=== PATIENT | female | born 1935 | race Caucasian/White ===

== ENCOUNTER 2016-08-08 19:29 | Observation (INO) | payer OTHER ==
[~2016-08-08] VITALS: Ht 154.9 cm; Wt 75.4 kg
[~2016-08-08 19:29] MED LIST: ASPI81TA28 PO; CALCTAB7 PO; CHOL1TAB2 PO; FURO40TA3 PO; LISI40TA PO; PRAV40TA2 PO; TERA5CAP PO
--- NOTE | 2016-08-08 19:52 | EMERGENCY ROOM VISIT NOTE ---
History Report prepared by Angelo: Karla Palm Under the Supervision of: Dr. Stephen Borges M.D. First contact with patient: 19:36 Stated Complaint: CHEST PAIN History of Present Illness The patient is a 81 year old female who presents to the Emergency Room with complaints of intermittent chest pains for the past couple of days. She describes her pain as a pressure in her chest. Today her symptoms were worse and she was feeling short of breath with her pain. She reports that her stomach felt like it was "rolling around." The patient was brought to the ED by ambulance. She was given 4 aspirin and 1 nitro en route and states that her symptoms have completely resolved after the medication. The patient denies LOC, headache, abdominal pain, vomiting, palpations, back pain, urinary symptoms, diarrhea, and swelling in her legs. She has a personal history of a-fib and is on Coumadin. Her INR was checked 3 weeks ago. The patient has been recently treated for hypertension. Source of History: patient Onset: a couple of days ago Position: chest Quality: pressure Timing: intermittent Modifying Factors (Relieving): other (aspirin and nitro) Associated Symptoms: + SOB, No LOC, No abdominal pain, No back pain, No diarrhea, No headache, No urinary symptoms, No vomiting Review of Systems See HPI for pertinent positives & negatives. A total of 10 systems reviewed and were otherwise negative. Past Medical & Surgical Medical Problems: (1) Atrial fibrillation (2) Gout (3) Hyperlipidemia Nec/Nos (4) Hypertension Nos (5) PEDRITO on CPAP (6) Osteoporosis Nos Surgical Problems: (1) H/O: hysterectomy (2) History of cataract surgery (3) History of cholecystectomy (4) History of parathyroid surgery Family History No pertinent family history Social History Smoking Status: Never Smoker Marital Status: Housing Status: lives with significant other Occupation Status: retired Current/Historical Medications Scheduled Allopurinol (Allopurinol), 100 MG PO DAILY Aspirin (Aspirin Ec), 81 MG PO DAILY Calcium Carbonate-Vitamin D W/ (Caltrate 600 Plus), 1 TABLET PO DAILY Cholecalciferol (Vitamin D-3), 1,000 INTER.UNIT PO DAILY Hydralazine Hcl (Apresoline), 25 MG PO TID Lisinopril (Zestril), 40 MG PO DAILY Pravastatin Sodium (Pravastatin Sodium), 40 MG PO DAILY Terazosin (Hytrin), 5 MG PO HS Warfarin Sod (Jantoven), 5 MG PO 5XWK Warfarin Sodium (Warfarin Sodium), 2.5 MG PO 2XWK Scheduled PRN Hydroxyzine HCl (Hydroxyzine HCl), 25 MG PO DAILY PRN for prn Lorazepam (Lorazepam), 0.5 MG PO Q8 PRN for Anxiety Allergies Coded Allergies: Naproxen (Unverified Allergy, Mild, 08/08/16) Physical Exam Vital Signs Date Time Temp Pulse Resp B/P Pulse Ox O2 Delivery O2 Flow Rate FiO2 08/08/16 22:00 158/70 08/08/16 21:41 72 18 95 08/08/16 21:30 151/75 08/08/16 21:11 68 30 95 08/08/16 21:06 69 20 96 08/08/16 21:00 152/82 08/08/16 20:36 64 25 95 08/08/16 20:30 191/70 08/08/16 20:06 66 19 96 08/08/16 20:01 189/61 08/08/16 19:59 66 19 97 08/08/16 19:39 86 08/08/16 19:30 96 Room Air 08/08/16 19:29 97 Room Air 08/08/16 19:29 36.5 82 24 184/77 97 Room Air Physical Exam GENERAL: Patient is elderly appearing and in no acute distress. HEENT: No acute trauma, normocephalic atraumatic, mucous membranes moist, no nasal congestion, no scleral icterus. NECK: No stridor, no adenopathy, no meningismus, trachea is midline. LUNGS: No dyspnea. Clear to auscultation and equal bilaterally. No wheeze, no rhonchi. HEART: Regular rate and rhythm. No murmurs, rubs, gallops appreciated. ABDOMEN: Soft, nontender, bowel sounds positive, no masses appreciated, no peritonitis. BACK: No midline tenderness, no CVA tenderness EXTREMITIES: Normal motion all extremities, no cyanosis, no edema. NEUROLOGIC: Alert and oriented, no acute motor or sensory deficits, no focal weakness, cranial nerves grossly intact. SKIN: No rash, no jaundice, no diaphoresis. Medical Decision & Procedures ER Provider Diagnostic Interpretation: Radiology results and stated below per my review and radiologist interpretation: CHEST ONE VIEW PORTABLE CLINICAL HISTORY: Chest pain. COMPARISON STUDY: Chest radiograph August 23, 2014. FINDINGS: Lung volumes are normal. There is no pneumothorax or pleural effusion. There is no consolidation to suggest pneumonia. Mild cardiomegaly is unchanged. There is mild interstitial thickening which is likely chronic. There is no evidence of pulmonary edema. IMPRESSION: No acute findings. Stable mild cardiomegaly. Electronically signed by: Michi Grant M.D. 08/08/2016 8:12 PM Dictated Date/Time: 08/08/2016 8:11 PM Laboratory Results 08/08/16 19:11 Red Blood Count 4.16, Mean Corpuscular Volume 89.7, Mean Corpuscular Hemoglobin 30.8, Mean Corpuscular Hemoglobin Concent 34.3, Mean Platelet Volume 11.1, Neutrophils (%) (Auto) 49.3, Lymphocytes (%) (Auto) 35.7, Monocytes (%) (Auto) 11.4, Eosinophils (%) (Auto) 3.2, Basophils (%) (Auto) 0.3, Neutrophils # (Auto ) 3.49, Lymphocytes # (Auto) 2.53, Monocytes # (Auto) 0.81, Eosinophils # (Auto ) 0.23, Basophils # (Auto) 0.02 08/08/16 19:11 Test 08/08/16 19:11 08/08/16 20:45 White Blood Count 7.09 K/uL (4.8-10.8) Red Blood Count 4.16 M/uL (4.2-5.4) Hemoglobin 12.8 g/dL (12.0-16.0) Hematocrit 37.3 % (37-47) Mean Corpuscular Volume 89.7 fL (80-100) Mean Corpuscular Hemoglobin 30.8 pg (25-34) Mean Corpuscular Hemoglobin Concent 34.3 g/dl (32-36) Platelet Count 225 K/uL (130-400) Mean Platelet Volume 11.1 fL (7.4-10.4) Neutrophils (%) (Auto) 49.3 % Lymphocytes (%) (Auto) 35.7 % Monocytes (%) (Auto) 11.4 % Eosinophils (%) (Auto) 3.2 % Basophils (%) (Auto) 0.3 % Neutrophils # (Auto) 3.49 K/uL (1.4-6.5) Lymphocytes # (Auto) 2.53 K/uL (1.2-3.4) Monocytes # (Auto) 0.81 K/uL (0.11-0.59) Eosinophils # (Auto) 0.23 K/uL (0-0.5) Basophils # (Auto) 0.02 K/uL (0-0.2) RDW Standard Deviation 46.8 fL (36.4-46.3) RDW Coefficient of Variation 14.2 % (11.5-14.5) Immature Granulocyte % (Auto) 0.1 % Immature Granulocyte # (Auto) 0.01 K/uL (0.00-0.02) Prothrombin Time 16.1 SECONDS (9.0-12.0) Prothromb Time International Ratio 1.5 (0.9-1.1) Anion Gap 8.0 mmol/L (3-11) Est Creatinine Clear Calc Drug Dose 47.4 ml/min Estimated GFR () 74.0 Estimated GFR (Non- 63.8 BUN/Creatinine Ratio 23.9 (10-20) Calcium Level 9.5 mg/dl (8.5-10.1) Troponin I < 0.015 ng/ml (0-0.045) Urine Color YELLOW Urine Appearance CLEAR (CLEAR) Urine pH 6.0 (4.5-7.5) Urine Specific [place] 1.006 (1.000-1.030) Urine Protein NEG (NEG) Urine Glucose (UA) NEG (NEG) Urine Ketones NEG (NEG) Urine Occult Blood NEG (NEG) Urine Nitrite NEG (NEG) Urine Bilirubin NEG (NEG) Urine Urobilinogen NEG (NEG) Urine Leukocyte Esterase MODERATE (NEG) Urine WBC (Auto) 10-30 /hpf (0-5) Urine RBC (Auto) 0-4 /hpf (0-4) Urine Hyaline Casts (Auto) 0 /lpf (0-5) Urine Epithelial Cells (Auto) 10-20 /lpf (0-5) Urine Bacteria (Auto) NEG (NEG) Laboratory results as reviewed by me. Medications Administered Medications (Trade) Dose Ordered Sig/Padmaja Route Start Time Stop Time Status Last Admin Dose Admin Hydralazine HCl (HydrALAZINE INJ) 10 mg NOW STAT IV. 08/08/16 20:37 08/08/16 20:38 DC 08/08/16 20:43 10 MG Nitroglycerin (Nitroglycerin 2% Oint) 0.5 inch Q6H EXT 08/08/16 22:00 09/07/16 21:59 08/08/16 22:33 0.5 INCH ECG Indication: chest pain Rate (beats per minute): 76 Rhythm: sinus rhythm Findings: LBBB, no acute ischemic change, no ectopy Comparison ECG Date: 08/25/14 Change: no significant change ED Course 1937: The patient was evaluated in room B12B. A complete history and physical exam was performed. 2035: I reassessed the patient at this time. She is resting comfortably. Her systolic blood pressure is 190 and I will order Hydralazine. I discussed the results and treatment plan with the patient and her family. I answered all pertaining questions that they had. They expressed understanding and verbalized agreement. 2036: Hydralazine HCl 10 mg IV 2048: I paged the [facility] Hospitalist at this time. 2100: [facility] Medical Decision Differential: Cardiac Ischemia (STEMI, NSTEMI, Unstable Angina, etc), Aortic Dissection, Arrhythmia, Pulmonary Embolism, Pneumonia, Pneumothorax, MSK, Infectious, Pericarditis/Myocarditis, Esophageal Rupture, Gastrointestinal, amongst other pathologies entertained. 81 yr old female arrives with substernal chest pressure today that resolved with SLNTG and ASA by EMS. Initial trop ekg look OK. Hypertensive and given IV hydralazine. Labs look good otherwise. No evidence of PE/dissection. Will need further cardiac rule out/evaluation given age/risk factors. Impression Primary Impression: Substernal chest pain Additional Impression: Hypertensive urgency Scribe Attestation The scribe's documentation has been prepared under my direction and personally reviewed by me in its entirety. I confirm that the note above accurately reflects all work, treatment, procedures, and medical decision making performed by me. Departure Information Dispostion Being Evaluated By Hospitalist Joel Badillo MD (PCP) Problem Qualifiers
[2016-08-08 19:57] LABS: BASO % 0.3 %; BASO ABS # 0.02 K/uL (0-0.2); COMPLETE YES; EOS % 3.2 %; HEMATOCRIT 37.3 % (37-47); IG% 0.1 %; LYMPH % 35.7 %; LYMPH ABS # 2.53 K/uL (1.2-3.4); MEAN CELL VOLUME 89.7 fL (80-100); MEAN CORPUSCULAR HEMOGLOBIN 30.8 pg (25-34); MEAN CORPUSCULAR HGB CONC 34.3 g/dl (32-36); MEAN PLATELET VOLUME 11.1 fL (7.4-10.4); MONO % 11.4 %; NEUT % 49.3 %; PLATELET COUNT 225 K/uL (130-400); RED BLOOD COUNT 4.16 M/uL (4.2-5.4); WHITE BLOOD COUNT 7.09 K/uL (4.8-10.8)
[2016-08-08 20:07] LABS: BLOOD UREA NITROGEN 20 mg/dl (7-18); BUN/CREATININE RATIO 23.9 (10-20); CALCIUM 9.5 mg/dl (8.5-10.1); CARBON DIOXIDE 27 mmol/L (21-32); CHLORIDE 109 mmol/L (98-107); CREATININE 0.85 mg/dl (0.60-1.20); GLUCOSE 102 mg/dl (70-99); POTASSIUM 3.5 mmol/L (3.5-5.1); SODIUM 144 mmol/L (136-145)
[2016-08-08 20:09] LABS: INR 1.5 (0.9-1.1); PROTHROMBIN TIME (PATIENT) 16.1 SECONDS (9.0-12.0)
--- NOTE | 2016-08-08 20:14 | DIAGNOSTIC IMAGING REPORT ---
CHEST ONE VIEW PORTABLE CLINICAL HISTORY: Chest pain. COMPARISON STUDY: Chest radiograph August 23, 2014. FINDINGS: Lung volumes are normal. There is no pneumothorax or pleural effusion. There is no consolidation to suggest pneumonia. Mild cardiomegaly is unchanged. There is mild interstitial thickening which is likely chronic. There is no evidence of pulmonary edema. IMPRESSION: No acute findings. Stable mild cardiomegaly. Electronically signed by: Michi Grant M.D. 08/08/2016 8:12 PM Dictated Date/Time: 08/08/2016 8:11 PM
[2016-08-08] MEDS ORDERED: WARF-246 PO (20:22)
[2016-08-08] MEDS ORDERED: WARF5TAB7 PO (20:22)
[2016-08-08] MEDS ORDERED: LORA0.5T12 PO (20:22)
[2016-08-08] MEDS ORDERED: ATR25 PO (20:22)
[2016-08-08] MEDS ORDERED: APR25 PO (20:22)
[2016-08-08] MEDS ORDERED: HydrALAZINE HCL 20 MG/ML VIAL IV. STA (20:37)
[2016-08-08 21:08] LABS: URINE APPEARANCE CLEAR (CLEAR); URINE BILIRUBIN NEG (NEG); URINE COLOR YELLOW; URINE NITRITE NEG (NEG); URINE SPECIFIC GRAVITY 1.006 (1.000-1.030); UROBILINOGEN NEG (NEG); ZZUR CULT IF INDIC CLEAN CATCH YES
[2016-08-08 21:25] LABS: MANUAL MICROSCOPIC REQUIRED? NO; REVIEW REQ? NO
[2016-08-08] MEDS ORDERED: ONDANSETRON INJ 2 MG/ML 2 ML VIAL IV PRN (22:00)
[2016-08-08] MEDS ORDERED: HEPARIN SOD 5000 UNIT/0.5 ML CARP SQ SCH ×2 (22:00→23:00)
[2016-08-08] MEDS ORDERED: ACETAMINOPHEN 325 MG TAB PO PRN (22:00)
[2016-08-08] MEDS ORDERED: ALL100 PO (22:12)
[2016-08-08] MEDS ORDERED: hydrOXYzine HCL 25 MG TAB PO PRN (22:15)
[2016-08-08] MEDS ORDERED: LORAZEPAM 0.5 MG TAB PO PRN (22:15)
--- NOTE | 2016-08-08 22:31 | History and Physical ---
History & Physical Date & Time of Service: Aug 08, 2016 at 22:14 Chief Complaint: Chest Pain Primary Care Physician: Joel Helm MD History of Present Illness Source: patient, family, clinic records, hospital records Patient seen and examined. 81 year old female with PMHx of PAF on coumadin, HTN , HLD, and PEDRITO presents to the ED complaining of chest pain x several days. She states that she has been getting substernal chest pressure/tightness that she rates as an 8/10. She states it comes and goes at random but seems to be worse with activity. She has associated SOB and palpitations but states that they don' t feel irregular. She tried tylenol and ativan with minimal relief. Today she was cleaning her house and doing laundry so she called EMS. She denies fevers, chills, URI symptoms, nausea, vomiting, diarrhea, dysuria, calf pain and edema. Enroute patient received 4 baby aspirins and 1 nitro SL. She was symptoms free on arrival. In the ED patient was hypertensive with SBP in the 190s. Augusto were negative x 1, EKG showed LBBB which was also noted on 2014 EKG. She received Hydralazine IV and BP has improved. She will be observed for further workup and treatment. Past Medical/Surgical History Medical Problems: (1) Atrial fibrillation Status: Chronic (2) Gout Status: Chronic (3) Hyperlipidemia Nec/Nos Status: Chronic (4) Hypertension Nos Status: Chronic (5) PEDRITO on CPAP Status: Chronic (6) Osteoporosis Nos Status: Chronic Surgical Problems: (1) H/O: hysterectomy Status: Chronic (2) History of cataract surgery Status: Chronic (3) History of cholecystectomy Status: Chronic (4) History of parathyroid surgery Status: Chronic Family History FH: cancer FH: heart disease Hypertension Stroke Social History Smoking Status: Never Smoker Alcohol Use: none Marital Status: Housing status: lives with family Occupational Status: retired Immunizations History of Influenza Vaccine: N/A Influenza Vaccine Date: Jan 05, 2009 History of Tetanus Vaccine?: Unknown Tetanus Immunization Date: September 14, 1999 History of Pneumococcal: Yes Pneumococcal Date: Jan 28, 2009 History of Hepatitis B Vaccine: No Multi-Drug Resistant Organisms History of MDRO: No Allergies Coded Allergies: Naproxen (Unverified Allergy, Mild, 08/08/16) Home Medications Scheduled Allopurinol (Allopurinol), 100 MG PO DAILY Aspirin (Aspirin Ec), 81 MG PO DAILY Calcium Carbonate-Vitamin D W/ (Caltrate 600 Plus), 1 TABLET PO DAILY Cholecalciferol (Vitamin D-3), 1,000 INTER.UNIT PO DAILY Hydralazine Hcl (Apresoline), 25 MG PO TID Lisinopril (Zestril), 40 MG PO DAILY Pravastatin Sodium (Pravastatin Sodium), 40 MG PO DAILY Terazosin (Hytrin), 5 MG PO HS Warfarin Sod (Jantoven), 5 MG PO 5XWK Warfarin Sodium (Warfarin Sodium), 2.5 MG PO 2XWK Scheduled PRN Hydroxyzine HCl (Hydroxyzine HCl), 25 MG PO DAILY PRN for prn Lorazepam (Lorazepam), 0.5 MG PO Q8 PRN for Anxiety Review of Systems See above for pertinent positives & negatives. A total of 10 systems reviewed and were otherwise negative. Physical Exam Vital Signs Date Time Temp Pulse Resp B/P Pulse Ox O2 Delivery O2 Flow Rate FiO2 08/08/16 22:00 158/70 08/08/16 21:41 72 18 95 08/08/16 21:30 151/75 08/08/16 21:11 68 30 95 08/08/16 21:06 69 20 96 08/08/16 21:00 152/82 08/08/16 20:36 64 25 95 08/08/16 20:30 191/70 08/08/16 20:06 66 19 96 08/08/16 20:01 189/61 08/08/16 19:59 66 19 97 08/08/16 19:39 86 08/08/16 19:30 96 Room Air 08/08/16 19:29 97 Room Air 08/08/16 19:29 36.5 82 24 184/77 97 Room Air General Appearance: + pertinent finding (Pleasant WD/WN 81 year old female lying in bed in NAD with family at bedside ) Head: normocephalic, atraumatic Eyes: PERRL, EOMI, sclerae normal ENT: hearing grossly normal, pharynx normal Neck: supple, no JVD Respiratory/Chest: chest non-tender, lungs clear, normal breath sounds, no respiratory distress, no accessory muscle use Cardiovascular: regular rate, rhythm, no edema, no gallop, no JVD, normal peripheral pulses, + systolic murmur Abdomen/GI: normal bowel sounds, non tender, soft Back: normal inspection, no muscle spasm Extremities/Musculoskelatal: no calf tenderness, normal capillary refill, no pedal edema Neurologic/Psych: alert, oriented x 3, + pertinent finding (no focal ) Skin: normal color, warm/dry, no rash Lymphatic: no adenopathy Diagnostics Laboratory Results Results Past 24 Hours Test 08/08/16 19:11 08/08/16 20:45 Range/Units White Blood Count 7.09 4.8-10.8 K/uL Red Blood Count 4.16 4.2-5.4 M/uL Hemoglobin 12.8 12.0-16.0 g/dL Hematocrit 37.3 37-47 % Mean Corpuscular Volume 89.7 80-100 fL Mean Corpuscular Hemoglobin 30.8 25-34 pg Mean Corpuscular Hemoglobin Concent 34.3 32-36 g/dl Platelet Count 225 130-400 K/uL Mean Platelet Volume 11.1 7.4-10.4 fL Neutrophils (%) (Auto) 49.3 % Lymphocytes (%) (Auto) 35.7 % Monocytes (%) (Auto) 11.4 % Eosinophils (%) (Auto) 3.2 % Basophils (%) (Auto) 0.3 % Neutrophils # (Auto) 3.49 1.4-6.5 K/uL Lymphocytes # (Auto) 2.53 1.2-3.4 K/uL Monocytes # (Auto) 0.81 0.11-0.59 K/uL Eosinophils # (Auto) 0.23 0-0.5 K/uL Basophils # (Auto) 0.02 0-0.2 K/uL RDW Standard Deviation 46.8 36.4-46.3 fL RDW Coefficient of Variation 14.2 11.5-14.5 % Immature Granulocyte % (Auto) 0.1 % Immature Granulocyte # (Auto) 0.01 0.00-0.02 K/uL Prothrombin Time 16.1 9.0-12.0 SECONDS Prothromb Time International Ratio 1.5 0.9-1.1 Sodium Level 144 136-145 mmol/L Potassium Level 3.5 3.5-5.1 mmol/L Chloride Level 109 98-107 mmol/L Carbon Dioxide Level 27 21-32 mmol/L Anion Gap 8.0 3-11 mmol/L Blood Urea Nitrogen 20 7-18 mg/dl Creatinine 0.85 0.60-1.20 mg/dl Est Creatinine Clear Calc Drug Dose 47.4 ml/min Estimated GFR () 74.0 Estimated GFR (Non- 63.8 BUN/Creatinine Ratio 23.9 10-20 Random Glucose 102 70-99 mg/dl Calcium Level 9.5 8.5-10.1 mg/dl Troponin I < 0.015 0-0.045 ng/ml Urine Color YELLOW Urine Appearance CLEAR CLEAR Urine pH 6.0 4.5-7.5 Urine Specific [place] 1.006 1.000-1.030 Urine Protein NEG NEG Urine Glucose (UA) NEG NEG Urine Ketones NEG NEG Urine Occult Blood NEG NEG Urine Nitrite NEG NEG Urine Bilirubin NEG NEG Urine Urobilinogen NEG NEG Urine Leukocyte Esterase MODERATE NEG Urine WBC (Auto) 10-30 0-5 /hpf Urine RBC (Auto) 0-4 0-4 /hpf Urine Hyaline Casts (Auto) 0 0-5 /lpf Urine Epithelial Cells (Auto) 10-20 0-5 /lpf Urine Bacteria (Auto) NEG NEG Microbiology Results 08/08/16 Urine Culture, Received Pending Diagnostic Radiology CXR Per radiologist read: IMPRESSION: No acute findings. Stable mild cardiomegaly. EKG NSR 76 BPM, LBBB, Qtc 443 Impression Assessment and Plan 81 year old female presents to the ED complaining of several days of chest pressure/tightness with associated SOB, palpitations. Receive nitro, aspirin from EMS. Currently symptom free CHEST PAIN R/O ACS -Observation in tele -First set of CE negative in ED -Risk factors:Age, HTN, HLD -Serial Augusto and EKGs -Fasting lipid panel in AM -Echo pending to r/o heart wall abnormality - Last echo in 2014 with moderate TR , LA enlargement -Continue Aspirin, Statin -Add nitropaste -Cardiology consult for further management input appreciated -AHA diet -CBC, PRP, Mg daily -VSS stable, monitor in tele HYPERTENSIVE URGENCY -SBP >190 at times -Received IV hydralazine with improvement -Continue home lisinopril, hydralazine -Add nitropaste 0.5 inch q6h -monitor in tele URINALYSIS -Moderate leukocyte esterase 10-30 WBC, bacteria negative, Nitrite negative -denies urinary symptoms -no indication for Abx at this time PAROXYSMAL AFIB -in NSR -continue Coumadin INR 1.5 currently -follow INR HLD -continue Statin -check Lipid panel PEDRITO -continue CPAP GOUT -continue Allopurinol DVT PROPHYLAXIS: Sq heparin until INR is therapeutic CODE STATUS: LEVEL 5 DNR per my discussion with the patient and her family DISPO:observation pending further workup Patient seen in collaboration with Dr. De Jesus VTE Prophylaxis VTE Risk Assessment Done? Y/N: Yes Risk Level: Moderate Given or contraindicated: Unfractionated heparin SQ, Warfarin (Coumadin) Note ATTENDING ADDENDUM Record reviewed. Patient interviewed and examined in ED ~ 22:00. Care coordinated with Sherry Adan PA-C. Please refer to her documentation for patient's history. Briefly, 81 YO female with history of atrial fibrillation, hypertension, and other problems as noted. Recent exertional chest pressure + SOB relieved by rest; today experienced chest pressure at rest. Given aspirin by EMS. BP elevated upon arrival to ED; received IV hydralazine. Pain-free at time of my assessment. EXAM: General- no acute distress VS- as noted Neck- no JVD Lungs- clear to A&P Heart- RRR, no murmur or gallop appreciated Abdomen- + BS, soft, nontender Extremities- trace pretibial and pedal edema; no calf tenderness Neuro- alert DATA: Troponin < 0.015. INR 1.5 (on warfarin). Other lab studies as noted. CXR- cardiomegaly, no infiltrates, effusions, CHF. EKG performed at 19:34 reviewed and demonstrated NSR at 76 / minute, LBBB. ASSESSMENT AND PLAN: Recent exertional CP + SOB; chest pressure at rest today. Troponin I normal. EKG shows NSR with LBBB (intermittent LBBB in past). Possible new-onset angina. Check serial cardiac markers and EKG's. Check rest echo. Received aspirin which will be continued. Continue amlodipine and lisinopril. Add topical nitrates. No beta noah due to history of significant bradycardia. Anticoagulated on warfarin (will add SQ heparin for VTE prophylaxis until INR therapeutic). BP 184/77 upon presentation to ED. Received IV hydralazine. Continue amlodipine, lisinopril, PO hydralazine, terazosin. Best to avoid IV hydralazine with possible acute coronary syndrome. Add NTP as discussed above. History of AF, now in NSR. On warfarin with INR of 1.5. Titrate warfarin dose. Please refer to INGE Adan's documentation for discussion of other issues. Dru De Jesus MD .
[2016-08-08] MEDS: NITROGLYCERIN OINT 2% 1GM PACKET EXT SCH (22:33)
[2016-08-08] MEDS ORDERED: HEPARIN SOD 5000 UNIT/0.5 ML CARP ONE (22:33)
[2016-08-08] MEDS ORDERED: NITROGLYCERIN OINT 2% 1GM PACKET ONE (22:36)
[2016-08-08 22:50] VITALS: BP 163/72; PULSE 76; TEMP 36.4; O2SAT 94; Ht 154.9 cm; Wt 75.4 kg
[2016-08-08] MEDS ORDERED: WARFARIN SOD 5 MG TAB PO SCH (23:30)
[2016-08-08] MEDS ORDERED: IV FLUIDS COMPLETED PRN (23:45)
[2016-08-08 23:46] VITALS: BP 158/71; PULSE 75; TEMP 36.7; O2SAT 93
[2016-08-09] VITALS (9 sets, daily range): BP systolic 108–178; BP diastolic 51–70; PULSE 56–67; TEMP 36.3–36.8; O2SAT 92–97
[2016-08-09] MEDS: NITROGLYCERIN OINT 2% 1GM PACKET EXT SCH ×3 (04:05→15:50)
[2016-08-09] MEDS: HEPARIN SOD 5000 UNIT/0.5 ML CARP SQ SCH ×3 (05:55→21:08)
[2016-08-09 07:20] LABS: HEMATOCRIT 35.3 % (37-47); MEAN CELL VOLUME 90.3 fL (80-100); MEAN CORPUSCULAR HEMOGLOBIN 30.2 pg (25-34); MEAN CORPUSCULAR HGB CONC 33.4 g/dl (32-36); MEAN PLATELET VOLUME 10.5 fL (7.4-10.4); PLATELET COUNT 204 K/uL (130-400); RED BLOOD COUNT 3.91 M/uL (4.2-5.4); WHITE BLOOD COUNT 5.11 K/uL (4.8-10.8)
[2016-08-09 07:36] LABS: INR 1.7 (0.9-1.1); PROTHROMBIN TIME (PATIENT) 18.7 SECONDS (9.0-12.0)
[2016-08-09 07:42] LABS: BUN/CREATININE RATIO 22.2 (10-20); CALCIUM 8.9 mg/dl (8.5-10.1); CREATININE 0.78 mg/dl (0.60-1.20); MAGNESIUM 2.1 mg/dl (1.8-2.4); POTASSIUM 3.8 mmol/L (3.5-5.1)
[2016-08-09 07:48] LABS: CHOLESTEROL/HDL RATIO 2.8; CKMB/CK RATIO 1.7 (0-3.0)
[2016-08-09] MEDS: PRAVASTATIN SOD 40 MG TAB PO SCH (08:05)
[2016-08-09] MEDS: ASPIRIN 81 MG ECTAB PO SCH (08:05)
[2016-08-09] MEDS: CALCIUM 600MG + VIT D 400 IU TAB PO SCH (08:05)
[2016-08-09] MEDS: CHOLECALCIFEROL 1000 INTER.UNIT TAB PO SCH (08:05)
[2016-08-09] MEDS: LISINOPRIL 40 MG TAB PO SCH (08:05)
[2016-08-09] MEDS: ALLOPURINOL 100 MG TAB PO SCH (08:06)
--- NOTE | 2016-08-09 08:37 | ECHOCARDIOGRAM REPORT ---
*NOTICE TO RECEIVING CONSTITUTION PARTY AGENCY This information is strictly Confidential and protected under [place] law. [place] law prohibits you from making any further disclosure of this information unless further disclosure is expressly permitted by the written consent of the person to whom it pertains or is authorized by law. A general authorization for the release of medical or other information is not sufficient for this purpose. Hospital accepts no responsibility if the information is made available to any other person, INCLUDING THE PATIENT. Interpretation Summary * Name: ERWIN GONZALEZ Study Date: 08/09/2016 10:20 AM BP: 147/57 mmHg * Patient Location: [facility]\S\N276\S\2 HR: 57 * : 1935 (M/d/yyyy) Gender: Female Height: 61 in * Age: 81 yrs Ethnicity: [place] Weight: 166 lb * Ordering Physician: Sherry Adan * Referring Physician: Self, Referred * Performed By: Rose Ruiz RDCS * * Reason For Study: CHEST PAIN * BSA: 1.7 m2 * History: CHEST PAIN * -- Conclusions -- * Normal LV chamber size and wall thickness. * Normal LV systolic function, EF 60-65%. * No segmental left ventricular wall motion abnormalities are noted. * Grade I diastolic dysfunction. * Trace mitral regurgitation. * Mild tricuspid regurgitation. * Moderate left atrial enlargement. Procedure Details * A complete two-dimensional transthoracic echocardiogram was performed (2D, M-mode, Doppler and color flow Doppler). Left Ventricle * The left ventricle is normal in size. * There is normal left ventricular wall thickness. * Ejection Fraction = 60-65%. * Left ventricular systolic function is normal. * No segmental left ventricular wall motion abnormalities are noted. * The left ventricular wall motion is normal. Right Ventricle * The right ventricular cavity size is normal (basal dimension <4.2 cm in right ventricular apical 4-chamber view). * The right ventricular systolic function is normal as assessed by tricuspid annular plane systolic excursion (TAPSE) (normal >1.5 cm). Atria * The left atrium is moderately dilated. * Right atrial size is normal. * No ASD detected; PFO is not assessed. Mitral Valve * The mitral valve anatomy is normal. * There is no mitral valve stenosis. * There is trace mitral regurgitation. Tricuspid Valve * The tricuspid valve anatomy is normal. * There is no tricuspid stenosis. * There is mild tricuspid regurgitation. Aortic Valve * The aortic valve is not well visualized. * No hemodynamically significant valvular aortic stenosis. * There is no significant aortic regurgitation. Pulmonic Valve * The pulmonary valve is not well seen, but the Doppler examination is normal without significant regurgitation or stenosis. Great Vessels * The aortic root is normal size. Pericardium/Pleural * There is no pericardial effusion. Left Ventricular Diastolic Function * Grade I diastolic dysfunction, (abnormal relaxation pattern). MMode 2D Measurements and Calculations IVSd 0.94 cm IVSs 1.4 cm LVIDd 4.4 cm LVIDs 3.1 cm LVPWd 1.2 cm LVPWs 1.6 cm IVS/LVPW 0.82 FS 29.7 % EDV(Teich) 86.5 ml ESV(Teich) 37.2 ml EF(Teich) 57.0 % EDV(cubed) 83.8 ml ESV(cubed) 29.1 ml EF(cubed) 65.2 % % IVS thick 52.3 % % LVPW thick 35.2 % LV mass(C)d 156.3 grams LV mass(C)dI 89.5 grams/m\S\2 LV mass(C)s 162.4 grams LV mass(C)sI 93.0 grams/m\S\2 SV(Teich) 49.3 ml SI(Teich) 28.3 ml/m\S\2 SV(cubed) 54.7 ml SI(cubed) 31.3 ml/m\S\2 Ao root diam 2.5 cm Ao root area 5.1 cm\S\2 LA dimension 3.6 cm LA/Ao 1.4 LVAd ap4 24.4 cm\S\2 LVLd ap4 6.8 cm EDV(MOD-sp4) 71.7 ml EDV(sp4-el) 74.1 ml LVAs ap4 14.9 cm\S\2 LVLs ap4 5.9 cm ESV(MOD-sp4) 33.0 ml ESV(sp4-el) 32.2 ml EF(MOD-sp4) 53.9 % EF(sp4-el) 56.5 % LVAd ap2 29.0 cm\S\2 LVLd ap2 7.5 cm EDV(MOD-sp2) 91.6 ml EDV(sp2-el) 94.9 ml LVAs ap2 17.0 cm\S\2 LVLs ap2 6.3 cm ESV(MOD-sp2) 37.7 ml ESV(sp2-el) 38.7 ml EF(MOD-sp2) 58.8 % EF(sp2-el) 59.2 % LVLd %diff 9.4 % EDV(MOD-bp) 85.8 ml LVLs %diff 7.2 % ESV(MOD-bp) 36.2 ml EF(MOD-bp) 57.8 % SV(MOD-sp4) 38.7 ml SI(MOD-sp4) 22.2 ml/m\S\2 SV(MOD-sp2) 53.9 ml SI(MOD-sp2) 30.9 ml/m\S\2 SV(MOD-bp) 49.6 ml SI(MOD-bp) 28.4 ml/m\S\2 SV(sp4-el) 41.9 ml SI(sp4-el) 24.0 ml/m\S\2 SV(sp2-el) 56.2 ml SI(sp2-el) 32.2 ml/m\S\2 Doppler Measurements and Calculations MV E max chester 124.9 cm/sec MV A max chester 124.9 cm/sec MV E/A 1.0 MV dec time 0.25 sec Ao V2 max 241.3 cm/sec Ao max PG 23.3 mmHg Ao max PG (full) 11.6 mmHg Ao V2 mean 170.1 cm/sec Ao mean PG 12.8 mmHg Ao mean PG (full) 6.3 mmHg Ao V2 VTI 56.9 cm LV V1 max PG 11.7 mmHg LV V1 mean PG 6.5 mmHg LV V1 max 171.2 cm/sec LV V1 mean 119.3 cm/sec LV V1 VTI 42.4 cm SV(Ao) 289.3 ml SI(Ao) 165.7 ml/m\S\2 TR max chester 270.0 cm/sec
[2016-08-09] MEDS ORDERED: POTASSIUM CHLORIDE 10 MEQ TABCR PO ONE (11:00)
[2016-08-09] MEDS ORDERED: METOPROLOL SUCC 50MG EXT REL TAB PO ONE (14:30)
[2016-08-09] MEDS ORDERED: METOPROLOL SUCC 25MG EXT REL TAB PO ONE (14:30)
[2016-08-09] MEDS ORDERED: WARFARIN SOD 2.5 MG TAB PO SCH (16:00)
--- NOTE | 2016-08-09 16:01 | CARDIOLOGY CONSULTATION ---
DATE OF CONSULTATION: 08/09/2016 REFERRING: Sonny Horan MD PRIMARY CARE PHYSICIAN: Joel Helm MD INDICATIONS: Chest pressure, pain and hypertension. HISTORY OF PRESENT ILLNESS: The patient is an 81-year-old female, whose history is notable for: 1. Paroxysmal atrial fibrillation, on chronic anticoagulation. 2. Hypertension. 3. 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 4. Obstructive sleep apnea, on CPAP supplementation. The patient presents on this admission, noting had a very busy and stressful last 2 or 3 days. She notes blood pressure has been climbing. Has had a sense of approximately 2 days history of [id number] substernal chest pressure symptoms. Symptoms tend to be present nearly all times per her description and did not seem to wean. She noted no overt dyspnea or diaphoresis. She notes no sense of tachy-palpitations. The symptoms were aided by Ativan and Tylenol, but not relieved. She was concerned regarding increasing complaints and summoned paramedics. EKG on presentation demonstrated intermittent left bundle branch block, similar to prior study of 2014 with intermittent tracings demonstrating sinus rhythm with prominent Q-waves anteriorly. She was markedly hypertensive on presentation and received IV hydralazine. Symptoms generally resolved after administration of hydralazine. Since admission, she has had 2 short episodes of atrial fibrillation, 10-12 beats nonsustained. She denies fevers, chills or productive cough. Notes no TIA or stroke. Notes no melena, hematochezia, dysuria or hematuria. She has been anticoagulated chronically and is mildly subtherapeutic. Appetite and weight have been stable. She notes no unexplained fevers or infections. She notes she has been busy at her [employer] dinner over the past 3 days, very active, cooking, performing activities, etc. She has felt more breathless with exertion, though appears to be in relationship to "busy and hypertension" rather than anginal symptoms. ALLERGIES: NAPROSYN. MEDICATIONS: Prior to hospitalization were; allopurinol 100 mg p.o. daily, aspirin 81 mg p.o. daily, calcium carbonate 1 tablet every day, vitamin D3 1000 units every day, hydralazine 25 t.i.d. with recently increased dosing, lisinopril 40 mg p.o. daily, lorazepam p.r.n., pravastatin 40 mg daily, terazosin 5 mg daily, lithium, warfarin 5 mg five days a week and 2.5 mg Friday and Friday. PAST SURGICAL HISTORY: Notable for cataract extraction, parathyroidectomy, laparoscopic cholecystectomy and remote total abdominal hysterectomy. FAMILY HISTORY: Not notable for cardiac disease. SOCIAL HISTORY: The patient resides in [place]. She worked in a flower shop. She is a nonsmoker and nondrinker. PHYSICAL EXAMINATION: VITAL SIGNS: Heart rate is 75, blood pressure is 158/71, initial blood pressure on presentation was in 190s systolic. HEENT: Normocephalic and atraumatic. Nares without discharge. Throat was clear. NECK: Supple without thyromegaly, lymphadenopathy, JVD or bruits. LUNGS: Clear to auscultation. CARDIOVASCULAR: Regular. There is no S3 gallop. There is a grade 1/6 systolic murmur at the apex. There are no diastolic murmurs. ABDOMEN: Soft and nontender. There is no palpable hepatosplenomegaly. There is no hepatojugular reflux. EXTREMITIES: Without cyanosis or clubbing. There is no peripheral edema. There are intact distal pulses. LABORATORY DATA: Sodium is 146, potassium is 3.8, chloride is 111, bicarbonate 28, BUN 17, creatinine 0.78. EKG reveals sinus rhythm with left bundle branch block on presentation. A repeat EKG this morning reveals sinus rhythm with Q-waves, poor R-wave progression across the anterior precordial leads. Echocardiogram today demonstrates mildly increased LV thickness and normal LV function, no wall motion abnormalities. Troponins are minimally elevated on testing. CK-MB fractions are normal. Cholesterol was 139, with an LDL of 73. IMPRESSION: An 81-year-old female who carries a history of paroxysmal atrial fibrillation, intermittent left bundle branch block, hypertension, hyperlipidemia and obstructive sleep apnea who noted a very stressful week. She presented with marked hypertension and low grade to moderate chest pressure symptoms that were persistent for greater than a day on presentation despite symptoms and complaints of an extended duration. There was no significant troponin elevation. Since admission she has demonstrated intermittent brief runs of atrial fibrillation, asymptomatic. PLAN: We will increase antihypertensive therapies with increasing hydralazine to 50 t.i.d. In the past, she has had difficulty with bradycardia while on atenolol 25 mg per day. We will try low dose beta noah for both hypertension and arrhythmia control at 12.5 mg per day. All other usual medications will be continued. Current findings do not suggest an acute coronary syndrome. The patient will be continued on chronic anticoagulation with warfarin. Activities gradually increased. The patient is anxious to be discharged to home. I suspect she will require at least overnight monitoring, she should be maintained on CPAP, if it is for home usage or through hospital provided. SISI
[2016-08-09] MEDS ORDERED: WARFARIN SOD 2.5 MG TAB PO ONE (19:30)
--- NOTE | 2016-08-09 20:36 | Progress Note ---
Medicine Progress Note Date & Time of Visit: Aug 09, 2016 at 20:30. Subjective seen resting in bed, comfortable, pleasant, in good spirits denies chest pain no dyspnea, dizziness, headache, nausea no palpitations noted to have 6 beat vtach, asymptomatic denies other symptoms Objective Last 8 Hrs Date Time Temp Pulse Resp B/P Pulse Ox O2 Delivery O2 Flow Rate FiO2 08/09/16 20:00 CPAP 08/09/16 19:48 36.8 58 18 124/65 92 CPAP 08/09/16 17:38 61 152/60 08/09/16 16:00 Room Air 08/09/16 15:51 36.6 67 16 174/68 94 Room Air 08/09/16 14:32 36.4 61 20 169/70 93 Room Air Physical Exam: General- oriented x 3, not in distress, speaks in sentences with no effort Eyes- anicteric Neck- supple, no JVD, no adenopathy Lungs- clear breath sounds bilaterally Heart- regular rhythm; no murmurs Abdomen- normal bowel sounds, soft, nontender Extremities- no pretibial edema, no calf tenderness; peripheral pulses intact Neuro- alert, oriented x 3; no gross focal deficits Skin- warm & dry Laboratory Results: Last 24 Hours Test 08/08/16 20:45 08/09/16 00:57 08/09/16 07:07 08/09/16 20:17 Urine Color YELLOW Urine Appearance CLEAR Urine pH 6.0 Urine Specific [place] 1.006 Urine Protein NEG Urine Glucose (UA) NEG Urine Ketones NEG Urine Occult Blood NEG Urine Nitrite NEG Urine Bilirubin NEG Urine Urobilinogen NEG Urine Leukocyte Esterase MODERATE Urine WBC (Auto) 10-30 /hpf Urine RBC (Auto) 0-4 /hpf Urine Hyaline Casts (Auto) 0 /lpf Urine Epithelial Cells (Auto) 10-20 /lpf Urine Bacteria (Auto) NEG Total Creatine Kinase 106 U/L 109 U/L Creatine Kinase MB 2.1 ng/ml 1.8 ng/ml Creatine Kinase MB Ratio 2.0 1.7 Troponin I 0.067 ng/ml 0.034 ng/ml White Blood Count 5.11 K/uL Red Blood Count 3.91 M/uL Hemoglobin 11.8 g/dL Hematocrit 35.3 % Mean Corpuscular Volume 90.3 fL Mean Corpuscular Hemoglobin 30.2 pg Mean Corpuscular Hemoglobin Concent 33.4 g/dl RDW Standard Deviation 47.8 fL RDW Coefficient of Variation 14.4 % Platelet Count 204 K/uL Mean Platelet Volume 10.5 fL Prothrombin Time 18.7 SECONDS Prothromb Time International Ratio 1.7 Sodium Level 146 mmol/L Potassium Level 3.8 mmol/L Chloride Level 111 mmol/L Carbon Dioxide Level 28 mmol/L Anion Gap 7.0 mmol/L Blood Urea Nitrogen 17 mg/dl Creatinine 0.78 mg/dl Est Creatinine Clear Calc Drug Dose 51.6 ml/min Estimated GFR () 82.1 Estimated GFR (Non- 70.8 BUN/Creatinine Ratio 22.2 Random Glucose 95 mg/dl Calcium Level 8.9 mg/dl Magnesium Level 2.1 mg/dl Triglycerides Level 83 mg/dl Cholesterol Level 139 mg/dl HDL Cholesterol 49 mg/dl LDL Cholesterol, Calculated 73 mg/dl VLDL Cholesterol, Calculated 17 mg/dl Cholesterol/HDL Ratio 2.8 Date/Time Source Procedure Growth Status 08/08/16 20:45 Urine , Clean Catch Urine Culture - Preliminary NO GROWTH - LESS THAN 1,000 COLONIES/... Resulted Assessment & Plan 81 year old female presents to the ED complaining of several days of chest pressure/tightness with associated SOB, palpitations. Receive nitro, aspirin from EMS. Currently symptom free CHEST PAIN R/O ACS likely from Hypertensive Urgency- management noted below cardiac markers not indicative of ACS Echo noted appreciate Cardiology eval HYPERTENSIVE URGENCY - added Metoprolol increased Hydralazine continue Lisinopril URINALYSIS -Moderate leukocyte esterase 10-30 WBC, bacteria negative, Nitrite negative - urine cultures: negative PAROXYSMAL AFIB INR subtherapeutic additional coumadin 2.5mg today inr tomorrow EPISODE OF V TACH 6 beats check electrolytes Metoprolol started today monitor HLD -continue Statin PEDRITO -continue CPAP GOUT -continue Allopurinol DVT PROPHYLAXIS: Sq heparin until INR is therapeutic CODE STATUS: LEVEL 5 DNR per my discussion with the patient and her family DISPO:observation pending further workup Patient seen in collaboration with Dr. De Jesus Current Inpatient Medications: Current Inpatient Medications Medications (Trade) Dose Ordered Sig/Padmaja Route Start Time Stop Time Status Last Admin Dose Admin Acetaminophen (Tylenol Tab) 650 mg Q4H PRN PO 08/08/16 22:00 09/07/16 21:59 Ondansetron HCl (Zofran Inj) 4 mg Q6H PRN IV 08/08/16 22:00 09/07/16 21:59 Nitroglycerin (Nitroglycerin 2% Oint) 0.5 inch Q6H EXT 08/08/16 22:00 09/07/16 21:59 08/09/16 15:50 0.5 INCH Aspirin (Ecotrin Tab) 81 mg QAM PO 08/09/16 09:00 09/08/16 08:59 08/09/16 08:05 81 MG Allopurinol (Zyloprim Tab) 100 mg DAILY PO 08/09/16 09:00 09/08/16 08:59 08/09/16 08:06 100 MG Calcium/Vitamin D (Caltrate Plus Tab) 1 tab DAILY PO 08/09/16 09:00 09/08/16 08:59 08/09/16 08:05 1 TAB Cholecalciferol (Vitamin D Tab) 1,000 inter.unit DAILY PO 08/09/16 09:00 09/08/16 08:59 08/09/16 08:05 1,000 INTER.UNIT Hydroxyzine HCl (Vistaril Tab) 25 mg DAILY PRN PO 08/08/16 22:15 09/07/16 22:14 Lisinopril (Zestril Tab) 40 mg DAILY PO 08/09/16 09:00 09/08/16 08:59 08/09/16 08:05 40 MG Lorazepam (Ativan Tab) 0.5 mg Q8 PRN PO 08/08/16 22:15 09/07/16 22:14 Pravastatin Sodium (Pravachol Tab) 40 mg DAILY PO 08/09/16 09:00 09/08/16 08:59 08/09/16 08:05 40 MG Terazosin HCl (Hytrin Cap) 5 mg HS PO 08/09/16 21:00 09/08/16 20:59 Warfarin Sodium (Coumadin Tab) 5 mg SuTuWeThSa@1600 PO 08/08/16 23:30 09/07/16 23:29 08/08/16 23:53 5 MG Warfarin Sodium (Coumadin Tab) 2.5 mg MoFr@1600 PO 08/09/16 16:00 09/08/16 15:59 08/09/16 15:49 2.5 MG Miscellaneous (Iv Fluids Completed) 1 ea PRN PRN N/A 08/08/16 23:45 08/08/17 23:44 Heparin Sodium (Porcine) (Heparin Sq 5000 Unit/0.5ml) 5,000 unit Q8 SQ 08/09/16 06:00 09/08/16 05:59 08/09/16 14:01 5,000 UNIT Hydralazine HCl (Apresoline Tab) 50 mg TID PO 08/09/16 14:00 09/08/16 13:59 08/09/16 14:01 50 MG
[2016-08-09 20:46] LABS: BUN/CREATININE RATIO 27.1 (10-20); CALCIUM 8.9 mg/dl (8.5-10.1); CREATININE 0.91 mg/dl (0.60-1.20); POTASSIUM 4.3 mmol/L (3.5-5.1)
[2016-08-10 00:27] VITALS: BP 112/57; PULSE 67; TEMP 37; O2SAT 95
[2016-08-10 05:13] VITALS: BP 112/58; PULSE 54; TEMP 36.9; O2SAT 94
[2016-08-10] MEDS: HEPARIN SOD 5000 UNIT/0.5 ML CARP SQ SCH ×2 (06:09→14:00)
[2016-08-10 07:05] LABS: PROTHROMBIN TIME (PATIENT) 21.6 SECONDS (9.0-12.0)
[2016-08-10 07:21] LABS: BUN/CREATININE RATIO 31.3 (10-20); CALCIUM 8.9 mg/dl (8.5-10.1); CREATININE 0.81 mg/dl (0.60-1.20); MAGNESIUM 2.2 mg/dl (1.8-2.4); POTASSIUM 4.1 mmol/L (3.5-5.1)
[2016-08-10 07:32] VITALS: BP 134/67; PULSE 54; TEMP 36.3; O2SAT 92
[2016-08-10 08:00] VITALS: O2SAT 92
[2016-08-10] MEDS: PRAVASTATIN SOD 40 MG TAB PO SCH (08:22)
[2016-08-10] MEDS: ALLOPURINOL 100 MG TAB PO SCH (08:22)
[2016-08-10] MEDS: ASPIRIN 81 MG ECTAB PO SCH (08:22)
[2016-08-10] MEDS: CHOLECALCIFEROL 1000 INTER.UNIT TAB PO SCH (08:23)
[2016-08-10] MEDS: CALCIUM 600MG + VIT D 400 IU TAB PO SCH (08:23)
[2016-08-10] MEDS: LISINOPRIL 40 MG TAB PO SCH (08:23)
[2016-08-10 11:45] VITALS: BP 155/95; PULSE 57; TEMP 36.5; O2SAT 92
--- NOTE | 2016-08-10 13:20 | Cardiology Follow-Up ---
Subjective Subjective Date of Service: Aug 10, 2016. Pt evaluation today including: conversation w/ patient, conversation w/ family , physical exam, chart review, lab review, review of studies, review of inpatient medication list Additional Details: Pt seen and examined, with family at bedside. Denies complaint. Denies cp, sob, palpitations, lightheadedness or dizziness. tele reviewed: sinus with runs of afib and intermittent LBBB Problem List Medical Problems: (1) Hypertensive urgency Status: Acute (2) Substernal chest pain Status: Acute Review of Systems Respiratory: No cough, No dyspnea at rest, No dyspnea on exertion, No hemoptysis, No problem reported, No see HPI, No shortness of breath, No sputum, No wheezing Cardiac: No PND, No chest pain, No claudication, No edema, No orthopnea, No palpitations, No problem reported, No see HPI Objective Vital Signs Last Vital Signs Documentation Date Time Temp Pulse Resp B/P Pulse Ox O2 Delivery O2 Flow Rate FiO2 08/10/16 11:45 36.5 57 18 155/95 92 08/10/16 08:00 Room Air 08/09/16 04:40 2.0 Physical Exam: General Appearance: WD/WN, no apparent distress Eyes: bilateral eyes EOMI, bilateral eyes PERRL, bilateral eyes normal inspection ENT: normal ENT inspection, hearing grossly normal, pharynx normal Neck: supple, no adenopathy, thyroid normal, no JVD, no carotid bruits, trachea midline Respiratory/Chest: chest non-tender, lungs clear, normal breath sounds, no respiratory distress, no accessory muscle use Cardiovascular: regular rate, rhythm, no edema, no JVD Abdomen: normal bowel sounds, non tender, soft, no organomegaly Extremities: normal inspection, no pedal edema, no calf tenderness Neurologic/Psychiatric: 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 chest pain resolved no objective signs of ischemia bp now controlled no further work up necessary at this time 2. HTN likely hypertensive urgency bp now controlled with changes instituted on 08/08 would d/c to home on current regimen 3. PAF chronic cont coumadin 4. intermittent LBBB chronic stable f/u with cardiology as outpatient in 2-4 weeks ok to d/c to home from cardiac standpoint
[2016-08-10 13:34] VITALS: BP 155/95; PULSE 57; TEMP 36.5; O2SAT 92
--- NOTE | 2016-08-10 14:04 | Progress Note ---
Medicine Progress Note Date & Time of Visit: Aug 10, 2016 at 13:59. Subjective patient states she feels fine overall denies chest pain, dyspnea, dizziness, palpitations no other symptoms states she is back to baseline and would like to be discharged today Objective Last 8 Hrs Date Time Temp Pulse Resp B/P Pulse Ox O2 Delivery O2 Flow Rate FiO2 08/10/16 13:34 36.5 57 18 92 Room Air 08/10/16 11:45 36.5 57 18 155/95 92 08/10/16 08:00 92 Room Air 08/10/16 07:32 36.3 54 134/67 92 Physical Exam: General- oriented x 3, not in distress, speaks in sentences with no effort Neck- no JVD Lungs- clear breath sounds bilaterally, no rales/wheezes Heart- regular rhythm; no murmurs Abdomen- normal bowel sounds, soft, nontender Extremities- no pretibial edema, no calf tenderness Neuro- alert, oriented x 3; no gross focal deficits Skin- warm & dry Laboratory Results: Last 24 Hours Test 08/09/16 20:17 08/10/16 06:48 Sodium Level 144 mmol/L 144 mmol/L Potassium Level 4.3 mmol/L 4.1 mmol/L Chloride Level 110 mmol/L 112 mmol/L Carbon Dioxide Level 29 mmol/L 27 mmol/L Anion Gap 5.0 mmol/L 5.0 mmol/L Blood Urea Nitrogen 25 mg/dl 25 mg/dl Creatinine 0.91 mg/dl 0.81 mg/dl Est Creatinine Clear Calc Drug Dose 44.3 ml/min 49.7 ml/min Estimated GFR () 68.1 78.4 Estimated GFR (Non- 58.8 67.6 BUN/Creatinine Ratio 27.1 31.3 Random Glucose 111 mg/dl 93 mg/dl Calcium Level 8.9 mg/dl 8.9 mg/dl Magnesium Level 2.0 mg/dl 2.2 mg/dl Prothrombin Time 21.6 SECONDS Prothromb Time International Ratio 2.0 Assessment & Plan 81 year old female presents to the ED complaining of several days of chest pressure/tightness with associated SOB, palpitations. Receive nitro, aspirin from EMS. Currently symptom free CHEST PAIN LIKELY FROM HYPERTENSIUVE URGENCY ACUTE CORONARY SYNDROME RULED OUT likely from Hypertensive Urgency- management noted below cardiac markers not indicative of ACS Echo noted appreciate Cardiology eval HYPERTENSIVE URGENCY - added Metoprolol increased Hydralazine continue Lisinopril - BP improved - monitor as outpatient URINALYSIS -Moderate leukocyte esterase 10-30 WBC, bacteria negative, Nitrite negative - urine cultures: negative PAROXYSMAL AFIB continue coumadin EPISODE OF V TACH 6 beats asymptomatic Metoprolol started monitor as outpatient for symptoms HLD -continue Statin PEDRITO -continue CPAP GOUT -continue Allopurinol CODE STATUS: LEVEL 5 DNR DISPO: d/c home today ff up with PCP in 3-5 days Current Inpatient Medications: Current Inpatient Medications Medications (Trade) Dose Ordered Sig/Padmaja Route Start Time Stop Time Status Last Admin Dose Admin Acetaminophen (Tylenol Tab) 650 mg Q4H PRN PO 08/08/16 22:00 09/07/16 21:59 Ondansetron HCl (Zofran Inj) 4 mg Q6H PRN IV 08/08/16 22:00 09/07/16 21:59 Aspirin (Ecotrin Tab) 81 mg QAM PO 08/09/16 09:00 09/08/16 08:59 08/10/16 08:22 81 MG Allopurinol (Zyloprim Tab) 100 mg DAILY PO 08/09/16 09:00 09/08/16 08:59 08/10/16 08:22 100 MG Calcium/Vitamin D (Caltrate Plus Tab) 1 tab DAILY PO 08/09/16 09:00 09/08/16 08:59 08/10/16 08:23 1 TAB Cholecalciferol (Vitamin D Tab) 1,000 inter.unit DAILY PO 08/09/16 09:00 09/08/16 08:59 08/10/16 08:23 1,000 INTER.UNIT Hydroxyzine HCl (Vistaril Tab) 25 mg DAILY PRN PO 08/08/16 22:15 09/07/16 22:14 Lisinopril (Zestril Tab) 40 mg DAILY PO 08/09/16 09:00 09/08/16 08:59 08/10/16 08:23 40 MG Lorazepam (Ativan Tab) 0.5 mg Q8 PRN PO 08/08/16 22:15 09/07/16 22:14 Pravastatin Sodium (Pravachol Tab) 40 mg DAILY PO 08/09/16 09:00 09/08/16 08:59 08/10/16 08:22 40 MG Terazosin HCl (Hytrin Cap) 5 mg HS PO 08/09/16 21:00 09/08/16 20:59 08/09/16 21:05 5 MG Warfarin Sodium (Coumadin Tab) 5 mg SuTuWeThSa@1600 PO 08/08/16 23:30 09/07/16 23:29 08/08/16 23:53 5 MG Warfarin Sodium (Coumadin Tab) 2.5 mg MoFr@1600 PO 08/09/16 16:00 09/08/16 15:59 08/09/16 15:49 2.5 MG Miscellaneous (Iv Fluids Completed) 1 ea PRN PRN N/A 08/08/16 23:45 08/08/17 23:44 Heparin Sodium (Porcine) (Heparin Sq 5000 Unit/0.5ml) 5,000 unit Q8 SQ 08/09/16 06:00 09/08/16 05:59 08/10/16 06:09 5,000 UNIT Hydralazine HCl (Apresoline Tab) 50 mg TID PO 08/09/16 14:00 09/08/16 13:59 08/10/16 08:24 50 MG
[2016-08-10] MEDS ORDERED: APR50 PO (14:08)
--- NOTE | 2016-08-10 14:12 | Discharge Instructions ---
Discharge Instructions Date of Service Aug 10, 2016. Admission Reason for Admission: Substernal Chest Pain Discharge Discharge Diagnosis / Problem: CHEST PAIN Discharge Goals Goal(s): Diagnostic testing, Therapeutic intervention Activity Recommendations Activity Limitations: as noted below (NO HEAVY EXERTION UNTIL RE-EVALUATED BY PRIMARY CARE PHYSICIAN) . Instructions / Follow-Up Instructions / Follow-Up PLEASE REVIEW YOUR NEW MEDICATION LIST AND FOLLOW INSTRUCTIONS CAREFULLY. CALL PRIMARY CARE PHYSICIAN OR RETURN TO ER IMMEDIATELY IF WITH RECURRENCE OF SYMPTOMS, WEAKNESS, DIZZINESS, PALPITATIONS. FOLLOW UP WITH DR. HICKS ON AUGUST 15, 2016 AT 11:00AM. Current Hospital Diet Patient's current hospital diet: AHA Diet (Heart Healthy) Discharge Diet Recommended Diet: AHA Diet (Heart Healthy) Pending Studies Studies pending at discharge: no Laboratory Results Lipid Panel Test 08/09/16 07:07 Range/Units Triglycerides Level 83 0-150 mg/dl Cholesterol Level 139 0-200 mg/dl HDL Cholesterol 49 mg/dl Cholesterol/HDL Ratio 2.8 LDL Cholesterol, Calculated 73 mg/dl Medical Emergencies . Who to Call and When: Medical Emergencies: If at any time you feel your situation is an emergency, please call 911 immediately. . Non-Emergent Contact Non-Emergency issues call your: Primary Care Provider Call Non-Emergent contact if: your pain is worsening, you have any medication questions . Past History Medical & Surgical History: (1) Hyperlipidemia Nec/Nos (2) Hypertension Nos (3) Atrial fibrillation (4) Osteoporosis Nos (5) Hypertensive urgency (6) Substernal chest pain (7) PEDRITO on CPAP (8) Gout . "Provider Documentation" section prepared by Sonny Horan. VTE Core Measure Inpt VTE Proph given/why not?: Unfractionated heparin SQ, Warfarin (Coumadin)
--- NOTE | 2016-08-10 14:17 | Discharge Summary ---
Discharge Summary Date of Service Aug 10, 2016. Discharge Summary Admission Date: Aug 08, 2016 at 22:04 Discharge Date: Aug 10, 2016 Discharge Disposition: Home Principal Diagnosis: CHEST PAIN LIKELY FROM HYPERTENSIUVE URGENCY ACUTE CORONARY SYNDROME RULED OUT Secondary Diagnoses/Problems: PLEASE REFER TO HOSPITAL COURSE BELOW. Procedures: Echo: * Normal LV chamber size and wall thickness. * Normal LV systolic function, EF 60-65%. * No segmental left ventricular wall motion abnormalities are noted. * Grade I diastolic dysfunction. * Trace mitral regurgitation. * Mild tricuspid regurgitation. * Moderate left atrial enlargement. Consultations: [employer] Drs. Eastman/Alexi Pending Studies/Follow-Up: Please monitor BP, Hydralazine increased to 50mg tid Medication Reconciliation New Medications: Hydralazine HCl (Hydralazine HCl) 50 Mg Tab 50 MG PO TID for 30 Days, #90 TAB 2 Refills Continued Medications: Allopurinol (Allopurinol) 100 Mg Tab 100 MG PO DAILY Aspirin (Aspirin Ec) 81 Mg Tab 81 MG PO DAILY Calcium Carbonate-Vitamin D W/ (Caltrate 600 Plus) 1 Tab Tab 1 TABLET PO DAILY, TAB Cholecalciferol (Vitamin D-3) 1,000 Unit Tab 1000 INTER.UNIT PO DAILY Hydroxyzine HCl (Hydroxyzine HCl) 25 Mg Tab 25 MG PO DAILY PRN for prn, #40 Lisinopril (Zestril) 40 Mg Tab 40 MG PO DAILY, TAB Lorazepam (Lorazepam) 0.5 Mg Tab 0.5 MG PO Q8 PRN for Anxiety, #30 Pravastatin Sodium (Pravastatin Sodium) 40 Mg Tab 40 MG PO DAILY Terazosin (Hytrin) 5 Mg Cap 5 MG PO HS, CAP Warfarin Sod (Jantoven) 5 Mg Tab 5 MG PO 5XWK, TAB TAKE 5MG EVERY DAY EXCEPT FRIDAY AND FRIDAY. Warfarin Sodium (Warfarin Sodium) 5 Mg Tab 2.5 MG PO 2XWK, #30 TAKE 2.5MG MF Discontinued Medications: Hydralazine Hcl (Apresoline) 25 Mg Tab 25 MG PO TID, #90 Admission Information HPI (per Admitting provider): Patient seen and examined. 81 year old female with PMHx of PAF on coumadin, HTN , HLD, and PEDRITO presents to the ED complaining of chest pain x several days. She states that she has been getting substernal chest pressure/tightness that she rates as an 8/10. She states it comes and goes at random but seems to be worse with activity. She has associated SOB and palpitations but states that they don' t feel irregular. She tried tylenol and ativan with minimal relief. Today she was cleaning her house and doing laundry so she called EMS. She denies fevers, chills, URI symptoms, nausea, vomiting, diarrhea, dysuria, calf pain and edema. Enroute patient received 4 baby aspirins and 1 nitro SL. She was symptoms free on arrival. In the ED patient was hypertensive with SBP in the 190s. Augusto were negative x 1, EKG showed LBBB which was also noted on 2015 EKG. She received Hydralazine IV and BP has improved. She will be observed for further workup and treatment. Physical Exam (per Admitting): General Appearance: + pertinent finding (Pleasant WD/WN 81 year old female lying in bed in NAD with family at bedside ) Head: normocephalic, atraumatic Eyes: PERRL, EOMI, sclerae normal ENT: hearing grossly normal, pharynx normal Neck: supple, no JVD Respiratory/Chest: chest non-tender, lungs clear, normal breath sounds, no respiratory distress, no accessory muscle use Cardiovascular: regular rate, rhythm, no edema, no gallop, no JVD, normal peripheral pulses, + systolic murmur Abdomen/GI: normal bowel sounds, non tender, soft Back: normal inspection, no muscle spasm Extremities/Musculoskelatal: no calf tenderness, normal capillary refill, no pedal edema Neurologic/Psych: alert, oriented x 3, + pertinent finding (no focal ) Skin: normal color, warm/dry, no rash Lymphatic: no adenopathy Hospital Course 81 year old female presents to the ED complaining of several days of chest pressure/tightness with associated SOB, palpitations. Receive nitro, aspirin from EMS. Currently symptom free CHEST PAIN LIKELY FROM HYPERTENSIUVE URGENCY ACUTE CORONARY SYNDROME RULED OUT likely from Hypertensive Urgency- management noted below cardiac markers: troponin mildly elevated at one point 0.06, otherwise negative EKG no signs of acute ischemia Echo * -- Conclusions -- * Normal LV chamber size and wall thickness. * Normal LV systolic function, EF 60-65%. * No segmental left ventricular wall motion abnormalities are noted. * Grade I diastolic dysfunction. * Trace mitral regurgitation. * Mild tricuspid regurgitation. * Moderate left atrial enlargement. -- no further interventions at this time management of hypertension as noted below HYPERTENSIVE URGENCY - per Cardiology: added MetoprololXL 12.5mg increased Hydralazine continue Lisinopril - BP improved but HR decreased from 84 to 50s patient has a history of bradycardia with Beta blockers - hold Metoprolol XL for now discharge on increased dose of Hydralazine 50mg TID - monitor as outpatient URINALYSIS -Moderate leukocyte esterase 10-30 WBC, bacteria negative, Nitrite negative - urine cultures: negative PAROXYSMAL ATRIAL FIBRILLATION continue coumadin EPISODE OF V TACH 6 beats asymptomatic no recurrence monitor as outpatient for symptoms HLD -continue Statin PEDRITO -continue CPAP GOUT -continue Allopurinol CODE STATUS: LEVEL 5 DNR DISPO: d/c home ff up with PCP this week Total time spent on discharge = 35 minutes This includes examination of the patient, discharge planning, medication reconciliation, and communication with other providers. Discharge Instructions Discharge Instructions Date of Service Aug 10, 2016. Admission Reason for Admission: Substernal Chest Pain Discharge Discharge Diagnosis / Problem: CHEST PAIN Discharge Goals Goal(s): Diagnostic testing, Therapeutic intervention Activity Recommendations Activity Limitations: as noted below (NO HEAVY EXERTION UNTIL RE-EVALUATED BY PRIMARY CARE PHYSICIAN) . Instructions / Follow-Up Instructions / Follow-Up PLEASE REVIEW YOUR NEW MEDICATION LIST AND FOLLOW INSTRUCTIONS CAREFULLY. CALL PRIMARY CARE PHYSICIAN OR RETURN TO ER IMMEDIATELY IF WITH RECURRENCE OF SYMPTOMS, WEAKNESS, DIZZINESS, PALPITATIONS. FOLLOW UP WITH DR. HICKS ON AUGUST 15, 2016 AT 11:00AM. Current Hospital Diet Patient's current hospital diet: AHA Diet (Heart Healthy) Discharge Diet Recommended Diet: AHA Diet (Heart Healthy) Pending Studies Studies pending at discharge: no Laboratory Results Lipid Panel Test 08/09/16 07:07 Range/Units Triglycerides Level 83 0-150 mg/dl Cholesterol Level 139 0-200 mg/dl HDL Cholesterol 49 mg/dl Cholesterol/HDL Ratio 2.8 LDL Cholesterol, Calculated 73 mg/dl Medical Emergencies . Who to Call and When: Medical Emergencies: If at any time you feel your situation is an emergency, please call 911 immediately. . Non-Emergent Contact Non-Emergency issues call your: Primary Care Provider Call Non-Emergent contact if: your pain is worsening, you have any medication questions . Past History Medical & Surgical History: (1) Hyperlipidemia Nec/Nos (2) Hypertension Nos (3) Atrial fibrillation (4) Osteoporosis Nos (5) Hypertensive urgency (6) Substernal chest pain (7) PDERITO on CPAP (8) Gout . "Provider Documentation" section prepared by Sonny Horan. VTE Core Measure Inpt VTE Proph given/why not?: Unfractionated heparin SQ, Warfarin (Coumadin)
[2016-10-02] MEDS ORDERED: LORA-741 PO (13:07)
[2016-10-02] MEDS ORDERED: CHOL200010 PO (13:07)
[2016-10-02] MEDS ORDERED: TERA1CAP63 PO (13:07)
[2016-10-02] MEDS ORDERED: ASPCH81X PO (13:07)
[2016-10-02] MEDS ORDERED: HYDR-4717 PO (13:07)
[2016-10-02] MEDS ORDERED: PRLSR20 PO (13:07)
[2016-10-02] MEDS ORDERED: PRAV40TA PO (13:07)
[2016-10-02] MEDS ORDERED: SERT25TA PO (13:07)
[2016-10-02] MEDS ORDERED: OYST500T47 PO (13:07)
[2016-10-02] MEDS ORDERED: POLY335019 PO (13:07)
== END 2016-08-10 14:37 | disposition home or self-care (01) ==
LOC: ENRESERVDT → ENRESERVTM → EDBD 19:29 → C.EDB 19:30 → C.MED 22:04
PROVIDERS: ADMIT Hospitalist; ATTEND Internal Medicine
DX: R07.9 Chest pain, unspecified (principal); I10 Essential (primary) hypertension; I48.0 Paroxysmal atrial fibrillation; I47.2 Ventricular tachycardia; I44.7 Left bundle-branch block, unspecified; M10.9 Gout, unspecified; E78.5 Hyperlipidemia, unspecified; G47.33 Obstructive sleep apnea (adult) (pediatric); M81.0 Age-related osteoporosis without current pathological fracture; Z79.01 Long term (current) use of anticoagulants; Z79.82 Long term (current) use of aspirin; Z79.899 Other long term (current) drug therapy

== ENCOUNTER 2016-08-19 15:37 | Inpatient (IN) | payer OTHER ==
[~2016-08-19] VITALS: Ht 154.9 cm; Wt 70.0 kg
[~2016-08-19 15:37] MED LIST changes: +ALL100 PO; +APR50 PO; +ATR25 PO; -FURO40TA3 PO; +LORA0.5T12 PO; +WARF-246 PO; +WARF5TAB7 PO
[2016-08-19] MEDS ORDERED: LORAZEPAM 2 MG/ML 1 ML VIAL IV STA ×2 (15:52→19:07)
[2016-08-19] MEDS ORDERED: SODIUM CHLORIDE 0.9% 500ML 500 ML IV STA (15:52)
--- NOTE | 2016-08-19 15:59 | EMERGENCY ROOM VISIT NOTE ---
History Report prepared by Angelo: Familia Rees Under the Supervision of: Dr. Stephen Borges M.D. First contact with patient: 15:48 Chief Complaint: GI ASSESSMENT Stated Complaint: GI UPSET Nursing Triage Summary: pt arrives via EMS reports "feeling like my stomache is twisted and jumpy X 2 weeks " denies NVD. to PCP on Fri for this and MD put her on mirlax sat . with normal BM today History of Present Illness The patient is a 81 year old female who presents to the Emergency Room with complaints of worsening abdominal pain and jumpiness for the past 2 weeks. The patient additionally states that she had some diarrhea today. She states that she took some miralax since she was constipated. She is denying any nausea, vomiting, hematochezia, or sore throat. The patient states that she is a little anxious. The patient has a history of A Fib, and she is on blood thinners. She states that she has not been eating well. Source of History: patient Onset: two weeks ago Position: abdomen Quality: other (jumpiness) Timing: worsening Associated Symptoms: + diarrhea, No hematochezia, No nausea, No vomiting Review of Systems See HPI for pertinent positives & negatives. A total of 10 systems reviewed and were otherwise negative. Past Medical & Surgical Medical Problems: (1) Abdominal discomfort, generalized (2) Atrial fibrillation (3) Gout (4) Hyperlipidemia Nec/Nos (5) Hypertension Nos (6) PEDRITO on CPAP (7) Osteoporosis Nos Surgical Problems: (1) H/O: hysterectomy (2) History of cataract surgery (3) History of cholecystectomy (4) History of parathyroid surgery Family History FH: cancer FH: heart disease Hypertension Stroke Social History Smoking Status: Never Smoker Marital Status: Housing Status: lives with significant other Occupation Status: retired Current/Historical Medications Scheduled Allopurinol (Allopurinol), 100 MG PO DAILY Aspirin (Aspirin Ec), 81 MG PO HS Calcium Carbonate-Vitamin D W/ (Caltrate 600 Plus), 1 TABLET PO NOON Cholecalciferol (Vitamin D-3), 1,000 INTER.UNIT PO NOON Hydralazine HCl (Hydralazine HCl), 50 MG PO TID Lisinopril (Zestril), 40 MG PO DAILY Polyethylene Glycol 3350 (Miralax), 17 GM PO DAILY Pravastatin Sodium (Pravastatin Sodium), 40 MG PO DAILY Terazosin (Hytrin), 5 MG PO HS Warfarin Sod (Jantoven), 5 MG PO 5XWK Warfarin Sodium (Warfarin Sodium), 2.5 MG PO 2XWK Scheduled PRN Lorazepam (Lorazepam), 0.5 MG PO Q8 PRN for Anxiety Allergies Coded Allergies: Naproxen (Unverified Allergy, Mild, 08/19/16) Physical Exam Vital Signs Date Time Temp Pulse Resp B/P Pulse Ox O2 Delivery O2 Flow Rate FiO2 08/19/16 18:39 120 20 163/70 96 Room Air 08/19/16 18:10 96 Room Air 08/19/16 17:23 125 20 149/68 96 Room Air 08/19/16 16:39 120 20 178/85 96 Room Air 08/19/16 16:34 78 08/19/16 15:44 36.7 93 20 170/69 96 Room Air Physical Exam GENERAL: Patient is very anxious appearing and in no acute distress. HEENT: No acute trauma, normocephalic atraumatic, mucous membranes moist, no nasal congestion, no scleral icterus. NECK: No stridor, no adenopathy, no meningismus, trachea is midline. LUNGS: No dyspnea. Clear to auscultation and equal bilaterally. No wheeze, no rhonchi. HEART: Periodic skipped or extra heart beats. Regular rate and rhythm. No murmurs, rubs, appreciated. ABDOMEN: Vague diffuse tenderness to the entire abdomen. Soft, bowel sounds positive, no masses appreciated, no peritonitis. BACK: No midline tenderness, no CVA tenderness EXTREMITIES: Normal motion all extremities, no cyanosis, no edema. NEUROLOGIC: Alert and oriented, no acute motor or sensory deficits, no focal weakness, cranial nerves grossly intact. SKIN: No rash, no jaundice, no diaphoresis. Medical Decision & Procedures ER Provider Diagnostic Interpretation: Radiology results and stated below per my review and radiologist interpretation: ABDOMEN AND PELVIS CT WITHOUT CONTRAST CT DOSE: 876.08 mGycm HISTORY: Generalized abdominal pain. TECHNIQUE: Multiaxial CT images of the abdomen and pelvis were performed without the use of intravenous and oral contrast according to the standard department stone protocol. COMPARISON STUDY: None. FINDINGS: Small pericardial effusion. Mild interstitial thickening at the lung bases. This is likely chronic. No pneumoperitoneum. No pneumatosis. No suspicious lytic or blastic osseous lesions. Cholecystectomy. The unenhanced liver, spleen, adrenal glands, pancreas, and kidneys are unremarkable. No retroperitoneal lymphadenopathy. The bladder is unremarkable. Hysterectomy. Suboptimal evaluation for bowel pathology due to the lack of intravenous and oral contrast. However, there is no definite bowel wall thickening or obstruction. IMPRESSION: 1. Small pericardial effusion. 2. No definite bowel wall thickening or obstruction. 3. Cholecystectomy. 4. Hysterectomy. 5. No renal stones or hydronephrosis. Electronically signed by: Ryder Gandhi M.D. 08/19/2016 4:45 PM Dictated Date/Time: 08/19/2016 4:40 PM Laboratory Results 08/19/16 15:55 Red Blood Count 4.27, Mean Corpuscular Volume 91.3, Mean Corpuscular Hemoglobin 30.4, Mean Corpuscular Hemoglobin Concent 33.3, Mean Platelet Volume 11.1, Neutrophils (%) (Auto) 56.7, Lymphocytes (%) (Auto) 29.1, Monocytes (%) (Auto) 11.3, Eosinophils (%) (Auto) 2.1, Basophils (%) (Auto) 0.5, Neutrophils # (Auto ) 3.50, Lymphocytes # (Auto) 1.80, Monocytes # (Auto) 0.70, Eosinophils # (Auto ) 0.13, Basophils # (Auto) 0.03 08/19/16 15:55 Test 08/19/16 15:55 White Blood Count 6.18 K/uL (4.8-10.8) Red Blood Count 4.27 M/uL (4.2-5.4) Hemoglobin 13.0 g/dL (12.0-16.0) Hematocrit 39.0 % (37-47) Mean Corpuscular Volume 91.3 fL (80-100) Mean Corpuscular Hemoglobin 30.4 pg (25-34) Mean Corpuscular Hemoglobin Concent 33.3 g/dl (32-36) Platelet Count 239 K/uL (130-400) Mean Platelet Volume 11.1 fL (7.4-10.4) Neutrophils (%) (Auto) 56.7 % Lymphocytes (%) (Auto) 29.1 % Monocytes (%) (Auto) 11.3 % Eosinophils (%) (Auto) 2.1 % Basophils (%) (Auto) 0.5 % Neutrophils # (Auto) 3.50 K/uL (1.4-6.5) Lymphocytes # (Auto) 1.80 K/uL (1.2-3.4) Monocytes # (Auto) 0.70 K/uL (0.11-0.59) Eosinophils # (Auto) 0.13 K/uL (0-0.5) Basophils # (Auto) 0.03 K/uL (0-0.2) RDW Standard Deviation 47.1 fL (36.4-46.3) RDW Coefficient of Variation 14.1 % (11.5-14.5) Immature Granulocyte % (Auto) 0.3 % Immature Granulocyte # (Auto) 0.02 K/uL (0.00-0.02) Erythrocyte Sedimentation Rate 18 mm/hr (0-21) Prothrombin Time 20.9 SECONDS (9.0-12.0) Prothromb Time International Ratio 1.9 (0.9-1.1) Activated Partial Thromboplast Time 31.7 SECONDS (21.0-31.0) Partial Thromboplastin Ratio 1.2 Anion Gap 7.0 mmol/L (3-11) Est Creatinine Clear Calc Drug Dose 44.1 ml/min Estimated GFR () 70.9 Estimated GFR (Non- 61.2 BUN/Creatinine Ratio 26.2 (10-20) Calcium Level 9.8 mg/dl (8.5-10.1) Total Bilirubin 0.6 mg/dl (0.2-1) Direct Bilirubin 0.1 mg/dl (0-0.2) Aspartate Amino Transf (AST/SGOT) 14 U/L (15-37) Alanine Aminotransferase (ALT/SGPT) 22 U/L (12-78) Alkaline Phosphatase 69 U/L (45-117) Troponin I < 0.015 ng/ml (0-0.045) C-Reactive Protein < 0.29 mg/dl (0-0.29) Total Protein 7.4 gm/dl (6.4-8.2) Albumin 4.2 gm/dl (3.4-5.0) Lipase 314 U/L (73-393) Laboratory results as reviewed by me. Medications Administered Medications (Trade) Dose Ordered Sig/Padmaja Route Start Time Stop Time Status Last Admin Dose Admin Lorazepam 0.5 mg 0.5 mg NOW STAT IV 08/19/16 15:52 08/19/16 15:54 DC 08/19/16 16:39 0.5 MG Sodium Chloride (Nss 500ml) 500 ml @ 999 mls/hr Q31M STAT IV 08/19/16 15:52 08/19/16 16:22 DC 08/19/16 16:39 999 MLS/HR Lorazepam (Ativan Inj) 0.5 mg NOW STAT IV 08/19/16 19:07 08/19/16 19:46 DC 08/19/16 19:53 0.5 MG ECG Indication: abdominal pain Rate (beats per minute): 86 Rhythm: sinus rhythm Findings: LBBB, no acute ischemic change, no ectopy Change: no significant change ED Course 1548: The patient was evaluated in room B2. A complete history and physical exam was performed. 1552: Sodium Chloride 500 ml @ 999 mls/hr IV, Ativan Inj 0.5mg IV 1715: I discussed the patient's case with Dr. Mcnamara, Cardiology, and he says that he feels the patient needs a stat echo, and he is going to look into if it can be done 1725: I talked with Dr. Mcnamara, Cardiology again, and he states that he feels as if the patient should be admitted for a new pericardial effusion, and he asked for a CRP and an ESR 1731: I discussed the patient's case with Barbara Dubon PA-C. She is going to evaluate the patient for further treatment Medical Decision Differential: Appendicitis, Diverticulitis, PUD/Gastritis, Biliary Pathology, UTI, Pyelonephritis, Renal Colic, Bowel Obstruction, Aortic Pathology, Acute Coronary Syndrome, amongst other pathologies entertained. 81 yr old female arrives for evaluation of fatigue, abdominal discomfort, bowel irregularity and anxiety. Tachy on vitals though with each check pulse is in 80s-90s with no evidence of tachycardia. Not hypotensive. CT done revealing no specific intraabdominal issue though does have pericardial effusion. Discussed this with cardiology who note this is new from echo just a few weeks ago. She does not have tamponade physiology. She is not septic, WBC/CRP/ESR are ok. Cardiology feels she will need urgent echo and will arraign that for morning if hospitalist can bring in for further work-up and evaluation of other issues. Consults Time Called: 1708 Consulting Physician: Dr. Mcnamara Returned Call: [phone], [phone] I discussed the patient's case with Dr. Mcnamara, Cardiology, and he says that he feels the patient needs a stat echo, and he is going to look into if it can be done. I talked with Dr. Mcnamara, Cardiology again, and he states that he feels as if the patient should be admitted for a new pericardial effusion, and he asked for a CRP and an ESR Additional Consults: Time Called: [phone] Consulted Physician: Barbara Dubon PA-C Returned Call: [phone] Additional Comments: I discussed the patient's case with Barbara Dubon PA-C. She is going to evaluate the patient for further treatment Impression Primary Impression: Pericardial effusion Additional Impression: Abdominal discomfort Scribe Attestation The scribe's documentation has been prepared under my direction and personally reviewed by me in its entirety. I confirm that the note above accurately reflects all work, treatment, procedures, and medical decision making performed by me. Departure Information Dispostion Being Evaluated By Hospitalist Joel Badillo MD (PCP) Patient Instructions [facility] Problem Qualifiers
[2016-08-19 16:18] LABS: BASO % 0.5 %; BASO ABS # 0.03 K/uL (0-0.2); COMPLETE YES; EOS % 2.1 %; IG% 0.3 %; LYMPH % 29.1 %; MEAN CELL VOLUME 91.3 fL (80-100); MEAN CORPUSCULAR HEMOGLOBIN 30.4 pg (25-34); MEAN CORPUSCULAR HGB CONC 33.3 g/dl (32-36); MEAN PLATELET VOLUME 11.1 fL (7.4-10.4); MONO % 11.3 %; NEUT % 56.7 %; PLATELET COUNT 239 K/uL (130-400); RED BLOOD COUNT 4.27 M/uL (4.2-5.4); WHITE BLOOD COUNT 6.18 K/uL (4.8-10.8)
[2016-08-19 16:30] LABS: INR 1.9 (0.9-1.1); PARTIAL THROMBOPLASTIN RATIO 1.2; PROTHROMBIN TIME (PATIENT) 20.9 SECONDS (9.0-12.0)
--- NOTE | 2016-08-19 16:47 | DIAGNOSTIC IMAGING REPORT ---
ABDOMEN AND PELVIS CT WITHOUT CONTRAST CT DOSE: 876.08 mGycm HISTORY: Generalized abdominal pain. TECHNIQUE: Multiaxial CT images of the abdomen and pelvis were performed without the use of intravenous and oral contrast according to the standard department stone protocol. COMPARISON STUDY: None. FINDINGS: Small pericardial effusion. Mild interstitial thickening at the lung bases. This is likely chronic. No pneumoperitoneum. No pneumatosis. No suspicious lytic or blastic osseous lesions. Cholecystectomy. The unenhanced liver, spleen, adrenal glands, pancreas, and kidneys are unremarkable. No retroperitoneal lymphadenopathy. The bladder is unremarkable. Hysterectomy. Suboptimal evaluation for bowel pathology due to the lack of intravenous and oral contrast. However, there is no definite bowel wall thickening or obstruction. IMPRESSION: 1. Small pericardial effusion. 2. No definite bowel wall thickening or obstruction. 3. Cholecystectomy. 4. Hysterectomy. 5. No renal stones or hydronephrosis. Electronically signed by: Ryder Gandhi M.D. 08/19/2016 4:45 PM Dictated Date/Time: 08/19/2016 4:40 PM
[2016-08-19 16:52] LABS: ALT/SGPT 22 U/L (12-78); AST/SGOT 14 U/L (15-37); BLOOD UREA NITROGEN 23 mg/dl (7-18); BUN/CREATININE RATIO 26.2 (10-20); CALCIUM 9.8 mg/dl (8.5-10.1); CARBON DIOXIDE 27 mmol/L (21-32); CHLORIDE 108 mmol/L (98-107); CREATININE 0.88 mg/dl (0.60-1.20); GLUCOSE 105 mg/dl (70-99); POTASSIUM 3.9 mmol/L (3.5-5.1); SODIUM 142 mmol/L (136-145)
[2016-08-19 16:57] LABS: ALKALINE PHOSPHATASE 69 U/L (45-117)
[2016-08-19] MEDS ORDERED: POLY335019 PO (17:12)
[2016-08-19 18:10] VITALS: O2SAT 96; Ht 154.9 cm; Wt 70.0 kg
[2016-08-19] MEDS ORDERED: ACETAMINOPHEN 325 MG TAB PO PRN (19:15)
[2016-08-19] MEDS ORDERED: ENOXAPARIN 40 MG/0.4 ML SYR SC SCH (19:15)
[2016-08-19] MEDS ORDERED: ONDANSETRON INJ 2 MG/ML 2 ML VIAL IV PRN (19:15)
[2016-08-19] MEDS ORDERED: LORAZEPAM 0.5 MG TAB PO PRN (19:15)
[2016-08-19] MEDS ORDERED: POLYETHYLENE (MIRALAX) 17 GM PACK PO PRN (19:15)
--- NOTE | 2016-08-19 19:45 | History and Physical ---
History & Physical Date & Time of Service: Aug 19, 2016 at 19:23 Chief Complaint: Gi Upset Primary Care Physician: Joel Helm MD History of Present Illness Source: patient 81 yoF with atrial fibrillation on Coumadin presents to the ER with a nervousness in her central abdomen that has been ongoing for the past 2-3 weeks , but intensified this morning. The discomfort is constant with nothing making it better. She has a decreased appetite but no nausea, vomiting or diarrhea. She did take some Miralax for constipation yesterday which gave her some expected loose stools today. BM and food do not alleviate the discomfort, which she describes as a gnawing and churning in her abdomen centered around the umbilicus. She was recently in the hospital last week for chest pressure which has not returned. At that time she had an echo that was unremarkable and she was sent home. She states since then she has been feeling well and was up and cooking dinner last night. She does admit to constant anxiety and she and family both feel there is a relationship with anxiety to this discomfort. Atican 0.5mg IV given in the ER has already alleviated her discomfort somewhat. As an aside, a CT a/p was performed and revealed a new pericardial effusion which was looked at by Dr. Mcnamara. He recommended keeping her overnight to evaluate this more closely with an TTE in the morning. ROS is negative for CP, SOB, nausea, vomiting, diarrhea, abdominal pain, headache, swelling, weight gain or any other symptom at this time. At least ten systems were reviewed. Past Medical/Surgical History Medical Problems: (1) Atrial fibrillation Status: Chronic (2) Gout Status: Chronic (3) Hyperlipidemia Nec/Nos Status: Chronic (4) Hypertension Nos Status: Chronic (5) PEDRITO on CPAP Status: Chronic (6) Osteoporosis Nos Status: Chronic Surgical Problems: (1) H/O: hysterectomy Status: Chronic (2) History of cataract surgery Status: Chronic (3) History of cholecystectomy Status: Chronic (4) History of parathyroid surgery Status: Chronic Family History FH: cancer FH: heart disease Hypertension Stroke Social History Smoking Status: Never Smoker Smokeless Tobacco Use: No Alcohol Use: none Drug Use: none Marital Status: single, Housing status: lives with family Occupational Status: retired Immunizations History of Influenza Vaccine: Yes Influenza Vaccine Date: Feb 02, 2016 History of Tetanus Vaccine?: Yes Tetanus Immunization Date: September 14, 1999 History of Pneumococcal: Yes Pneumococcal Date: Jun 10, 2014 History of Hepatitis B Vaccine: No Multi-Drug Resistant Organisms History of MDRO: No Allergies Coded Allergies: Naproxen (Unverified Allergy, Mild, 08/19/16) Home Medications Scheduled Allopurinol (Allopurinol), 100 MG PO DAILY Aspirin (Aspirin Ec), 81 MG PO HS Calcium Carbonate-Vitamin D W/ (Caltrate 600 Plus), 1 TABLET PO NOON Cholecalciferol (Vitamin D-3), 1,000 INTER.UNIT PO NOON Hydralazine HCl (Hydralazine HCl), 50 MG PO TID Lisinopril (Zestril), 40 MG PO DAILY Polyethylene Glycol 3350 (Miralax), 17 GM PO DAILY Pravastatin Sodium (Pravastatin Sodium), 40 MG PO DAILY Terazosin (Hytrin), 5 MG PO HS Warfarin Sod (Jantoven), 5 MG PO 5XWK Warfarin Sodium (Warfarin Sodium), 2.5 MG PO 2XWK Scheduled PRN Lorazepam (Lorazepam), 0.5 MG PO Q8 PRN for Anxiety Review of Systems Constitutional: No chills, No fever Eyes: No problem reported ENT: No problem reported Respiratory: No cough, No dyspnea on exertion, No shortness of breath Cardiovascular: No chest pain, No edema Abdomen: + constipation, No GI bleeding, No diarrhea, No nausea, No pain, No vomiting Genitourinary - Female: No dysuria, No hematuria, No urinary frequency, No urinary urgency Psychiatric: + anxiety Integumentary: No problem reported Physical Exam Vital Signs Date Time Temp Pulse Resp B/P Pulse Ox O2 Delivery O2 Flow Rate FiO2 08/19/16 18:39 120 20 163/70 96 Room Air 08/19/16 18:10 96 Room Air 08/19/16 17:23 125 20 149/68 96 Room Air 08/19/16 16:39 120 20 178/85 96 Room Air 08/19/16 16:34 78 08/19/16 15:44 36.7 93 20 170/69 96 Room Air GEN: WNWD, in no acute distress, alert and appropriate HEENT: NC/AT, PERRL, normal sclerae, mucous membranes are moist CARDIO: reg rate (manually taken at bedside and is 73), S1/2 heard, 3/6 KERLINE heard across precordium LUNGS: CTA bilaterally, no crackles, rales or wheezes, good diaphragmatic excursion ABD: soft, non-tender, non-distended, no rebound or guarding, +BS EXTREMITY: RP and DP palpable 2+ bilat, no LE swelling or edema, extremities are warm and well-perfused NEURO: CN 2-12 grossly intact, sensation intact throughout MUSC: moves all extremities equally, mo gross focal defiicts. SKIN: warm and dry Diagnostics Laboratory Results Results Past 24 Hours Test 08/19/16 15:55 Range/Units White Blood Count 6.18 4.8-10.8 K/uL Red Blood Count 4.27 4.2-5.4 M/uL Hemoglobin 13.0 12.0-16.0 g/dL Hematocrit 39.0 37-47 % Mean Corpuscular Volume 91.3 80-100 fL Mean Corpuscular Hemoglobin 30.4 25-34 pg Mean Corpuscular Hemoglobin Concent 33.3 32-36 g/dl Platelet Count 239 130-400 K/uL Mean Platelet Volume 11.1 7.4-10.4 fL Neutrophils (%) (Auto) 56.7 % Lymphocytes (%) (Auto) 29.1 % Monocytes (%) (Auto) 11.3 % Eosinophils (%) (Auto) 2.1 % Basophils (%) (Auto) 0.5 % Neutrophils # (Auto) 3.50 1.4-6.5 K/uL Lymphocytes # (Auto) 1.80 1.2-3.4 K/uL Monocytes # (Auto) 0.70 0.11-0.59 K/uL Eosinophils # (Auto) 0.13 0-0.5 K/uL Basophils # (Auto) 0.03 0-0.2 K/uL RDW Standard Deviation 47.1 36.4-46.3 fL RDW Coefficient of Variation 14.1 11.5-14.5 % Immature Granulocyte % (Auto) 0.3 % Immature Granulocyte # (Auto) 0.02 0.00-0.02 K/uL Erythrocyte Sedimentation Rate 18 0-21 mm/hr Prothrombin Time 20.9 9.0-12.0 SECONDS Prothromb Time International Ratio 1.9 0.9-1.1 Activated Partial Thromboplast Time 31.7 21.0-31.0 SECONDS Partial Thromboplastin Ratio 1.2 Sodium Level 142 136-145 mmol/L Potassium Level 3.9 3.5-5.1 mmol/L Chloride Level 108 98-107 mmol/L Carbon Dioxide Level 27 21-32 mmol/L Anion Gap 7.0 3-11 mmol/L Blood Urea Nitrogen 23 7-18 mg/dl Creatinine 0.88 0.60-1.20 mg/dl Est Creatinine Clear Calc Drug Dose 44.1 ml/min Estimated GFR () 70.9 Estimated GFR (Non- 61.2 BUN/Creatinine Ratio 26.2 10-20 Random Glucose 105 70-99 mg/dl Calcium Level 9.8 8.5-10.1 mg/dl Total Bilirubin 0.6 0.2-1 mg/dl Direct Bilirubin 0.1 0-0.2 mg/dl Aspartate Amino Transf (AST/SGOT) 14 15-37 U/L Alanine Aminotransferase (ALT/SGPT) 22 12-78 U/L Alkaline Phosphatase 69 45-117 U/L Troponin I < 0.015 0-0.045 ng/ml C-Reactive Protein < 0.29 0-0.29 mg/dl Total Protein 7.4 6.4-8.2 gm/dl Albumin 4.2 3.4-5.0 gm/dl Lipase 314 73-393 U/L Diagnostic Radiology ABDOMEN AND PELVIS CT WITHOUT CONTRAST CT DOSE: 876.08 mGycm HISTORY: Generalized abdominal pain. TECHNIQUE: Multiaxial CT images of the abdomen and pelvis were performed without the use of intravenous and oral contrast according to the standard department stone protocol. COMPARISON STUDY: None. FINDINGS: Small pericardial effusion. Mild interstitial thickening at the lung bases. This is likely chronic. No pneumoperitoneum. No pneumatosis. No suspicious lytic or blastic osseous lesions. Cholecystectomy. The unenhanced liver, spleen, adrenal glands, pancreas, and kidneys are unremarkable. No retroperitoneal lymphadenopathy. The bladder is unremarkable. Hysterectomy. Suboptimal evaluation for bowel pathology due to the lack of intravenous and oral contrast. However, there is no definite bowel wall thickening or obstruction. IMPRESSION: 1. Small pericardial effusion. 2. No definite bowel wall thickening or obstruction. 3. Cholecystectomy. 4. Hysterectomy. 5. No renal stones or hydronephrosis. EKG EKG-86, sinus New nonspecific interventricular conduction abnormality in I and V6, q? waves in V1-V3, otherwise no ST changes. Impression Assessment and Plan 81 yo F with abdominal discomfort for the past two weeks that intensified this morning. 1. Abdominal discomfort-per patient and family, they think this may be related to severe anxiety and her symptoms are already better with Ativan. Will give another dose of Ativan IV now and cont PO PRN. Of note, Zoloft or another SSRI would be better at controlling anxiety long-term instead of PRN Vystoril or Ativan. She denies any nausea, vomiting or diarrhea but has had some constipation for which she took Miralax yesterday with improvement. She has no abdominal pain and is able to tolerate PO although admits to a decreased appetite. Will cont supportive care with Ativan, antiemetics and pain control as needed. 2. Pericardial effusion-new effusion with heart murmur on exam today. Pt does not have tamponade-no JVD, normal pulses peripherally, normotensive. Discussed with Dr. Mcnamara. Ordered TTE for the morning to evaluate this further. Monitor on telemetry overnight 3. Anxiety-Ativan PRN as above. 4. HTN-somewhat elevated, but will re-evaluate after some additional Ativan. Cont home BP meds including hydralazine, lisinopril, and Hytrin 5. Atrial fibrillation-rate is controlled, cont coumadin per home dosing. Monitor INR daily 6. Gout-chronic, stable, cont daily allopurinol 7. HLP-cont Pravachol DVT proph-coumadin Full Code Dispo-to telemetry Mae Pickard DO [facility] Level of Care Telemetry Advanced Directives Existing Living Will: Yes Existing Power of Office Receptionist: Yes Resuscitation Status FULL RESUSCITATION VTE Prophylaxis VTE Risk Assessment Done? Y/N: Yes Risk Level: Moderate Given or contraindicated: Enoxaparin (Lovenox)SQ
[2016-08-19 20:15] VITALS: BP 152/66; PULSE 74; TEMP 36.6; O2SAT 63; O2SAT 93
[2016-08-19] MEDS ORDERED: ASPIRIN 81 MG ECTAB PO SCH (21:00)
[2016-08-19] MEDS: CALCIUM 600MG + VIT D 400 IU TAB PO SCH (21:26)
[2016-08-19 23:57] VITALS: BP 121/66; PULSE 61; TEMP 36.8; O2SAT 93
[2016-08-20] VITALS (9 sets, daily range): BP systolic 135–157; BP diastolic 66–74; PULSE 60–80; TEMP 36.6–36.8; O2SAT 93–95
[2016-08-20 06:18] LABS: HEMATOCRIT 35.9 % (37-47); MEAN CELL VOLUME 91.6 fL (80-100); MEAN CORPUSCULAR HEMOGLOBIN 30.1 pg (25-34); MEAN CORPUSCULAR HGB CONC 32.9 g/dl (32-36); MEAN PLATELET VOLUME 10.8 fL (7.4-10.4); PLATELET COUNT 219 K/uL (130-400); RED BLOOD COUNT 3.92 M/uL (4.2-5.4); WHITE BLOOD COUNT 5.22 K/uL (4.8-10.8)
[2016-08-20 06:42] LABS: INR 1.7 (0.9-1.1); PROTHROMBIN TIME (PATIENT) 18.7 SECONDS (9.0-12.0)
[2016-08-20 06:47] LABS: BUN/CREATININE RATIO 25.7 (10-20); CALCIUM 9.3 mg/dl (8.5-10.1); CREATININE 0.8 mg/dl (0.60-1.20); POTASSIUM 4.2 mmol/L (3.5-5.1)
[2016-08-20] MEDS ORDERED: ALLOPURINOL 100 MG TAB PO SCH (09:00)
[2016-08-20] MEDS ORDERED: LISINOPRIL 40 MG TAB PO SCH (09:00)
[2016-08-20] MEDS ORDERED: PRAVASTATIN SOD 40 MG TAB PO SCH (09:00)
[2016-08-20] MEDS ORDERED: CHOLECALCIFEROL 1000 INTER.UNIT TAB PO SCH (09:00)
--- NOTE | 2016-08-20 09:12 | ECHOCARDIOGRAM REPORT ---
*NOTICE TO RECEIVING REPUBLICAN AGENCY This information is strictly Confidential and protected under [place] law. [place] law prohibits you from making any further disclosure of this information unless further disclosure is expressly permitted by the written consent of the person to whom it pertains or is authorized by law. A general authorization for the release of medical or other information is not sufficient for this purpose. Hospital accepts no responsibility if the information is made available to any other person, INCLUDING THE PATIENT. Interpretation Summary * Name: ERWIN GONZALEZ Study Date: 08/20/2016 06:45 AM BP: 135/73 mmHg * Patient Location: C.2T\S\S234\S\1 HR: 64 * : 1935 (M/d/yyyy) Gender: Female Height: 61 in * Age: 81 yrs Ethnicity: CA Weight: 154 lb * Ordering Physician: Mae Pickard * Referring Physician: Self, Referred * Performed By: [facility] * * Reason For Study: F/U PERICARDIAL EFFUSION * BSA: 1.7 m2 * -- Conclusions -- * Limited views were obtained. * A focused study was performed to evaluate for pericardial effusion noted on CT scan. * Images were compared to the complete transthoracic echocardiogram study performed 08/09/16. * A trace to small circumferential pericardial effusion is present with most significant amount of fluid noted adjacent to the basal inferior wall and the lateral right ventricualar wall. * Compared to the images of the piror study dated 08/09/16 , there has been a very subtle increase in the amount of fluid adjacent to the inferolateral wall, but the increase is not clinically significant. * There are no echocardiographic indications of cardiac tamponade. Procedure Details * Limited views were obtained. Left Ventricle * The left ventricle is normal in size. * There is normal left ventricular wall thickness. * Ejection Fraction = 60-65%. * The left ventricular wall motion is normal. Right Ventricle * The right ventricle is normal in size and function. Atria * The left atrial size is normal. Tricuspid Valve * There is mild tricuspid regurgitation. Pericardium/Pleural * A trace to small circumferential pericardial effusion is present with most significant amount of fluid noted adjacent to the basal inferior wall and the lateral right ventricualar wall. Compared to the images of the piror study dated 08/09/16 , there has been a very subtle increase in the amount of fluid adjacent to the inferolateral wall, but the increase is not clinically significant. * There are no echocardiographic indications of cardiac tamponade. Great Vessels * Normal inferior vena cava size and collapsability with sniff indicates a normal right atrial pressure of 3 mmHg MMode 2D Measurements and Calculations IVSd 0.97 cm IVSs 1.4 cm LVIDd 5.1 cm LVIDs 3.3 cm LVPWd 1.1 cm LVPWs 1.3 cm IVS/LVPW 0.86 FS 35.2 % EDV(Teich) 121.5 ml ESV(Teich) 43.5 ml EF(Teich) 64.2 % EDV(cubed) 129.5 ml ESV(cubed) 35.3 ml EF(cubed) 72.8 % % IVS thick 48.5 % % LVPW thick 17.0 % LV mass(C)d 199.8 grams LV mass(C)dI 118.2 grams/m\S\2 LV mass(C)s 156.3 grams LV mass(C)sI 92.4 grams/m\S\2 SV(Teich) 78.1 ml SI(Teich) 46.2 ml/m\S\2 SV(cubed) 94.2 ml SI(cubed) 55.7 ml/m\S\2 Ao root diam 3.2 cm Ao root area 7.8 cm\S\2 LA dimension 3.4 cm LA/Ao 1.1 LVOT diam 1.9 cm LVOT area 2.7 cm\S\2 Doppler Measurements and Calculations TR max chester 301.3 cm/sec
--- NOTE | 2016-08-20 09:13 | Progress Note ---
Medicine Progress Note Date & Time of Visit: Aug 20, 2016 at 08:51. (Sandrine Allen ., PA-C) Subjective Patient admitted yesterday for "fluttering" and "butterflies" in her stomach. Pt received Ativan and reports that her sxs have completely resolved. She is eating with no issues and denies abd pain, N/V, diarrhea or constipation. Pt denies chest pain, palpitations, SOB, LE edema, calf pain, lightheadedness/ dizziness. (Sandrine Allen ., INGE-C) Objective Last 8 Hrs Date Time Temp Pulse Resp B/P Pulse Ox O2 Delivery O2 Flow Rate FiO2 08/20/16 07:45 36.7 65 18 157/74 93 Room Air 08/20/16 04:00 95 CPAP 08/20/16 03:44 36.6 60 18 135/73 95 CPAP Physical Exam: General-Pt is laying comfortably in bed upon my arrival Eyes-anicteric Neck-supple; no JVD Lungs-CTA throughout; no wheezing or crackles noted Heart-3/6 systolic ejection murmur Abdomen-normal BS; abd is soft and non-tender to palpation Extremities-normal to inspection; no edema Neuro-A&O x 3 Laboratory Results: Last 24 Hours Test 08/19/16 15:55 08/20/16 05:55 White Blood Count 6.18 K/uL 5.22 K/uL Red Blood Count 4.27 M/uL 3.92 M/uL Hemoglobin 13.0 g/dL 11.8 g/dL Hematocrit 39.0 % 35.9 % Mean Corpuscular Volume 91.3 fL 91.6 fL Mean Corpuscular Hemoglobin 30.4 pg 30.1 pg Mean Corpuscular Hemoglobin Concent 33.3 g/dl 32.9 g/dl Platelet Count 239 K/uL 219 K/uL Mean Platelet Volume 11.1 fL 10.8 fL Neutrophils (%) (Auto) 56.7 % Lymphocytes (%) (Auto) 29.1 % Monocytes (%) (Auto) 11.3 % Eosinophils (%) (Auto) 2.1 % Basophils (%) (Auto) 0.5 % Neutrophils # (Auto) 3.50 K/uL Lymphocytes # (Auto) 1.80 K/uL Monocytes # (Auto) 0.70 K/uL Eosinophils # (Auto) 0.13 K/uL Basophils # (Auto) 0.03 K/uL RDW Standard Deviation 47.1 fL 47.6 fL RDW Coefficient of Variation 14.1 % 14.3 % Immature Granulocyte % (Auto) 0.3 % Immature Granulocyte # (Auto) 0.02 K/uL Erythrocyte Sedimentation Rate 18 mm/hr Prothrombin Time 20.9 SECONDS 18.7 SECONDS Prothromb Time International Ratio 1.9 1.7 Activated Partial Thromboplast Time 31.7 SECONDS Partial Thromboplastin Ratio 1.2 Sodium Level 142 mmol/L 143 mmol/L Potassium Level 3.9 mmol/L 4.2 mmol/L Chloride Level 108 mmol/L 110 mmol/L Carbon Dioxide Level 27 mmol/L 27 mmol/L Anion Gap 7.0 mmol/L 6.0 mmol/L Blood Urea Nitrogen 23 mg/dl 21 mg/dl Creatinine 0.88 mg/dl 0.80 mg/dl Est Creatinine Clear Calc Drug Dose 44.1 ml/min 48.5 ml/min Estimated GFR () 70.9 79.6 Estimated GFR (Non- 61.2 68.7 BUN/Creatinine Ratio 26.2 25.7 Random Glucose 105 mg/dl 91 mg/dl Calcium Level 9.8 mg/dl 9.3 mg/dl Total Bilirubin 0.6 mg/dl Direct Bilirubin 0.1 mg/dl Aspartate Amino Transf (AST/SGOT) 14 U/L Alanine Aminotransferase (ALT/SGPT) 22 U/L Alkaline Phosphatase 69 U/L Troponin I < 0.015 ng/ml C-Reactive Protein < 0.29 mg/dl Total Protein 7.4 gm/dl Albumin 4.2 gm/dl Lipase 314 U/L Magnesium Level 2.0 mg/dl (Sandrine Allen ., PA-C) Assessment & Plan ABDOMINAL DISCOMFORT pt presented with abd discomfort described as "butterflies" in stomach -admitted to telemetry -discomfort likely anxiety-induced; improved with Ativan -pt is afebrile with no leukocytosis; benign abdominal exam -CT abd/pelvis no acute abdominal pathology -electrolytes WNL -cont Ativan PRN -pt may benefit from maintenance SSRI for long-term anxiety mgmt -monitor SMALL PERICARDIAL EFFUSION -CT reveals small pericardial effusion -echo-results pending -cardio consulted-appreciate input ANXIETY -may be contributing to abdominal sxs; pt denies any stressors -cont Ativan PRN -monitor PAF -admission EKG: rate controlled Afib -cont Coumadin -cont to monitor INR HTN -BP stable -cont hydralazine, lisinopril, and Hytrin -monitor DYSLIPIDEMIA -cont statin DVT PROPHYLAXIS -cont Coumadin; bridge with Lovenox as INR is subtherapeutic (1.7) CODE STATUS -FULL CODE per admission documentation DISPO -Pt seen in collaboration with Dr. Penn. Please see his addendum for further details. Thanks! Current Inpatient Medications: Current Inpatient Medications Medications (Trade) Dose Ordered Sig/Padmaja Route Start Time Stop Time Status Last Admin Dose Admin Acetaminophen (Tylenol Tab) 650 mg Q4H PRN PO 08/19/16 19:15 09/18/16 19:14 Ondansetron HCl (Zofran Inj) 4 mg Q6H PRN IV 08/19/16 19:15 09/18/16 19:14 Polyethylene (Miralax Powder Packet) 17 gm DAILY PRN PO 08/19/16 19:15 09/18/16 19:14 Allopurinol (Zyloprim Tab) 100 mg DAILY PO 08/20/16 09:00 09/19/16 08:59 Aspirin (Ecotrin Tab) 81 mg HS PO 08/19/16 21:00 09/18/16 20:59 08/19/16 21:25 81 MG Calcium/Vitamin D (Caltrate Plus Tab) 1 tab BID PO 08/19/16 21:00 09/18/16 20:59 08/19/16 21:26 1 TAB Cholecalciferol (Vitamin D Tab) 1,000 inter.unit DAILY PO 08/20/16 09:00 09/19/16 08:59 Hydralazine HCl (Apresoline Tab) 50 mg TID PO 08/19/16 21:00 09/18/16 20:59 08/19/16 21:25 50 MG Lisinopril (Zestril Tab) 40 mg DAILY PO 08/20/16 09:00 09/19/16 08:59 Lorazepam (Ativan Tab) 0.5 mg Q8 PRN PO 08/19/16 19:15 09/18/16 19:14 Pravastatin Sodium (Pravachol Tab) 40 mg DAILY PO 08/20/16 09:00 09/19/16 08:59 Terazosin HCl (Hytrin Cap) 5 mg HS PO 08/19/16 21:00 09/18/16 20:59 08/19/16 21:23 5 MG Warfarin Sodium (Coumadin Tab) 5 mg SuTuWeThSa@1600 PO 08/20/16 16:00 09/19/16 15:59 Warfarin Sodium (Coumadin Tab) 2.5 mg MoFr@1600 PO 08/23/16 16:00 09/22/16 15:59 (Sandrine Allen ., PA-C) Pt was seen and examined. Agreed with Sandrine's assessment and plan. Lying in bed very comfortable. denies any chest pain, palpitation, dizziness and SOB. Case discussed with Cardiology Dr. Mcnamara that recommended to continue Coumadin, check troponin. Ok With cardiology to discharge home if troponin wnl. Repeat Echo showed * A trace to small circumferential pericardial effusion is present with most significant amount of fluid noted adjacent to the basal inferior wall and the lateral right ventricualar wall. * Compared to the images of the piror study dated 08/09/16 , there has been a very subtle increase in the amount of fluid adjacent to the inferolateral wall, but the increase is not clinically significant. * There are no echocardiographic indications of cardiac tamponade. Pt is clinically stable with no symptoms. she will be discharged home today. Follow up appt with her PCP on 08/26 @ 12:45 pm MD [facility]: Cardiology (Ravinder Penn M.D.)
[2016-08-20] MEDS: CALCIUM 600MG + VIT D 400 IU TAB PO SCH (09:16)
--- NOTE | 2016-08-20 10:31 | Cardiology Consultation ---
Cardiology Consultation Date of Consultation: Aug 20, 2016 History of Present Illness Pinky Arias is an 81 year old female seen in cardiology consultation per the request of Dr. Pickard given incidental findings of a small circumferential pericardial effusion on CT of the abdomen and pelvis. I'm well acquainted the patient having followed her on a outpatient and inpatient basis in the past. She has a history of 2 documented episodes of paroxysmal atrial fibrillation. She is not on AV minh blockers due to baseline sinus bradycardia. She has a history of interventricular conduction delay and on a recent admission it was noted that this had progressed when intermittent left bundle branch block. Earlier this month she had presented with sensation of abdominal discomfort and mild chest pressure. Her blood pressure was significantly elevated at the time of that visit and her hydralazine was increased to 50 mg 3 times a day. She had a very borderline elevation in her troponin I on at 0.067 MG per mL which was normal on subsequent measurement 6 hours later. On this presentation, she had a single troponin performed thus far that was negative. The patient presented yesterday sensing an unusual sensation of abdominal discomfort that she describes as being a floppiness and fluttering in her belly and abdominal pressure. She notes associated mild chest pressure. This does not seem to occur with exertion. Her symptoms had been improved with Ativan administration. On last admission and this admission. Her blood pressure was a little bit elevated on presentation yesterday but is improved at present. Telemetry reveals stable sinus rhythm and sinus bradycardia with heart rate as low as 49 bpm during hours of sleep last night. 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 Noncontrast CT of the abdomen and pelvis of been performed in the emergency room yesterday revealing a small circumferential pericardial effusion and no other significant pathology. The patient had a follow-up transthoracic echocardiogram performed today revealing a trace to small circumferential pericardial effusion with focal fluid collection adjacent to the inferolateral left ventricular wall as well as the right ventricular lateral free wall. When compared to her prior echocardiogram performed 08/09/16 there is been no significant interval change. During my assessment the patient she stated that she is feeling well. She tolerated her breakfast morning and notes no abdominal or chest pain symptoms. History PAST MEDICAL HISTORY: 1. Paroxysmal atrial fibrillation for which she is on chronic Coumadin 2. Interventricular conduction delay, intermittent left bundle branch block, baseline sinus bradycardia 3. Dyslipidemia 4. Hypertension 5. Obstructive sleep apnea for which she is on CPAP PAST SURGICAL HISTORY: 1. Hysterectomy 2. Cataract surgery 3. Cholecystectomy 4. History of parathyroidectomy FAMILY HISTORY: Family history of senile heart disease, hypertension, stroke Variable SOCIAL HISTORY: She is a nonsmoker. She lives independently with her spouse he recently moved to an assisted living community and they are enjoying it. Review Of Systems See above for pertinent positives & negatives. A total of 10 systems reviewed and were otherwise negative. Allergies Coded Allergies: Naproxen (Unverified Allergy, Mild, 08/19/16) Medications Reported Home Medications Medications Dose Route/Sig Max Daily Dose Days Date Category Dose Instructions Miralax (Polyethylene Glycol 3350) 1 17 Gm PO DAILY 08/19/16 Reported Hydralazine HCl 50 Mg Tab 50 Mg PO TID 30 08/10/16 Rx Allopurinol 100 Mg Tab 100 Mg PO DAILY 08/08/16 Reported Jantoven (Warfarin Sodium) 5 Mg Tab 5 Mg PO 5XWK 08/08/16 Reported TAKE 5MG EVERY DAY EXCEPT FRIDAY AND FRIDAY. Warfarin Sodium 5 Mg Tab 2.5 Mg PO 2XWK 08/08/16 Reported TAKE 2.5MG MF Lorazepam 0.5 Mg Tab 0.5 Mg PO Q8 PRN 08/08/16 Reported Hytrin (Terazosin HCl) 5 Mg Cap 5 Mg PO HS 08/23/14 Reported Aspirin Ec (Aspirin) 81 Mg Tab 81 Mg PO HS 08/28/12 Reported Vitamin D-3 (Cholecalciferol) 1,000 Unit Tab 1,000 Inter.unit PO NOON 08/28/12 Reported Pravastatin Sodium 40 Mg Tab 40 Mg PO DAILY 08/28/12 Reported Zestril (Lisinopril) 40 Mg Tab 40 Mg PO DAILY 08/28/12 Reported Caltrate 600 Plus (Calcium Carbonate-Vitamin D W/) 1 Tab Tab 1 Tablet PO NOON 08/28/12 Reported Physical Exam Vital Signs (Last 8hrs): Last 8 Hrs Date Time Temp Pulse Resp B/P Pulse Ox O2 Delivery O2 Flow Rate FiO2 08/20/16 07:45 36.7 65 18 157/74 93 Room Air 08/20/16 04:00 95 CPAP 08/20/16 03:44 36.6 60 18 135/73 95 CPAP General Appearance: Alert and Oriented x3. NAD. Head: Normocephalic Atraumatic. Eyes: PERRLA, EOMI, conjunctiva and sclera clear Neck: Supple. No carotid bruits noted. No JVD. No HJD. Respiratory: Breath sounds clear to auscultation bilaterally. No w/r/r. Cardiovascular: Reg rate and rhythm. S1 and S2 noted. No murmurs, rubs, gallops. PMI non displace. Abdomen: Normal bowel sounds, soft nontender. no abdominal bruits. Extremities: No edema, no clubbing or cyanosis. distal pulses 2/4 bilaterally. Neuro: No focal deficits. Psychiatric: Normal affect. Data Last Resulted 08/20/16 05:55 Last Resulted 08/20/16 05:55 Past 24 Hours Test 08/19/16 15:55 08/20/16 05:55 08/20/16 10:22 Range/Units Prothromb Time International Ratio 1.9 H 1.7 H 0.9-1.1 Prothrombin Time 20.9 H 18.7 H 9.0-12.0 SECONDS Troponin I < 0.015 0-0.045 ng/ml Imaging: As noted above EKG: As noted above. Telemetry reviewed: As noted above Assessment & Plan Impression 1. Presented with recurrent abdominal discomfort, mild non-exertional chest discomfort 2. Incidental findings of small circumferential pericardial effusion on CT. Echocardiogram reveals trace to small pericardial effusion of no hemodynamic significance that is perhaps enlarged to a very subtle degree compared to her recent echocardiogram on 08/09/16 but I do not think this is a clinically significant change. 3. Paroxysmal atrial fibrillation for which she is on chronic anticoagulation 4. Abnormal EKG, interventricular conduction delay which is a long-standing finding, now with intermittent left bundle branch block noted last admission. 5. Hypertension 6. Obstructive sleep apnea Plan: The patient got up for a walk this morning with her nurse with no recurrence of her symptoms. I'm not convinced that her EKG changes are suggestive of underlying ischemia but rather her known conduction system disease. I've requested a repeat troponin. I do not think the pericardial effusion has caused her any symptoms. Her erythrocyte sedimentation rate is normal. And her presentation is not suggestive of pericarditis. I recommend that we continue Coumadin. I do not think a follow-up echocardiogram will be necessary for this very small pericardial effusion. If her repeat troponin is negative, I would recommend the patient would be stable for discharge. There's been discussion about whether or not anxieties playing a role in this. The patient has had some significant life changes recently. She states that she is very happy. Heri Mcnamara, DO
[2016-08-20] MEDS ORDERED: ENOXAPARIN 40 MG/0.4 ML SYR SQ SCH (11:00)
[2016-08-20] MEDS ORDERED: WARFARIN SOD 5 MG TAB PO SCH (16:00)
--- NOTE | 2016-08-20 16:35 | Discharge Instructions ---
Discharge Instructions Date of Service Aug 20, 2016. Admission Reason for Admission: Abdominal Discomfort, Generalized Discharge Discharge Diagnosis / Problem: Abdominal discomfort, SMALL PERICARDIAL EFFUSION , Anxiety Discharge Goals Goal(s): Decrease discomfort, Improve function, Improve disease control Activity Recommendations Activity Limitations: resume your previous activity (as tolerated) . Instructions / Follow-Up Instructions / Follow-Up Follow up with your physician Dr. Helm on 08/26 at 12:45 pm Continue follow up with the Coumadin clinic Current Hospital Diet Patient's current hospital diet: AHA Diet (Heart Healthy) Discharge Diet Recommended Diet: AHA Diet (Heart Healthy) Pending Studies Studies pending at discharge: no Laboratory Results Lipid Panel Test 08/09/16 07:07 Range/Units Triglycerides Level 83 0-150 mg/dl Cholesterol Level 139 0-200 mg/dl HDL Cholesterol 49 mg/dl Cholesterol/HDL Ratio 2.8 LDL Cholesterol, Calculated 73 mg/dl Medical Emergencies . Who to Call and When: Medical Emergencies: If at any time you feel your situation is an emergency, please call 911 immediately. . Non-Emergent Contact Non-Emergency issues call your: Primary Care Provider Call Non-Emergent contact if: your pain is not controlled, your pain is unusual for you, your pain is concerning you . . "Provider Documentation" section prepared by Ravinder Penn. . VTE Core Measure Inpt VTE Proph given/why not?: Enoxaparin (Lovenox)SQ, Warfarin (Coumadin)
--- NOTE | 2016-08-23 08:11 | Discharge Summary ---
Discharge Summary Date of Service Aug 23, 2016. Discharge Summary Admission Date: Aug 19, 2016 at 19:11 Discharge Date: Aug 20, 2016 Discharge Disposition: Home Principal Diagnosis: Abdominal Discomfort Secondary Diagnoses/Problems: Small Pericardial Effusion Anxiety P. AFib HTN Dyslipidemia Consultations: Cardiology Medication Reconciliation Continued Medications: Allopurinol (Allopurinol) 100 Mg Tab 100 MG PO DAILY Aspirin (Aspirin Ec) 81 Mg Tab 81 MG PO HS Calcium Carbonate-Vitamin D W/ (Caltrate 600 Plus) 1 Tab Tab 1 TABLET PO NOON, TAB Cholecalciferol (Vitamin D-3) 1,000 Unit Tab 1000 INTER.UNIT PO NOON Hydralazine HCl (Hydralazine HCl) 50 Mg Tab 50 MG PO TID for 30 Days, #90 TAB 2 Refills Lisinopril (Zestril) 40 Mg Tab 40 MG PO DAILY, TAB Lorazepam (Lorazepam) 0.5 Mg Tab 0.5 MG PO Q8 PRN for Anxiety, #30 Polyethylene Glycol 3350 (Miralax) 1 Pow Pow 17 GM PO DAILY, #255 GM Pravastatin Sodium (Pravastatin Sodium) 40 Mg Tab 40 MG PO DAILY Terazosin (Hytrin) 5 Mg Cap 5 MG PO HS, CAP Warfarin Sod (Jantoven) 5 Mg Tab 5 MG PO 5XWK, TAB TAKE 5MG EVERY DAY EXCEPT FRIDAY AND FRIDAY. Warfarin Sodium (Warfarin Sodium) 5 Mg Tab 2.5 MG PO 2XWK, #30 TAKE 2.5MG MF Admission Information HPI (per Admitting provider): 81 yoF with atrial fibrillation on Coumadin presents to the ER with a nervousness in her central abdomen that has been ongoing for the past 2-3 weeks , but intensified this morning. The discomfort is constant with nothing making it better. She has a decreased appetite but no nausea, vomiting or diarrhea. She did take some Miralax for constipation yesterday which gave her some expected loose stools today. BM and food do not alleviate the discomfort, which she describes as a gnawing and churning in her abdomen centered around the umbilicus. She was recently in the hospital last week for chest pressure which has not returned. At that time she had an echo that was unremarkable and she was sent home. She states since then she has been feeling well and was up and cooking dinner last night. She does admit to constant anxiety and she and family both feel there is a relationship with anxiety to this discomfort. Atican 0.5mg IV given in the ER has already alleviated her discomfort somewhat. As an aside, a CT a/p was performed and revealed a new pericardial effusion which was looked at by Dr. Mcnamara. He recommended keeping her overnight to evaluate this more closely with an TTE in the morning. ROS is negative for CP, SOB, nausea, vomiting, diarrhea, abdominal pain, headache, swelling, weight gain or any other symptom at this time. At least ten systems were reviewed. Physical Exam (per Admitting): GEN: WNWD, in no acute distress, alert and appropriate HEENT: NC/AT, PERRL, normal sclerae, mucous membranes are moist CARDIO: reg rate (manually taken at bedside and is 73), S1/2 heard, 3/6 KERLINE heard across precordium LUNGS: CTA bilaterally, no crackles, rales or wheezes, good diaphragmatic excursion ABD: soft, non-tender, non-distended, no rebound or guarding, +BS EXTREMITY: RP and DP palpable 2+ bilat, no LE swelling or edema, extremities are warm and well-perfused NEURO: CN 2-12 grossly intact, sensation intact throughout MUSC: moves all extremities equally, mo gross focal defiicts. SKIN: warm and dry Hospital Course ABDOMINAL DISCOMFORT pt presented with abd discomfort described as "butterflies" in stomach -admitted to telemetry -discomfort likely anxiety-induced; improved with Ativan -pt is afebrile with no leukocytosis; benign abdominal exam -CT abd/pelvis no acute abdominal pathology -electrolytes WNL -cont Ativan PRN -pt may benefit from maintenance SSRI for long-term anxiety mgmt -monitor SMALL PERICARDIAL EFFUSION -CT reveals small pericardial effusion -echo-results pending -cardio consulted-appreciate input ANXIETY -may be contributing to abdominal sxs; pt denies any stressors -cont Ativan PRN -monitor PAF -admission EKG: rate controlled Afib -cont Coumadin -cont to monitor INR HTN -BP stable -cont hydralazine, lisinopril, and Hytrin -monitor DYSLIPIDEMIA -cont statin DVT PROPHYLAXIS -cont Coumadin; bridge with Lovenox as INR is subtherapeutic (1.7) CODE STATUS -FULL CODE per admission documentation DISPO -Pt seen in collaboration with Dr. Penn. Please see his addendum for further details. Thanks! Pt was seen and examined. Agreed with Sandrine's assessment and plan. Lying in bed very comfortable. denies any chest pain, palpitation, dizziness and SOB. Case discussed with Cardiology Dr. Mcnamara that recommended to continue Coumadin, check troponin. Ok With cardiology to discharge home if troponin wnl. Repeat Echo showed * A trace to small circumferential pericardial effusion is present with most significant amount of fluid noted adjacent to the basal inferior wall and the lateral right ventricualar wall. * Compared to the images of the piror study dated 08/09/16 , there has been a very subtle increase in the amount of fluid adjacent to the inferolateral wall, but the increase is not clinically significant. * There are no echocardiographic indications of cardiac tamponade. Pt is clinically stable with no symptoms. she will be discharged home today. Follow up appt with her PCP on 08/26 @ 12:45 pm MD Isamar Total time spent on discharge = 35 minutes This includes examination of the patient, discharge planning, medication reconciliation, and communication with other providers. Discharge Instructions DI: Medical v4 Discharge Instructions Date of Service Aug 20, 2016. Admission Reason for Admission: Abdominal Discomfort, Generalized Discharge Discharge Diagnosis / Problem: Abdominal discomfort, SMALL PERICARDIAL EFFUSION , Anxiety Discharge Goals Goal(s): Decrease discomfort, Improve function, Improve disease control Activity Recommendations Activity Limitations: resume your previous activity (as tolerated) . Instructions / Follow-Up Instructions / Follow-Up Follow up with your physician Dr. Helm on 08/26 at 12:45 pm Continue follow up with the Coumadin clinic Current Hospital Diet Patient's current hospital diet: AHA Diet (Heart Healthy) Discharge Diet Recommended Diet: AHA Diet (Heart Healthy) Pending Studies Studies pending at discharge: no Laboratory Results Lipid Panel Test 08/09/16 07:07 Range/Units Triglycerides Level 83 0-150 mg/dl Cholesterol Level 139 0-200 mg/dl HDL Cholesterol 49 mg/dl Cholesterol/HDL Ratio 2.8 LDL Cholesterol, Calculated 73 mg/dl Medical Emergencies . Who to Call and When: Medical Emergencies: If at any time you feel your situation is an emergency, please call 911 immediately. . Non-Emergent Contact Non-Emergency issues call your: Primary Care Provider Call Non-Emergent contact if: your pain is not controlled, your pain is unusual for you, your pain is concerning you . . "Provider Documentation" section prepared by Ravinder Penn. . VTE Core Measure Inpt VTE Proph given/why not?: Enoxaparin (Lovenox)SQ, Warfarin (Coumadin) Additional Copies To Joel Helm MD
[2016-08-23] MEDS ORDERED: WARFARIN SOD 2.5 MG TAB PO SCH (16:00)
[2016-10-02] MEDS ORDERED: LORA-741 PO (13:07)
[2016-10-02] MEDS ORDERED: PRLSR20 PO (13:07)
[2016-10-02] MEDS ORDERED: PRAV40TA PO (13:07)
[2016-10-02] MEDS ORDERED: ASPCH81X PO (13:07)
[2016-10-02] MEDS ORDERED: POLY335019 PO (13:07)
[2016-10-02] MEDS ORDERED: OYST500T47 PO (13:07)
[2016-10-02] MEDS ORDERED: HYDR-4717 PO (13:07)
[2016-10-02] MEDS ORDERED: SERT25TA PO (13:07)
[2016-10-02] MEDS ORDERED: TERA1CAP63 PO (13:07)
[2016-10-02] MEDS ORDERED: CHOL200010 PO (13:07)
== END 2016-08-20 16:45 | disposition home or self-care (01) | DRG 880 ==
LOC: ENRESERVTM → ENRESERVDT → EDBD 15:37 → C.EDB 15:40 → C.2T 19:11
PROVIDERS: ADMIT Hospitalist; ATTEND Internal Medicine
DX: F41.9 Anxiety disorder, unspecified (principal); J90 Pleural effusion, not elsewhere classified; I31.3 Pericardial effusion (noninflammatory); I48.0 Paroxysmal atrial fibrillation; I10 Essential (primary) hypertension; E78.5 Hyperlipidemia, unspecified; G47.33 Obstructive sleep apnea (adult) (pediatric); M10.9 Gout, unspecified; M81.0 Age-related osteoporosis without current pathological fracture; Z82.49 Family history of ischemic heart disease and other diseases of the circulatory system; Z80.9 Family history of malignant neoplasm, unspecified; Z82.3 Family history of stroke; Z79.01 Long term (current) use of anticoagulants; I44.7 Left bundle-branch block, unspecified; I48.2 Chronic atrial fibrillation

== ENCOUNTER → 2016-09-25 | Outpatient (CLI) | payer OTHER ==
[~2016-09-25] MED LIST changes: +ASPCH81X PO; -ATR25 PO; +CHOL200010 PO; +HYDR-4717 PO; +LORA-741 PO; +OYST500T47 PO; +POLY335019 PO; +PRAV40TA PO; +PRLSR20 PO; +SERT25TA PO; +TERA1CAP63 PO
--- NOTE | 2016-09-25 14:10 | MAMMOGRAPHY REPORT ---
BILATERAL DIGITAL SCREENING MAMMOGRAM WITH CAD: 09/25/2016 CLINICAL HISTORY: Routine screening. Patient has no complaints. TECHNIQUE: Bilateral CC and MLO views were obtained. Current study was also evaluated with a Comput er Aided Detection (CAD) system. COMPARISON: Comparison is made to exams dated: 09/21/2015 mammogram, 09/05/2014 mammogram, 09/02/2012 m ammogram, 08/28/2009 mammogram, 09/02/2011 mammogram, and 09/03/2013 mammogram - [facility]. BREAST COMPOSITION: There are scattered areas of fibroglandular density in both breasts. FINDINGS: There is a stable partially circumscribed mass and adjacent ribbon shaped metallic biopsy marker in the upper outer quadrant of the right breast. A stable circumscribed mass in the upper ou ter left breast has associated coarse calcification, most likely a degenerating fibroadenoma. There are mild vascular calcifications and scattered benign-appearing round calcifications in the breasts . No suspicious mass, architectural distortion or cluster of new, suspicious microcalcifications is seen. IMPRESSION: ACR BI-RADS CATEGORY 1: NEGATIVE There is no mammographic evidence of malignancy. A 1 year screening mammogram is recommended. The p atient will receive written notification of the results. Approximately 10% of breast cancers are not detected with mammography. A negative mammographic repor t should not delay biopsy if a clinically suggestive mass is present. Judie Austin M.D. ay/:09/25/2016 10:57:01 [employer]: Jia ZARAGOZA)(Sergio), [facility] letter sent: Normal 1/2 BI-RADS Code: ACR BI-RADS Category 1: Negative
== END | disposition home or self-care (01) ==
LOC: C.MAMM 09:13
PROVIDERS: ATTEND Internal Medicine
DX: Z12.31 Encounter for screening mammogram for malignant neoplasm of breast (principal)

== ENCOUNTER → 2016-09-27 | Outpatient (CLI) | payer OTHER ==
[~2016-09-27] MED LIST changes: +GADAVIST IV PRN
--- NOTE | 2016-09-27 15:26 | DIAGNOSTIC IMAGING REPORT ---
Brain and pituitary MRI WITH AND WITHOUT CONTRAST HISTORY: Anxiety. PITUITARY MASS TECHNIQUE: Multiplanar multisequence MRI of the brain was performed both before and after the intravenous administration of contrast. COMPARISON STUDY: Head CT 08/28/2012. FINDINGS: No areas of restricted diffusion to suggest acute infarction. Small mastoid effusion. The paranasal sinuses are clear. The ventricles and sulci are within normal limits for age. The major vascular flow-voids at the skull base are maintained. There is no mass, hematoma, or midline shift. A few scattered foci of T2 hyperintensity seen within the periventricular and subcortical white matter of the supratentorial brain. These are nonspecific but favor mild microvascular ischemic change. Best seen on the sagittal postcontrast sequences there is an 11 x 8 mm hypoenhancing lesion within the left side of the pituitary gland. There is mild right deviation of the pituitary stalk. No additional areas of abnormal enhancement within the brain. IMPRESSION: 1. 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 2. No acute intracranial abnormality. Electronically signed by: Ryder Gandhi M.D. 09/27/2016 3:25 PM Dictated Date/Time: 09/27/2016 3:16 PM
== END | disposition home or self-care (01) ==
LOC: C.MRI 13:42
PROVIDERS: ATTEND Internal Medicine
DX: E23.7 Disorder of pituitary gland, unspecified (principal)

== ENCOUNTER → 2016-10-10 | Day surgery (SDC) | payer OTHER ==
[2016-10-02 13:08] VITALS: Ht 160 cm; Wt 65.0 kg
[~2016-10-10] VITALS: Ht 160 cm; Wt 65.0 kg
[~2016-10-10] MED LIST changes: -APR50 PO; -ASPI81TA28 PO; -CALCTAB7 PO; -CHOL1TAB2 PO; -GADAVIST IV PRN; +LIDOCAINE HCL 2% 2 ML VIAL (20MG/ML) ONE; -LORA0.5T12 PO; +ONDANSETRON INJ 2 MG/ML 2 ML VIAL IV PRN; -PRAV40TA2 PO; +PROPOFOL IV EMULSION 10 MG/ML 20 ML VIAL IV ONE; -TERA5CAP PO
--- NOTE | 2016-10-10 10:33 | Endo History and Physical ---
History & Physical Date of Service: Oct 10, 2016. Chief Complaint: mailase,fatigue,constipation Referring Physician: Dr. Joel Helm History of Present Illness Patient with a history of worsening anemia, bloating, and constipation. Referred by her PCM for EGD and Colonoscopy. Past Surgical History Hx Cardiac Surgery: No Hx Abdominal Surgery: Yes (CURTIS,LULU) Hx of Implantable Prosthesis: No Hx Post-Op Nausea and Vomiting: No Hx Cancer Surgery: No Hx Thoracic Surgery: No Hx Orthopedic: No Hx Urinary Tract Surgery: No Family History None Social History Smoking Status: Never Smoker Hx Substance Use: No Hx Alcohol Use: No Allergies Coded Allergies: Naproxen (Verified Allergy, Mild, EDEMA, 10/10/16) Alendronate (Verified Allergy, Unknown, HIVES, 10/02/16) Simvastatin (Verified Allergy, Unknown, MUSCLE FATIGUE, 10/02/16) Current Medications Reported Home Medications Medications Dose Route/Sig Max Daily Dose Days Date Category Dose Instructions Calcium (Oyster Shell) 500 Mg Tab 1 Tab PO DAILY AT NOON 10/02/16 Reported Aspirin Chewable (Aspirin) 81 Mg Chew 81 Mg PO HS 10/02/16 Reported Hytrin (Terazosin Hcl) 10 Mg Cap 10 Mg PO HS 10/02/16 Reported Pravachol (Pravastatin Sodium) 40 Mg Tab 1 Tab PO HS 90 10/02/16 Reported Vitamin D (Cholecalciferol) 2,000 Unit Cap 1 Cap PO QAM 10/02/16 Reported Ativan (Lorazepam) 0.5 Mg Tab 0.5 Mg PO TID PRN 10/02/16 Reported Miralax (Polyethylene Glycol 3350) 1 Pow Pow 17 Gm PO DAILY PRN 10/02/16 Reported Apresoline (Hydralazine Hcl) 50 Mg Tab 50 Mg PO TID 10/02/16 Reported Zoloft (Sertraline HCl) 25 Mg Tab 25 Mg PO QAM 10/02/16 Reported Prilosec (Omeprazole) 20 Mg Capcr 20 Mg PO QAM 10/02/16 Reported Allopurinol 100 Mg Tab 100 Mg PO QAM 08/08/16 Reported Jantoven (Warfarin Sodium) 5 Mg Tab 5 Mg PO 5XWK 08/08/16 Reported TAKE 5MG EVERY DAY EXCEPT FRIDAY AND FRIDAY. Warfarin Sodium 5 Mg Tab 2.5 Mg PO 2XWK 08/08/16 Reported TAKE 2.5MG MF Zestril (Lisinopril) 40 Mg Tab 40 Mg PO QAM 08/28/12 Reported Vital Signs Weight (Kilograms): 65 Height (Feet): 5 Height (Inches): 3 Date Time Temp Pulse Resp B/P (MAP) Pulse Ox O2 Delivery O2 Flow Rate FiO2 10/10/16 10:08 36.3 73 22 153/57 (89) 95 Room Air Physical Exam General Appearance: no apparent distress Respiratory/Chest: Auscultation: deminished air movement Cardiovascular: Heart Auscultation: II/ KERLINE Abdomen: Inspection & Palpation: soft Assessment and Plan Patient referred for EGD and colonoscopy for evaluation of anemia, constipation and bloating. We have discussed the risks to include bleeding, infection, perforation, pain, dental injury and missed polyps.
--- NOTE | 2016-10-10 11:04 | Discharge Instructions ---
Endoscopy Patient Instructions Date / Procedure(s) Performed Oct 10, 2016. Colonoscopy, EGD Allergy Information Coded Allergies: Naproxen (Verified Allergy, Mild, EDEMA, 10/10/16) Alendronate (Verified Allergy, Unknown, HIVES, 10/02/16) Simvastatin (Verified Allergy, Unknown, MUSCLE FATIGUE, 10/02/16) Discharge Date / Findings Oct 10, 2016. Mild gastritis 2 small colon polyps Mild diverticulosis Hemorrhoids Medication Instructions Stopped Medication(s): last dose warfarin one week ago,took ASA yesterday Reported Home Medications Medications Dose Route/Sig Max Daily Dose Days Date Category Dose Instructions Calcium (Oyster Shell) 500 Mg Tab 1 Tab PO DAILY AT NOON 10/02/16 Reported Aspirin Chewable (Aspirin) 81 Mg Chew 81 Mg PO HS 10/02/16 Reported Hytrin (Terazosin Hcl) 10 Mg Cap 10 Mg PO HS 10/02/16 Reported Pravachol (Pravastatin Sodium) 40 Mg Tab 1 Tab PO HS 90 10/02/16 Reported Vitamin D (Cholecalciferol) 2,000 Unit Cap 1 Cap PO QAM 10/02/16 Reported Ativan (Lorazepam) 0.5 Mg Tab 0.5 Mg PO TID PRN 10/02/16 Reported Miralax (Polyethylene Glycol 3350) 1 Pow Pow 17 Gm PO DAILY PRN 10/02/16 Reported Apresoline (Hydralazine Hcl) 50 Mg Tab 50 Mg PO TID 10/02/16 Reported Zoloft (Sertraline HCl) 25 Mg Tab 25 Mg PO QAM 10/02/16 Reported Prilosec (Omeprazole) 20 Mg Capcr 20 Mg PO QAM 10/02/16 Reported Allopurinol 100 Mg Tab 100 Mg PO QAM 08/08/16 Reported Jantoven (Warfarin Sodium) 5 Mg Tab 5 Mg PO 5XWK 08/08/16 Reported TAKE 5MG EVERY DAY EXCEPT FRIDAY AND FRIDAY. Warfarin Sodium 5 Mg Tab 2.5 Mg PO 2XWK 08/08/16 Reported TAKE 2.5MG MF Zestril (Lisinopril) 40 Mg Tab 40 Mg PO QAM 08/28/12 Reported Provider Instructions Activity Restrictions - No exercising or heavy lifting for 24 hours. - Do not drink alcohol the day of the procedure. - Do not drive a car or operate machinery until the day after the procedure. - Do not make any important decisions or sign important papers in 24 hours after the procedure. Following Day: - Return to full activity which may include returning to work/school. Diet Start your diet with liquids and light foods (jello, soup, juice, toast). Then eat your usual diet if not nauseated. Treatment For Common After Affects For mild abdominal pain, bloating, or excessive gas: - Rest - Eat lightly - Lie on right side Follow-Up Information Follow-up with Dr. Joel Helm as scheduled Await pathology results May restart coumadin today Anesthesia Information What You Should Know You have had a procedure that required some medicine to reduce anxiety and discomfort. This treatment is called moderate sedation. After receiving the treatment, you may be sleepy, but you will be able to breathe on your own. The effects of the treatment may last for several hours. Follow these instructions along with Activity/Diet recommendations noted above: * Do NOT do anything where dizziness or clumsiness would be dangerous. * Rest quietly at home today, then you can be up and about tomorrow. * Have a responsible person stay with you the rest of today. * You may have had an I.V. today. If so, you may take the dressing off later today. Recommendations Call your doctor if: * Trouble breathing * Continuous vomiting for more than 24 hours * Temperature above 101 degrees * Severe abdominal pain or bloating * Pain not relieved by pain medicine ordered * There is increased drainage or redness from any incision * A large amount of rectal bleeding greater than 2-3 tablespoons. (If you had a polyp/s removed or have hemorrhoids, a small amount of blood - from the rectum is to be expected.) * You have any unanswered questions or concerns. IN THE EVENT OF A SERIOUS EMERGENCY, GO TO THE NEAREST EMERGENCY ROOM Your discharge instructions were prepared by provider Yashira Mohamud. Patient Instructions Signature Page Pinky Arias Patient (or Guardian) Signature/Date: I have read and understand the instructions given to me by my caregivers. Caregiver/RN/Doctor Signature/Date: The above-named patient and/or guardian has received patient instructions on this date. + Original Patient Signature Page (only) stays with chart. Please make copy for patient.
--- NOTE | 2016-10-10 11:08 | GI REPORT ---
Procedure Date: 10/10/2016 10:32 AM Procedure: Upper GI endoscopy Indications: Iron deficiency anemia, Abdominal bloating Medicines: Monitored Anesthesia Care Complications: No immediate complications. Estimated blood loss: Minimal. Estimated Blood Loss: Estimated blood loss was minimal. Procedure: Pre-Anesthesia Assessment: - Prior to the procedure, a History and Physical was performed, and patient medications, allergies and sensitivities were reviewed. The patient's tolerance of previous anesthesia was reviewed. - The risks and benefits of the procedure and the sedation options and risks were discussed with the patient. All questions were answered and informed consent was obtained. - Patient identification and proposed procedure were verified prior to the procedure by the physician, the nurse and the slurry man. The procedure was verified in the procedure room. - Pre-procedure physical examination revealed no contraindications to sedation. - ASA Grade Assessment: III - A patient with severe systemic disease. - After reviewing the risks and benefits, the patient was deemed in satisfactory condition to undergo the procedure. - The anesthesia plan was to use monitored anesthesia care (MAC). - Immediately prior to administration of medications, the patient was re-assessed for adequacy to receive sedatives. - The heart rate, respiratory rate, oxygen saturations, blood pressure, adequacy of pulmonary ventilation, and response to care were monitored throughout the procedure. - The physical status of the patient was re-assessed after the procedure. After obtaining informed consent, the endoscope was passed under direct vision. Throughout the procedure, the patient's blood pressure, pulse, and oxygen saturations were monitored continuously. The Scope was introduced through the mouth, and advanced to the third part of duodenum. The upper GI endoscopy was accomplished without difficulty. The patient tolerated the procedure well. Findings: The upper third of the esophagus and middle third of the esophagus were normal. A small hiatus hernia was found. The proximal extent of the gastric folds (end of tubular esophagus) was 36 cm from the incisors. The hiatal narrowing was 38 cm from the incisors. The Z-line was 36 cm from the incisors. Diffuse mild inflammation characterized by congestion (edema), erythema and granularity was found in the entire examined stomach. Biopsies were taken with a cold forceps for histology. Estimated blood loss was minimal. The examined duodenum was normal. Biopsies for histology were taken with a cold forceps for evaluation of celiac disease. Estimated blood loss was minimal. Impression: - Normal upper third of esophagus and middle third of esophagus. - Small hiatus hernia. - Gastritis. Biopsied. - Normal examined duodenum. Biopsied. Recommendation: - Await pathology results. - Continue present medications. - Return to referring physician as previously scheduled. - symptoms are likely medication related (would favor Zoloft as likely cause) Yashira Mohamud D.O. Yashira Mohamud, 10/10/2016 11:07:45 AM This report has been signed electronically. Note Initiated On: 10/10/2016 10:32 AM I attest to the content of the Intraoperative Record and orders documented therein, exceptions below
--- NOTE | 2016-10-10 11:11 | GI REPORT ---
Procedure Date: 10/10/2016 10:48 AM Procedure: Colonoscopy Indications: Unexplained iron deficiency anemia Medicines: Monitored Anesthesia Care Complications: No immediate complications. Estimated blood loss: Minimal. Estimated Blood Loss: Estimated blood loss was minimal. Procedure: Pre-Anesthesia Assessment: - Prior to the procedure, a History and Physical was performed, and patient medications, allergies and sensitivities were reviewed. The patient's tolerance of previous anesthesia was reviewed. - The risks and benefits of the procedure and the sedation options and risks were discussed with the patient. All questions were answered and informed consent was obtained. - Patient identification and proposed procedure were verified prior to the procedure by the physician, the nurse and the tensile tester. The procedure was verified in the procedure room. - Pre-procedure physical examination revealed no contraindications to sedation. - ASA Grade Assessment: III - A patient with severe systemic disease. - After reviewing the risks and benefits, the patient was deemed in satisfactory condition to undergo the procedure. - The anesthesia plan was to use monitored anesthesia care (MAC). - Immediately prior to administration of medications, the patient was re-assessed for adequacy to receive sedatives. - The heart rate, respiratory rate, oxygen saturations, blood pressure, adequacy of pulmonary ventilation, and response to care were monitored throughout the procedure. - The physical status of the patient was re-assessed after the procedure. After I obtained informed consent, the scope was passed under direct vision. Throughout the procedure, the patient's blood pressure, pulse, and oxygen saturations were monitored continuously. The Scope was introduced through the anus and advanced to the terminal ileum. The colonoscopy was performed without difficulty. The patient tolerated the procedure well. The quality of the bowel preparation was good. Findings: The digital rectal exam findings include non-thrombosed external hemorrhoids. Pertinent negatives include normal sphincter tone. The terminal ileum appeared normal. Normal cecal retroflexion A few small-mouthed diverticula were found in the ascending colon. Two sessile polyps were found at the splenic flexure. The polyps were 3 to 5 mm in size. These polyps were removed with a cold biopsy forceps. Resection and retrieval were complete. Due to excessive bleeding from one polyp site, one hemostatic clip was successfully placed (MR conditional). There was no bleeding at the end of the procedure. Estimated blood loss was minimal. Internal hemorrhoids were found during retroflexion. The hemorrhoids were mild. The exam was otherwise without abnormality. Impression: - Non-thrombosed external hemorrhoids found on digital rectal exam. - The examined portion of the ileum was normal. - Mild diverticulosis in the ascending colon. - Two 3 to 5 mm polyps at the splenic flexure, removed with a cold biopsy forceps. Resected and retrieved. Clip (MR conditional) was placed. - Internal hemorrhoids. - The examination was otherwise normal. Recommendation: - Discharge patient to home (ambulatory). - Advance diet as tolerated today. - Await pathology results. - Repeat colonoscopy is not recommended for surveillance. Yashira Mohamud D.O. Yashira Mohamud, 10/10/2016 11:11:15 AM This report has been signed electronically. Note Initiated On: 10/10/2016 10:48 AM I attest to the content of the Intraoperative Record and orders documented therein, exceptions below
--- NOTE | 2016-10-10 11:31 | Anesthesiology Progress Note ---
Anesthesia Post Op Note Date & Time Oct 10, 2016 at 11:31 Vital Signs Pain Intensity: 0 Vital Signs Past 12 Hours Date Time Temp Pulse Resp B/P (MAP) Pulse Ox O2 Delivery O2 Flow Rate FiO2 10/10/16 11:15 76 16 124/55 (78) 94 Room Air 10/10/16 10:08 36.3 73 22 153/57 (89) 95 Room Air Notes Mental Status: alert / awake / arousable, participated in evaluation Pt Amnestic to Procedure: Yes Nausea / Vomiting: adequately controlled Pain: adequately controlled Airway Patency, RR, SpO2: stable & adequate BP & HR: stable & adequate Hydration State: stable & adequate Anesthetic Complications: no major complications apparent
[2016-10-10 11:52] VITALS: BP 133/78; PULSE 78; O2SAT 94
== END | disposition home or self-care (01) ==
LOC: EDSTATUS 10-02 11:00 → C.GI 09:47
PROVIDERS: ATTEND Internal Medicine Gastroenterology
DX: D50.9 Iron deficiency anemia, unspecified (principal); R14.0 Abdominal distension (gaseous); K64.4 Residual hemorrhoidal skin tags; K44.9 Diaphragmatic hernia without obstruction or gangrene; K57.30 Diverticulosis of large intestine without perforation or abscess without bleeding; D12.3 Benign neoplasm of transverse colon; K64.8 Other hemorrhoids; K29.70 Gastritis, unspecified, without bleeding; G47.33 Obstructive sleep apnea (adult) (pediatric); I48.91 Unspecified atrial fibrillation; F41.9 Anxiety disorder, unspecified; Z68.25 Body mass index [BMI] 25.0-25.9, adult; Z88.0 Allergy status to penicillin; Z90.49 Acquired absence of other specified parts of digestive tract; Z79.82 Long term (current) use of aspirin; Z79.01 Long term (current) use of anticoagulants

== ENCOUNTER 2017-11-20 19:58 | Emergency (ER) | payer OTHER ==
[~2017-11-20] VITALS: Ht 149.9 cm; Wt 63.5 kg
[~2017-11-20 19:58] MED LIST changes: -LIDOCAINE HCL 2% 2 ML VIAL (20MG/ML) ONE; -ONDANSETRON INJ 2 MG/ML 2 ML VIAL IV PRN; -PROPOFOL IV EMULSION 10 MG/ML 20 ML VIAL IV ONE
[2017-11-20 20:19] VITALS: TEMP 36.5; Ht 149.9 cm; Wt 63.5 kg
[2017-11-20] MEDS ORDERED: LORAZEPAM 0.5 MG TAB SL STA (20:33)
[2017-11-20] MEDS ORDERED: EFF/375 PO (20:59)
[2017-11-20] MEDS ORDERED: APR50 PO (20:59)
[2017-11-20 21:20] LABS: BASO % 0.4 %; BASO ABS # 0.02 K/uL (0-0.2); EOS % 3.3 %; EOS ABS # 0.15 K/uL (0-0.5); HEMATOCRIT 34.4 % (37-47); HEMOGLOBIN 11.6 g/dL (12.0-16.0); IG# 0.01 K/uL (0.00-0.02); LYMPH % 28.2 %; MEAN CELL VOLUME 89.8 fL (80-100); MEAN CORPUSCULAR HEMOGLOBIN 30.3 pg (25-34); MEAN CORPUSCULAR HGB CONC 33.7 g/dl (32-36); MEAN PLATELET VOLUME 10.3 fL (7.4-10.4); MONO % 11.5 %; MONO ABS # 0.53 K/uL (0.11-0.59); NEUT % 56.4 %; PLATELET COUNT 211 K/uL (130-400); RED CELL DISTRIBUTION WIDTH CV 13.6 % (11.5-14.5); RED CELL DISTRIBUTION WIDTH SD 44.9 fL (36.4-46.3); WHITE BLOOD COUNT 4.61 K/uL (4.8-10.8)
[2017-11-20 21:49] LABS: ALBUMIN 3.6 gm/dl (3.4-5.0); CALCIUM 9.2 mg/dl (8.5-10.1); CREATININE 1.11 mg/dl (0.60-1.20); TOTAL PROTEIN 6.8 gm/dl (6.4-8.2)
--- NOTE | 2017-11-20 22:16 | DIAGNOSTIC IMAGING REPORT ---
CHEST ONE VIEW PORTABLE CLINICAL HISTORY: Shortness of breath COMPARISON STUDY: 08/08/2016 FINDINGS: The heart is mildly enlarged. There is aortic tortuosity. There is mild chronic interstitial thickening. There is no overt failure. There are no pleural effusions. There is no focal pulmonary consolidation. There is left shoulder calcific tendinitis.[ IMPRESSION: 1. Stable mild cardiomegaly and mild interstitial thickening 2. No evidence of focal pulmonary consolidation Electronically signed by: Jack Hart M.D. 11/20/2017 10:15 PM Dictated Date/Time: 11/20/2017 10:13 PM
[2017-11-20] MEDS ORDERED: LORA-741 PO (22:20)
[2017-11-20 23:15] VITALS: BP 161/79; PULSE 68; O2SAT 98
--- NOTE | 2017-11-21 00:57 | EMERGENCY ROOM VISIT NOTE ---
History Report prepared by Angelo: Adebayo Langston Under the Supervision of: Dr. Jorge Kidd D.O. First contact with patient: 20:22 Chief Complaint: OTHER COMPLAINT History of Present Illness The patient is a 82 year old female who presents to the Emergency Room with complaints of persistent anxiety that began a year ago. The patient states that for the last year she has felt weak and as if she does not want to do anything. She reports all she wants to do is "sit and cry". The patient states she cannot talk often because her voice becomes hoarse. Her son reports the patient has also had been having trouble with concentrating and does not say what she wants to at time. He notes she also gets "nervous in her stomach". The patient states tonight she was just walking and began to cry. She reports she was not thinking of anything at the time and does not know why she cried. Her son states the patient has been more worked up than usual. The patient states she has been following up with Dr. Helm and has an appointment tomorrow. The patient denies headache, change in vision, fevers, chest pain, shortness of breath, nausea, vomiting, diarrhea, pain with urination, melena, hallucinations, suicidal ideations, and homicidal ideations. Source of History: patient, family Onset: a year ago Position: other (generalized) Quality: other ("worked up") Timing: other (persistent) Associated Symptoms: No fevers, No headache, No chest pain, No SOB, No nausea, No vomiting, No melena, No diarrhea, No urinary symptoms Note: Denies: changes in vision, hallucinations, SI, HI. Review of Systems See HPI for pertinent positives & negatives. A total of 10 systems reviewed and were otherwise negative. Past Medical & Surgical Medical Problems: (1) Abdominal discomfort, generalized (2) Atrial fibrillation (3) Gout (4) Hyperlipidemia Nec/Nos (5) Hypertension Nos (6) PEDRITO on CPAP (7) Osteoporosis Nos Surgical Problems: (1) H/O: hysterectomy (2) History of cataract surgery (3) History of cholecystectomy (4) History of parathyroid surgery Family History FH: cancer FH: heart disease Hypertension Stroke Social History Smoking Status: Never Smoker Drug Use: none Marital Status: single, Housing Status: lives with significant other Occupation Status: retired Current/Historical Medications Scheduled Allopurinol (Allopurinol), 100 MG PO QAM Aspirin (Aspirin Chewable), 81 MG PO HS Cholecalciferol (Vitamin D), 1 CAP PO QAM Hydralazine HCl (Hydralazine HCl), 1 TAB PO DAILY Hydralazine Hcl (Apresoline), 50 MG PO TID Lisinopril (Zestril), 40 MG PO QAM Lorazepam (Ativan), 0.5 MG PO BID Oyster Shell (Calcium), 1 TAB PO DAILY AT NOON Terazosin Hcl (Hytrin), 10 MG PO HS Venlafaxine Hcl (Effexor), 1 TAB PO DAILY Warfarin Sod (Jantoven), 5 MG PO 5XWK Warfarin Sodium (Warfarin Sodium), 2.5 MG PO 2XWK Scheduled PRN Polyethylene Glycol 3350 (Miralax), 17 GM PO DAILY PRN for Constipation Allergies Coded Allergies: Naproxen (Verified Allergy, Mild, EDEMA, 11/20/17) Alendronate (Verified Allergy, Unknown, HIVES, 11/20/17) Simvastatin (Verified Allergy, Unknown, MUSCLE FATIGUE, 11/20/17) Physical Exam Vital Signs Date Time Temp Pulse Resp B/P (MAP) Pulse Ox O2 Delivery O2 Flow Rate FiO2 11/20/17 23:15 68 18 161/79 98 11/20/17 22:05 65 16 165/86 96 Room Air 11/20/17 21:05 66 22 164/76 95 Room Air 11/20/17 20:19 36.5 71 18 174/70 93 Room Air Physical Exam GENERAL: Sitting up in bed, well appearing for stated age, in no acute distress , extremely anxious EYE EXAM: normal conjunctiva. PERRL and EOM's intact. OROPHARYNX: no exudate, no erythema, lips, buccal mucosa, and tongue normal and mucous membranes are moist NECK: supple, no nuchal rigidity, no adenopathy, non-tender LUNGS: Clear to auscultation. Normal chest wall mechanics HEART: no murmurs, S1 normal and S2 normal ABDOMEN: abdomen soft, non-tender, normo-active bowel sounds, no masses, no rebound or guarding. BACK: Back is symmetrical on inspection and there is no deformity, no midline tenderness, no CVA tenderness. SKIN: no rashes and no bruising UPPER EXTREMITIES: upper extremities are grossly normal. LOWER EXTREMITIES: No pitting edema. NEURO EXAM: Normal sensorium, cranial nerves II-XII intact, normal speech, no weakness of arms, no weakness of legs. No drift. Finger to nose intact. Gross sensation intact. Medical Decision & Procedures ER Provider Diagnostic Interpretation: Radiology results as stated below per my review and the radiologist's interpretation: CHEST ONE VIEW PORTABLE CLINICAL HISTORY: Shortness of breath COMPARISON STUDY: 08/08/2016 FINDINGS: The heart is mildly enlarged. There is aortic tortuosity. There is mild chronic interstitial thickening. There is no overt failure. There are no pleural effusions. There is no focal pulmonary consolidation. There is left shoulder calcific tendinitis.[ IMPRESSION: 1. Stable mild cardiomegaly and mild interstitial thickening 2. No evidence of focal pulmonary consolidation Electronically signed by: Jack Hart M.D. 11/20/2017 10:15 PM Dictated Date/Time: 11/20/2017 10:13 PM Laboratory Results 11/20/17 21:00 Red Blood Count 3.83, Mean Corpuscular Volume 89.8, Mean Corpuscular Hemoglobin 30.3, Mean Corpuscular Hemoglobin Concent 33.7, Mean Platelet Volume 10.3, Neutrophils (%) (Auto) 56.4, Lymphocytes (%) (Auto) 28.2, Monocytes (%) (Auto) 11.5, Eosinophils (%) (Auto) 3.3, Basophils (%) (Auto) 0.4, Neutrophils # (Auto ) 2.60, Lymphocytes # (Auto) 1.30, Monocytes # (Auto) 0.53, Eosinophils # (Auto ) 0.15, Basophils # (Auto) 0.02 11/20/17 21:00 Test 11/20/17 21:00 White Blood Count 4.61 K/uL (4.8-10.8) Red Blood Count 3.83 M/uL (4.2-5.4) Hemoglobin 11.6 g/dL (12.0-16.0) Hematocrit 34.4 % (37-47) Mean Corpuscular Volume 89.8 fL (80-100) Mean Corpuscular Hemoglobin 30.3 pg (25-34) Mean Corpuscular Hemoglobin Concent 33.7 g/dl (32-36) Platelet Count 211 K/uL (130-400) Mean Platelet Volume 10.3 fL (7.4-10.4) Neutrophils (%) (Auto) 56.4 % Lymphocytes (%) (Auto) 28.2 % Monocytes (%) (Auto) 11.5 % Eosinophils (%) (Auto) 3.3 % Basophils (%) (Auto) 0.4 % Neutrophils # (Auto) 2.60 K/uL (1.4-6.5) Lymphocytes # (Auto) 1.30 K/uL (1.2-3.4) Monocytes # (Auto) 0.53 K/uL (0.11-0.59) Eosinophils # (Auto) 0.15 K/uL (0-0.5) Basophils # (Auto) 0.02 K/uL (0-0.2) RDW Standard Deviation 44.9 fL (36.4-46.3) RDW Coefficient of Variation 13.6 % (11.5-14.5) Immature Granulocyte % (Auto) 0.2 % Immature Granulocyte # (Auto) 0.01 K/uL (0.00-0.02) Anion Gap 5.0 mmol/L (3-11) Est Creatinine Clear Calc Drug Dose 31.1 ml/min Estimated GFR () 53.2 Estimated GFR (Non- 45.9 BUN/Creatinine Ratio 24.2 (10-20) Calcium Level 9.2 mg/dl (8.5-10.1) Total Bilirubin 0.4 mg/dl (0.2-1) Direct Bilirubin 0.1 mg/dl (0-0.2) Aspartate Amino Transf (AST/SGOT) 17 U/L (15-37) Alanine Aminotransferase (ALT/SGPT) 17 U/L (12-78) Alkaline Phosphatase 65 U/L (45-117) Total Protein 6.8 gm/dl (6.4-8.2) Albumin 3.6 gm/dl (3.4-5.0) Lipase 273 U/L (73-393) Laboratory results per my review. Medications Administered Medications (Trade) Dose Ordered Sig/Padmaja Route Start Time Stop Time Status Last Admin Dose Admin Lorazepam (Ativan Tab) 0.25 mg NOW STAT SL 11/20/17 20:33 11/20/17 20:35 DC 11/20/17 20:55 0.25 MG ED Course ED COURSE: Vital signs were reviewed and showed hypertension The patients medical record was reviewed The above diagnostic studies were performed and reviewed. ED treatments and interventions as stated above. 2025: The patient was evaluated in room B08. A complete history and physical examination was performed. 2032: Ordered Ativan Tab 0.25 mg SL. 2213: Upon reevaluation, the patient is feeling better. I discussed my findings with the patient and she understands and agrees with the treatment plan. Based on the patients age, coexisting illnesses, exam and lab findings the decision to treat as an outpatient was made. The patient remained stable while under my care. The patient appeared well at the time of discharge. Medical Decision Differential Diagnosis includes but is not limited to dehydration, stroke, anemia, hypoglycemia, hyponatremia, hypernatremia, urinary tract infection, pneumonia, bronchitis, sepsis, gastroenteritis, additional abdominal pathology, metabolic abnormalities and infections. Patient is an 82-year-old female who is extremely well appearing for stated age who presents the ER as she is feeling very emotional. She notes she started crying tonight. She notes the symptoms have been fairly present for the past year. She is followed up with her PCP without improvement. She does not know why things got worse tonight. She has no other complaints. She denies any chest pain shortness of breath nausea vomiting diarrhea pain when she urinates or any other physical complaint. Labs were obtained and CBC shows a mild anemia. BMP along with LFTs, bilirubin, lipase were all unremarkable. She had no chest pain or shortness of breath. Chest x-ray unremarkable. Patient was given Ativan and calmed down significant. She notes she did feel slightly better. She has no suicidal or homicidal ideations. She was discharged to follow back up with her PCP as an outpatient. Discussed with Pt concerning signs and symptoms to watch out for. Pt was instructed to follow up with their PCP and discussed with the patient their option to return to the ED at anytime for persistent or worsening symptoms. The appropriate anticipatory guidance and out-patient management, including indications for return to the emergency department, were explained at length to the patient and understood. Medication Reconcilliation Current Medication List: was personally reviewed by me Blood Pressure Screening Patient's blood pressure: Elevated blood pressure Blood pressure disposition: Referred to PCP Impression Primary Impression: Anxiety Additional Impression: Anemia Scribe Attestation The scribe's documentation has been prepared under my direction and personally reviewed by me in its entirety. I confirm that the note above accurately reflects all work, treatment, procedures, and medical decision making performed by me. Departure Information Dispostion Home / Self-Care Prescriptions Lorazepam (ATIVAN) 0.5 Mg Tab 0.5 MG PO BID for anxiety, #10 TAB Prov: Jorge Kidd, DO 11/20/17 Referrals Joel Helm MD (PCP) Forms HOME CARE DOCUMENTATION FORM, IMPORTANT VISIT INFORMATION, WORK / SCHOOL INSTRUCTIONS Patient Instructions Anxiety Body Response, [facility] Additional Instructions Please follow up with your primary care doctor or if you are a student, [facility] with in the next 24 hours. Any worsening of your symptoms, please return to the ED immediately. This includes any fevers greater than 100.4, worsening pain, chest pain, shortness breath, persistent nausea, vomiting, unable to eat or drink, or any other concerning signs or symptoms from your standpoint. You were given medications during this visit that will inhibit your ability to drive, operate machinery and work. Please do NOT drive, operate machinery or work for the next 12hrs. You were also given a prescription for ativan. While taking this medication you should also not drive, operate machinery and or work for 12hrs following taking this medication. Problem Qualifiers Additional Impression: Anemia Anemia type: unspecified type Qualified Codes: D64.9 - Anemia, unspecified
== END 2017-11-20 23:15 | disposition home or self-care (01) ==
LOC: C.EDB 20:00
DX: F41.9 Anxiety disorder, unspecified (principal); D64.9 Anemia, unspecified; I48.91 Unspecified atrial fibrillation; M10.9 Gout, unspecified; E78.5 Hyperlipidemia, unspecified; I10 Essential (primary) hypertension; G47.33 Obstructive sleep apnea (adult) (pediatric); M81.0 Age-related osteoporosis without current pathological fracture; Z90.710 Acquired absence of both cervix and uterus; Z90.49 Acquired absence of other specified parts of digestive tract; Z98.49 Cataract extraction status, unspecified eye; Z80.9 Family history of malignant neoplasm, unspecified; Z82.49 Family history of ischemic heart disease and other diseases of the circulatory system; Z82.3 Family history of stroke; Z79.82 Long term (current) use of aspirin; Z79.01 Long term (current) use of anticoagulants; Z79.899 Other long term (current) drug therapy

== ENCOUNTER → 2017-11-27 | Outpatient (CLI) | payer OTHER ==
[~2017-11-27] MED LIST changes: +APR50 PO; +EFF/375 PO; -PRAV40TA PO; -PRLSR20 PO; -SERT25TA PO
--- NOTE | 2017-11-27 10:42 | DIAGNOSTIC IMAGING REPORT ---
GI SERIES W/O KUB CLINICAL HISTORY: WITHOUT AIR- GENERALIZED ABDOMINAL PAIN COMPARISON STUDY: None. FLUOROSCOPY TIME: 1.5 minutes.. FINDINGS: 24 images submitted. The esophagus is normal in course and caliber. Mild esophageal dysmotility. Tiny hiatus hernia. No gastroesophageal reflux. No gastric ulcerations. The duodenal bulb and duodenal C sweep are within normal limits. IMPRESSION: 1. Mild esophageal dysmotility. 2. Tiny hiatus hernia. Electronically signed by: Ryder Gandhi M.D. 11/27/2017 10:41 AM Dictated Date/Time: 11/27/2017 10:32 AM
== END | disposition home or self-care (01) ==
LOC: C.RAD 09:37
PROVIDERS: ATTEND Nurse Practitioner Family
DX: K22.4 Dyskinesia of esophagus (principal); K46.9 Unspecified abdominal hernia without obstruction or gangrene; R10.84 Generalized abdominal pain

== ENCOUNTER 2018-06-04 19:47 | Observation (INO) ==
[2018-06-04] MEDS ORDERED: ONDANSETRON INJ 2 MG/ML 2 ML VIAL IV STA (20:07)
[2018-06-04] MEDS ORDERED: SODIUM CHLORIDE 0.9% 1000ML 1,000 ML IV SCH (20:15)
[2018-06-04 20:29] LABS: Basophils # (auto) 0.02 K/uL (0-0.2); Basophils % (auto) 0.3 %; Eosinophils # (auto) 0.06 K/uL (0-0.5); Hematocrit (blood only) 39.5 % (37-47); Hemoglobin 13.5 g/dL (12.0-16.0); Lymphocytes # (auto) 1.12 K/uL (1.2-3.4); Lymphocytes % (auto) 19.4 %; Mean Corpuscular Hgb Conc 34.2 g/dL (32-36); Mean Corpuscular Volume 88.2 fL (80-100); Mean Platelet Volume 10.4 fL (7.4-10.4); Monocytes # (auto) 0.72 K/uL (0.11-0.59); Monocytes % (auto) 12.5 %; Neutrophils # (auto) 3.86 K/uL (1.4-6.5); Neutrophils % (auto) 66.8 %; Platelet Count 213 K/uL (130-400); RDW Coefficient of Variation 13.3 % (11.5-14.5); Red Blood Count 4.48 M/uL (4.2-5.4); White Blood Count 5.78 K/uL (4.8-10.8)
[2018-06-04 20:41] LABS: Partial Thromboplastin Ratio 1.6; Partial Thromboplastin Time 41.1 Seconds (21.0-31.0)
[2018-06-04 20:47] LABS: Albumin Level 3.9 gm/dl (3.4-5.0); Blood Urea Nitrogen 37 mg/dl (7-18); Carbon Dioxide 29 mmol/L (21-32); Chloride 100 mmol/L (98-107); Creatinine Clr Calc Pharmacy 24.9 ml/min; Est GFR (African American) 44.9; Est GFR (Non-African American) 38.7; Glucose 138 mg/dl (70-99); Potassium 3.6 mmol/L (3.5-5.1); Sodium 136 mmol/L (136-145)
[2018-06-04 20:51] LABS: INR 4.3 (0.9-1.1)
[2018-06-04 20:59] LABS: Alanine Aminotransferase 17 U/L (12-78); Albumin Globulin Ratio 1.2 (0.9-2); Alkaline Phosphatase 70 U/L (45-117); Aspartate Aminotransferase 17 U/L (15-37); Bilirubin,Total 0.8 mg/dl (0.2-1); Globulin 3.4 gm/dl (2.5-4.0); Total Protein 7.3 gm/dl (6.4-8.2); Troponin I < 0.015 ng/ml (0-0.045)
--- NOTE | 2018-06-04 21:10 | Emergency Department Note ---
Entered by Jil Peck acting as a scribe for Popeye Retana MD History of Present Illness General Chief complaint: Vomiting Stated complaint: VOMITING, DEHYDRATION, SICK SINCE FRIDAY Time Seen by Provider: 06/04/18 19:58 Source: patient and family Mode of arrival: ambulatory Limitations: no limitations History of Present Illness Provider complaint: Vomiting Onset (ago): day(s) 3 Location: abdomen (vomiting) Severity: moderate Associated symptoms: + other (diarrhea, ); no chest pain and no fever/chills Patient is an 83 year old female presenting to the ED with vomiting beginning x3 days ago. Patient states that she has had 1-2 episodes of vomiting each day since onset, noting the episodes occur in the evening. She also shares she has associated dehydration. Patient denies any abd pain associated with vomiting. She denies any back pain, CP, diarrhea, hematochezia, fevers, chills or any other complaints or concerns at this time. Daughter shares patient did visit her [facility] PCP x2 days ago, and was told to come to ED as sx continued today. Patient denies any contact with people with same complaint. She denies any new medications. Patient lastly shares she is on Coumadin. Home Medications Home Medications Medication Instructions Recorded Confirmed Type allopurinol 100 mg PO DAILY PRN 06/04/18 06/04/18 History aspirin 81 mg PO DAILY 06/04/18 06/04/18 History calcium carbonate [Oyster Shell 500 mg PO DAILY 06/04/18 06/04/18 History Calcium] cholecalciferol (vitamin D3) 2,000 units PO DAILY 06/04/18 06/04/18 History [Vitamin D3] donepezil 5 mg PO DAILY 06/04/18 06/04/18 History hydralazine 50 mg PO TID 06/04/18 06/04/18 History hydroxyzine HCl 25 mg PO Q6H PRN 06/04/18 06/04/18 History lisinopril 40 mg PO QAM 06/04/18 06/04/18 History polyethylene glycol 3350 17 g PO DAILY PRN 06/04/18 06/04/18 History terazosin 10 mg PO HS 06/04/18 06/04/18 History venlafaxine 75 mg PO DAILY 02/07/19 02/07/19 History warfarin 7.5 mg PO DAILY 06/04/18 06/04/18 History Allergies Allergy/AdvReac Type Severity Reaction Status Date / Time naproxen Allergy Mild EDEMA Verified 06/04/18 20:38 alendronate sodium Allergy Unknown HIVES Verified 06/04/18 20:38 simvastatin Allergy Unknown MUSCLE Verified 06/04/18 20:38 FATIGUE Past Med/Surg History Medical History Atrial fibrillation (Chronic) PEDRITO on CPAP (Chronic) Gout (Chronic) Surgical History H/O: hysterectomy (Chronic) History of cholecystectomy (Chronic) History of cataract surgery (Chronic) History of parathyroid surgery (Chronic) Family History Other No significant family history Social History Feels Safe at Home: Yes Smoking Status: Never smoker Review of Systems See HPI for pertinent positives & negatives. and A total of 10 systems reviewed and were otherwise negative Physical Exam Vital Signs Vital Signs - 24 hr 06/04/18 19:54 06/04/18 20:21 06/04/18 20:43 Temperature 36.3 C L Temperature Source Oral Sepsis Recent Fever Within 48 Hours No Sepsis Action Taken by Nursing No Action Required Pulse Rate 66 Pulse Rate [Right Finger] 61 Pulse Rhythm [Right Finger] Regular Pulse Strength [Right Finger] Respiratory Rate 16 18 18 Respiratory Effort / Characteristics Non-Labored Spontaneous Respiratory Depth Normal Normal Respiratory Pattern Regular Blood Pressure 146/81 H Blood Pressure [Left Arm] Blood Pressure Mean 102 Blood Pressure Mean [Left Arm] Blood Pressure Position [Left Arm] Pulse Oximetry 95 93 97 Oxygen Delivery Method Room Air Room Air Room Air 06/04/18 20:47 06/04/18 22:01 Temperature Temperature Source Sepsis Recent Fever Within 48 Hours Sepsis Action Taken by Nursing Pulse Rate Pulse Rate [Right Finger] 62 63 Pulse Rhythm [Right Finger] Regular Regular Pulse Strength [Right Finger] Normal Normal Respiratory Rate 20 18 Respiratory Effort / Characteristics Non-Labored Spontaneous Non-Labored Spontaneous Respiratory Depth Normal Normal Respiratory Pattern Regular Regular Blood Pressure Blood Pressure [Left Arm] 137/71 162/67 H Blood Pressure Mean Blood Pressure Mean [Left Arm] 93 98 Blood Pressure Position [Left Arm] Lying Lying Pulse Oximetry 97 95 Oxygen Delivery Method Room Air Room Air GENERAL: Patient is in no acute distress. HEENT: No acute trauma, normocephalic atraumatic, mucous membranes are dry, no nasal congestion, no scleral icterus. NECK: No stridor, no adenopathy, no meningismus, trachea is midline. LUNGS: Clear to auscultation bilaterally, no wheeze, no rhonchi, breath sounds equal. HEART: 2/6 systolic murmur, regular rate and rhythm ABDOMEN: Soft, nontender, bowel sounds positive, no hernias, no peritonitis. EXTREMITIES: No cyanosis or edema, full range of motion of all the joints without pain or difficulty, no signs for acute trauma. NEUROLOGIC: Oriented x 3, no acute motor or sensory deficits, no focal weakness. SKIN: No rash, no jaundice, no diaphoresis. Course 2000: Past medical records reviewed. The patient was evaluated in room B11B, and a complete history and physical examination were performed. 2139: Updated patient on results. Patient is feeling better but will be given an ambulation trial prior to discharge or admission decision. 2205: Discussed patient case with Dr. Allison Administered Medications Discontinued Medications Acetaminophen (Tylenol) 1,000 mg PO NOW STA Stop: 06/04/18 21:44 Last Admin: 06/04/18 21:47 Dose: 1,000 mg Sodium Chloride (Nss 1000ml) 1,000 mls @ 999 mls/hr IV .Q1H1M ERASMO Stop: 06/04/18 21:15 Last Infusion: 06/04/18 21:17 Dose: 0 mls/hr Admin: 06/04/18 20:18 Dose: 999 mls/hr Sodium Chloride (Nss) 500 mls @ 999 mls/hr IV .Q31M STA Stop: 06/04/18 22:13 Last Admin: 06/04/18 21:52 Dose: 999 mls/hr Ondansetron HCl (Zofran) 4 mg IV NOW STA Stop: 06/04/18 20:08 Last Admin: 06/04/18 20:19 Dose: 4 mg Medical Decision Making Differential Diagnosis Differential Diagnosis includes:dehydration, acute kidney injury, electrolyte imbalance, anemia, UTI pneumonia, food borne illness, viral illness, MS Medical Records Attestation: I reviewed the patient's medical records. Home Medications Current Medication List: was personally reviewed by me Laboratory Data Attestation: I reviewed the patient's lab results. Result diagrams: 06/04/18 20:04 06/04/18 20:04 Lab Results 06/04/18 06/04/18 06/04/18 Range/Units 20:04 20:04 20:04 WBC 5.78 (4.8-10.8) K/uL RBC 4.48 (4.2-5.4) M/uL Hgb 13.5 (12.0-16.0) g/dL Hct 39.5 (37-47) % MCV 88.2 (80-100) fL MCH 30.1 (25-34) pg MCHC 34.2 (32-36) g/dL RDW Std Deviation 43.0 (36.4-46.3) fL RDW Coeff of Sergio 13.3 (11.5-14.5) % Plt Count 213 (130-400) K/uL MPV 10.4 (7.4-10.4) fL Immature Gran % (Auto) 0.0 % Neut % (Auto) 66.8 % Lymph % (Auto) 19.4 % [place] % (Auto) 12.5 % Eos % (Auto) 1.0 % Baso % (Auto) 0.3 % Immature Gran # (Auto) 0.00 (0.00-0.02) K/uL Neut # (Auto) 3.86 (1.4-6.5) K/uL Lymph # (Auto) 1.12 L (1.2-3.4) K/uL [place] # (Auto) 0.72 H (0.11-0.59) K/uL Eos # (Auto) 0.06 (0-0.5) K/uL Baso # (Auto) 0.02 (0-0.2) K/uL PT 40.0 H (9.0-12.0) Seconds INR 4.3 H (0.9-1.1) APTT 41.1 H (21.0-31.0) Seconds PTT Ratio 1.6 Sodium 136 (136-145) mmol/L Potassium 3.6 (3.5-5.1) mmol/L Chloride 100 (98-107) mmol/L Carbon Dioxide 29 (21-32) mmol/L Anion Gap 7.0 (3-11) BUN 37 H (7-18) mg/dl Creatinine 1.27 H (0.6-1.2) mg/dl Est Cr Clr Drug Dosing 24.9 ml/min Est GFR ( Amer) 44.9 Est GFR (Non-Af Amer) 38.7 BUN/Creatinine Ratio 29.0 H (10-20) Glucose 138 H (70-99) mg/dl Calcium 10.0 (8.5-10.1) mg/dl Magnesium 2.0 (1.8-2.4) mg/dl Total Bilirubin 0.8 (0.2-1) mg/dl AST 17 (15-37) U/L ALT 17 (12-78) U/L Alkaline Phosphatase 70 (45-117) U/L Troponin I < 0.015 (0-0.045) ng/ml Total Protein 7.3 (6.4-8.2) gm/dl Albumin 3.9 (3.4-5.0) gm/dl Globulin 3.4 (2.5-4.0) gm/dl Albumin/Globulin Ratio 1.2 (0.9-2) Lipase 253 (73-393) U/L TSH 2.390 (0.300-4.500) uIu/ml Urine Color Urine Appearance (Clear) Urine pH (4.5-7.5) Ur Specific [place] (1.000-1.030) Urine Protein (Negative) Urine Glucose (UA) (Negative) Urine Ketones (Negative) Urine Blood (Negative) Urine Nitrite (Negative) Urine Bilirubin (Negative) Urine Urobilinogen (Negative) Ur Leukocyte Esterase (Negative) Urine WBC (Auto) (0-5) /hpf Urine RBC (Auto) (0-4) /hpf U Hyaline Cast (Auto) (0-5) /lpf U Epithel Cells (Auto) (0-5) /lpf Urine Bacteria (Auto) (Negative) 06/04/18 Range/Units 21:09 WBC (4.8-10.8) K/uL RBC (4.2-5.4) M/uL Hgb (12.0-16.0) g/dL Hct (37-47) % MCV (80-100) fL MCH (25-34) pg MCHC (32-36) g/dL RDW Std Deviation (36.4-46.3) fL RDW Coeff of Sergio (11.5-14.5) % Plt Count (130-400) K/uL MPV (7.4-10.4) fL Immature Gran % (Auto) % Neut % (Auto) % Lymph % (Auto) % [place] % (Auto) % Eos % (Auto) % Baso % (Auto) % Immature Gran # (Auto) (0.00-0.02) K/uL Neut # (Auto) (1.4-6.5) K/uL Lymph # (Auto) (1.2-3.4) K/uL [place] # (Auto) (0.11-0.59) K/uL Eos # (Auto) (0-0.5) K/uL Baso # (Auto) (0-0.2) K/uL PT (9.0-12.0) Seconds INR (0.9-1.1) APTT (21.0-31.0) Seconds PTT Ratio Sodium (136-145) mmol/L Potassium (3.5-5.1) mmol/L Chloride (98-107) mmol/L Carbon Dioxide (21-32) mmol/L Anion Gap (3-11) BUN (7-18) mg/dl Creatinine (0.6-1.2) mg/dl Est Cr Clr Drug Dosing ml/min Est GFR ( Amer) Est GFR (Non-Af Amer) BUN/Creatinine Ratio (10-20) Glucose (70-99) mg/dl Calcium (8.5-10.1) mg/dl Magnesium (1.8-2.4) mg/dl Total Bilirubin (0.2-1) mg/dl AST (15-37) U/L ALT (12-78) U/L Alkaline Phosphatase (45-117) U/L Troponin I (0-0.045) ng/ml Total Protein (6.4-8.2) gm/dl Albumin (3.4-5.0) gm/dl Globulin (2.5-4.0) gm/dl Albumin/Globulin Ratio (0.9-2) Lipase (73-393) U/L TSH (0.300-4.500) uIu/ml Urine Color Yellow Urine Appearance Clear (Clear) Urine pH 7.0 (4.5-7.5) Ur Specific [place] 1.017 (1.000-1.030) Urine Protein Negative (Negative) Urine Glucose (UA) Negative (Negative) Urine Ketones Trace H (Negative) Urine Blood Negative (Negative) Urine Nitrite Negative (Negative) Urine Bilirubin Negative (Negative) Urine Urobilinogen Negative (Negative) Ur Leukocyte Esterase 1+ H (Negative) Urine WBC (Auto) 1-5 (0-5) /hpf Urine RBC (Auto) 0-4 (0-4) /hpf U Hyaline Cast (Auto) 1-5 (0-5) /lpf U Epithel Cells (Auto) 10-20 H (0-5) /lpf Urine Bacteria (Auto) Negative (Negative) Imaging Data Radiologist's Impression: AP CHEST WITH ABDOMINAL SERIES CLINICAL HISTORY: Vomiting. FINDINGS: An AP upright chest radiograph is compared to study dated 11/20/2017. Examination is degraded by patient rotation. The cardiac silhouette is mildly enlarged, and there is atherosclerotic calcification of the thoracic aorta. The pulmonary vasculature is noncongested. Chronic interstitial thickening is similar to previous. No airspace consolidation or large pleural effusion is identified. No pneumothorax is seen. The skeletal structures are osteopenic. The bony thorax is grossly intact. Degenerative change is noted in the shoulders and thoracic spine. Supine and erect abdominal radiographs are compared to study dated 08/19/2016. Cholecystectomy clips are noted in the right upper quadrant. Hyperdense material is noted in the stomach. There is a nonobstructed abdominal bowel gas pattern. Mild colonic fecal retention is observed. No evidence of intraperitoneal free air is seen. Phlebolith are noted in the pelvis. There are no abnormal abdominal calcifications. There is lumbar spondylosis and scoliosis. The lumbosacral spine and bony pelvis appear intact. Sclerotic change is noted in the symphysis pubis. IMPRESSION: 1. Mild cardiac enlargement with no acute cardiopulmonary abnormality. 2. Nonobstructed abdominal bowel gas pattern. Electronically signed by: Popeye Chiang M.D. 06/04/2018 9:31 PM ECG Data Attestation: I personally reviewed and interpreted this ECG as follows: Indication: vomiting Rate (beats per minute): 61 Rhythm: normal sinus Findings: + LBBB; no PAC and no PVC Blood Pressure Blood Pressure Findings: Elevated blood pressure Blood Pressure Disposition: further management by hospitalist [facility] Narrative There is no leukocytosis or concerning anemia. Renal panel testing does show some dehydration with a bump to the creatinine. INR is elevated at 4.3, this is consistent with her Coumadin use-she is slightly over anticoagulated. No evidence for hepatitis. No evidence for pancreatitis. The patient appeared to be in a euthyroid state. EKG showed a sinus rhythm, no acute ischemia. Cardiac enzyme testing x1 is not consistent with acute cardiac injury. Urinalysis does not show infection. Obstruction series does not show bowel obstruction, pneumonia or free air. The patient received IV saline, a second bolus of IV saline was given. She received IV Zofran and oral Tylenol. Patient feels improved but still fairly weak. She has had no further vomiting. She did try to walk here in the ED but really could not support herself without significant help. This is not typical for her. I do not think she is stable for discharge. She requires further hydration and care in the hospital. I spoke to the patient and case management. The on-call hospitalist was consulted. At this point, this illness does appear viral. Impression & Plan Weakness, Dehydration, Vomiting, Unable to ambulate Discharge Plan Visit Data Chief Complaint: Vomiting Stated Complaint: VOMITING, DEHYDRATION, SICK SINCE FRIDAY ED Provider: Popeye Retana Discharge Problem: Weakness, Dehydration, Vomiting, Unable to ambulate Forms Stand Alone Forms: My [facility] [employer]zer Prescriptions Prescriptions: No Action venlafaxine 75 mg capsule,extended release 24hr 75 mg PO DAILY RF: 0 donepezil 5 mg tablet 5 mg PO DAILY RF: 0 allopurinol 100 mg tablet 100 mg PO DAILY PRN (Reason: Gout Flare Up) RF: 0 aspirin 81 mg Tablet,Delayed Release (Dr/Ec) 81 mg PO DAILY RF: 0 warfarin 5 mg tablet 7.5 mg PO DAILY RF: 0 hydroxyzine HCl 25 mg tablet 25 mg PO Q6H PRN (Reason: Itchiness) RF: 0 hydralazine 50 mg tablet 50 mg PO TID RF: 0 lisinopril 40 mg tablet 40 mg PO QAM RF: 0 terazosin 10 mg capsule 10 mg PO HS RF: 0 cholecalciferol (vitamin D3) [Vitamin D3] 2,000 unit Capsule 2,000 units PO DAILY RF: 0 calcium carbonate [Oyster Shell Calcium] 500 mg calcium (1,250 mg) Tablet 500 mg PO DAILY RF: 0 polyethylene glycol 3350 17 gram/dose Powder 17 g PO DAILY PRN (Reason: Constipation) RF: 0 The scribe's documentation has been prepared under my direction and personally reviewed by me in its entirety. I confirm that the note above accurately reflects all work, treatment, procedures, and medical decision making performed by me.
[2018-06-04 21:28] LABS: Appearance Urine Clear (Clear); Bacteria Urine Automated Negative (Negative); Bilirubin Urine Negative (Negative); Blood Urine Negative (Negative); Color Urine Yellow; Glucose Urine UA Negative (Negative); Ketones Urine Trace (Negative); Leukocyte Esterase Urine 1+ (Negative); Nitrite Urine Negative (Negative); Protein Urine Negative (Negative); RBC Urine Automated 0-4 /hpf (0-4); Specific Gravity Urine 1.017 (1.000-1.030); Urobilinogen Urine Negative (Negative)
--- NOTE | 2018-06-04 21:32 | XRay Report ---
AP CHEST WITH ABDOMINAL SERIES CLINICAL HISTORY: Vomiting. FINDINGS: An AP upright chest radiograph is compared to study dated 11/20/2017. Examination is degraded by patie nt rotation. The cardiac silhouette is mildly enlarged, and there is atherosclerotic calcification of the thoracic aorta. The pulmonary vasculature is noncongested. Chronic interstitial thickening is si milar to previous. No airspace consolidation or large pleural effusion is identified. No pneumothorax is seen. The skeletal structures are osteopenic. The bony thorax is grossly intact. Degenerative caty nge is noted in the shoulders and thoracic spine. Supine and erect abdominal radiographs are compared to study dated 08/19/2016. Cholecystectomy clips a re noted in the right upper quadrant. Hyperdense material is noted in the stomach. There is a nonobst ructed abdominal bowel gas pattern. Mild colonic fecal retention is observed. No evidence of intraper itoneal free air is seen. Phlebolith are noted in the pelvis. There are no abnormal abdominal calcifi cations. There is lumbar spondylosis and scoliosis. The lumbosacral spine and bony pelvis appear inta ct. Sclerotic change is noted in the symphysis pubis. IMPRESSION: 1. Mild cardiac enlargement with no acute cardiopulmonary abnormality. 2. Nonobstructed abdominal bowel gas pattern. Electronically signed by: Popeye Chiang M.D. 06/04/2018 9:31 PM
[2018-06-04] MEDS ORDERED: SODIUM CHLORIDE 0.9% 500 ML IV STA (21:43)
[2018-06-04] MEDS ORDERED: ACETAMINOPHEN 500 MG TAB PO STA (21:43)
[2018-06-04] MEDS ORDERED: LORazepam 0.5 MG TAB PO PRN (22:57)
[2018-06-05] MEDS ORDERED: ALLOPURINOL 100 MG TAB PO PRN (00:16)
[2018-06-05] MEDS ORDERED: ACETAMINOPHEN 325 MG TAB PO PRN (00:16)
[2018-06-05] MEDS ORDERED: POLYETHYLENE (MIRALAX) 17 GM PACK PO PRN (00:16)
[2018-06-05] MEDS ORDERED: ALUMINUM/MAGNESIUM SUSP 30 ML UDC PO PRN (00:16)
[2018-06-05] MEDS ORDERED: ONDANSETRON INJ 2 MG/ML 2 ML VIAL IV PRN (00:16)
[2018-06-05] MEDS: D5W AND NSS 1,000 ML IV SCH ×2 (00:30→10:33)
[2018-06-05] MEDS ORDERED: cefTRIAXone SODIUM 1,000 MG in DEXTROSE 5% 50 ML IV SCH (01:00)
--- NOTE | 2018-06-05 01:05 | History and Physical Report ---
DATE OF ADMISSION: 06/04/2018 CHIEF COMPLAINT: Nausea and vomiting. HISTORY OF PRESENT ILLNESS: This is an 83-year-old female with past medical history significant for atrial fibrillation, hypertension, chronic kidney disease stage II to III, hypertension, dementia, GERD, generalized anxiety disorder, hyperlipidemia, gout, pituitary macroadenoma comes with nausea and vomiting since last 4 days. The patient lives with her 87-year-old her in senior house building. One of her son lives upstairs. Other daughter helps her. She can ambulate without any help, but last few days because of weakness, she is using a walker. She is vomiting a couple of times every day since last 4 days. Appetite has come down. No fever, no chills, no diarrhea, somewhat constipated. No chest pain, no shortness of breath, no headache, no blurred vision, no earache, no runny nose, no sore throat. No difficulty swallowing.Patient because of this ongoing vomiting and not eating and drinking much has not micturated much since last few days . In the ER after fluids, she did micturate but denies any burning micturition. Hemodynamics are stable. After fluids in the ER, she is feeling better, but as she is too weak to ambulate we are called for admission. Daughter is in the room. The patient denies any other complaints at this time. ALLERGIES: ALENDRONATE, NAPROXEN, ZOCOR. PAST MEDICAL HISTORY: As mentioned above. PAST SURGICAL HISTORY: Cataract surgery, colonoscopy, EGD, parathyroidectomy, laparoscopic cholecystectomy suture repair of entropion, total hysterectomy. MEDICATIONS: The patient is on Zofran 4 mg p.o. capsule p.o. q. 6 hours p.r.n., Aricept 5 mg p.o. daily, Effexor XR 75 mg p.o. daily, Coumadin 7.5 mg p.o. daily, lisinopril 40 mg p.o. daily, allopurinol 100 mg p.o. daily, hydralazine 50 mg p.o. b.i.d., terazosin 10 mg p.o. at bedtime, Ativan, MiraLax 17 g p.o. daily p.r.n., vitamin D 2000 units p.o. daily, aspirin enteric-coated 81 mg p.o. daily, calcium 500 mg b.i.d. FAMILY HISTORY: Significant for brother who had colon cancer and diabetes. Mother had glaucoma, heart disorder, hypertension, Alzheimer's. Father had stroke. SOCIAL HISTORY: , lives with her . No smoking history, no alcohol history, no drug use. REVIEW OF SYMPTOMS: As per HPI. Rest of review of systems negative. PHYSICAL EXAMINATION: GENERAL: The patient is old and frail, not in acute distress. VITAL SIGNS: Temperature 36.3, pulse 63, respiratory rate 18, blood pressure 162/67, oxygen 95% room air. HEENT: No pallor, no icterus. Pupils equal, round, and react to light. NECK: No JVD, no neck masses, no carotid bruits. CARDIOVASCULAR: S1, S2 heard, regular rate and rhythm, no murmur, no gallop. RESPIRATORY SYSTEM: Clear to auscultation bilaterally. No wheezing, no crackles. ABDOMEN: Soft, bowel sounds present. Nontender. No distention. CENTRAL NERVOUS SYSTEM: Cranial nerves II-XII grossly intact. Nonfocal. EXTREMITIES: No edema, no erythema. LABORATORY DATA: WBC 5.7, hemoglobin 13.5, hematocrit 39.5, platelets 213. PT 40 and INR 4.3. Sodium 136, potassium 3.6, chloride 100, bicarb 29, BUN 37, creatinine 1.27, serum glucose 138, calcium 10, magnesium 2, total bilirubin 0.8, AST 17, ALT 17, alkaline phosphatase 70. Troponin I less than 0.015. Lipase 253. TSH 2.39. Urinalysis positive for ketones and leukocyte esterase. Chest x-ray and abdominal x-ray nonobstructive abdominal bowel gas pattern. EKG: Normal sinus rhythm with rate of 62 with a bundle branch block. ASSESSMENT AND PLAN: This is an 83-year-old female who presents with nausea and vomiting. 1. Nausea and vomiting, most likely gastroenteritis. Denies abdominal pain, no diarrhea. Afebrile. electrolytes are okay. We will observe in the medical floor. We will place on IV fluids, IV Zofran p.r.n., clears and monitor. 2. Generalized weakness, ambulatory dysfunction secondary to dehydration from above. On IV fluids. Physical therapy/occupational therapy when stable. 3. New left bundle branch block. the patient is asymptomatic. Troponin is negative. We will follow echocardiogram. 4. History of dementia. Continue Aricept. 5. History of atrial fibrillation, not on beta noah but rate is under control, on aspirin and Coumadin. INR is supratherapeutic at 4.8. We will hold Coumadin for now. Follow PT/INR. 6. History of hypertension. Continue hydralazine, terazosin with holding parameters. We will hold lisinopril for PAMELA. 7. Acute kidney injury and chronic kidney disease stage II-III. Baseline creatinine of 0.8-1.0, point of care creatinine of 1.2. on IV fluids. Holding lisinopril . Follow labs in morning. 8. Gout continue allopurinol. 9. Obstructive sleep apnea on CPAP. 10. History of pituitary macroadenoma. Aas per PCP declined followup. primary care physician recently checked ACTH and cortisol levels and TSH levels which were okay. 11. Generalized anxiety disorder on Effexor. 12. Deep vein thrombosis prophylaxis, INR is supratherapeutic. DISPOSITION: Observer in the medical floor. PT/OT prior to discharge. Social service to help with discharge planning. Level 1 full code MTDD
[2018-06-05 05:51] LABS: Basophils # (auto) 0.02 K/uL (0-0.2); Basophils % (auto) 0.4 %; Eosinophils # (auto) 0.15 K/uL (0-0.5); Eosinophils % (auto) 3.1 %; Hematocrit (blood only) 33.5 % (37-47); Hemoglobin 11.2 g/dL (12.0-16.0); Immature Granulocytes # (auto) 0.01 K/uL (0.00-0.02); Immature Granulocytes % (auto) 0.2 %; Lymphocytes # (auto) 1.34 K/uL (1.2-3.4); Lymphocytes % (auto) 27.8 %; Mean Corpuscular Hgb Conc 33.4 g/dL (32-36); Mean Corpuscular Volume 89.3 fL (80-100); Mean Platelet Volume 10.4 fL (7.4-10.4); Monocytes # (auto) 0.64 K/uL (0.11-0.59); Monocytes % (auto) 13.3 %; Neutrophils # (auto) 2.66 K/uL (1.4-6.5); Neutrophils % (auto) 55.2 %; Platelet Count 188 K/uL (130-400); RDW Coefficient of Variation 13.2 % (11.5-14.5); RDW Standard Deviation 43.2 fL (36.4-46.3); Red Blood Count 3.75 M/uL (4.2-5.4); White Blood Count 4.82 K/uL (4.8-10.8)
[2018-06-05 06:00] LABS: INR 4.6 (0.9-1.1); Prothrombin Time 42.4 Seconds (9.0-12.0)
[2018-06-05 06:25] LABS: BUN Creatinine Ratio 31.2 (10-20); Calcium 8.5 mg/dl (8.5-10.1); Creatinine Clr Calc Pharmacy 30.1 ml/min; Est GFR (African American) 56.5; Est GFR (Non-African American) 48.7; Magnesium 1.8 mg/dl (1.8-2.4); Potassium 3.5 mmol/L (3.5-5.1)
[2018-06-05] MEDS ORDERED: MAGNESIUM SULFATE / D5W 1 GM/100 ML BAG IV ONE (06:45)
[2018-06-05] MEDS: HydrALAZINE TAB 50 MG TAB PO SCH ×2 (07:40→13:39)
[2018-06-05] MEDS ORDERED: CHOLECALCIFEROL 1,000 UNITS TAB PO SCH (09:00)
[2018-06-05] MEDS ORDERED: VENLAFAXINE HCL XR 75 MG CAPXR PO SCH (09:00)
[2018-06-05] MEDS ORDERED: DONEPEZIL HCL 5 MG TAB PO SCH (09:00)
[2018-06-05] MEDS ORDERED: CALCIUM CARBONATE 1250MG TAB PO SCH (09:00)
[2018-06-05] MEDS ORDERED: ASPIRIN 81 MG ECTAB PO SCH (09:00)
[2018-06-05] MEDS ORDERED: ONDANSETRON 4 MG TAB PO PRN (15:23)
--- NOTE | 2018-06-05 16:12 | Hospitalist Progress Note ---
Date of Service June 05, 2018 Assessment & Plan (1) Nausea & vomiting: Patient presented for several days of nausea and vomiting Patient did not have any episode of vomiting while in the hospital Patient reported some nausea with lunch but no vomiting. Was able to reach out to her daughter Stephanie [phone] Patient's son ([phone]) arrived in person Discussed with patient and son about possible further workup for nausea and vomiting and patient reports of nausea for days and weight loss for unknown period of time and that workup can include performing CT abdomen to rule out abdominal mass given patient's age and even the possibility of endoscopy and colonoscopy by gastroenterology service to rule out a gastrointestinal malignany given age and weight loss. Patient preferred no further workup and that she really needs to go back home to take care of her Hospitalist also discussed with patient and family member that her supratherapeutic Hospitalist arranged for close follow up with primary care doctor and offered prescription of Ondansetron prn (2) Supratherapeutic INR: History of atrial fibrillation, not on beta noah but rate is under control, on aspirin and Coumadin at home INR is supratherapeutic at presentation is 4.3 likely due to reduced oral intake follow up INR is 4.6 have advised patient to avoid couamdin until follow up primary care doctor who can do INR level labs (06/08/2018 1:00 PM Provider Joel Helm MD Department General Internal Medicine [facility]) New left bundle branch block. the patient is asymptomatic. Troponin is negative. the echocardiogram without evidence of ischemia History of dementia on Aricept. able to make medical decisions on her own capacity patient verbal and cooperative and responds appropriately to questions Mild Acute kidney injury on chronic kidney disease stage II-III. Baseline creatinine of 0.8-1.0, point of care creatinine of 1.27 was given IV fluids and repeat creatinin 1.05 History of hypertension. Continue hydralazine, terazosin Can resume lisinopril at home Gout history continue allopurinol. Obstructive sleep apnea on CPAP. History of pituitary macroadenoma Generalized anxiety disorder history on Effexor Deep vein thrombosis prophylaxis, INR is supratherapeutic. Main Discharge Diagnosis Nausea and Vomiting, acute kidney injury (resolved), Supratherapeutic INR Discharge Instructions Patient has discharge prescription for odansetron 4 mg every 4 hours as needed for nausea or vomiting Stop coumadin until follow up INR with primary care doctor 06/08/2018 1:00 PM Provider Joel Helm MD Department General Internal Medicine [facility] 06/12/2018 11:00 AM Provider Juan R Coker RN Department [facility] Subjective Patient able to ambulate with PT/OT Patient did not have any episode of vomiting while in the hospital Patient reported some nausea with lunch but no vomiting. Was able to reach out to her daughter Stephanie [phone] Patient's son ([phone]) arrived in person Discussed with patient and son about possible further workup for nausea and vomiting and patient reports of nausea for days and weight loss for unknown period of time and that workup can include performing CT abdomen to rule out abdominal mass given patient's age and even the possibility of endoscopy and colonoscopy by gastroenterology service to rule out a gastrointestinal malignany given age and weight loss. Patient preferred no further workup and that she really needs to go back home to take care of her Hospitalist also discussed with patient and family member that her supratherapeutic Hospitalist arranged for close follow up with primary care doctor and offered prescription of Ondansetron prn Physical Exam 2 Vital Signs (Past 24 Hours): Last Vital Signs Temp 36.7 C 06/05/18 16:00 Pulse 64 06/05/18 16:00 Resp 18 06/05/18 16:00 BP 146/74 H 06/05/18 16:00 Pulse Ox 92 06/05/18 16:00 Constitutional: WD/WN, vitals as above Eyes: PERRL, conjunctivae normal, anicteric sclerae EOM intact bilaterally ENMT: external ear and nose normal, oropharynx normal Neck: trachea midline, no thyromegaly Respiratory: normal respiratory effort, lungs clear to auscultation Cardiovascular: Rate/Rhythm: regular rate Gastrointestinal (Abdomen): normal bowel sounds, soft, nontender, no hepatosplenomegaly Musculoskeletal: Head/Neck/Chest: normocephalic and head atraumatic Neurologic: PERRL, EOMI, accommodation nl, no face palsy, no dysarthria CN' s II-XI intact bilaterally Psychiatric: A+Ox3, euthymic affect
--- NOTE | 2018-06-05 16:31 | Discharge Summary ---
Date of Service June 05, 2018 Admission HPI Per Admitting Provider HISTORY OF PRESENT ILLNESS: This is an 83-year-old female with past medical history significant for atrial fibrillation, hypertension, chronic kidney disease stage II to III, hypertension, dementia, GERD, generalized anxiety disorder, hyperlipidemia, gout, pituitary macroadenoma comes with nausea and vomiting since last 4 days. The patient lives with her 87-year-old her in senior house building. One of her son lives upstairs. Other daughter helps her. She can ambulate without any help, but last few days because of weakness, she is using a walker. She is vomiting a couple of times every day since last 4 days. Appetite has come down. No fever, no chills, no diarrhea, somewhat constipated. No chest pain, no shortness of breath, no headache, no blurred vision, no earache, no runny nose, no sore throat. No difficulty swallowing.Patient because of this ongoing vomiting and not eating and drinking much has not micturated much since last few days . In the ER after fluids, she did micturate but denies any burning micturition. Hemodynamics are stable. After fluids in the ER, she is feeling better, but as she is too weak to ambulate we are called for admission. Daughter is in the room. The patient denies any other complaints at this time. ALLERGIES: ALENDRONATE, NAPROXEN, ZOCOR. PAST MEDICAL HISTORY: As mentioned above. PAST SURGICAL HISTORY: Cataract surgery, colonoscopy, EGD, parathyroidectomy, laparoscopic cholecystectomy suture repair of entropion, total hysterectomy. MEDICATIONS: The patient is on Zofran 4 mg p.o. capsule p.o. q. 6 hours p.r.n., Aricept 5 mg p.o. daily, Effexor XR 75 mg p.o. daily, Coumadin 7.5 mg p.o. daily, lisinopril 40 mg p.o. daily, allopurinol 100 mg p.o. daily, hydralazine 50 mg p.o. b.i.d., terazosin 10 mg p.o. at bedtime, Ativan, MiraLax 17 g p.o. daily p.r.n., vitamin D 2000 units p.o. daily, aspirin enteric-coated 81 mg p.o. daily, calcium 500 mg b.i.d. FAMILY HISTORY: Significant for brother who had colon cancer and diabetes. Mother had glaucoma, heart disorder, hypertension, Alzheimer's. Father had stroke. SOCIAL HISTORY: , lives with her . No smoking history, no alcohol history, no drug use. REVIEW OF SYMPTOMS: As per HPI. Rest of review of systems negative. Admission Exam Per Admitting Provider PHYSICAL EXAMINATION: GENERAL: The patient is old and frail, not in acute distress. VITAL SIGNS: Temperature 36.3, pulse 63, respiratory rate 18, blood pressure 162/67, oxygen 95% room air. HEENT: No pallor, no icterus. Pupils equal, round, and react to light. NECK: No JVD, no neck masses, no carotid bruits. CARDIOVASCULAR: S1, S2 heard, regular rate and rhythm, no murmur, no gallop. RESPIRATORY SYSTEM: Clear to auscultation bilaterally. No wheezing, no crackles. ABDOMEN: Soft, bowel sounds present. Nontender. No distention. CENTRAL NERVOUS SYSTEM: Cranial nerves II-XII grossly intact. Nonfocal. EXTREMITIES: No edema, no erythema. Principal Diagnosis Nausea and Vomiting, acute kidney injury (resolved), Supratherapeutic INR Discharge Exam Constitutional WD/WN, vitals as above Eyes PERRL, conjunctivae normal, anicteric sclerae EOM intact bilaterally ENMT external ear and nose normal, oropharynx normal Neck trachea midline, no thyromegaly Respiratory normal respiratory effort, lungs clear to auscultation Cardiovascular Rate/Rhythm: regular rate Gastrointestinal (Abdomen) normal bowel sounds, soft, nontender, no hepatosplenomegaly Musculoskeletal Head/Neck/Chest: normocephalic and head atraumatic Neurologic PERRL, EOMI, accommodation nl, no face palsy, no dysarthria CN's II-XI intact bilaterally Psychiatric A+Ox3, euthymic affect Discharge Data Allergies Allergy/AdvReac Type Severity Reaction Status Date / Time naproxen Allergy Mild EDEMA Verified 06/04/18 20:38 alendronate sodium Allergy Unknown HIVES Verified 06/04/18 20:38 simvastatin Allergy Unknown MUSCLE Verified 06/04/18 20:38 FATIGUE Consultations 06/04/18 21:57 ED Decision to Admit Stat 06/05/18 00:16 Consult Case Management - Discharge Planning Routine Hospital Course (1) Nausea & vomiting: Patient presented for several days of nausea and vomiting Patient did not have any episode of vomiting while in the hospital Patient reported some nausea with lunch but no vomiting. Was able to reach out to her daughter Stephanie [phone] Patient's son ([phone]) arrived in person Discussed with patient and son about possible further workup for nausea and vomiting and patient reports of nausea for days and weight loss for unknown period of time and that workup can include performing CT abdomen to rule out abdominal mass given patient's age and even the possibility of endoscopy and colonoscopy by gastroenterology service to rule out a gastrointestinal malignany given age and weight loss. Patient preferred no further workup and that she really needs to go back home to take care of her Hospitalist also discussed with patient and family member that her supratherapeutic Hospitalist arranged for close follow up with primary care doctor and offered prescription of Ondansetron prn (2) Supratherapeutic INR: History of atrial fibrillation, not on beta noah but rate is under control, on aspirin and Coumadin at home INR is supratherapeutic at presentation is 4.3 likely due to reduced oral intake follow up INR is 4.6 have advised patient to avoid couamdin until follow up primary care doctor who can do INR level labs (06/08/2018 1:00 PM Provider Joel Helm MD Department General Internal Medicine [facility]) New left bundle branch block. the patient is asymptomatic. Troponin is negative. the echocardiogram without evidence of ischemia History of dementia on Aricept. able to make medical decisions on her own capacity patient verbal and cooperative and responds appropriately to questions Mild Acute kidney injury on chronic kidney disease stage II-III. Baseline creatinine of 0.8-1.0, point of care creatinine of 1.27 was given IV fluids and repeat creatinin 1.05 History of hypertension. Continue hydralazine, terazosin Can resume lisinopril at home Gout history continue allopurinol. Obstructive sleep apnea on CPAP. History of pituitary macroadenoma Generalized anxiety disorder history on Effexor Deep vein thrombosis prophylaxis, INR is supratherapeutic. Main Discharge Diagnosis Nausea and Vomiting, acute kidney injury (resolved), Supratherapeutic INR Discharge Instructions Patient has discharge prescription for odansetron 4 mg every 4 hours as needed for nausea or vomiting Stop coumadin until follow up INR with primary care doctor 06/08/2018 1:00 PM Provider Joel Helm MD Department General Internal Medicine [facility] 06/12/2018 11:00 AM Provider Juan R Coker RN Department [facility] Total Time Total Time Spent Total Time Spent (In Minutes): 40 minutes Total Time Includes: Examination of the Patient, Discharge Planning and Medication Reconciliation Discharge Plan Discharge Items Patient Disposition: Home - Self-Care Reason For Visit: N/V,WEAKNESS Discharge Diagnosis: Nausea and Vomiting, acute kidney injury (resolved), Supratherapeutic INR Condition: Good Discharge Goals: Improve disease control and Improve function Activity: Resume your previous activity Non-emergency contact: Primary Care Provider Call non-emergency contact if: you have any medication questions Diet: Regular Addtl Provider Instructions: Discharge Instructions Patient has discharge prescription for odansetron 4 mg every 4 hours as needed for nausea or vomiting Stop coumadin until follow up INR with primary care doctor 06/08/2018 1:00 PM Provider Joel Helm MD Department General Internal Medicine [facility] 06/12/2018 11:00 AM Provider Juan R Coker RN Department [facility] Prescriptions: New ondansetron HCl 4 mg Tablet 4 mg PO Q4H PRN (Reason: nausea and vomiting) 5 Days Qty: 30 RF: 0 Continue venlafaxine 75 mg capsule,extended release 24hr 75 mg PO DAILY RF: 0 donepezil 5 mg tablet 5 mg PO DAILY RF: 0 allopurinol 100 mg tablet 100 mg PO DAILY PRN (Reason: Gout Flare Up) RF: 0 aspirin 81 mg Tablet,Delayed Release (Dr/Ec) 81 mg PO DAILY RF: 0 hydroxyzine HCl 25 mg tablet 25 mg PO Q6H PRN (Reason: Itchiness) RF: 0 hydralazine 50 mg tablet 50 mg PO TID RF: 0 lisinopril 40 mg tablet 40 mg PO QAM RF: 0 terazosin 10 mg capsule 10 mg PO HS RF: 0 cholecalciferol (vitamin D3) [Vitamin D3] 2,000 unit Capsule 2,000 units PO DAILY RF: 0 calcium carbonate [Oyster Shell Calcium] 500 mg calcium (1,250 mg) Tablet 500 mg PO DAILY RF: 0 polyethylene glycol 3350 17 gram/dose Powder 17 g PO DAILY PRN (Reason: Constipation) RF: 0 Discontinued warfarin 5 mg tablet 7.5 mg PO DAILY RF: 0 Stand-Alone Forms: [facility] Discharge Orders: Discharge Order (Routine); Ordered 06/05/18 Ordered By: Kirby Caban Admission Data Admit Date/Time: 06/04/18 22:53 Attending Provider: Kirby Caban Admit Provider: Harsha Cunningham Primary Care Provider: Joel Helm Other Providers: Harsha Cunningham Service: Medical
[2018-06-05] MEDS ORDERED: TERAZOSIN HCL 5 MG CAP PO SCH (21:00)
== END 2018-06-05 16:46 | disposition home or self-care (01) ==
LOC: ED 19:47 → 4W 19:47

== ENCOUNTER 2020-01-20 21:40 | Inpatient (IN) ==
[2020-01-20 22:42] LABS: Basophils # (auto) 0.01 K/uL (0-0.2); Basophils % (auto) 0.2 %; Eosinophils % (auto) 2.3 %; Hematocrit (blood only) 35.3 % (37-47); Hemoglobin 11.9 g/dL (12.0-16.0); Immature Granulocytes # (auto) 0.02 K/uL (0.00-0.02); Immature Granulocytes % (auto) 0.5 %; Lymphocytes # (auto) 0.76 K/uL (1.2-3.4); Lymphocytes % (auto) 17.6 %; Mean Corpuscular Hemoglobin 29.6 pg (25-34); Mean Corpuscular Hgb Conc 33.7 g/dL (32-36); Mean Corpuscular Volume 87.8 fL (80-100); Mean Platelet Volume 10.3 fL (7.4-10.4); Monocytes # (auto) 1.12 K/uL (0.11-0.59); Monocytes % (auto) 25.9 %; Neutrophils # (auto) 2.32 K/uL (1.4-6.5); Neutrophils % (auto) 53.5 %; Platelet Count 194 K/uL (130-400); RDW Coefficient of Variation 13.8 % (11.5-14.5); Red Blood Count 4.02 M/uL (4.2-5.4); White Blood Count 4.33 K/uL (4.8-10.8)
[2020-01-20 23:02] LABS: Alanine Aminotransferase 14 U/L (12-78); Aspartate Aminotransferase 18 U/L (15-37); BUN Creatinine Ratio 28.9 (10-20); Blood Urea Nitrogen 27 mg/dl (7-18); Calcium 9.6 mg/dl (8.5-10.1); Carbon Dioxide 28 mmol/L (21-32); Chloride 105 mmol/L (98-107); Creatinine Clr Calc Pharmacy 34.4 ml/min; Glucose 83 mg/dl (70-99); Potassium 3.7 mmol/L (3.5-5.1); Sodium 139 mmol/L (136-145)
[2020-01-20 23:03] LABS: Appearance Urine Clear (Clear); Bilirubin Urine Negative (Negative); Blood Urine Negative (Negative); Color Urine Yellow; Glucose Urine UA Negative (Negative); Ketones Urine Negative (Negative); Leukocyte Esterase Urine Negative (Negative); Nitrite Urine Negative (Negative); Protein Urine Negative (Negative); Specific Gravity Urine 1.012 (1.000-1.030); Urobilinogen Urine Negative (Negative)
[2020-01-20 23:05] LABS: Alkaline Phosphatase 53 U/L (45-117); Bilirubin,Total 0.6 mg/dl (0.2-1); Globulin 3.1 gm/dl (2.5-4.0); Total Protein 6.1 gm/dl (6.4-8.2)
[2020-01-20] MEDS ORDERED: SODIUM CHLORIDE 0.9% 1000ML 500 ML IV ONE (23:13)
[2020-01-20 23:21] LABS: Magnesium 1.8 mg/dl (1.8-2.4)
--- NOTE | 2020-01-20 23:33 | Emergency Department Note ---
History of Present Illness General Chief complaint: Illness Stated complaint: FEVER, CONFUSION Time Seen by Provider: 01/20/20 22:46 Source: patient, family (Son who was in the lobby), EMS (Notes reviewed), RN notes reviewed and old records reviewed Mode of arrival: EMS Limitations: no limitations History of Present Illness This patient is brought in by EMS from [facility] after having fever and cough and increasing confusion. There has been 1 patient that she may have been exposed to the head COVID. She was tested 3 days ago and came back negative today. I am unsure what lab test to use for this as there is no documentation sent. The patient is comfortable at this point and answers questions appropriately she denies any headache. She may have had some urinary symptoms but no abdominal pain nausea vomiting or diarrhea she does not feel achy. No headache. No fall or trauma no neck pain or stiffness. She may have had a little bit of a cough but no chest pain. Home Medications Home Medications Medication Instructions Recorded Confirmed Type aspirin 81 mg PO DAILY 06/04/18 01/20/20 History calcium carbonate [Oyster Shell 500 mg PO BID 06/04/18 01/20/20 History Calcium] cholecalciferol (vitamin D3) 2,000 units PO DAILY 06/04/18 01/20/20 History [Vitamin D3] hydralazine 25 mg PO TID 06/04/18 01/20/20 History hydroxyzine HCl 25 mg PO BID PRN 06/04/18 01/20/20 History lisinopril 40 mg PO QAM 06/04/18 01/20/20 History polyethylene glycol 3350 17 g PO DAILY PRN 06/04/18 01/20/20 History venlafaxine 75 mg PO DAILY 06/04/18 01/20/20 History buspirone 10 mg PO BID 01/20/20 01/20/20 History vitamin E 400 unit PO BID 01/20/20 01/20/20 History warfarin 5 mg PO 3XWK 01/20/20 01/20/20 History warfarin 7.5 mg PO 4XWK 01/20/20 01/20/20 History Allergies Allergy/AdvReac Type Severity Reaction Status Date / Time naproxen Allergy Mild EDEMA Verified 01/20/20 23:27 alendronate sodium Allergy Unknown HIVES Verified 01/20/20 23:27 simvastatin Allergy Unknown MUSCLE Verified 01/20/20 23:27 FATIGUE Past Med/Surg History Medical History Anemia Anxiety Atrial fibrillation Gout PEDRITO on CPAP Surgical History H/O: hysterectomy History of cataract surgery History of cholecystectomy History of parathyroid surgery Family History Other No significant family history Social History Smoking Status: Never smoker Hx Alcohol Use: No Hx Substance Use: No Preferred Language: Turkmen Communication Ability: Effective 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: No Beliefs That Will Affect Care: None marital status: Current Living Situation: Spouse current occupational status: retired Feels Safe at Home: Yes Assistive Devices: None Review of Systems A total of 10 systems reviewed and were otherwise negative Physical Exam Vital Signs Vital Signs - 24 hr 01/20/20 21:50 01/20/20 21:52 01/20/20 21:55 Temperature 37.1 C Temperature Source Oral Pulse Rate 69 69 69 Pulse Rate from SpO2 Sensor 68 68 Respiratory Rate 18 28 H 18 Respiratory Effort / Characteristics Non-Labored Respiratory Depth Normal Blood Pressure 163/78 H 163/78 H Blood Pressure Mean 106 110 Blood Pressure Position Lying Pulse Oximetry 95 95 96 Oxygen Delivery Method Room Air Sepsis Recent Fever Within 48 Hours Yes Sepsis New/Unexplained Change in Mental Status Yes Sepsis Action Taken by Nursing No Action Required 01/20/20 22:00 01/20/20 22:10 01/20/20 22:20 Temperature Temperature Source Pulse Rate 66 67 67 Pulse Rate from SpO2 Sensor 68 66 Respiratory Rate 20 20 20 Respiratory Effort / Characteristics Respiratory Depth Blood Pressure Blood Pressure Mean Blood Pressure Position Pulse Oximetry 95 95 Oxygen Delivery Method Sepsis Recent Fever Within 48 Hours Sepsis New/Unexplained Change in Mental Status Sepsis Action Taken by Nursing 01/20/20 22:30 01/20/20 22:40 01/20/20 22:50 Temperature Temperature Source Pulse Rate 69 66 70 Pulse Rate from SpO2 Sensor 68 66 70 Respiratory Rate 21 17 21 Respiratory Effort / Characteristics Respiratory Depth Blood Pressure Blood Pressure Mean Blood Pressure Position Pulse Oximetry 96 95 95 Oxygen Delivery Method Sepsis Recent Fever Within 48 Hours Sepsis New/Unexplained Change in Mental Status Sepsis Action Taken by Nursing 01/20/20 22:51 01/20/20 23:00 01/20/20 23:22 Temperature Temperature Source Pulse Rate 68 67 Pulse Rate from SpO2 Sensor 68 66 Respiratory Rate 25 H 22 Respiratory Effort / Characteristics Respiratory Depth Blood Pressure 159/84 H 151/76 H Blood Pressure Mean 110 102 Blood Pressure Position Pulse Oximetry 95 95 95 Oxygen Delivery Method Room Air Sepsis Recent Fever Within 48 Hours Sepsis New/Unexplained Change in Mental Status Sepsis Action Taken by Nursing 01/20/20 23:30 01/21/20 00:00 Temperature Temperature Source Pulse Rate 72 64 Pulse Rate from SpO2 Sensor 72 64 Respiratory Rate 18 20 Respiratory Effort / Characteristics Respiratory Depth Blood Pressure 164/94 H 177/78 H Blood Pressure Mean 123 136 Blood Pressure Position Pulse Oximetry 95 97 Oxygen Delivery Method Sepsis Recent Fever Within 48 Hours Sepsis New/Unexplained Change in Mental Status Sepsis Action Taken by Nursing General: Well developed well nourished older female who is wearing a facemask and in no acute distress, breathing comfortably on room air. Normal speech. She is alert and oriented x3 answering questions appropriately HEENT: Normal cephalic atraumatic. Pupils are equal round and reactive to l ight. Extraocular movements are intact. Oropharynx is pink with moist mucous membranes. No swelling of the mouth lips or tongue. Neck: Supple with a midline trachea. No meningeal signs or stiffness, no JVD or bruits. No Stridor. Chest: Normal respiratory effort with no increased work of breathing. Heart: Regular rate and rhythm without murmurs or gallops. Abdomen: Soft nontender, nondistended without rebound guarding or rigidity. Extremities: No cyanosis clubbing or edema. No calf tenderness or assymetry Spine/Back. Non tender to palpation. No CVA tenderness Skin: Good turgor without rashes. Neurologic exam: Cranial nerves two through 12 are intact. Motor and sensation are intact and symmetrical throughout. Course Administered Medications Discontinued Medications Sodium Chloride (Nss 1000ml) 500 mls @ 999 mls/hr IV .Q31M ONE Stop: 01/20/20 23:43 Last Infusion: 01/21/20 00:01 Dose: 0 mls/hr Documented by: [id number] Admin: 01/20/20 23:30 Dose: 999 mls/hr Documented by: [id number] Medical Decision Making Differential Diagnosis Sepsis, COVID, pneumonia, UTI, intracranial hemorrhage, electrolyte or metabolic abnormality, anemia Medical Records Attestation: I reviewed the patient's medical records. Home Medications Current Medication List: was personally reviewed by me Laboratory Data Attestation: I reviewed the patient's lab results. Result diagrams: 01/20/20 22:23 01/20/20 22:23 Lab Results 01/20/20 01/20/20 01/20/20 Range/Units 22:23 22:23 22:30 WBC 4.33 L (4.8-10.8) K/uL RBC 4.02 L (4.2-5.4) M/uL Hgb 11.9 L (12.0-16.0) g/dL Hct 35.3 L (37-47) % MCV 87.8 (80-100) fL MCH 29.6 (25-34) pg MCHC 33.7 (32-36) g/dL RDW Std Deviation 45.0 (36.4-46.3) fL RDW Coeff of Sergio 13.8 (11.5-14.5) % Plt Count 194 (130-400) K/uL MPV 10.3 (7.4-10.4) fL Immature Gran % (Auto) 0.5 % Neut % (Auto) 53.5 % Lymph % (Auto) 17.6 % Custer % (Auto) 25.9 % Eos % (Auto) 2.3 % Baso % (Auto) 0.2 % Neut # (Auto) 2.32 (1.4-6.5) K/uL Lymph # (Auto) 0.76 L (1.2-3.4) K/uL Custer # (Auto) 1.12 H (0.11-0.59) K/uL Eos # (Auto) 0.10 (0-0.5) K/uL Baso # (Auto) 0.01 (0-0.2) K/uL Immature Gran # (Auto) 0.02 (0.00-0.02) K/uL PT 26.3 H (9.0-12.0) Seconds INR 2.6 H (0.9-1.1) APTT 44.2 H (21.0-31.0) Seconds PTT Ratio 1.6 Sodium 139 (136-145) mmol/L Potassium 3.7 (3.5-5.1) mmol/L Chloride 105 (98-107) mmol/L Carbon Dioxide 28 (21-32) mmol/L Anion Gap 6.0 (3-11) BUN 27 H (7-18) mg/dl Creatinine 0.93 (0.6-1.2) mg/dl Est Cr Clr Drug Dosing 34.4 ml/min Est GFR ( Amer) 65.0 Est GFR (Non-Af Amer) 56.0 BUN/Creatinine Ratio 28.9 H (10-20) Glucose 83 (70-99) mg/dl Lactate (0.4-2.0) mmol/L Calcium 9.6 (8.5-10.1) mg/dl Magnesium 1.8 (1.8-2.4) mg/dl Total Bilirubin 0.6 (0.2-1) mg/dl AST 18 (15-37) U/L ALT 14 (12-78) U/L Alkaline Phosphatase 53 (45-117) U/L Troponin I < 0.015 (0-0.045) ng/ml Total Protein 6.1 L (6.4-8.2) gm/dl Albumin 3.0 L (3.4-5.0) gm/dl Globulin 3.1 (2.5-4.0) gm/dl Albumin/Globulin Ratio 1.0 (0.9-2) TSH 1.940 (0.300-4.500) uIu/ml Urine Color Urine Appearance (Clear) Urine pH (4.5-7.5) Ur Specific [place] (1.000-1.030) Urine Protein (Negative) Urine Glucose (UA) (Negative) Urine Ketones (Negative) Urine Blood (Negative) Urine Nitrite (Negative) Urine Bilirubin (Negative) Urine Urobilinogen (Negative) Ur Leukocyte Esterase (Negative) COVID-19 Eval Order COVID-19 PCR (Negative) 01/20/20 01/20/20 01/20/20 Range/Units 22:50 23:30 23:30 WBC (4.8-10.8) K/uL RBC (4.2-5.4) M/uL Hgb (12.0-16.0) g/dL Hct (37-47) % MCV (80-100) fL MCH (25-34) pg MCHC (32-36) g/dL RDW Std Deviation (36.4-46.3) fL RDW Coeff of Sergio (11.5-14.5) % Plt Count (130-400) K/uL MPV (7.4-10.4) fL Immature Gran % (Auto) % Neut % (Auto) % Lymph % (Auto) % Custer % (Auto) % Eos % (Auto) % Baso % (Auto) % Neut # (Auto) (1.4-6.5) K/uL Lymph # (Auto) (1.2-3.4) K/uL Custer # (Auto) (0.11-0.59) K/uL Eos # (Auto) (0-0.5) K/uL Baso # (Auto) (0-0.2) K/uL Immature Gran # (Auto) (0.00-0.02) K/uL PT (9.0-12.0) Seconds INR (0.9-1.1) APTT (21.0-31.0) Seconds PTT Ratio Sodium (136-145) mmol/L Potassium (3.5-5.1) mmol/L Chloride (98-107) mmol/L Carbon Dioxide (21-32) mmol/L Anion Gap (3-11) BUN (7-18) mg/dl Creatinine (0.6-1.2) mg/dl Est Cr Clr Drug Dosing ml/min Est GFR ( Amer) Est GFR (Non-Af Amer) BUN/Creatinine Ratio (10-20) Glucose (70-99) mg/dl Lactate 0.5 (0.4-2.0) mmol/L Calcium (8.5-10.1) mg/dl Magnesium (1.8-2.4) mg/dl Total Bilirubin (0.2-1) mg/dl AST (15-37) U/L ALT (12-78) U/L Alkaline Phosphatase (45-117) U/L Troponin I (0-0.045) ng/ml Total Protein (6.4-8.2) gm/dl Albumin (3.4-5.0) gm/dl Globulin (2.5-4.0) gm/dl Albumin/Globulin Ratio (0.9-2) TSH (0.300-4.500) uIu/ml Urine Color Yellow Urine Appearance Clear (Clear) Urine pH 7.0 (4.5-7.5) Ur Specific [place] 1.012 (1.000-1.030) Urine Protein Negative (Negative) Urine Glucose (UA) Negative (Negative) Urine Ketones Negative (Negative) Urine Blood Negative (Negative) Urine Nitrite Negative (Negative) Urine Bilirubin Negative (Negative) Urine Urobilinogen Negative (Negative) Ur Leukocyte Esterase Negative (Negative) COVID-19 Eval Order Covid19 Done at [facility] [place] COVID-19 PCR (Negative) 01/20/20 Range/Units 23:30 WBC (4.8-10.8) K/uL RBC (4.2-5.4) M/uL Hgb (12.0-16.0) g/dL Hct (37-47) % MCV (80-100) fL MCH (25-34) pg MCHC (32-36) g/dL RDW Std Deviation (36.4-46.3) fL RDW Coeff of Sergio (11.5-14.5) % Plt Count (130-400) K/uL MPV (7.4-10.4) fL Immature Gran % (Auto) % Neut % (Auto) % Lymph % (Auto) % Custer % (Auto) % Eos % (Auto) % Baso % (Auto) % Neut # (Auto) (1.4-6.5) K/uL Lymph # (Auto) (1.2-3.4) K/uL Custer # (Auto) (0.11-0.59) K/uL Eos # (Auto) (0-0.5) K/uL Baso # (Auto) (0-0.2) K/uL Immature Gran # (Auto) (0.00-0.02) K/uL PT (9.0-12.0) Seconds INR (0.9-1.1) APTT (21.0-31.0) Seconds PTT Ratio Sodium (136-145) mmol/L Potassium (3.5-5.1) mmol/L Chloride (98-107) mmol/L Carbon Dioxide (21-32) mmol/L Anion Gap (3-11) BUN (7-18) mg/dl Creatinine (0.6-1.2) mg/dl Est Cr Clr Drug Dosing ml/min Est GFR ( Amer) Est GFR (Non-Af Amer) BUN/Creatinine Ratio (10-20) Glucose (70-99) mg/dl Lactate (0.4-2.0) mmol/L Calcium (8.5-10.1) mg/dl Magnesium (1.8-2.4) mg/dl Total Bilirubin (0.2-1) mg/dl AST (15-37) U/L ALT (12-78) U/L Alkaline Phosphatase (45-117) U/L Troponin I (0-0.045) ng/ml Total Protein (6.4-8.2) gm/dl Albumin (3.4-5.0) gm/dl Globulin (2.5-4.0) gm/dl Albumin/Globulin Ratio (0.9-2) TSH (0.300-4.500) uIu/ml Urine Color Urine Appearance (Clear) Urine pH (4.5-7.5) Ur Specific [place] (1.000-1.030) Urine Protein (Negative) Urine Glucose (UA) (Negative) Urine Ketones (Negative) Urine Blood (Negative) Urine Nitrite (Negative) Urine Bilirubin (Negative) Urine Urobilinogen (Negative) Ur Leukocyte Esterase (Negative) COVID-19 Eval Order COVID-19 PCR POSITIVE A* (Negative) Imaging Data Attestation: I personally reviewed and interpreted this imaging study as follows: My Impression: Chest x-ray: Chronic interstitial thickening. No definite infiltrate although difficult to rule out in the bases particularly the right CT of the head: No acute hemorrhage or finding Radiologist's Impression: Stat read head CT: No acute findings, please refer to report ECG Data Attestation: I personally reviewed and interpreted this ECG as follows: Indication: + altered mental status Rate (beats per minute): 68 Rhythm: + normal sinus ECG Intervals/blocks: + Left bundle branch block ECG Coleman: + Normal ECG ST segments: + Normal ST segments ECG Findings: no PACs and no PVCs Comparison ECG Date: from (03/10/19) Change: no significant change Blood Pressure Blood Pressure Findings: Elevated blood pressure Blood Pressure Disposition: elevated BP felt to be situational MDM Narrative This patient comes in as scribed above she was placed in room a 9. She is here for treatment and evaluation of fever cough and increased confusion. She looks well on exam at this point and her temperature is come down she is 101 apparently earlier. There has been a COVID exposure. Her test was apparently negative however I am concerned that she could have a false negative as well. I did a full sepsis work-up IV access was established and he was gently hydrated with 500 cc IV normal saline bolus. Initial white count was normal. She has no significant electrolyte or metabolic abnormalities. Urinalysis was unremarkable. I did a CAT scan of her head given the fact that she is on Coumadin and there was concern for possible altered mental status. EKG was unremarkable and her Chest x-ray shows a lot of chronic interstitial finding is difficult to understand rule out pneumonia. I did order Zosyn IV and CAT scan of her head does not show any acute findings. Her Covid test is pending and it may be that she has COVID as well. I do think she needs to be admitted for observation and evaluation [facility] Continuous cardiac monitoring: An order was placed in the EMR for continuous cardiac monitoring. The patient was found to be in normal sinus rhythm with a rate of 64. 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 Prescriptions Prescriptions: No Action venlafaxine 75 mg capsule,extended release 24hr 75 mg PO DAILY RF: 0 aspirin 81 mg Tablet,Delayed Release (Dr/Ec) 81 mg PO DAILY RF: 0 hydroxyzine HCl 25 mg tablet 25 mg PO BID PRN (Reason: Itching or anxiety) RF: 0 hydralazine 50 mg tablet 25 mg PO TID RF: 0 lisinopril 40 mg tablet 40 mg PO QAM RF: 0 cholecalciferol (vitamin D3) [Vitamin D3] 2,000 unit Capsule 2,000 units PO DAILY RF: 0 calcium carbonate [Oyster Shell Calcium] 500 mg calcium (1,250 mg) Tablet 500 mg PO BID RF: 0 polyethylene glycol 3350 17 gram/dose Powder 17 g PO DAILY PRN (Reason: Constipation) RF: 0 buspirone 10 mg tablet 10 mg PO BID RF: 0 vitamin E 400 unit Capsule 400 unit PO BID RF: 0 warfarin 5 mg tablet 7.5 mg PO 4XWK RF: 0 warfarin 5 mg tablet 5 mg PO 3XWK RF: 0 Discharge Problem: Sepsis Qualifiers: Sepsis type: sepsis due to unspecified organism Sepsis acute organ dysfunction status: unspecified Qualified Code(s): A41.9 - Sepsis, unspecified organism
[2020-01-20 23:34] LABS: Troponin I < 0.015 ng/ml (0-0.045)
[2020-01-21 00:07] LABS: INR 2.6 (0.9-1.1); Partial Thromboplastin Ratio 1.6; Partial Thromboplastin Time 44.2 Seconds (21.0-31.0); Prothrombin Time 26.3 Seconds (9.0-12.0)
[2020-01-21] MEDS ORDERED: PIPERACILLIN/TAZOBACTAM 3.375 GM in DEXTROSE 5% 100 ML/100 ML BAG IV STA (00:38)
[2020-01-21] MEDS ORDERED: PIPERACILL/TAZOBAC CONSULT ACTIVE PRN (00:38)
--- NOTE | 2020-01-21 01:23 | History & Physical Report ---
Date of Service January 21, 2020 Assessment & Plan (1) Asymptomatic hypertensive urgency: Secondary to COVID-19 illness Patient not hypoxemic and not toxic for now. dementia. Some confusion from baseline as per family/personal fci account PAF on Coumadin, patient NSR, INR therapeutic chronic LBBB pituitary macroadenoma as per records, nonfunctioning as per outpatient Endocrinology notes (No recent outpatient follow-up MRI, Endocrinology, Neurosurgery visits in the last 2 years) OBS Medical telemetry Facilitate home BP meds, may need dose titration Supportive management for viral respiratory tract infection. Hold home Buspirone until patient mentation at baseline. DVT prophylaxis. Coumadin INR goal between 2 and 3 Full code for now as per son request until further discussion with patient daughter. Patient son made aware of DNR directives as per personal fci staff account. Will request personal fci to fax document to the hospital. Patient family requesting updates from providers. Mr. Mac Arias (son), contact #[phone]. Miss Stephanie Abraham (daughter), contact #[phone]. Text document was generated using [employer] voice recognition software. It may contain grammatical or spelling errors. Kindly contact undersigned for clarification of any documentation item in question. History of Present Illness Chief Complaint: Dry cough, fever, confusion as per records Primary Care Provider: Joel Helm MD History obtained from patient, family, personal fci staff, and records. History somewhat limited from patient secondary to dementia. Medical history significant for dementia. PAF on Coumadin, chronic LBBB, hypertension, hyperlipidemia, pituitary adenoma as per records, PEDRITO on CPAP, anxiety disorder. Last confinement May 2018 for nausea and vomiting. Few days history dry cough symptoms without chest pain or S OB as per patient. Recent COVID-19 contact at personal fci. Low-grade fever last night. Patient denies headache, abdominal pain, diarrhea symptoms. Patient a little more confused than usual as per personal fci account. Patient brought to the ER for evaluation. Given Zosyn for possible respiratory tract infection. 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, personal-fci resident Allergies Allergy/AdvReac Type Severity Reaction Status Date / Time naproxen Allergy Mild EDEMA Verified 01/20/20 23:27 alendronate sodium Allergy Unknown HIVES Verified 01/20/20 23:27 simvastatin Allergy Unknown MUSCLE Verified 01/20/20 23:27 FATIGUE Home Medications Home Medications Medication Instructions Recorded Confirmed Type aspirin 81 mg PO DAILY 06/04/18 01/20/20 History calcium carbonate [Oyster Shell 500 mg PO BID 06/04/18 01/20/20 History Calcium] cholecalciferol (vitamin D3) 2,000 units PO DAILY 06/04/18 01/20/20 History [Vitamin D3] hydralazine 25 mg PO TID 06/04/18 01/20/20 History hydroxyzine HCl 25 mg PO BID PRN 06/04/18 01/20/20 History lisinopril 40 mg PO QAM 06/04/18 01/20/20 History polyethylene glycol 3350 17 g PO DAILY PRN 06/04/18 01/20/20 History venlafaxine 75 mg PO DAILY 06/04/18 01/20/20 History buspirone 10 mg PO BID 01/20/20 01/20/20 History vitamin E 400 unit PO BID 01/20/20 01/20/20 History warfarin 5 mg PO 3XWK 01/20/20 01/20/20 History warfarin 7.5 mg PO 4XWK 01/20/20 01/20/20 History Past Med/Surg History Medical History Anemia Anxiety Atrial fibrillation Gout PEDRITO on CPAP Surgical History H/O: hysterectomy History of cataract surgery History of cholecystectomy History of parathyroid surgery Family History Other No significant family history Social History Smoking Status: Never smoker Hx Alcohol Use: No Hx Substance Use: No Preferred Language: Hebrew Communication Ability: Effective Commercial Engineer Required: No Beliefs That Will Affect Care: None marital status: Current Living Situation: Spouse Current Living Situation Comment: stefanie lewis current occupational status: retired Feels Safe at Home: Yes Safety Concerns: Feels Safe At This Time Assistive Devices: Walker Review of Systems Review of Systems: Could not be reliably obtained Physical Exam Physical Exam: GENERAL: Comfortable, demented, pleasant, no respiratory distress SKIN: Normal color, warm HEENT: [employer] palpebral conjunctivae, no ptosis, dry buccal mucosa NECK : Supple, no tenderness CHEST : Decreased breath sounds, no tenderness HEART : RRR, systolic murmur ABDOMEN: Some distention, nontender EXTREMITIES : No LE swelling/tenderness, no other conspicuous deformities noted NEUROLOGIC : Demented, no facial asymmetry, no other gross focality Results & Data Results & Data ([facility] [place]) Vital Signs (Past 12 Hours) Vital Signs Temp Pulse Resp BP Pulse Ox 01/21/20 00:00 64 20 177/78 H 97 01/20/20 23:30 72 18 164/94 H 95 01/20/20 23:22 95 01/20/20 23:00 67 22 151/76 H 95 01/20/20 22:51 68 25 H 159/84 H 95 01/20/20 22:50 70 21 95 01/20/20 22:40 66 17 95 01/20/20 22:30 69 21 96 01/20/20 22:20 67 20 01/20/20 22:10 67 20 95 01/20/20 22:00 66 20 95 01/20/20 21:55 69 18 96 01/20/20 21:52 69 28 H 163/78 H 95 01/20/20 21:50 37.1 C 69 18 163/78 H 95 Laboratory Results Laboratory Results WBC 4.33 K/uL (4.8-10.8) L 01/20/20 22:23 RBC 4.02 M/uL (4.2-5.4) L 01/20/20 22:23 Hgb 11.9 g/dL (12.0-16.0) L 01/20/20 22:23 Hct 35.3 % (37-47) L 01/20/20 22:23 MCV 87.8 fL (80-100) 01/20/20 22:23 MCH 29.6 pg (25-34) 01/20/20 22:23 MCHC 33.7 g/dL (32-36) 01/20/20 22:23 RDW Std Deviation 45.0 fL (36.4-46.3) 01/20/20 22:23 RDW Coeff of Sergio 13.8 % (11.5-14.5) 01/20/20 22:23 Plt Count 194 K/uL (130-400) 01/20/20 22:23 MPV 10.3 fL (7.4-10.4) 01/20/20 22:23 Immature Gran % (Auto) 0.5 % 01/20/20 22:23 Neut % (Auto) 53.5 % 01/20/20 22:23 Lymph % (Auto) 17.6 % 01/20/20 22:23 White % (Auto) 25.9 % 01/20/20 22:23 Eos % (Auto) 2.3 % 01/20/20 22:23 Baso % (Auto) 0.2 % 01/20/20 22:23 Neut # (Auto) 2.32 K/uL (1.4-6.5) 01/20/20 22:23 Lymph # (Auto) 0.76 K/uL (1.2-3.4) L 01/20/20 22:23 White # (Auto) 1.12 K/uL (0.11-0.59) H 01/20/20 22:23 Eos # (Auto) 0.10 K/uL (0-0.5) 01/20/20 22:23 Baso # (Auto) 0.01 K/uL (0-0.2) 01/20/20 22:23 Immature Gran # (Auto) 0.02 K/uL (0.00-0.02) 01/20/20 22:23 PT 26.3 Seconds (9.0-12.0) H 01/20/20 22:30 INR 2.6 (0.9-1.1) H 01/20/20 22:30 APTT 44.2 Seconds (21.0-31.0) H 01/20/20 22:30 PTT Ratio 1.6 01/20/20 22:30 Sodium 139 mmol/L (136-145) 01/20/20 22:23 Potassium 3.7 mmol/L (3.5-5.1) 01/20/20 22:23 Chloride 105 mmol/L (98-107) 01/20/20 22:23 Carbon Dioxide 28 mmol/L (21-32) 01/20/20 22:23 Anion Gap 6.0 (3-11) 01/20/20 22:23 BUN 27 mg/dl (7-18) H 01/20/20 22:23 Creatinine 0.93 mg/dl (0.6-1.2) 01/20/20 22:23 Est Cr Clr Drug Dosing 34.4 ml/min 01/20/20 22:23 Est GFR ( Amer) 65.0 01/20/20 22:23 Est GFR (Non-Af Amer) 56.0 01/20/20 22:23 BUN/Creatinine Ratio 28.9 (10-20) H 01/20/20 22:23 Glucose 83 mg/dl (70-99) 01/20/20 22:23 Lactate 0.5 mmol/L (0.4-2.0) 01/20/20 23:30 Calcium 9.6 mg/dl (8.5-10.1) 01/20/20 22:23 Magnesium 1.8 mg/dl (1.8-2.4) 01/20/20 22:23 Total Bilirubin 0.6 mg/dl (0.2-1) 01/20/20 22:23 AST 18 U/L (15-37) 01/20/20 22:23 ALT 14 U/L (12-78) 01/20/20 22:23 Alkaline Phosphatase 53 U/L (45-117) 01/20/20 22:23 Troponin I < 0.015 ng/ml (0-0.045) 01/20/20 22:23 Total Protein 6.1 gm/dl (6.4-8.2) L 01/20/20 22:23 Albumin 3.0 gm/dl (3.4-5.0) L 01/20/20 22:23 Globulin 3.1 gm/dl (2.5-4.0) 01/20/20 22:23 Albumin/Globulin Ratio 1.0 (0.9-2) 01/20/20 22:23 TSH 1.940 uIu/ml (0.300-4.500) 01/20/20 22:23 Urine Color Yellow 01/20/20 22:50 Urine Appearance Clear (Clear) 01/20/20 22:50 Urine pH 7.0 (4.5-7.5) 01/20/20 22:50 Ur Specific [place] 1.012 (1.000-1.030) 01/20/20 22:50 Urine Protein Negative (Negative) 01/20/20 22:50 Urine Glucose (UA) Negative (Negative) 01/20/20 22:50 Urine Ketones Negative (Negative) 01/20/20 22:50 Urine Blood Negative (Negative) 01/20/20 22:50 Urine Nitrite Negative (Negative) 01/20/20 22:50 Urine Bilirubin Negative (Negative) 01/20/20 22:50 Urine Urobilinogen Negative (Negative) 01/20/20 22:50 Ur Leukocyte Esterase Negative (Negative) 01/20/20 22:50 COVID-19 Eval Order Covid19 Done at [facility] 01/20/20 23:30 COVID-19 PCR POSITIVE (Negative) A* 01/20/20 23:[address] head initial read: No mass lesion or midline shift. Chronic small vessel ischemic disease similar to previous. No evidence of acute large vessel infarct or intracranial hemorrhage. Chest x-ray as per my interpretation cardiomegaly, chronic changes EKG as per my interpretation : Rate 70, NSR, LBBB
[2020-01-21] MEDS ORDERED: POLYETHYLENE (MIRALAX) 17 GM PACK PO PRN (03:12)
[2020-01-21] MEDS ORDERED: PROMETHAZINE HCL 12.5 MG in SODIUM CHLORIDE 0.9% 50 ML IV PRN (03:12)
[2020-01-21] MEDS ORDERED: ALBUTEROL HFA 8 GM INHALER INH PRN (03:12)
[2020-01-21] MEDS ORDERED: ACETAMINOPHEN 325 MG TAB PO PRN (03:12)
[2020-01-21] MEDS ORDERED: NSS + 20MEQ KCL 20 MEQ/1,000 ML BAG IV ONE (03:45)
[2020-01-21] MEDS: guaiFENesin 600 MG TABCR PO SCH ×3 (04:33→22:02)
[2020-01-21 07:23] LABS: Eosinophils # (auto) 0.08 K/uL (0-0.5); Eosinophils % (auto) 2.2 %; Hematocrit (blood only) 34.9 % (37-47); Hemoglobin 11.7 g/dL (12.0-16.0); Immature Granulocytes # (auto) 0.01 K/uL (0.00-0.02); Immature Granulocytes % (auto) 0.3 %; Lymphocytes # (auto) 0.65 K/uL (1.2-3.4); Lymphocytes % (auto) 18.3 %; Mean Corpuscular Hemoglobin 29.3 pg (25-34); Mean Corpuscular Hgb Conc 33.5 g/dL (32-36); Mean Corpuscular Volume 87.5 fL (80-100); Monocytes # (auto) 0.91 K/uL (0.11-0.59); Monocytes % (auto) 25.6 %; Neutrophils # (auto) 1.91 K/uL (1.4-6.5); Neutrophils % (auto) 53.6 %; Platelet Count 171 K/uL (130-400); RDW Coefficient of Variation 13.7 % (11.5-14.5); RDW Standard Deviation 44.6 fL (36.4-46.3); Red Blood Count 3.99 M/uL (4.2-5.4); White Blood Count 3.56 K/uL (4.8-10.8)
[2020-01-21 07:32] LABS: INR 2.7 (0.9-1.1); Prothrombin Time 26.7 Seconds (9.0-12.0)
[2020-01-21 07:46] LABS: BUN Creatinine Ratio 22.3 (10-20); Calcium 8.8 mg/dl (8.5-10.1); Creatinine Clr Calc Pharmacy 32.1 ml/min; Est GFR (African American) 65.8; Est GFR (Non-African American) 56.8; Potassium 3.9 mmol/L (3.5-5.1)
--- NOTE | 2020-01-21 07:50 | CT Scan Report ---
CT head/brain wo con CLINICAL HISTORY: Increasing confusion COMPARISON STUDY: 03/10/2019 TECHNIQUE: Axial CT of the brain is performed from the vertex to the skull base. IV contrast was not administered for this examination. A dose lowering technique was utilized adhering to the principles of ALARA. CT DOSE: 614.27 mGy.cm FINDINGS: No intra or extra-axial mass lesions are visualized. There is no CT evidence of acute cortical infarc tion. There is no evidence of midline shift. There is no acute hemorrhage. No calvarial fractures ar e visualized. There are patchy white matter hypodensities likely on a small vessel basis. There is no evidence of pathologic ventricular dilatation. There is no evidence of acute sinusitis IMPRESSION: No acute intracranial findings ACT 112: Negative or not required by law. Electronically signed by: Jack Hart M.D. 01/21/2020 7:49 AM
--- NOTE | 2020-01-21 07:54 | XRay Report ---
XR chest 1V portable HISTORY: SEPSIS COMPARISON: Chest 03/10/2019. FINDINGS: Mild diffuse interstitial thickening which is likely chronic. The heart is top normal in si ze. This remains unchanged. No pleural effusions. No pneumothorax. No focal lung consolidations. No e vidence for pulmonary edema. IMPRESSION: Mild interstitial thickening which is likely chronic. ACT 112: Negative or not required by law. Electronically signed by: Ryder Gandhi M.D. 01/21/2020 7:53 AM
[2020-01-21] MEDS: ASPIRIN 81 MG ECTAB PO SCH (09:27)
[2020-01-21] MEDS: VENLAFAXINE HCL XR 75 MG CAPXR PO SCH (09:28)
[2020-01-21] MEDS: lisinopriL 40 MG TAB PO SCH (09:28)
--- NOTE | 2020-01-21 15:24 | Hospitalist Progress Note ---
Date of Service January 21, 2020 Assessment & Plan (1) COVID-19: mild cough present that is nonproductive and not requiring oxygen. CXR is clear. Cont supportive care efforts. (2) Delirium: Likely hospital-induced delirium with acute infection onboard. Acute metabolic encephalopathy is possible. Cont supportive care and reorientation. Cont 1:1 monitoring for now. (3) HTN (hypertension): Mostly refused meds and BP checks, however, BP is reasonable today. Cont to encourage BP med compliance and reorient as needed. (4) senior care (current) use of anticoagulants: Trend INR daily. On warfarin for atrial fibrillation which was held on admission. INR 2.7, cont this now. (5) Atrial fibrillation: Warfarin continued per home regimen. (6) Anxiety: Declined Effexor for nurse today, however, this is ordered. Per family she does well on Buspar so will restart this now and monitor. (7) DVT prophylaxis: coumadin with therapeutic INR DNR per POLST in chart. Dispo-uncertain and will depend somewhat on clearance of her delirium Mae Pick[facility] and Anticipated Discharge Date Admission Date: January 21, 2020 Subjective 84-year-old female who presented from [facility] with a recurrent COVID outbreak to the ER. Per the ER physician the patient was having fever and cough and increasing confusion. In the ER she had a normal respiratory effort and was initially 101F but this resolved and she began looking better. She was given 500 cc of normal saline. No leukocytosis was present. CT head in setting of acute confusion on coumaadin was unremarkable. CXR did not show any pneumonia and she is not requiring oxygen. COVID was positive. She was admitted overnight, however became delirious, and is currenlty paranoid and decliing medications, BP checks, physical examinations, and most treatment and assessment efforts. We did speak with her daughter by phone but the patient refused. I did give her daughter an update on the current status and workup. The patient appears well and denies any issues with pain, nausea, vomiting or other symptoms. She did have an episode of mild non- productive coughing but reported she was simply clearing her throat. She was put on a 1:! for her behavior today while trying to walk into the hallway and act out. She is a fall risk and is on coumadin and this was thought to be more safe. Review of Systems Review of Systems: All systems reviewed & are unremarkable except as noted in Subjective Physical Exam Physical Exam: Patient declined physical exam but appears well overall Not working to breathe Answering questions, but is not oriented to place Results & Data Results & Data ([facility]) Vital Signs (Past 12 Hours) Vital Signs Temp Pulse Pulse Resp BP Pulse Ox 01/21/20 07:49 36.3 C L 71 16 154/72 H 92 01/21/20 07:01 63 01/21/20 04:02 66 01/21/20 03:43 36.9 C 66 18 161/68 H 94 01/21/20 03:40 36.9 C 66 18 161/68 H 94 Laboratory Results Short CBC 01/20/20 01/21/20 Range/Units 22:23 07:03 WBC 4.33 L 3.56 L (4.8-10.8) K/uL Hgb 11.9 L 11.7 L (12.0-16.0) g/dL Hct 35.3 L 34.9 L (37-47) % Plt Count 194 171 (130-400) K/uL BMP 01/20/20 01/21/20 22:23 07:03 Sodium 139 140 Potassium 3.7 3.9 Chloride 105 107 Carbon Dioxide 28 26 BUN 27 H 21 H Creatinine 0.93 0.92 Glucose 83 87 Calcium 9.6 8.8 Cardiac Enzymes 01/20/20 Range/Units 22:23 Troponin I < 0.015 (0-0.045) ng/ml Liver Function 01/20/20 Range/Units 22:23 Total Bilirubin 0.6 (0.2-1) mg/dl AST 18 (15-37) U/L ALT 14 (12-78) U/L Alkaline Phosphatase 53 (45-117) U/L Albumin 3.0 L (3.4-5.0) gm/dl Urine 01/20/20 Range/Units 22:50 Urine Color Yellow Urine Appearance Clear (Clear) Urine pH 7.0 (4.5-7.5) Ur Specific [place] 1.012 (1.000-1.030) Urine Protein Negative (Negative) Urine Glucose (UA) Negative (Negative) Medications Administered Current Inpatient Medications Acetaminophen (Acetaminophen 325 Mg Tab) 650 mg PO Q4H PRN PRN Reason: Pain or Fever Stop: 02/20/20 03:11 Albuterol (Albuterol Hfa 8 Gm Inhaler) 2 puffs INH Q2H PRN PRN Reason: sob/wheeze Stop: 02/20/20 03:11 Aspirin (Aspirin 81 Mg Ectab) 81 mg PO DAILY [facility] Stop: 02/20/20 08:59 Last Admin: 01/21/20 09:27 Dose: Not Given Documented by: Guaifenesin (Guaifenesin 600 Mg Tabcr) 600 mg PO Q12 [facility] Stop: 02/20/20 03:11 Last Admin: 01/21/20 09:28 Dose: Not Given Documented by: Hydralazine HCl (Hydralazine Hcl 25 Mg Tab) 25 mg PO TID [facility] Stop: 02/20/20 08:59 Last Admin: 01/21/20 13:35 Dose: Not Given Documented by: Hydralazine HCl (Hydralazine Hcl 20 Mg/Ml Vial) 5 mg IV NOW ONE Stop: 01/21/20 15:27 Potassium Chloride/Sodium Chloride (Normal Saline W/20 Meq Kcl) 20 meq in 1,000 mls @ 40 mls/hr IV .Q24H ONE Stop: 01/22/20 03:44 Last Admin: 01/21/20 04:34 Dose: 40 mls/hr Documented by: Promethazine HCl 12.5 mg/ (Sodium Chloride) 50.5 mls @ 202 mls/hr IV Q6H PRN PRN Reason: Nausea And Vomiting Stop: 02/20/20 03:11 Lisinopril (Lisinopril 40 Mg Tab) 40 mg PO QAM [facility] Stop: 02/20/20 08:59 Last Admin: 01/21/20 09:28 Dose: Not Given Documented by: Polyethylene Glycol (Polyethylene (Miralax) 17 Gm Pack) 17 gm PO DAILY PRN PRN Reason: Constipation Stop: 02/20/20 03:11 Venlafaxine HCl (Venlafaxine Hcl Xr 75 Mg Capxr) 75 mg PO DAILY [facility] Stop: 02/20/20 08:59 Last Admin: 01/21/20 09:28 Dose: Not Given Documented by:
[2020-01-21] MEDS ORDERED: HydrALAZINE HCL 20 MG/ML VIAL IV ONE (15:26)
[2020-01-22 05:37] LABS: Hematocrit (blood only) 38.3 % (37-47); Mean Corpuscular Hemoglobin 29.9 pg (25-34); Mean Corpuscular Hgb Conc 33.9 g/dL (32-36); Mean Platelet Volume 10.2 fL (7.4-10.4); Platelet Count 177 K/uL (130-400); RDW Coefficient of Variation 13.8 % (11.5-14.5); RDW Standard Deviation 44.8 fL (36.4-46.3); Red Blood Count 4.35 M/uL (4.2-5.4); White Blood Count 3.14 K/uL (4.8-10.8)
[2020-01-22 05:54] LABS: BUN Creatinine Ratio 20.8 (10-20); Calcium 8.3 mg/dl (8.5-10.1); Creatinine Clr Calc Pharmacy 34.8 ml/min; Est GFR (African American) 72.4; Est GFR (Non-African American) 62.5; Magnesium 1.7 mg/dl (1.8-2.4)
[2020-01-22 05:57] LABS: INR 2.4 (0.9-1.1); Prothrombin Time 23.7 Seconds (9.0-12.0)
[2020-01-22] MEDS: ASPIRIN 81 MG ECTAB PO SCH (08:41)
[2020-01-22] MEDS: guaiFENesin 600 MG TABCR PO SCH ×2 (08:41→20:20)
[2020-01-22] MEDS: lisinopriL 40 MG TAB PO SCH (08:42)
[2020-01-22] MEDS: VENLAFAXINE HCL XR 75 MG CAPXR PO SCH (08:42)
--- NOTE | 2020-01-22 09:39 | Electrocardiogram Report ---
Test Reason : Blood Pressure : / mmHG Vent. Rate : 068 BPM Atrial Rate : 068 BPM P-R Int : 142 ms QRS Dur : 130 ms QT Int : 394 ms P-R-T Axes : 063 -19 093 degrees QTc Int : 418 ms Normal sinus rhythm Left bundle branch block Abnormal ECG When compared with ECG of 10-MAR-2019 09:38, No significant change was found Confirmed by Cyrus Farooq ([id number]) on 01/22/2020 9:39:10 AM Referred By: Iliana Lewis [place] Confirmed By:Cyrus Farooq
[2020-01-22] MEDS ORDERED: MAGNESIUM SULFATE 50% 2 GM in SODIUM CHLORIDE 0.9% 500 ML IV SCH (09:45)
--- NOTE | 2020-01-22 12:08 | Hospitalist Progress Note ---
Date of Service January 22, 2020 Assessment & Plan (1) COVID-19: cough has resolved. CXR is clear. Cont supportive care efforts. Remains afebrile off any antibiotics. (2) Delirium: Likely hospital-induced delirium with acute infection onboard. Acute metabolic encephalopathy is possible 2/2 COVID. Cont supportive care and reorientation as needed. She is more rosetta and cooperative with the treatment plan today. One to one observation was discontinued. (3) HTN (hypertension): Mostly refused meds and BP checks, however, BP is reasonable today. Cont to encourage BP med compliance and reorient as needed. She has taken lisinopril 40mg daily and hydralazine 25mg TID since this morning and BP is around 160s systolic. will increase hydralazine to 50 TID. (4) correction (current) use of anticoagulants: Trend INR daily. On warfarin for atrial fibrillation which was held on admission. INR currently therapeutic. (5) Atrial fibrillation: Warfarin continued per home regimen. (6) Anxiety: back on home effexor and buspar which may be why we see the change today. (7) DVT prophylaxis: coumadin with therapeutic INR DNR per POLST in chart. Dispo-she is ready to return to [facility] when bed available. Mae Pickard DO [facility] Admission and Anticipated Discharge Date Admission Date: January 21, 2020 Subjective Pt is more calm today and is cooperative with the care plan. She is still confused and disoriented but denies pain, chest pain, nausea, issues with walking, fevers, chills diarrrhea, SOB or coughing. She is still oxygenating well on room air and BP appears better controlled now that she is compliant with medications. 1:1 was removed. Review of Systems Review of Systems: All systems reviewed & are unremarkable except as noted in Subjective Physical Exam Physical Exam: CONSTITUTIONAL: WNWD, vitals as above, generally well- appearing EYES: normal conjunctivae, no scleral icterus ENT: external ear and nose normal, MMM RESPIRATORY: clear to auscultation bilaterally, no crackles, rales or wheezes, normal respiratory effort CARDIOVASCULAR: regular rate and rhythm, S1 and 2 heard without murmurs, gallops or rubs, no JVD, no peripheral edema GASTROINTESTINAL: soft, nontender, nondistended. MUSCULOSKELETAL: strength 5/5 throughout, head is normocephalic and atraumatic, neck supple, normal palpation of chest wall without tenderness SKIN: warm and dry NEUROLOGIC: No facial palsy, no dysarthria. CN 2-12 grossly intact, no sensory deficit, normal cognition, normal speech, no gross neurologic deficits. PSYCHIATRIC: alert and not oriented to place or time. She doesn' t know why she is here Results & Data Results & Data ([facility]) Vital Signs (Past 12 Hours) Vital Signs Temp Pulse Pulse Resp BP Pulse Ox 01/22/20 11:25 36.5 C 63 18 150/78 H 96 01/22/20 08:00 36.6 C 61 20 145/73 H 93 01/22/20 07:00 59 L Laboratory Results Short CBC 01/22/20 Range/Units 05:20 WBC 3.14 L (4.8-10.8) K/uL Hgb 13.0 (12.0-16.0) g/dL Hct 38.3 (37-47) % Plt Count 177 (130-400) K/uL BMP 01/22/20 05:20 Sodium 140 Potassium 4.0 Chloride 110 H Carbon Dioxide 27 BUN 18 Creatinine 0.85 Glucose 76 Calcium 8.3 L Medications Administered Current Inpatient Medications Acetaminophen (Acetaminophen 325 Mg Tab) 650 mg PO Q4H PRN PRN Reason: Pain or Fever Stop: 02/20/20 03:11 Albuterol (Albuterol Hfa 8 Gm Inhaler) 2 puffs INH Q2H PRN PRN Reason: sob/wheeze Stop: 02/20/20 03:11 Aspirin (Aspirin 81 Mg Ectab) 81 mg PO DAILY [facility] Stop: 02/20/20 08:59 Last Admin: 01/22/20 08:41 Dose: 81 mg Documented by: Buspirone HCl (Buspirone 5 Mg Tab) 10 mg PO BID [facility] Stop: 02/21/20 08:59 Last Admin: 01/22/20 10:54 Dose: 10 mg Documented by: Guaifenesin (Guaifenesin 600 Mg Tabcr) 600 mg PO Q12 [facility] Stop: 02/20/20 03:11 Last Admin: 01/22/20 08:41 Dose: 600 mg Documented by: Hydralazine HCl (Hydralazine Hcl 25 Mg Tab) 25 mg PO TID [facility] Stop: 02/20/20 08:59 Last Admin: 01/22/20 08:42 Dose: 25 mg Documented by: Promethazine HCl 12.5 mg/ (Sodium Chloride) 50.5 mls @ 202 mls/hr IV Q6H PRN PRN Reason: Nausea And Vomiting Stop: 02/20/20 03:11 Magnesium Sulfate 2 gm/ Sodium (Chloride) 504 mls @ 125 mls/hr IV .Q4H2M [facility] Stop: 01/22/20 13:46 Last Admin: 01/22/20 10:54 Dose: 125 mls/hr Documented by: Lisinopril (Lisinopril 40 Mg Tab) 40 mg PO QAM [facility] Stop: 02/20/20 08:59 Last Admin: 01/22/20 08:42 Dose: 40 mg Documented by: Polyethylene Glycol (Polyethylene (Miralax) 17 Gm Pack) 17 gm PO DAILY PRN PRN Reason: Constipation Stop: 02/20/20 03:11 Venlafaxine HCl (Venlafaxine Hcl Xr 75 Mg Capxr) 75 mg PO DAILY [facility] Stop: 02/20/20 08:59 Last Admin: 01/22/20 08:42 Dose: 75 mg Documented by: Warfarin Sodium (Warfarin Sod 7.5 Mg Tab) 7.5 mg PO [email or web address] [facility] Stop: 02/21/20 15:59 Warfarin Sodium (Warfarin Sod 5 Mg Tab) 5 mg PO [email or web address] [facility] Stop: 02/22/20 15:59
[2020-01-22] MEDS: WARFARIN SOD 7.5 MG TAB PO SCH (15:13)
[2020-01-22] MEDS: HydrALAZINE TAB 50 MG TAB PO SCH (20:20)
[2020-01-23] MEDS: VENLAFAXINE HCL XR 75 MG CAPXR PO SCH ×2 (12:05→15:46)
[2020-01-23] MEDS: ASPIRIN 81 MG ECTAB PO SCH ×2 (12:05→15:45)
[2020-01-23] MEDS: HydrALAZINE TAB 50 MG TAB PO SCH ×4 (12:05→20:23)
[2020-01-23] MEDS: CHOLECALCIFEROL 1,000 UNITS 25 MCG TAB PO SCH (12:06)
[2020-01-23] MEDS: guaiFENesin 600 MG TABCR PO SCH ×2 (12:06→20:25)
[2020-01-23] MEDS: lisinopriL 40 MG TAB PO SCH ×2 (12:06→15:47)
[2020-01-23] MEDS ORDERED: HydrALAZINE HCL 20 MG/ML VIAL IV ONE (15:12)
--- NOTE | 2020-01-23 15:12 | Hospitalist Progress Note ---
Date of Service January 23, 2020 Assessment & Plan (1) COVID-19: no coughing, fevers, CXR clear. Cont supportive care efforts. Remains afebrile off any antibiotics. (2) Delirium: Likely hospital-induced delirium with acute infection onboard. Acute metabolic encephalopathy is possible 2/2 COVID. Cont supportive care and reorientation as needed. She is calm but refusing treatments, assessments, tests and food. She is suspicious of staff members and will not allow her BP to be assess regularly. Not requiring one-to-one observation. Daughter was asking about using a sedative to help calm her. I explained this is considered a chemical restraint and unethical unless she becomes combative or harmful to herself. She verbalized understanding. (3) Shoulder pain: Refuses XR today. Limited ROM and pain. 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 Pt declines any medications for pain at this time. Daughter is ok with IV Tylenol as pain may be contributing to her confusion. (4) HTN (hypertension): Elevated 2/2 med noncompliance. Added hydralazine PRN. Also added scheduled APAP to help the pain in her L shoulder which may be contributing to her delirium. (5) retirement (current) use of anticoagulants: Trend INR daily. On warfarin for atrial fibrillation which was held on admission. INR currently therapeutic. (6) Atrial fibrillation: Warfarin continued per home regimen. (7) Anxiety: back on home effexor and buspar , continue to reorient. (8) DVT prophylaxis: coumadin with therapeutic INR DNR per POLST in chart. Dispo-she is ready to return to [facility] when bed available. Need to ensure with CM that staff at [facility] can hand her level of needs prior to sending her. I spoke with daughter Stephanie by phone for 20 minutes and ran over the care plan. All questions were answered and she feels good about the current plan. Mae Pickard DO [facility] Hospitalist Admission and Anticipated Discharge Date Admission Date: January 21, 2020 Subjective Pt is delirious still today She is paranoid and refusing all treatments I was able to examine her but she was very guarded about her left arm. She has a very limited forward flexion and limited abduction of the left humerus. Left wrist with normal flexion and extension She was offered an XR and some pain medication for this but declined. She is also is declining food. She reports walking into the bathroom but was unable to use the bathroom herself? History is somewhat difficult to interpret. Review of Systems Review of Systems: Unobtainable due to mental health condition (Limited 2/2/ delirium) Physical Exam Physical Exam: CONSTITUTIONAL: WNWD, vitals as above, in mild distress physicall and emotionally. Anytime I would get near her or touch her she would jump. EYES: normal conjunctivae, no scleral icterus ENT: external ear and nose normal, MMM RESPIRATORY: clear to auscultation bilaterally, no crackles, rales or wheezes, normal respiratory effort CARDIOVASCULAR: regular rate and rhythm, S1 and 2 heard without murmurs, gallops or rubs, no JVD, no peripheral edema GASTROINTESTINAL: soft, nontender, nondistended. MUSCULOSKELETAL: strength 5/5 throughout, head is normocephalic and atraumatic, neck supple, normal palpation of chest wall without tenderness LUE: 10 deg of shoulder flexion, 5 deg of shoulder abduction. Pt lying down so full exam could not be performed. She has pain to palpation of the shoulder and biceps (Left). Normal but guarded elbow flexion and extension. Normal wrist flexion and extension. Again, jumping as if in pain with verbal sounds and grimacing each time i touched her arm. SKIN: warm and dry NEUROLOGIC: No facial palsy, no dysarthria. CN 2-12 grossly intact, no sensory deficit, normal cognition, normal speech, no gross neurologic deficits. PSYCHIATRIC: alert and not oriented to place or time. She doesn' t know why she is here. ? hallucinations gavi about staff Results & Data Results & Data ([facility]) Vital Signs (Past 12 Hours) Vital Signs Temp Pulse Resp BP Pulse Ox 01/23/20 08:20 37.0 C 66 18 173/79 H 95 Medications Administered Current Inpatient Medications Acetaminophen (Acetaminophen 325 Mg Tab) 650 mg PO Q4H PRN PRN Reason: Pain or Fever Stop: 02/20/20 03:11 Albuterol (Albuterol Hfa 8 Gm Inhaler) 2 puffs INH Q2H PRN PRN Reason: sob/wheeze Stop: 02/20/20 03:11 Aspirin (Aspirin 81 Mg Ectab) 81 mg PO DAILY [facility] Stop: 02/20/20 08:59 Last Admin: 01/23/20 12:05 Dose: Not Given Documented by: Buspirone HCl (Buspirone 5 Mg Tab) 10 mg PO BID [facility] Stop: 02/21/20 08:59 Last Admin: 01/23/20 12:05 Dose: Not Given Documented by: Guaifenesin (Guaifenesin 600 Mg Tabcr) 600 mg PO Q12 [facility] Stop: 02/20/20 03:11 Last Admin: 01/23/20 12:06 Dose: Not Given Documented by: Hydralazine HCl (Hydralazine Tab 50 Mg Tab) 50 mg PO TID [facility] Stop: 02/21/20 20:59 Last Admin: 01/23/20 12:05 Dose: Not Given Documented by: Hydralazine HCl (Hydralazine Hcl 20 Mg/Ml Vial) 5 mg IV Q6H PRN PRN Reason: SBP>160 Stop: 02/22/20 15:12 Promethazine HCl 12.5 mg/ (Sodium Chloride) 50.5 mls @ 202 mls/hr IV Q6H PRN PRN Reason: Nausea And Vomiting Stop: 02/20/20 03:11 Lisinopril (Lisinopril 40 Mg Tab) 40 mg PO QAM [facility] Stop: 02/20/20 08:59 Last Admin: 01/23/20 12:06 Dose: Not Given Documented by: Polyethylene Glycol (Polyethylene (Miralax) 17 Gm Pack) 17 gm PO DAILY PRN PRN Reason: Constipation Stop: 02/20/20 03:11 Venlafaxine HCl (Venlafaxine Hcl Xr 75 Mg Capxr) 75 mg PO DAILY [facility] Stop: 02/20/20 08:59 Last Admin: 01/23/20 12:05 Dose: Not Given Documented by: Vitamin D (Cholecalciferol 1,000 Units 25 Mcg Tab) 2,000 units PO DAILY [facility] Stop: 02/22/20 08:59 Last Admin: 01/23/20 12:06 Dose: Not Given Documented by: Warfarin Sodium (Warfarin Sod 7.5 Mg Tab) 7.5 mg PO MoWeFrSa@1600 [facility] Stop: 02/21/20 15:59 Last Admin: 01/22/20 15:13 Dose: 7.5 mg Documented by: Warfarin Sodium (Warfarin Sod 5 Mg Tab) 5 mg PO SuTuTh@1600 [facility] Stop: 02/22/20 15:59
[2020-01-23] MEDS ORDERED: HydrALAZINE HCL 20 MG/ML VIAL IV PRN (15:13)
[2020-01-23] MEDS ORDERED: WARFARIN SOD 5 MG TAB PO SCH (16:00)
[2020-01-23] MEDS: ACETAMINOPHEN 1,000 MG/100 ML VIAL IV SCH (16:00)
[2020-01-24] MEDS: ACETAMINOPHEN 1,000 MG/100 ML VIAL IV SCH ×2 (00:20→08:15)
[2020-01-24 07:48] LABS: Prothrombin Time 30.3 Seconds (9.0-12.0)
[2020-01-24] MEDS: CHOLECALCIFEROL 1,000 UNITS 25 MCG TAB PO SCH (08:14)
[2020-01-24] MEDS: guaiFENesin 600 MG TABCR PO SCH ×2 (08:14→20:30)
[2020-01-24] MEDS: ASPIRIN 81 MG ECTAB PO SCH (08:15)
[2020-01-24] MEDS: HydrALAZINE TAB 50 MG TAB PO SCH ×3 (08:15→20:29)
[2020-01-24] MEDS: lisinopriL 40 MG TAB PO SCH (08:16)
[2020-01-24] MEDS: VENLAFAXINE HCL XR 75 MG CAPXR PO SCH (08:18)
[2020-01-24] MEDS: ACETAMINOPHEN 500 MG TAB PO SCH ×2 (10:26→16:05)
[2020-01-24] MEDS: WARFARIN SOD 7.5 MG TAB PO SCH (16:01)
--- NOTE | 2020-01-24 18:03 | Hospitalist Progress Note ---
Date of Service January 24, 2020 Assessment & Plan (1) COVID-19: no coughing, fevers, CXR clear. Cont supportive care efforts. Remains afebrile off any antibiotics. (2) Delirium: Dementia with confusion. Pt not combative. Does become confused and anxious. Not requiring a 1:1. She expresses she doesn't want to be locked up in this room alone, which is likely contributing to her anxiety. (3) Shoulder pain: refused tylenol, however, denies pain in shoulder and improvement in ROM today. (4) HTN (hypertension): improved with antihypertensive compliance. Currently around goal. Hydralazine PRN as needed. (5) custodial (current) use of anticoagulants: Trend INR daily. On warfarin for atrial fibrillation which was held on admission. INR currently therapeutic at 3. (6) Atrial fibrillation: Warfarin continued per home regimen. (7) Anxiety: back on home effexor and buspar , continue to reorient. (8) DVT prophylaxis: coumadin with therapeutic INR DNR per POLST in chart. Dispo-she is fine to return to [facility] when they are ready to receive her which may be tomorrow. She has persistent confusion and anxiety which is stable, but she is not requiring a 1:1. OK for discharge once [facility] feels they can comfortably manage these mental/emotional issues. Mae Pickard DO [facility] Hospitalist Admission and Anticipated Discharge Date Admission Date: January 21, 2020 Subjective confused but initially appeared well and happy as conversation progressed to going home, she became so severe, she was almost having a panic attack. denies L arm pain and demonstrated improved ROM eating OK-nurse notes she is just picking at her food ambulating to and from bathroom two loose stools per nurse,. another afternoon stool just prior to my exam compliant with medications and cooperative with exam and assessments. Review of Systems Review of Systems: Unobtainable due to mental health condition (dementia and confusion is present.) Physical Exam Physical Exam: CONSTITUTIONAL: WNWD, vitals as above, NAD EYES: normal conjunctivae, no scleral icterus ENT: external ear and nose normal, MMM RESPIRATORY: clear to auscultation bilaterally, no crackles, rales or wheezes, normal respiratory effort CARDIOVASCULAR: regular rate and rhythm, S1 and 2 heard without murmurs, gallops or rubs, no JVD, no peripheral edema GASTROINTESTINAL: soft, nontender, nondistended. MUSCULOSKELETAL: strength 5/5 throughout, head is normocephalic and atraumatic, LUE: Improved ROM almost to full today WRT flexion and abduction. SKIN: warm and dry NEUROLOGIC: No facial palsy, no dysarthria. CN 2-12 grossly intact, no sensory deficit, normal cognition, normal speech, no gross neurologic deficits. PSYCHIATRIC: alert and disoriented to place or time. She doesn' t know why she is here. Results & Data Results & Data ([facility]) Vital Signs (Past 12 Hours) Vital Signs Temp Pulse Resp BP Pulse Ox 01/24/20 16:38 36.5 C 71 18 155/77 H 94 01/24/20 14:03 70 147/76 H 01/24/20 08:20 36.5 C 70 16 153/77 H 93 Medications Administered Current Inpatient Medications Acetaminophen (Acetaminophen 500 Mg Tab) 1,000 mg PO Q8H [facility] Stop: 02/23/20 09:29 Last Admin: 01/24/20 16:05 Dose: 1,000 mg Documented by: Albuterol (Albuterol Hfa 8 Gm Inhaler) 2 puffs INH Q2H PRN PRN Reason: sob/wheeze Stop: 02/20/20 03:11 Aspirin (Aspirin 81 Mg Ectab) 81 mg PO DAILY [facility] Stop: 02/20/20 08:59 Last Admin: 01/24/20 08:15 Dose: 81 mg Documented by: Buspirone HCl (Buspirone 5 Mg Tab) 10 mg PO BID [facility] Stop: 02/21/20 08:59 Last Admin: 01/24/20 08:15 Dose: 10 mg Documented by: Guaifenesin (Guaifenesin 600 Mg Tabcr) 600 mg PO Q12 [facility] Stop: 02/20/20 03:11 Last Admin: 01/24/20 08:14 Dose: 600 mg Documented by: Hydralazine HCl (Hydralazine Tab 50 Mg Tab) 50 mg PO TID [facility] Stop: 02/21/20 20:59 Last Admin: 01/24/20 14:02 Dose: 50 mg Documented by: Hydralazine HCl (Hydralazine Hcl 20 Mg/Ml Vial) 5 mg IV Q6H PRN PRN Reason: SBP>160 Stop: 02/22/20 15:12 Promethazine HCl 12.5 mg/ (Sodium Chloride) 50.5 mls @ 202 mls/hr IV Q6H PRN PRN Reason: Nausea And Vomiting Stop: 02/20/20 03:11 Lisinopril (Lisinopril 40 Mg Tab) 40 mg PO QAM [facility] Stop: 02/20/20 08:59 Last Admin: 01/24/20 08:16 Dose: 40 mg Documented by: Polyethylene Glycol (Polyethylene (Miralax) 17 Gm Pack) 17 gm PO DAILY PRN PRN Reason: Constipation Stop: 02/20/20 03:11 Venlafaxine HCl (Venlafaxine Hcl Xr 75 Mg Capxr) 75 mg PO DAILY [facility] Stop: 02/20/20 08:59 Last Admin: 01/24/20 08:18 Dose: 75 mg Documented by: Vitamin D (Cholecalciferol 1,000 Units 25 Mcg Tab) 2,000 units PO DAILY [facility] Stop: 02/22/20 08:59 Last Admin: 01/24/20 08:14 Dose: 2,000 units Documented by: Warfarin Sodium (Warfarin Sod 7.5 Mg Tab) 7.5 mg PO MoWeFrSa@1600 [facility] Stop: 02/21/20 15:59 Last Admin: 01/24/20 16:01 Dose: 7.5 mg Documented by: Warfarin Sodium (Warfarin Sod 5 Mg Tab) 5 mg PO SuTuTh@1600 [facility] Stop: 02/22/20 15:59 Last Admin: 01/23/20 15:46 Dose: 5 mg Documented by:
[2020-01-25] MEDS: ACETAMINOPHEN 500 MG TAB PO SCH ×2 (01:46→08:13)
[2020-01-25 07:11] LABS: INR 3.6 (0.9-1.1); Prothrombin Time 35.9 Seconds (9.0-12.0)
[2020-01-25] MEDS: VENLAFAXINE HCL XR 75 MG CAPXR PO SCH (08:12)
[2020-01-25] MEDS: CHOLECALCIFEROL 1,000 UNITS 25 MCG TAB PO SCH (08:12)
[2020-01-25] MEDS: HydrALAZINE TAB 50 MG TAB PO SCH ×2 (08:12→14:17)
[2020-01-25] MEDS: ASPIRIN 81 MG ECTAB PO SCH (08:12)
[2020-01-25] MEDS: guaiFENesin 600 MG TABCR PO SCH (08:12)
[2020-01-25] MEDS: lisinopriL 40 MG TAB PO SCH (08:13)
[2020-01-25] MEDS ORDERED: ACETAMINOPHEN 500 MG TAB PO PRN (09:36)
--- NOTE | 2020-01-25 12:23 | Hospitalist Progress Note ---
Date of Service January 25, 2020 Assessment & Plan (1) COVID-19: no coughing, fevers, CXR clear. Cont supportive care efforts. Remains afebrile off any antibiotics. (2) Delirium: Dementia with confusion. Pt not combative. Does become confused and anxious. Not requiring a 1:1. She expresses she doesn't want to be locked up in this room alone, which is likely contributing to her anxiety. (3) Shoulder pain: refused tylenol, however, denies pain in shoulder and improvement in ROM today. (4) HTN (hypertension): improved with antihypertensive compliance. Currently around goal. Hydralazine PRN as needed. (5) snf (current) use of anticoagulants: Trend INR daily. On warfarin for atrial fibrillation which was held on admission. INR currently therapeutic at 3. (6) Atrial fibrillation: Warfarin continued per home regimen. (7) Anxiety: back on home effexor and buspar , continue to reorient. (8) DVT prophylaxis: coumadin with therapeutic INR DNR per POLST in chart. Dispo-she is fine to return to [facility] when they are ready to receive her which may be tomorrow. She has persistent confusion and anxiety which is stable, but she is not requiring a 1:1. OK for discharge once [facility] feels they can comfortably manage these mental/emotional issues. Mae Pickard DO [facility] Hospitalist Admission and Anticipated Discharge Date Admission Date: January 21, 2020 Physical Exam Physical Exam: CONSTITUTIONAL: WNWD, vitals as above, NAD EYES: normal conjunctivae, no scleral icterus ENT: external ear and nose normal, MMM RESPIRATORY: clear to auscultation bilaterally, no crackles, rales or wheezes, normal respiratory effort CARDIOVASCULAR: regular rate and rhythm, S1 and 2 heard without murmurs, gallops or rubs, no JVD, no peripheral edema GASTROINTESTINAL: soft, nontender, nondistended. MUSCULOSKELETAL: strength 5/5 throughout, head is normocephalic and atraumatic, LUE: Improved ROM almost to full today WRT flexion and abduction. SKIN: warm and dry NEUROLOGIC: No facial palsy, no dysarthria. CN 2-12 grossly intact, no sensory deficit, normal cognition, normal speech, no gross neurologic deficits. PSYCHIATRIC: alert and disoriented to place or time. She doesn' t know why she is here. Results & Data Results & Data ([facility]) Vital Signs (Past 12 Hours) Vital Signs Temp Pulse Resp BP Pulse Ox 01/25/20 08:15 36.5 C 70 18 150/73 H 97 01/25/20 04:42 36.4 C L 66 18 150/77 H Medications Administered Current Inpatient Medications Acetaminophen (Acetaminophen 500 Mg Tab) 1,000 mg PO Q8H PRN PRN Reason: pain or fever Stop: 02/23/20 09:29 Albuterol (Albuterol Hfa 8 Gm Inhaler) 2 puffs INH Q2H PRN PRN Reason: sob/wheeze Stop: 02/20/20 03:11 Ascorbic Acid (Ascorbic Acid 500 Mg Tab) 500 mg PO QAM [facility] Stop: 02/25/20 08:59 Aspirin (Aspirin 81 Mg Ectab) 81 mg PO DAILY [facility] Stop: 02/20/20 08:59 Last Admin: 01/25/20 08:12 Dose: 81 mg Documented by: Buspirone HCl (Buspirone 5 Mg Tab) 10 mg PO BID [facility] Stop: 02/21/20 08:59 Last Admin: 01/25/20 08:13 Dose: 10 mg Documented by: Hydralazine HCl (Hydralazine Tab 50 Mg Tab) 50 mg PO TID [facility] Stop: 02/21/20 20:59 Last Admin: 01/25/20 08:12 Dose: 50 mg Documented by: Hydralazine HCl (Hydralazine Hcl 20 Mg/Ml Vial) 5 mg IV Q6H PRN PRN Reason: SBP>160 Stop: 02/22/20 15:12 Promethazine HCl 12.5 mg/ (Sodium Chloride) 50.5 mls @ 202 mls/hr IV Q6H PRN PRN Reason: Nausea And Vomiting Stop: 02/20/20 03:11 Lisinopril (Lisinopril 40 Mg Tab) 40 mg PO QAM [facility] Stop: 02/20/20 08:59 Last Admin: 01/25/20 08:13 Dose: 40 mg Documented by: Polyethylene Glycol (Polyethylene (Miralax) 17 Gm Pack) 17 gm PO DAILY PRN PRN Reason: Constipation Stop: 02/20/20 03:11 Venlafaxine HCl (Venlafaxine Hcl Xr 75 Mg Capxr) 75 mg PO DAILY [facility] Stop: 02/20/20 08:59 Last Admin: 01/25/20 08:12 Dose: 75 mg Documented by: Vitamin D (Cholecalciferol 1,000 Units 25 Mcg Tab) 2,000 units PO DAILY [facility] Stop: 02/22/20 08:59 Last Admin: 01/25/20 08:12 Dose: 2,000 units Documented by: Warfarin Sodium (Warfarin Sod 7.5 Mg Tab) 7.5 mg PO MoWeFrSa@1600 [facility] Stop: 02/21/20 15:59 Last Admin: 01/24/20 16:01 Dose: 7.5 mg Documented by: Warfarin Sodium (Warfarin Sod 5 Mg Tab) 5 mg PO SuTuTh@1600 [facility] Stop: 02/22/20 15:59 Last Admin: 01/23/20 15:46 Dose: 5 mg Documented by: Zinc Sulfate (Zinc Sulfate 220 Mg Capsule) 220 mg PO QAM [facility] Stop: 02/25/20 08:59
--- NOTE | 2020-01-25 15:24 | Discharge Summary ---
Date of Service January 25, 2020 Admission HPI Per Admitting Provider History obtained from patient, family, personal nursing home staff, and records. History somewhat limited from patient secondary to dementia. Medical history significant for dementia. PAF on Coumadin, chronic LBBB, h ypertension, hyperlipidemia, pituitary adenoma as per records, PEDRITO on CPAP, anxiety disorder. Last confinement May 2018 for nausea and vomiting. Few days history dry cough symptoms without chest pain or S OB as per patient. Recent COVID-19 contact at personal nursing home. Low-grade fever last night. Patient denies headache, abdominal pain, diarrhea symptoms. Patient a little more confused than usual as per personal nursing home account. Patient brought to the ER for evaluation. Given Zosyn for possible respiratory tract infection. 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, personal-nursing home resident Admission Exam Per Admitting Provider GENERAL: Comfortable, demented, pleasant, no respiratory distress SKIN: Normal color, warm HEENT: [place] palpebral conjunctivae, no ptosis, dry buccal mucosa NECK : Supple, no tenderness CHEST : Decreased breath sounds, no tenderness HEART : RRR, systolic murmur ABDOMEN: Some distention, nontender EXTREMITIES : No LE swelling/tenderness, no other conspicuous deformities noted NEUROLOGIC : Demented, no facial asymmetry, no other gross focality Principal Diagnosis COVID-19 Dementia with delirium Discharge Exam CONSTITUTIONAL: WNWD, vitals as above, NAD EYES: normal conjunctivae, no scleral icterus ENT: external ear and nose normal, MMM RESPIRATORY: clear to auscultation bilaterally, no crackles, rales or wheezes, normal respiratory effort CARDIOVASCULAR: regular rate and rhythm, S1 and 2 heard without murmurs, gallops or rubs, no JVD, no peripheral edema GASTROINTESTINAL: soft, nontender, nondistended. MUSCULOSKELETAL: strength 5/5 throughout, head is normocephalic and atraumatic, LUE: Improved ROM almost to full today WRT flexion and abduction. She is not exhibiting any signs of pain with movement. SKIN: warm and dry NEUROLOGIC: No facial palsy, no dysarthria. CN 2-12 grossly intact, no sensory deficit, normal cognition, normal speech, no gross neurologic deficits. PSYCHIATRIC: alert and cooperative with care and my questions and instructions. Elevated, positive disposition today. Asking to go back to [facility]. Appears much improved from previous days. At time of discharge she was hemodynamically stable and afebrile. She was oxygenating well on room air. She was asymptomatic and tolerating PO. She was mentating and ambulating at baseline. She was stable for discharge with close PCP followup recommended. Discharge Data Allergies Allergy/AdvReac Type Severity Reaction Status Date / Time naproxen Allergy Mild EDEMA Verified 01/20/20 23:27 alendronate sodium Allergy Unknown HIVES Verified 01/20/20 23:27 simvastatin Allergy Unknown MUSCLE Verified 01/20/20 23:27 FATIGUE Consultations 01/21/20 00:38 ED Decision to Admit Stat Ordered Studies 01/20/20 23:12 CT head/brain wo con Urgent Hospital Course (1) COVID-19: no coughing, fevers, CXR clear. She remained asymptomatic throughout this hospitalization aside from some delirium which may have been provoked by hospitalization and location change itself. (2) Delirium: Dementia with confusion. Pt not combative. Did become quite anxious when confused. Not requiring a 1:1 for the last part of the hospitalization. She was dramatically improved in the last couple of days in the hospital; compliant with her medications and conversational without anxiety. (3) Shoulder pain: Long-standing calcific tendonitis based on record review (several years). During a period of confusion she appeared to be guarding this area, however, refused xray or Tyelnol. When she was more clear mentally, this pain resolved and she demonstrated almost full ROM without any pain or difficulty. (4) HTN (hypertension): improved with antihypertensive compliance. It is uncertain if white coat hypertension or hospitalization or distress from dementia and deliriulm (or a combination) may have been contributing to her persistent elevated blood pressures during this hospitalization. Additionally she was intermittently compliant with medications 2/2 delirium which contributed. Hydralazine was increased a small amount at time of discharge. Close primary care follow-up for recheck of blood pressure and titration of medications is recommended in next 1- 2 weeks. (5) Anxiety: Home effexor and buspar was initially stopped 2/2 confusion, however, these were restarted after a couple of days with improvement. She was continually reoriented as needed. Total Time Total Time Spent Total Time Spent (In Minutes): 60 Total Time Includes: Examination of the Patient, Discharge Planning, Medication Reconciliation and Communication With Other Providers Discharge Plan Discharge Items Patient Disposition: Personal Snf Reason For Visit: HTN URGENCY Discharge Diagnosis: COVID-19 Dementia with delirium Condition on Discharge: Good Activity: Resume your previous activity Non-emergency contact: Primary Care Provider Call non-emergency contact if: you have any medication questions, your symptoms worsen, your pain is not controlled, your pain is worsening, your pain is unusual for you, your pain is concerning for you and you have a fever Follow-up/Referrals: Joel Helm MD [Primary Care Provider] - Diet: Low Sodium (2gm) Addtl Attending Provider Instructions: Please take all medications as instructed on discharge as below. Your INR on 01/24 was 3.6 on your home regimen. It is recommended that you hold warfarin today and possibly tomorrow with a repeat INR the following day. Recommend resuming warfarin again once her INR is less than 3.5. Please note your hydralazine has been changed from 25 mg 3 times daily to 50 mg 3 times daily. This was an effort to continue to control your blood pressure. A close 1 to 2-week follow-up with your primary care doctor is recommended to recheck your blood pressure and titrate medications as needed, to ensure you are still doing well from the standpoint of COVID-19 infection, and to ensure your INR is stable at goal between 2 and 3. It was a pleasure taking care of you! Please call if you have any questions or problems. You can reach a [facility] hospitalist on duty at [facility] 24 hours a day by calling [phone]. Take care of yourself. DO [facility] Hospitalist Addtl Door Patcher Provider Instructions: Home Isolation COVID-19 Instructions The following information about Home Isolation is from the CDC Website: https://www.cdc.gov/coronavirus/2019-ncov/hcp/gwbansdr-rjrikyz-kwqidu.html Stay home except to get medical care People who are mildly ill with COVID-19 are able to isolate at home during their illness. You should restrict activities outside your home, except for getting medical care. Do not go to work, school, or public areas. Avoid using public transportation, ride-sharing, or taxis. Separate yourself from other people and animals in your home People: As much as possible, you should stay in a specific room and away from other people in your home. Also, you should use a separate bathroom, if available. Animals: You should restrict contact with pets and other animals while you are sick with COVID-19, just like you would around other people. Although there have not been reports of pets or other animals becoming sick with COVID-19, it is still recommended that people sick with COVID-19 limit contact with animals until more information is known about the virus. When possible, have another member of your household care for your animals while you are sick. If you are sick with COVID-19, avoid contact with your pet, including petting, snuggling, being kissed or licked, and sharing food. If you must care for your pet or be around animals while you are sick, wash your hands before and after you interact with pets and wear a face mask. Call ahead before visiting your doctor If you have a medical appointment, call the healthcare provider and tell them that you have or may have COVID-19. This will help the healthcare providers office take steps to keep other people from getting infected or exposed. Wear a face mask You should wear a face mask when you are around other people (e.g., sharing a room or vehicle) or pets and before you enter a healthcare providers office. If you are not able to wear a face mask (for example, because it causes trouble breathing), then people who live with you should not stay in the same room with you, or they should wear a face mask if they enter your room. Cover your coughs and sneezes Cover your mouth and nose with a tissue when you cough or sneeze. Throw used tissues in a lined trash can. Immediately wash your hands with soap and water for at least 20 seconds or, if soap and water are not available, clean your hands with an alcohol-based hand irrigation laborer that contains at least 60% alcohol. Clean your hands often Wash your hands often with soap and water for at least 20 seconds, especially after blowing your nose, coughing, or sneezing; going to the bathroom; and bef ore eating or preparing food. If soap and water are not readily available, use an alcohol-based hand irrigation laborer with at least 60% alcohol, covering all surfaces of your hands and rubbing them together until they feel dry. Soap and water are the best option if hands are visibly dirty. Avoid touching your eyes, nose, and mouth with unwashed hands. Avoid sharing personal household items You should not share dishes, drinking glasses, cups, eating utensils, towels, or bedding with other people or pets in your home. After using these items, they should be washed thoroughly with soap and water. Clean all high-touch surfaces everyday High touch surfaces include counters, tabletops, doorknobs, bathroom fixtures, toilets, phones, keyboards, tablets, and bedside tables. Also, clean any surfaces that may have blood, stool, or body fluids on them. Use a household cleaning spray or wipe, according to the label instructions. Labels contain instructions for safe and effective use of the cleaning product including precautions you should take when applying the product, such as wearing gloves and making sure you have good ventilation during use of the product. Monitor your symptoms Seek prompt medical attention if your illness is worsening (e.g., difficulty breathing).Beforeseeking care, call your healthcare provider and tell them that you have, or are being evaluated for, COVID-19. Put on a face mask before you enter the facility. These steps will help the healthcare providers office to keep other people in the office or waiting room from getting infected or exposed. Ask your healthcare provider to call the local or state health department. Persons who are placed under active monitoring or facilitated self- monitoring should follow instructions provided by their local health department or occupational health professionals, as appropriate. When working with your local health department check their available hours. If you have a medical emergency and need to call 911, notify the dispatch personnel that you have, or are being evaluated for COVID-19. If possible, put on a face mask before emergency medical services arrive. Discontinuing home isolation Patients with confirmed COVID-19 should remain under home isolation precautions until the risk of secondary transmission to others is thought to be low. The decision to discontinue home isolation precautions should be made on a [id number] basis, in consultation with healthcare providers and state and local health departments. Pending Studies at Discharge: Yes Studies:: covid 19 PCR repeat pending. Stand-Alone Forms: [facility] Skilled Items Patient informed of condition?: Yes DNR: Yes Discharge Level of Care: Other Communicable Disease: Yes Discharge Prognosis: Stable Lines: None Urinary Catheter: No Medications and DC Order Prescriptions: New hydralazine 50 mg Tablet 50 mg PO TID Qty: 90 RF: 0 Continued venlafaxine 75 mg capsule,extended release 24hr 75 mg PO DAILY RF: 0 aspirin 81 mg Tablet,Delayed Release (Dr/Ec) 81 mg PO DAILY RF: 0 hydroxyzine HCl 25 mg tablet 25 mg PO BID PRN (Reason: Itching or anxiety) RF: 0 lisinopril 40 mg tablet 40 mg PO QAM RF: 0 cholecalciferol (vitamin D3) [Vitamin D3] 2,000 unit Capsule 2,000 units PO DAILY RF: 0 calcium carbonate [Oyster Shell Calcium] 500 mg calcium (1,250 mg) Tablet 500 mg PO BID RF: 0 polyethylene glycol 3350 17 gram/dose Powder 17 g PO DAILY PRN (Reason: Constipation) RF: 0 buspirone 10 mg tablet 10 mg PO BID RF: 0 vitamin E 400 unit Capsule 400 unit PO BID RF: 0 warfarin 5 mg tablet 7.5 mg PO 4XWK RF: 0 warfarin 5 mg tablet 5 mg PO 3XWK RF: 0 Discontinued hydralazine 50 mg tablet 25 mg PO TID RF: 0 Discharge Orders: Discharge Order (Routine); Ordered 01/25/20 Ordered By: Mae Pickard Admission Data Admit Date/Time: 01/21/20 15:27 Attending Provider: Mae Pickard Admit Provider: Pavan García Primary Care Provider: Joel Helm Other Providers: Pavan García Other Interventions: Discharge Summary Assessment (RN) Last Done: 01/25/20 15:25
[2020-01-26] MEDS ORDERED: ASCORBIC ACID 500 MG TAB PO SCH (09:00)
[2020-01-26] MEDS ORDERED: ZINC SULFATE 220 MG CAPSULE PO SCH (09:00)
== END 2020-01-25 17:00 | disposition home or self-care (01) | DRG 177 ==
LOC: ED 21:40 → 2W 21:40

== ENCOUNTER 2020-02-21 20:13 | Inpatient (IN) ==
[2020-02-21] MEDS ORDERED: SODIUM CHLORIDE 0.9% 500 ML IV SCH (20:45)
[2020-02-21 21:01] LABS: Albumin Level 3.7 gm/dl (3.4-5.0); BUN Creatinine Ratio 26.1 (10-20); Calcium 9.8 mg/dl (8.5-10.1); Creatinine Clr Calc Pharmacy 17.2 ml/min; Est GFR (African American) 27.6; Est GFR (Non-African American) 23.8; Potassium 5.2 mmol/L (3.5-5.1)
[2020-02-21 21:06] LABS: Albumin Globulin Ratio 1.1 (0.9-2); Bilirubin,Total 0.6 mg/dl (0.2-1); Globulin 3.2 gm/dl (2.5-4.0); Total Protein 6.9 gm/dl (6.4-8.2); Troponin I 0.02 ng/ml (0-0.045)
[2020-02-21 21:09] LABS: Appearance Urine Clear (Clear); Bilirubin Urine Negative (Negative); Blood Urine Negative (Negative); Color Urine Yellow; Glucose Urine UA Negative (Negative); Ketones Urine Negative (Negative); Leukocyte Esterase Urine Negative (Negative); Nitrite Urine Negative (Negative); Protein Urine Negative (Negative); Specific Gravity Urine 1.016 (1.000-1.030); Urobilinogen Urine Negative (Negative); pH Urine 5.5 (4.5-7.5)
[2020-02-21] MEDS ORDERED: SODIUM CHLORIDE 0.9% 1000ML 1,000 ML IV STA (21:33)
[2020-02-21 22:50] LABS: Basophils # (auto) 0.04 K/uL (0-0.2); Basophils % (auto) 0.5 %; Eosinophils # (auto) 0.19 K/uL (0-0.5); Eosinophils % (auto) 2.3 %; Hematocrit (blood only) 33.5 % (37-47); Hemoglobin 11.1 g/dL (12.0-16.0); Immature Granulocytes # (auto) 0.03 K/uL (0.00-0.02); Immature Granulocytes % (auto) 0.4 %; Lymphocytes # (auto) 1.35 K/uL (1.2-3.4); Lymphocytes % (auto) 16.5 %; Mean Corpuscular Hemoglobin 29.4 pg (25-34); Mean Corpuscular Hgb Conc 33.1 g/dL (32-36); Mean Corpuscular Volume 88.9 fL (80-100); Mean Platelet Volume 10.9 fL (7.4-10.4); Monocytes # (auto) 1.16 K/uL (0.11-0.59); Monocytes % (auto) 14.2 %; Neutrophils # (auto) 5.42 K/uL (1.4-6.5); Neutrophils % (auto) 66.1 %; Platelet Count 354 K/uL (130-400); RDW Coefficient of Variation 14.5 % (11.5-14.5); RDW Standard Deviation 47.5 fL (36.4-46.3); Red Blood Count 3.77 M/uL (4.2-5.4); White Blood Count 8.19 K/uL (4.8-10.8)
--- NOTE | 2020-02-21 22:58 | History & Physical Report ---
Date of Service February 21, 2020 Assessment & Plan Admission and Anticipated Discharge Date Admission Date: 84-year-old female with history of dementia, proximal atrial fibrillation on Coumadin, chronic left lower branch block, hypertension, Anxiety, other problems noted below presenting with episode of hypotension. Acute renal failure on CKD stage III Baseline creatinine 0.9 Admission creatinine 1.8, potassium 5.2 Likely secondary to dehydration Start IV NSS Hold lisinopril Hold venlafaxine, buspirone; reduce risperidone to twice a day Follow renal function Episode of hypotension, likely secondary to hypovolemia, dehydration History of hypertension Given IV NSS at the ER, now blood pressure has normalized, systolic 120s Patient is hydralazine recently increased from 25 to 50 3 times daily, hold for now Hold lisinopril Monitor closely Proximal atrial fibrillation on Coumadin INR pending Ordered Coumadin based on INR Chronic left bundle branch block Anxiety Hold venlafaxine, buspirone Reduce risperidone to twice a day in light of acute kidney injury Dementia resident at [facility], patient is confused at baseline DVT prophylaxis Coumadin DNR per POLST form Disposition Lives at [facility] History of Present Illness 84-year-old female with history of dementia, proximal atrial fibrillation on Coumadin, chronic left lower branch block, hypertension, Anxiety, other problems noted below presenting with episode of hypotension. Patient was admitted last December for COVID-19 infection. She had a visit at the ER last February 07 and was found to have UTI. She was given a course of antibiotics. As of February 07, patient was still Covid positive. Patient apparently tested negative already at the [facility]. Information obtained from RN at [facility]. Apparently she was doing well, confused at baseline, until 5 PM this afternoon when patient complains of right rib pain which eventually resolved. She was able to have dinner at the dining [facility]ra[facility] and was laid back to her room using a walker. When the RN checked on her at around 7 PM, the patient was found to be lying in the recliner, lethargic, blood pressure was found to be systolic 81. Patient has been doing okay for the past 3 days, afebrile, no chills, cough, shortness of breath, abdominal pain, nausea vomiting. At the ER, patient was receiving blood pressure of 146/45, heart rate 73, respiratory 20, temperature 38.6, saturating 98% on room air. Creatinine was found to be elevated at 1.8 with potassium of 5.2. She was given IV normal saline. On exam, patient seen resting in bed, alert, pleasantly confused, not in distress Denies pain, shortness of breath, abdominal pain, nausea/vomiting. No other symptoms Primary Care Provider: [facility] Allergies Allergy/AdvReac Type Severity Reaction Status Date / Time naproxen Allergy Mild EDEMA Verified 02/21/20 21:01 alendronate sodium Allergy Unknown HIVES Verified 02/21/20 21:01 simvastatin Allergy Unknown MUSCLE Verified 02/21/20 21:01 FATIGUE Home Medications Home Medications Medication Instructions Recorded Confirmed Type aspirin 81 mg PO DAILY 06/04/18 02/21/20 History cholecalciferol (vitamin D3) 2,000 units PO DAILY 06/04/18 02/21/20 History [Vitamin D3] hydroxyzine HCl 25 mg PO BID PRN 06/04/18 02/21/20 History lisinopril 40 mg PO DAILY 06/04/18 02/21/20 History venlafaxine 75 mg PO DAILY 06/04/18 02/21/20 History buspirone 10 mg PO BID 01/20/20 02/21/20 History vitamin E 400 unit PO BID 01/20/20 02/21/20 History warfarin 2.5 mg PO 2XWK 01/20/20 02/21/20 History warfarin 5 mg PO 5XWK 01/20/20 02/21/20 History hydralazine 50 mg PO TID 02/08/20 02/21/20 History acetaminophen 650 mg PO Q4H PRN MDD 3 GMS 02/11/20 02/21/20 History APAP/24 HOURS calcium carbonate [Oysco-500] 500 mg PO BID 02/11/20 02/21/20 History polyethylene glycol 3350 [ClearLax] 17 g PO DAILY PRN 02/11/20 02/21/20 History risperidone 0.5 mg PO TID PRN 02/21/20 02/21/20 History Past Med/Surg History Medical History (Updated 02/21/20 @ 23:31 by Dru Black MD) Anemia Anxiety Atrial fibrillation Gout PEDRITO on CPAP Sepsis Surgical History H/O: hysterectomy History of cataract surgery History of cholecystectomy History of parathyroid surgery Family History Other No significant family history Social History Smoking Status: Unknown if ever smoked Hx Alcohol Use: No Hx Substance Use: No Preferred Language: [place] Communication Ability: Effective Pigment Pusher Required: No Beliefs That Will Affect Care: None marital status: / Current Living Situation: Personal Care Facility Current Living Situation Comment: [facility] current occupational status: retired Other Information That Helps Us Care for You: No Feels Safe at Home: Yes Safety Concerns: Feels Safe At This Time Assistive Devices: Glasses Review of Systems Review of Systems: All systems reviewed & are unremarkable except as noted in Subjective Physical Exam Physical Exam: General- oriented x 0, not in distress, speaks in sentences with no effort or accessory muscle use Head- atraumatic Eyes- PERRL, EOMI, anicteric ENT- dry oral mucosa Neck- supple, no JVD, no adenopathy, no thyromegaly; carotids +2/2, no bruits appreciated Lungs- clear to auscultation bilaterally, no rales/wheezes Heart- normal rate, regular rhythm; no murmur, no gallop, no rub appreciated Abdomen- normal bowel sounds, nondistended, soft, nontender, no masses or hepatosplenomegaly Extremities- no pretibial edema, no calf tenderness; peripheral pulses intact Neuro- alert, oriented x 0; CN 2-12 grossly intact; motor 5/5 bilaterally;sensation 100% on all extremities; no other gross focal neurologic deficits Skin- warm & dry Results & Data Results & Data ([facility]) Vital Signs (Past 12 Hours) Vital Signs Temp Pulse Pulse Resp BP BP Pulse Ox 02/21/20 22:44 74 20 128/60 97 02/21/20 21:45 82 18 140/68 97 02/21/20 20:55 76 20 124/62 99 02/21/20 20:35 98 02/21/20 20:31 36.6 C 73 20 126/45 L 98 Laboratory Results Laboratory Results - last 24 hr 02/21/20 02/21/20 02/21/20 20:08 20:30 20:30 WBC 8.19 RBC 3.77 L Hgb 11.1 L Hct 33.5 L MCV 88.9 MCH 29.4 MCHC 33.1 RDW Std Deviation 47.5 H RDW Coeff of Sergio 14.5 Plt Count 354 MPV 10.9 H Immature Gran % (Auto) 0.4 Neut % (Auto) 66.1 Lymph % (Auto) 16.5 [place] % (Auto) 14.2 Eos % (Auto) 2.3 Baso % (Auto) 0.5 Neut # (Auto) 5.42 Lymph # (Auto) 1.35 [place] # (Auto) 1.16 H Eos # (Auto) 0.19 Baso # (Auto) 0.04 Immature Gran # (Auto) 0.03 H Sodium 133 L Potassium 5.2 H Chloride 104 Carbon Dioxide 23 Anion Gap 6.0 BUN 49 H Creatinine 1.89 H Est Cr Clr Drug Dosing 17.2 Est GFR ( Amer) 27.6 Est GFR (Non-Af Amer) 23.8 BUN/Creatinine Ratio 26.1 H Glucose 92 Calcium 9.8 Total Bilirubin 0.6 AST 18 ALT 18 Alkaline Phosphatase 84 Troponin I 0.020 Total Protein 6.9 Albumin 3.7 Globulin 3.2 Albumin/Globulin Ratio 1.1 Urine Color Yellow Urine Appearance Clear Urine pH 5.5 Ur Specific [place] 1.016 Urine Protein Negative Urine Glucose (UA) Negative Urine Ketones Negative Urine Blood Negative Urine Nitrite Negative Urine Bilirubin Negative Urine Urobilinogen Negative Ur Leukocyte Esterase Negative Code Status & VTE Plan Code Status DNR per POLST form, confirmed with RN at [facility]
--- NOTE | 2020-02-21 23:33 | Emergency Department Note ---
Impression & Plan Dehydration, PAMELA (acute kidney injury), Hypotension ED Provider Note INFORMANT: Patient, EMS ED PROVIDER(S): Dru Black MD CHIEF COMPLAINT: Hypotension PLAN: Disposition: Admitted Condition: Good MEDICAL DECISION MAKING: Patient presented from the nursing facility due to hypotension. EMS noted the low blood pressures were not an issue for them in transit. The patient has history of dementia and the history was limited from her standpoint. She was not hypotensive here but clinically appeared dry. Blood work was obtained. Urinalysis was taken. ECG was nonischemic. The patient has PAMELA on chemistry panel with dehydration present. She was hydrated with normal saline. Her CBC was unremarkable. Consultation was made with Dr. Horan, [facility] service. The patient was evaluated in the ER and admitted for further management. Triage Nursing notes reviewed and agree them. Additional history obtained from EMS Prior medical records reviewed regarding patient's recent hospital visit. She was treated for UTI and discharged. She did also test positive previously for Covid. Vital Signs: reviewed and remarkable for no significant abnormalities Differential diagnosis: Infection, dehydration, metabolic abnormality, hypo/hyperglycemia, electrolyte disturbance, anemia, hypoxia, cardiac sources, intracerebral event, toxicologic, neurologic, as well as other pathologies. Diagnostics interpreted by me: ECG: Rate: 72 Rhythm:Normal sinus [place]:Normal QRS:Normal ST segements:No elevation or depression Other:No PACs or PVCs Cardiac Monitoring: Cardiac monitoring ordered by me: The patient was placed on continuous cardiac monitoring and observed. It revealed a normal sinus rhythm at 75 beats per minute without ectopy or evidence of dysrhythmia. Consultation(s): [facility] service HPI: The patient is a 84 year old female who presents to the Emergency Room with complaints of transient hypotension at her nursing facility. The patient has a history of dementia and history is somewhat limited. EMS reported the patient had hypotension but when they arrived her blood pressure was low normal. She had an uneventful transport. She was without complaints.. This started this afternoon and is resolved. The patient also notes the following associated symptoms, general malaise. The patient has been given no medication for relieving factors. Denies any current pain. Pt denies LOC, headache, fevers, chills, diaphoresis, visual changes, neck pain, chest pain, breathing difficulties, nausea, vomiting, abdominal pain, back pain, urinary symptoms, numbness, or other complaints. ROS: See above HPI for pertinent positives & negatives. Limited secondary to dementia. PAST MEDICAL HISTORY:See Below, dementia, UTI, A. fib PAST SURGICAL HISTORY:Hysterectomy, see below FAMILY HISTORY:See Below SOCIAL HISTORY:See Below, resides at a personal [facility] HOME MEDICATIONS:See Below ALLERGIES:See Below VITALS:See Below PHYSICAL EXAMINATION: GENERAL: Awake, tired-appearing, in no distress HENT: Normocephalic, atraumatic. Oropharynx unremarkable except for dry mucous membranes. EYES: Normal conjunctiva. Sclera non-icteric. NECK: Inspection normal. Non-tender. Supple. No nuchal rigidity. FROM. No mass es. RESPIRATORY: Clear to auscultation. No wheezes. No rales. Normal respiratory effort. CARDIAC: Normal rate. Normal rhythm. No murmurs. No rubs. Extremities warm and well perfused. Pulses equal. No JVD. GI: Soft, non-distended. No tenderness to palpation. No rebound or guarding. No masses. RECTAL: Deferred. MUSCULOSKELETAL: Atraumatic. Chest examination reveals no tenderness. The back is symmetrical on inspection without obvious abnormality. There is no CVA tenderness to palpation. No joint edema. LOWER EXTREMITIES: Calves are equal size bilaterally and non-tender. No edema. No discoloration. NEURO: Demented sensorium. No sensory or motor deficits noted. SKIN: No rash or jaundice noted. Dru Black MD Past Med/Surg History Medical History (Updated 02/21/20 @ 23:31 by Dru Black MD) Anemia Anxiety Atrial fibrillation Gout PEDRITO on CPAP Sepsis Surgical History H/O: hysterectomy History of cataract surgery History of cholecystectomy History of parathyroid surgery Family History Other No significant family history Social History Smoking Status: Never smoker Hx Alcohol Use: No Hx Substance Use: No Preferred Language: Nicaraguan Communication Ability: Effective Director Of Event Management Required: No Beliefs That Will Affect Care: None marital status: / Current Living Situation: Spouse Current Living Situation Comment: [facility] current occupational status: retired Feels Safe at Home: Yes Assistive Devices: None Allergies Allergies Allergy/AdvReac Type Severity Reaction Status Date / Time naproxen Allergy Mild EDEMA Verified 02/21/20 21:01 alendronate sodium Allergy Unknown HIVES Verified 02/21/20 21:01 simvastatin Allergy Unknown MUSCLE Verified 02/21/20 21:01 FATIGUE Home Meds Home Medications Medication Instructions Recorded Confirmed aspirin 81 mg PO DAILY 06/04/18 02/21/20 cholecalciferol (vitamin D3) 2,000 units PO DAILY 06/04/18 02/21/20 [Vitamin D3] hydroxyzine HCl 25 mg PO BID PRN 06/04/18 02/21/20 lisinopril 40 mg PO DAILY 06/04/18 02/21/20 venlafaxine 75 mg PO DAILY 06/04/18 02/21/20 buspirone 10 mg PO BID 01/20/20 02/21/20 vitamin E 400 unit PO BID 01/20/20 02/21/20 warfarin 2.5 mg PO 2XWK 01/20/20 02/21/20 warfarin 5 mg PO 5XWK 01/20/20 02/21/20 hydralazine 50 mg PO TID 02/08/20 02/21/20 acetaminophen 650 mg PO Q4H PRN MDD 3 GMS 02/11/20 02/21/20 APAP/24 HOURS calcium carbonate [Oysco-500] 500 mg PO BID 02/11/20 02/21/20 polyethylene glycol 3350 [ClearLax] 17 g PO DAILY PRN 02/11/20 02/21/20 risperidone 0.5 mg PO TID PRN 02/21/20 02/21/20 Results & Data (ED) Vital Signs Vital Signs - 24 hr 02/21/20 20:31 02/21/20 20:35 02/21/20 20:55 Temperature 36.6 C Temperature Source Oral Pulse Rate 73 Pulse Rate [Bilateral Apical] 76 Respiratory Rate 20 20 Respiratory Effort / Characteristics Non-Labored Respiratory Depth Normal Blood Pressure 126/45 L Blood Pressure [Left Arm] 124/62 Blood Pressure Mean 72 Blood Pressure Mean [Left Arm] 82 Pulse Oximetry 98 98 99 Oxygen Delivery Method Room Air Room Air Room Air Sepsis Recent Fever Within 48 Hours No Sepsis New/Unexplained Change in Mental Status N/A Sepsis Action Taken by Nursing No Action Required 02/21/20 21:45 02/21/20 22:44 Temperature Temperature Source Pulse Rate Pulse Rate [Bilateral Apical] 82 74 Respiratory Rate 18 20 Respiratory Effort / Characteristics Respiratory Depth Blood Pressure Blood Pressure [Left Arm] 140/68 128/60 Blood Pressure Mean Blood Pressure Mean [Left Arm] 92 82 Pulse Oximetry 97 97 Oxygen Delivery Method Room Air Room Air Sepsis Recent Fever Within 48 Hours Sepsis New/Unexplained Change in Mental Status Sepsis Action Taken by Nursing Laboratory Data Result diagrams: 02/21/20 20:30 02/21/20 20:30 Lab Results 02/21/20 02/21/20 02/21/20 Range/Units 20:08 20:30 20:30 WBC 8.19 (4.8-10.8) K/uL RBC 3.77 L (4.2-5.4) M/uL Hgb 11.1 L (12.0-16.0) g/dL Hct 33.5 L (37-47) % MCV 88.9 (80-100) fL MCH 29.4 (25-34) pg MCHC 33.1 (32-36) g/dL RDW Std Deviation 47.5 H (36.4-46.3) fL RDW Coeff of Sergio 14.5 (11.5-14.5) % Plt Count 354 (130-400) K/uL MPV 10.9 H (7.4-10.4) fL Immature Gran % (Auto) 0.4 % Neut % (Auto) 66.1 % Lymph % (Auto) 16.5 % Starr % (Auto) 14.2 % Eos % (Auto) 2.3 % Baso % (Auto) 0.5 % Neut # (Auto) 5.42 (1.4-6.5) K/uL Lymph # (Auto) 1.35 (1.2-3.4) K/uL Starr # (Auto) 1.16 H (0.11-0.59) K/uL Eos # (Auto) 0.19 (0-0.5) K/uL Baso # (Auto) 0.04 (0-0.2) K/uL Immature Gran # (Auto) 0.03 H (0.00-0.02) K/uL Sodium 133 L (136-145) mmol/L Potassium 5.2 H (3.5-5.1) mmol/L Chloride 104 (98-107) mmol/L Carbon Dioxide 23 (21-32) mmol/L Anion Gap 6.0 (3-11) BUN 49 H (7-18) mg/dl Creatinine 1.89 H (0.6-1.2) mg/dl Est Cr Clr Drug Dosing 17.2 ml/min Est GFR ( Amer) 27.6 Est GFR (Non-Af Amer) 23.8 BUN/Creatinine Ratio 26.1 H (10-20) Glucose 92 (70-99) mg/dl Calcium 9.8 (8.5-10.1) mg/dl Total Bilirubin 0.6 (0.2-1) mg/dl AST 18 (15-37) U/L ALT 18 (12-78) U/L Alkaline Phosphatase 84 (45-117) U/L Troponin I 0.020 (0-0.045) ng/ml Total Protein 6.9 (6.4-8.2) gm/dl Albumin 3.7 (3.4-5.0) gm/dl Globulin 3.2 (2.5-4.0) gm/dl Albumin/Globulin Ratio 1.1 (0.9-2) Urine Color Yellow Urine Appearance Clear (Clear) Urine pH 5.5 (4.5-7.5) Ur Specific [place] 1.016 (1.000-1.030) Urine Protein Negative (Negative) Urine Glucose (UA) Negative (Negative) Urine Ketones Negative (Negative) Urine Blood Negative (Negative) Urine Nitrite Negative (Negative) Urine Bilirubin Negative (Negative) Urine Urobilinogen Negative (Negative) Ur Leukocyte Esterase Negative (Negative) Administered Medications Sodium Chloride (Nss 1000ml) 1,000 mls @ 125 mls/hr IV .Q8H STA Stop: 02/22/20 05:32 Last Admin: 02/21/20 21:46 Dose: 125 mls/hr Documented by: [id number] Discontinued Medications Sodium Chloride (Nss) 500 mls @ 999 mls/hr IV .Q31M ERASMO Stop: 02/21/20 21:15 Last Infusion: 02/21/20 21:46 Dose: 0 mls/hr Documented by: [id number] Admin: 02/21/20 21:11 Dose: 999 mls/hr Documented by: [id number] Discharge Plan Visit Data Chief Complaint: Hypotension Stated Complaint: HYPOTENSION ED Provider: Dru Black Discharge Problem: Dehydration, PAMELA (acute kidney injury), Hypotension Patient Disposition: Admitted As Inpatient Discharge Instructions Interventions: ED Discharge Assessment Last Done: 02/21/20 23:05 Forms Stand Alone Forms: My [facility] Prescriptions Prescriptions: No Action venlafaxine 75 mg capsule,extended release 24hr 75 mg PO DAILY RF: 0 aspirin 81 mg Tablet,Delayed Release (Dr/Ec) 81 mg PO DAILY RF: 0 hydroxyzine HCl 25 mg tablet 25 mg PO BID PRN (Reason: Itching or anxiety) RF: 0 lisinopril 40 mg tablet 40 mg PO DAILY RF: 0 cholecalciferol (vitamin D3) [Vitamin D3] 2,000 unit Capsule 2,000 units PO DAILY RF: 0 acetaminophen 325 mg Tablet 650 mg PO Q4H MDD 3 GMS APAP/24 HOURS PRN (Reason: Fever Or Pain) RF: 0 calcium carbonate [Oysco-500] 500 mg calcium (1,250 mg) Tablet 500 mg PO BID RF: 0 polyethylene glycol 3350 [ClearLax] 17 gram/dose Powder 17 g PO DAILY PRN (Reason: Constipation) RF: 0 risperidone 1 mg tablet 0.5 mg PO TID PRN (Reason: Anxiety) RF: 0 buspirone 10 mg tablet 10 mg PO BID RF: 0 vitamin E 400 unit Capsule 400 unit PO BID RF: 0 warfarin 5 mg tablet 2.5 mg PO 2XWK RF: 0 warfarin 5 mg tablet 5 mg PO 5XWK RF: 0 hydralazine 50 mg tablet 50 mg PO TID RF: 0 [facility] [Primary Care Provider] -
[2020-02-22] MEDS ORDERED: POLYETHYLENE (MIRALAX) 17 GM PACK PO PRN (00:33)
[2020-02-22] MEDS ORDERED: hydrOXYzine HCl 25 MG TAB PO PRN (00:33)
[2020-02-22] MEDS: SODIUM CHLORIDE 0.9% 1000ML 1,000 ML IV SCH ×2 (01:10→11:15)
[2020-02-22 01:44] LABS: Prothrombin Time 30.1 Seconds (9.0-12.0)
[2020-02-22 06:29] LABS: Basophils # (auto) 0.03 K/uL (0-0.2); Basophils % (auto) 0.6 %; Eosinophils # (auto) 0.33 K/uL (0-0.5); Eosinophils % (auto) 6.3 %; Hematocrit (blood only) 28.9 % (37-47); Hemoglobin 9.5 g/dL (12.0-16.0); Immature Granulocytes # (auto) 0.02 K/uL (0.00-0.02); Immature Granulocytes % (auto) 0.4 %; Lymphocytes # (auto) 1.17 K/uL (1.2-3.4); Lymphocytes % (auto) 22.3 %; Mean Corpuscular Hemoglobin 29.3 pg (25-34); Mean Corpuscular Hgb Conc 32.9 g/dL (32-36); Mean Corpuscular Volume 89.2 fL (80-100); Mean Platelet Volume 10.2 fL (7.4-10.4); Monocytes # (auto) 0.63 K/uL (0.11-0.59); Neutrophils # (auto) 3.06 K/uL (1.4-6.5); Neutrophils % (auto) 58.4 %; Platelet Count 258 K/uL (130-400); RDW Coefficient of Variation 14.4 % (11.5-14.5); RDW Standard Deviation 47.7 fL (36.4-46.3); Red Blood Count 3.24 M/uL (4.2-5.4); White Blood Count 5.24 K/uL (4.8-10.8)
[2020-02-22 06:53] LABS: Calcium 8.5 mg/dl (8.5-10.1); Creatinine Clr Calc Pharmacy 23.9 ml/min; Est GFR (Non-African American) 35.4; Potassium 4.8 mmol/L (3.5-5.1)
[2020-02-22] MEDS: TOCOPHERYL, DL-ALPHA 400 UNITS CAP PO SCH ×2 (08:37→22:07)
[2020-02-22] MEDS: CHOLECALCIFEROL 1,000 UNITS 25 MCG TAB PO SCH (08:37)
[2020-02-22] MEDS: risperiDONE 0.5 MG TABLET PO PRN (14:14)
--- NOTE | 2020-02-22 17:32 | Hospitalist Progress Note ---
Date of Service February 22, 2020 Assessment & Plan (1) PAMELA (acute kidney injury): Acute renal failure on CKD stage III Was brought to the ER after found to be lethargic and hypotension with systolic BP in the 80's at [facility] Creatinine on admission 1.8, baseline creatinine 0.9 Possible related to hypovolemia and dehydration Received IVF, creatinine 1.3 today Continue to hold lisinopril BP stable Will resumed BP med Lethargy No focal neuro deficit Will decrease risperidone to 5mg BID Plan to resume venlafaxine in am Clinically improved Hypotension Possible secondary to hypovolemia and dehydration BP start to elevate now Will decrease Hydralazine from 50mg TID to 50mg BID Continue to hold Lisinopril Low BP on admssion Hypertension BP elevated Will resume Hydralazine, but changing to 50mg BID Lisinopril on hold due to PAMELA Continue monitor BP Proximal atrial fibrillation Brief Episodes of atrial tachycardia Most recent VS with HR 90's Will consider to start on a low dose of metoprolol Will hold coumadin due to elevated INR on admission I was informed by cardiology that pt was going to transition to Eliquis due to her poor PO intake and labile INR reading Once INR less than or equal to 2, will start on Eliquis 2.5 mg BID Continue monitor closely Supratherapeutic INR INR on admission above 7 No sign of bleeding INR today 3 plan to discontinue coumadin and transition to eliquis Anxiety Venlafaxine and buspirone on hold Will decrease risperidone to half Dementia Resident at [facility] Stable DVT prophylaxis Coumadin on hold INR 3 today CODE status DNR Admission and Anticipated Discharge Date Admission Date: February 22, 2020 Subjective Pt was seen and examined Lying in bed with no distress Seems to be at her baseline Denies any chest pain, palpitation, dizziness and SOB Physical Exam Physical Exam: General- No acute distress Head- atraumatic Eyes- PERRL, EOMI, ENT- oropharynx clear Neck- supple, no JVD Lungs- clear to auscultation Heart- regular rhythm Abdomen- normal bowel sounds, soft, nontender Extremities- no calf tenderness Neuro- alert, oriented x 3; PERRL, EOMI; no facial palsy; no dysarthria Skin- warm & dry Results & Data Results & Data ([facility]) Vital Signs (Past 12 Hours) Vital Signs Temp Pulse Pulse Resp BP BP Pulse Ox 02/22/20 16:47 93 H 02/22/20 15:31 36.7 C 90 18 166/78 H 94 02/22/20 12:00 37 C 125 H 18 172/73 H 176/71 H 98 02/22/20 09:33 75 02/22/20 07:38 36.7 C 82 18 145/70 H 95
[2020-02-22] MEDS: busPIRone 5 MG TAB PO SCH (22:06)
[2020-02-22] MEDS: hydrALAZINE TAB 50 MG TAB PO SCH (22:07)
--- NOTE | 2020-02-23 05:48 | Electrocardiogram Report ---
Test Reason : Blood Pressure : / mmHG Vent. Rate : 072 BPM Atrial Rate : 072 BPM P-R Int : 144 ms QRS Dur : 126 ms QT Int : 388 ms P-R-T Axes : 052 -37 101 degrees QTc Int : 424 ms Poor data quality, interpretation may be adversely affected Normal sinus rhythm Left axis deviation Left bundle branch block Abnormal ECG When compared with ECG of 11-FEB-2020 18:39, No significant change was found Confirmed by Rudy Neil ([id number]) on 02/23/2020 5:48:11 AM Referred By: Iliana Walsh Confirmed By:Rudy Neil
[2020-02-23] MEDS: hydrALAZINE TAB 50 MG TAB PO SCH ×2 (07:50→20:08)
[2020-02-23] MEDS: TOCOPHERYL, DL-ALPHA 400 UNITS CAP PO SCH ×2 (07:51→20:08)
[2020-02-23] MEDS: busPIRone 5 MG TAB PO SCH ×2 (07:51→20:09)
[2020-02-23] MEDS: CHOLECALCIFEROL 1,000 UNITS 25 MCG TAB PO SCH (07:51)
[2020-02-23 08:22] LABS: Hematocrit (blood only) 32.8 % (37-47); Hemoglobin 10.7 g/dL (12.0-16.0); Mean Corpuscular Hemoglobin 29.4 pg (25-34); Mean Corpuscular Hgb Conc 32.6 g/dL (32-36); Mean Corpuscular Volume 90.1 fL (80-100); Platelet Count 278 K/uL (130-400); RDW Coefficient of Variation 14.3 % (11.5-14.5); RDW Standard Deviation 47.7 fL (36.4-46.3); Red Blood Count 3.64 M/uL (4.2-5.4); White Blood Count 5.68 K/uL (4.8-10.8)
[2020-02-23 08:28] LABS: INR 2.4 (0.9-1.1); Prothrombin Time 23.7 Seconds (9.0-12.0)
[2020-02-23 08:52] LABS: BUN Creatinine Ratio 32.2 (10-20); Calcium 8.8 mg/dl (8.5-10.1); Est GFR (African American) 69.4; Est GFR (Non-African American) 59.9; Potassium 4.8 mmol/L (3.5-5.1)
--- NOTE | 2020-02-23 10:55 | Hospitalist Progress Note ---
Date of Service February 23, 2020 Assessment & Plan (1) PAMELA (acute kidney injury): Acute renal failure on CKD stage III Was brought to the ER after found to be lethargic and hypotension with systolic BP in the 80's at [facility] Creatinine on admission 1.8, baseline creatinine 0.9 Possible related to hypovolemia and dehydration Received IVF PAMELA currently resolved. Cr now 0.88 today Continue to hold lisinopril for now Hydralazine resumed at 50mg BID (Reduced from 50mg TID) Lethargy No focal neuro deficit Risperidone was reduced to 5mg BID Current drowsiness likely due to medications Hold vistaril Resume venlafaxine Clinically improved Hypotension Possible secondary to hypovolemia and dehydration Hypotension resolved Continue reduced dose of Hydralazine from 50mg TID to 50mg BID Continue to hold Lisinopril for now Monitor Bp and manage accordingly Atrial fibrillation Will hold coumadin due to elevated INR on admission Dr Penn was informed by cardiology that pt was going to transition to Eliquis due to her poor PO intake and labile INR reading Once INR less than or equal to 2, will start on Eliquis 2.5 mg BID INR is 2.4 today Supratherapeutic INR INR on admission above 7 No sign of bleeding INR today 2.4 Plan to transition to eliquis Anxiety Resume venlafaxin Vistaril on hold Continue buspirone and risperidone Dementia Resident at [facility] Stable DVT prophylaxis Coumadin on hold INR 2.4 CODE status DNR Admission and Anticipated Discharge Date Admission Date: February 22, 2020 Subjective Patient seen and examined Patient drowsy. Arousable briefly to touch and goes back to sleep Per RN, patient got vistaril around midnight due to agitation and has been drowsy since Review of Systems Review of Systems: Unobtainable due to reduced consciousness Physical Exam Constitutional: no acute distress Drowsy and arousable only for a moment and goes back to sleep ENMT: external ear and nose normal, oropharynx normal Respiratory: normal respiratory effort, lungs clear to auscultation Cardiovascular: Rate/Rhythm: regular rate and regular rhythm Extremities: no edema S1 S2 Gastrointestinal (Abdomen): normal bowel sounds, soft, nontender, no hepatosplenomegaly Neurologic: Drowsy but arousable. Moves all extremities to noxious stimuli Results & Data Results & Data ([facility]) Vital Signs (Past 12 Hours) Vital Signs Temp Pulse Resp BP BP Pulse Ox 02/23/20 07:28 37.0 C 67 18 144/75 H 95 02/23/20 04:43 36.7 C 77 16 158/71 H 95 02/22/20 23:00 37.3 C 71 16 122/64 95 Laboratory Results Laboratory Results - last 24 hr 02/23/20 02/23/20 02/23/20 08:06 08:06 08:06 WBC 5.68 RBC 3.64 L Hgb 10.7 L Hct 32.8 L MCV 90.1 MCH 29.4 MCHC 32.6 RDW Std Deviation 47.7 H RDW Coeff of Sergio 14.3 Plt Count 278 MPV 10.0 PT 23.7 H INR 2.4 H Sodium 140 Potassium 4.8 Chloride 113 H Carbon Dioxide 23 Anion Gap 5.0 BUN 28 H Creatinine 0.88 D Est Cr Clr Drug Dosing 37.0 Est GFR ( Amer) 69.4 Est GFR (Non-Af Amer) 59.9 BUN/Creatinine Ratio 32.2 H Glucose 83 Calcium 8.8
[2020-02-23] MEDS: SODIUM CHLORIDE 0.9% 1000ML 1,000 ML IV SCH (21:49)
[2020-02-24 06:46] LABS: Hematocrit (blood only) 37.5 % (37-47); Hemoglobin 12.6 g/dL (12.0-16.0); Mean Corpuscular Hgb Conc 33.6 g/dL (32-36); Mean Corpuscular Volume 89.3 fL (80-100); Mean Platelet Volume 10.3 fL (7.4-10.4); Platelet Count 335 K/uL (130-400); White Blood Count 9.89 K/uL (4.8-10.8)
[2020-02-24 06:53] LABS: INR 2.1 (0.9-1.1)
[2020-02-24 07:14] LABS: BUN Creatinine Ratio 30.7 (10-20); Calcium 9.6 mg/dl (8.5-10.1); Creatinine Clr Calc Pharmacy 35.7 ml/min; Est GFR (African American) 66.7; Est GFR (Non-African American) 57.5; Potassium 4.3 mmol/L (3.5-5.1)
[2020-02-24] MEDS: TOCOPHERYL, DL-ALPHA 400 UNITS CAP PO SCH ×2 (08:30→20:08)
[2020-02-24] MEDS: VENLAFAXINE HCL XR 75 MG CAPXR PO SCH (08:30)
[2020-02-24] MEDS: hydrALAZINE TAB 50 MG TAB PO SCH (08:30)
[2020-02-24] MEDS: busPIRone 5 MG TAB PO SCH ×2 (08:30→20:08)
[2020-02-24] MEDS: CHOLECALCIFEROL 1,000 UNITS 25 MCG TAB PO SCH (08:30)
[2020-02-24] MEDS ORDERED: lisinopril 5 MG TAB PO ONE (10:19)
--- NOTE | 2020-02-24 10:20 | Hospitalist Progress Note ---
Date of Service February 24, 2020 Assessment & Plan (1) PAMELA (acute kidney injury): Acute renal failure on CKD stage III Was brought to the ER after found to be lethargic and hypotension with systolic BP in the 80's at [facility] Creatinine on admission 1.8, baseline creatinine 0.9 Possible related to hypovolemia and dehydration Received IVF PAMELA currently resolved. Lethargy No focal neuro deficit Risperidone was reduced to 5mg BID Plan to dc vistaril even on discharge for now Clinically improved Hypotension Possible secondary to hypovolemia and dehydration Hypotension resolved Continue reduced dose of Hydralazine from 50mg TID to 50mg BID BP very high this AM. Give lisinopril 5mg once today and monitor. compared to 40mg patient was on at home. If controlled on this, will plan to discharge on lower daose Monitor Bp and manage accordingly Atrial fibrillation Coumadin held due to elevated INR on admission Dr Penn was informed by cardiology that pt was going to transition to Eliquis due to her poor PO intake and labile INR reading Once INR less than or equal to 2, will start on Eliquis 2.5 mg BID INR is 2.1 today Plan to start eliquis in AM prior to discharge Supratherapeutic INR INR on admission above 7 No sign of bleeding INR today 2.1 Plan to transition to eliquis Anxiety Continue venlafaxin Vistaril discontinued Continue buspirone and risperidone Dementia Resident at [facility] Stable DVT prophylaxis Coumadin on hold INR 2.1 CODE status DNR Admission and Anticipated Discharge Date Admission Date: February 22, 2020 Subjective Patient seen and examined Patient has no complaints Was sleepy most of yesterday after getting vistaril from 2 nights ago. Patient awake and alert today. Has no complaints. No events overnight Physical Exam Constitutional: no acute distress Eyes: PERRL, conjunctivae normal, anicteric sclerae ENMT: external ear and nose normal, oropharynx normal Respiratory: normal respiratory effort, lungs clear to auscultation Cardiovascular: Rate/Rhythm: regular rate and regular rhythm Extremities: no edema Gastrointestinal (Abdomen): normal bowel sounds, soft, nontender, no hepatosplenomegaly Neurologic: AOx1 person only. Moves all extremities spontaneously. Follows simple commands Psychiatric: Orientation: alert, oriented to person and cooperative; + not oriented to place and + not oriented to time Results & Data Results & Data ([facility]) Vital Signs (Past 12 Hours) Vital Signs Temp Pulse Pulse Resp BP Pulse Ox 02/24/20 08:40 36.4 C L 68 18 166/69 H 92 02/24/20 04:15 36.6 C 61 18 138/77 94 02/23/20 23:49 36.7 C 62 18 125/77 93 02/23/20 23:34 58 L Laboratory Results Laboratory Results - last 24 hr 02/24/20 02/24/20 02/24/20 06:08 06:08 06:08 WBC 9.89 RBC 4.20 Hgb 12.6 Hct 37.5 MCV 89.3 MCH 30.0 MCHC 33.6 RDW Std Deviation 46.0 RDW Coeff of Sergio 14.0 Plt Count 335 MPV 10.3 PT 21.0 H INR 2.1 H Sodium 141 Potassium 4.3 Chloride 112 H Carbon Dioxide 24 Anion Gap 5.0 BUN 28 H Creatinine 0.91 Est Cr Clr Drug Dosing 35.7 Est GFR ( Amer) 66.7 Est GFR (Non-Af Amer) 57.5 BUN/Creatinine Ratio 30.7 H Glucose 90 Calcium 9.6
[2020-02-24] MEDS: ACETAMINOPHEN 325 MG TAB PO PRN ×2 (13:01→20:44)
[2020-02-24] MEDS ORDERED: METOPROLOL TARTRATE 1 MG/ML VIAL IV STA ×2 (16:06→17:19)
[2020-02-24] MEDS ORDERED: SODIUM CHLORIDE 0.9% 1000ML 500 ML IV ONE (17:24)
[2020-02-24] MEDS ORDERED: METOPROLOL TARTRATE 25 MG TAB PO ONE (17:41)
[2020-02-24] MEDS ORDERED: METOPROLOL TARTRATE 25 MG TAB PO STA (17:42)
--- NOTE | 2020-02-24 19:15 | Cardiology Consultation ---
Date of Consultation February 24, 2020 Assessment & Plan (1) Paroxysmal atrial fibrillation with rapid ventricular response: Patient with known history of paroxysmal atrial fibrillation on chronic anticoagulation with warfarin admitted with acute weakness and decline, acute renal sufficiency possibly secondary poor p.o. intake and anorexia Patient has responded to therapies in hospital but this evening lapsed into atrial fibrillation. She is been treated with IV metoprolol with slowing of the heart rate but not conversion Plan continue oral metoprolol cautiously given underlying left bundle branch block and known prior history of sinus bradycardia. Anticoagulation will be continued with plan to convert to Eliquis to aid in management though poor p.o. intake may limit its effect. Overall prognosis limited will follow (2) Left bundle branch block: (3) Altered mental status: (4) HTN (hypertension): History of Present Illness Reason for Consultation: Atrial fibrillation with rapid response Requesting Physician: Dr Rainey Attending Physician: Lizbeth Rainey MD History of Present Illness Patient is an 84-year-old female with ongoing issues which include 1. Paroxysmal atrial fibrillation 2. Left bundle branch block 3. Mild aortic stenosis, calcific 4. Dementia with intermittent agitation and anorexia 5. Hypertension 6. Acute Covid infection December 2019 with current negative test Patient originally admitted this hospitalization for weakness lethargy and hypotension. Evidence of acute renal failure on presentation patient's responded to IV diuretics and reduced antihypertensives. This evening patient lapsed into atrial fibrillation minimally symptomatic patient unaware of rhythm though blood pressures dropped. Patient is rather poor historian but denies chest pains or complaints. Somewhat warm and clammy to touch but no overt diaphoresis. No shortness of breath. No cough Patient chronically anticoagulated with warfarin with plans to convert to Eliquis on discharge due to poor compliance with warfarin and blood draws. Allergies Allergy/AdvReac Type Severity Reaction Status Date / Time alendronate sodium Allergy Intermediate HIVES Verified 02/22/20 13:48 naproxen Allergy Mild EDEMA Verified 02/21/20 21:01 simvastatin AdvReac Mild MUSCLE Verified 02/22/20 13:48 FATIGUE Home Medications Home Medications Medication Instructions Recorded Confirmed Type aspirin 81 mg PO DAILY 06/04/18 02/21/20 History cholecalciferol (vitamin D3) 2,000 units PO DAILY 06/04/18 02/21/20 History [Vitamin D3] hydroxyzine HCl 25 mg PO BID PRN 06/04/18 02/21/20 History lisinopril 40 mg PO DAILY 06/04/18 02/21/20 History venlafaxine 75 mg PO DAILY 06/04/18 02/21/20 History buspirone 10 mg PO BID 01/20/20 02/21/20 History vitamin E 400 unit PO BID 01/20/20 02/21/20 History warfarin 2.5 mg PO 2XWK 01/20/20 02/21/20 History warfarin 5 mg PO 5XWK 01/20/20 02/21/20 History hydralazine 50 mg PO TID 02/08/20 02/21/20 History acetaminophen 650 mg PO Q4H PRN MDD 3 GMS 02/11/20 02/21/20 History APAP/24 HOURS calcium carbonate [Oysco-500] 500 mg PO BID 02/11/20 02/21/20 History polyethylene glycol 3350 [ClearLax] 17 g PO DAILY PRN 02/11/20 02/21/20 History risperidone 0.5 mg PO TID PRN 02/21/20 02/21/20 History Patient History Medical History (Updated 02/24/20 @ 19:30 by Des Eastman MD) Anemia Anxiety Atrial fibrillation Gout PEDRITO on CPAP Sepsis Surgical History H/O: hysterectomy History of cataract surgery History of cholecystectomy History of parathyroid surgery Family History Other No significant family history Social History Smoking Status: Unknown if ever smoked Hx Alcohol Use: No Hx Substance Use: No Preferred Language: Mauritanian Communication Ability: Effective Minute Clerk For [employer] Required: No Beliefs That Will Affect Care: None marital status: / Current Living Situation: Personal Care Facility Current Living Situation Comment: [facility] current occupational status: retired Other Information That Helps Us Care for You: No Feels Safe at Home: Yes Safety Concerns: Feels Safe At This Time Assistive Devices: None Review of Systems Review of Systems: All systems reviewed & are unremarkable except as noted in HPI & below Physical Exam Constitutional: + frail appearing; no acute distress Eyes: PERRL, conjunctivae normal, anicteric sclerae ENMT: external ear and nose normal, oropharynx normal Neck: trachea midline, no thyromegaly Respiratory: normal respiratory effort, lungs clear to auscultation Cardiovascular: Rate/Rhythm: + tachycardic and + irregularly irregular Heart Sounds: normal S1, normal S2 and + murmur (Grade 1/6 to 2/6 systolic murmur); no gallop Palpation: normal PMI Vessels: normal carotid upstroke and radial pulses present; no JVD and no carotid bruit Extremities: no edema Gastrointestinal (Abdomen): normal bowel sounds, soft, nontender, no hepatosplenomegaly Musculoskeletal: no cyanosis or clubbing, extremities motor strength 5/5 Skin: no rashes, warm and dry Neurologic: PERRL, EOMI, accommodation nl, no face palsy, no dysarthria Pleasantly demented unable to answer even basic questions Psychiatric: Orientation: alert; + not oriented to place and + not oriented to time Results & Data ([facility]) Vital Signs (Past 12 Hours) Vital Signs Temp Pulse Pulse Pulse Resp BP BP 02/24/20 18:38 36.7 C 147 H 24 95/67 L 02/24/20 17:57 135 H 02/24/20 17:32 129 H 101/56 L 02/24/20 17:11 165 H 95/65 L 02/24/20 15:47 36.7 C 124 H 18 101/63 02/24/20 11:14 36.3 C L 85 18 115/66 02/24/20 08:40 36.4 C L 68 18 166/69 H Pulse Ox 02/24/20 18:38 95 02/24/20 17:57 02/24/20 17:32 02/24/20 17:11 02/24/20 15:47 96 02/24/20 11:14 95 02/24/20 08:40 92 Laboratory Results Laboratory Results - last 24 hr 02/24/20 02/24/20 02/24/20 06:08 06:08 06:08 WBC 9.89 RBC 4.20 Hgb 12.6 Hct 37.5 MCV 89.3 MCH 30.0 MCHC 33.6 RDW Std Deviation 46.0 RDW Coeff of Sergio 14.0 Plt Count 335 MPV 10.3 PT 21.0 H INR 2.1 H Sodium 141 Potassium 4.3 Chloride 112 H Carbon Dioxide 24 Anion Gap 5.0 BUN 28 H Creatinine 0.91 Est Cr Clr Drug Dosing 35.7 Est GFR ( Amer) 66.7 Est GFR (Non-Af Amer) 57.5 BUN/Creatinine Ratio 30.7 H Glucose 90 Calcium 9.6
[2020-02-24] MEDS: APIXABAN 2.5 MG TAB PO SCH (20:08)
[2020-02-24] MEDS: METOPROLOL TARTRATE 25 MG TAB PO SCH (23:40)
[2020-02-25] MEDS: METOPROLOL TARTRATE 25 MG TAB PO SCH (06:10)
[2020-02-25 06:45] LABS: Prothrombin Time 20.8 Seconds (9.0-12.0)
[2020-02-25 06:55] LABS: Calcium 8.5 mg/dl (8.5-10.1); Creatinine Clr Calc Pharmacy 40.2 ml/min; Est GFR (African American) 76.8; Est GFR (Non-African American) 66.2; Potassium 3.9 mmol/L (3.5-5.1)
[2020-02-25] MEDS: APIXABAN 2.5 MG TAB PO SCH ×2 (08:39→20:12)
[2020-02-25] MEDS: TOCOPHERYL, DL-ALPHA 400 UNITS CAP PO SCH ×2 (08:39→20:12)
[2020-02-25] MEDS: CHOLECALCIFEROL 1,000 UNITS 25 MCG TAB PO SCH (08:39)
[2020-02-25] MEDS: busPIRone 5 MG TAB PO SCH ×2 (08:39→20:12)
[2020-02-25] MEDS: lisinopril 5 MG TAB PO SCH (08:39)
--- NOTE | 2020-02-25 10:49 | Cardiology Progress Note ---
Date of Service February 25, 2020 Assessment & Plan (1) Paroxysmal atrial fibrillation with rapid ventricular response: Patient with known history of paroxysmal atrial fibrillation on chronic anticoagulation with warfarin admitted with acute weakness and decline, acute renal sufficiency possibly secondary poor p.o. intake and anorexia Patient with labs into atrial fibrillation last evening but spontaneous conversion last evening. Mild resting bradycardia present Recommendations: Low-dose beta-noah with Toprol-XL 12.5 mg/day, continue chronic anticoagulation Would avoid hydralazine if blood pressure controlled. Consider amlodipine to her regimen if hypotension recurs (2) Left bundle branch block: (3) Altered mental status: (4) HTN (hypertension): Admission and Anticipated Discharge Date Admission Date: February 22, 2020 Subjective Patient seen and examined, chart, medications, telemetry reviewed. Patient spontaneously converted to sinus rhythm overnight. This morning without complaint. More alert but still disoriented. Rhythm sinus and sinus bradycardia this morning Physical Exam Constitutional: + frail appearing; no acute distress Eyes: PERRL, conjunctivae normal, anicteric sclerae ENMT: external ear and nose normal, oropharynx normal Neck: trachea midline, no thyromegaly Respiratory: normal respiratory effort, lungs clear to auscultation Cardiovascular: Rate/Rhythm: regular rate, regular rhythm and + bradycardic Heart Sounds: normal S1, normal S2 and + murmur (Grade 2/6 systolic murmur); no gallop Palpation: normal PMI Vessels: normal carotid upstroke and radial pulses present; no JVD and no carotid bruit Extremities: no edema Gastrointestinal (Abdomen): normal bowel sounds, soft, nontender, no hepatosplenomegaly Musculoskeletal: no cyanosis or clubbing, extremities motor strength 5/5 Skin: no rashes, warm and dry Neurologic: PERRL, EOMI, accommodation nl, no face palsy, no dysarthria Psychiatric: Orientation: alert; + not oriented to place and + not oriented to time Results & Data ([facility]) Vital Signs (Past 12 Hours) Vital Signs Temp Pulse Pulse Resp BP Pulse Ox 02/25/20 08:36 36.9 C 54 L 18 122/63 97 02/25/20 08:00 54 L 02/25/20 03:57 36.9 C 55 L 18 120/63 94 02/24/20 23:27 36.4 C L 51 L 20 91/47 L 96 Laboratory Results Laboratory Results - last 24 hr 02/25/20 02/25/20 06:11 06:11 PT 20.8 H INR 2.0 H Sodium 140 Potassium 3.9 Chloride 112 H Carbon Dioxide 22 Anion Gap 6.0 BUN 32 H Creatinine 0.81 Est Cr Clr Drug Dosing 40.2 Est GFR ( Amer) 76.8 Est GFR (Non-Af Amer) 66.2 BUN/Creatinine Ratio 40.0 H Glucose 92 Calcium 8.5
--- NOTE | 2020-02-25 12:03 | Hospitalist Progress Note ---
Date of Service February 25, 2020 Assessment & Plan (1) PAMELA (acute kidney injury): Acute renal failure on CKD stage III Was brought to the ER after found to be lethargic and hypotension with systolic BP in the 80's at [facility] Creatinine on admission 1.8, baseline creatinine 0.9 Possible related to hypovolemia and dehydration Received IVF PAMELA currently resolved. Lethargy No focal neuro deficit Risperidone was reduced to 5mg BID Plan to dc vistaril even on discharge for now Clinically improved Atrial fibrillation with RVR Coumadin held due to elevated INR on admission Dr Penn was informed by cardiology that pt was going to transition to Eliquis due to her poor PO intake and labile INR reading Patient flipped into Afib wth RVR yesterday and was managed with iv and po lopressor. Was transferred to PCU Converted back to sinus rhythm Discussed with [employer] this AM, will start patient on metoprolol succinate 12.5mg daily Will keep patient inpatient today to monitor and plan for discharge tomorrow Started eliquis 2.5mg bid yesterday evening Hypotension Possible secondary to hypovolemia and dehydration Hypotension resolved Continue reduced dose of Hydralazine from 50mg TID to 50mg BID BP normal. Will plan to continue to hold lisinopril even on discharge Supratherapeutic INR INR on admission above 7 No sign of bleeding Warfarin discontinued. Now on Eliquis Anxiety Continue venlafaxin Vistaril discontinued due to profound somnolence after taking it Continue buspirone and risperidone Dementia Resident at [facility] home Stable DVT prophylaxis Eliquis CODE status DNR Dispo - plan to discharge tomorrow Admission and Anticipated Discharge Date Admission Date: February 22, 2020 Subjective Patient seen and examined Patient is awake, alert, oriented to person only Denied any complaints Has no insight into current condition. Patient went into Afib w/RVR yesterday, was managed with lopressor iv and transferred to PCU Converted to sinus rhythm around 8:30pm yesterday evening. Physical Exam Constitutional: no acute distress Eyes: PERRL, conjunctivae normal, anicteric sclerae ENMT: external ear and nose normal, oropharynx normal Respiratory: normal respiratory effort, lungs clear to auscultation Cardiovascular: Rate/Rhythm: regular rate and regular rhythm Extremities: no edema S1 S2 Gastrointestinal (Abdomen): normal bowel sounds, soft, nontender, no hepatosplenomegaly Neurologic: PERRL, EOMI, accommodation nl, no face palsy, no dysarthria Psychiatric: Orientation: alert, oriented to person and cooperative; + not oriented to place and + not oriented to time Results & Data Results & Data ([facility]) Vital Signs (Past 12 Hours) Vital Signs Temp Pulse Pulse Resp BP Pulse Ox 02/25/20 11:47 36.7 C 60 16 132/70 95 02/25/20 08:36 36.9 C 54 L 18 122/63 97 02/25/20 08:00 54 L 02/25/20 03:57 36.9 C 55 L 18 120/63 94 Laboratory Results Laboratory Results - last 24 hr 02/25/20 02/25/20 06:11 06:11 PT 20.8 H INR 2.0 H Sodium 140 Potassium 3.9 Chloride 112 H Carbon Dioxide 22 Anion Gap 6.0 BUN 32 H Creatinine 0.81 Est Cr Clr Drug Dosing 40.2 Est GFR ( Amer) 76.8 Est GFR (Non-Af Amer) 66.2 BUN/Creatinine Ratio 40.0 H Glucose 92 Calcium 8.5
[2020-02-25] MEDS: METOPROLOL SUCC 25MG EXT REL TAB PO SCH (12:36)
[2020-02-25] MEDS: VENLAFAXINE HCL XR 75 MG CAPXR PO SCH (12:36)
[2020-02-25] MEDS: risperiDONE 0.5 MG TABLET PO PRN ×2 (14:05→20:23)
--- NOTE | 2020-02-25 19:18 | Electrocardiogram Report ---
Test Reason : Blood Pressure : / mmHG Vent. Rate : 108 BPM Atrial Rate : 093 BPM P-R Int : 000 ms QRS Dur : 124 ms QT Int : 332 ms P-R-T Axes : 000 017 119 degrees QTc Int : 444 ms Atrial fibrillation with rapid ventricular response Low voltage QRS Left bundle branch block Abnormal ECG When compared with ECG of 21-FEB-2020 20:28, Atrial fibrillation has replaced Sinus rhythm Vent. rate has increased BY 36 BPM Confirmed by Rudy Neil ([id number]) on 02/25/2020 7:17:24 PM Referred By: Iliana [facility] Confirmed By:Rudy Neil
[2020-02-25] MEDS: ACETAMINOPHEN 325 MG TAB PO PRN (20:10)
--- NOTE | 2020-02-25 22:04 | Electrocardiogram Report ---
Test Reason : Blood Pressure : / mmHG Vent. Rate : 067 BPM Atrial Rate : 067 BPM P-R Int : 142 ms QRS Dur : 140 ms QT Int : 400 ms P-R-T Axes : 066 -13 102 degrees QTc Int : 422 ms Poor data quality, interpretation may be adversely affected Normal sinus rhythm Left bundle branch block Abnormal ECG When compared with ECG of 24-FEB-2020 17:47, Sinus rhythm has replaced Atrial fibrillation Vent. rate has decreased BY 41 BPM Confirmed by Rudy Niel ([id number]) on 02/25/2020 10:04:07 PM Referred By: Iliana [facility] Confirmed By:Rudy Neil
[2020-02-26] MEDS: METOPROLOL SUCC 25MG EXT REL TAB PO SCH (07:39)
[2020-02-26] MEDS: VENLAFAXINE HCL XR 75 MG CAPXR PO SCH (07:39)
[2020-02-26] MEDS: APIXABAN 2.5 MG TAB PO SCH (07:39)
[2020-02-26] MEDS: busPIRone 5 MG TAB PO SCH (07:39)
[2020-02-26] MEDS: lisinopril 5 MG TAB PO SCH (07:40)
[2020-02-26] MEDS: CHOLECALCIFEROL 1,000 UNITS 25 MCG TAB PO SCH (07:40)
[2020-02-26] MEDS: TOCOPHERYL, DL-ALPHA 400 UNITS CAP PO SCH (07:40)
[2020-02-26 09:44] LABS: BUN Creatinine Ratio 33.9 (10-20); Calcium 8.8 mg/dl (8.5-10.1); Creatinine Clr Calc Pharmacy 44.6 ml/min; Est GFR (African American) 88.5; Est GFR (Non-African American) 76.4; Potassium 3.9 mmol/L (3.5-5.1)
--- NOTE | 2020-02-26 09:57 | Cardiology Progress Note ---
Date of Service February 26, 2020 Assessment & Plan (1) Paroxysmal atrial fibrillation with rapid ventricular response: Patient with known history of paroxysmal atrial fibrillation on chronic anticoagulation with warfarin admitted with acute weakness and decline, acute renal sufficiency possibly secondary poor p.o. intake and anorexia Spontaneously converted to normal sinus rhythm and low-dose beta-noah added. Unfortunately, even with low-dose beta-noah she become significantly jeri ycardic and this will be discontinued. Amlodipine started for blood pressure control and tolerating well. Okay to discharge on current medical regimen from a cardiac standpoint. (2) Left bundle branch block: (3) Altered mental status: (4) HTN (hypertension): Admission and Anticipated Discharge Date Admission Date: February 22, 2020 Subjective Patient seen and examined, chart reviewed. States that she is feeling well and is anxious for discharge. Denies any chest pain, shortness of breath, palpitations, lightheadedness, dizziness or syncope. Telemetry reviewed: Significant sinus bradycardia after low-dose beta-noah started. Short joyce of PAT overnight. Review of Systems Review of Systems: All systems reviewed & are unremarkable except as noted in HPI & below Physical Exam Physical Exam: General: Awake, alert and oriented x 3. No acute distress. HEENT: Normocephalic, atraumatic. Pupils equal, round and reactive to light and accommodation. Extraocular muscles are intact. Anicteric sclera. Moist mucous membranes. Neck: No JVD. No bruit. Cardiovascular: Regular. Positive S-4. Normal S-1 and S-2. No S-3. 3/6 mid to late systolic ejection murmur, greatest at the right sternal border, second intercostal space with radiation to the bilateral carotids. No rubs. Pulmonary: Clear to auscultation bilaterally. No rales, rhonchi, or wheezing. Abdomen: Bowel sounds x 4, soft. No rebound, guarding or tenderness. No organomegaly. Extremities: No clubbing, cyanosis or edema. +2 pedal pulses bilaterally. Skin: Warm and dry. Results & Data ([facility]) Vital Signs (Past 12 Hours) Vital Signs Temp Pulse Resp BP Pulse Ox 02/26/20 08:15 36.7 C 51 L 18 105/63 96 02/26/20 04:06 36.4 C L 50 L 14 105/56 L 95 02/26/20 00:48 36.7 C 49 L 16 127/72 96
[2020-02-26] MEDS: risperiDONE 0.5 MG TABLET PO PRN (10:16)
--- NOTE | 2020-02-26 10:41 | Discharge Summary ---
Date of Service February 26, 2020 Admission HPI Per Admitting Provider 84-year-old female with history of dementia, proximal atrial fibrillation on Coumadin, chronic left lower branch block, hypertension, Anxiety, other problems noted below presenting with episode of hypotension. Patient was admitted last December for COVID-19 infection. She had a visit at the ER last February 07 and was found to have UTI. She was given a course of antibiotics. As of February 07, patient was still Covid positive. Patient apparently tested negative already at the [facility]. Information obtained from RN at [facility] home. Apparently she was doing well, confused at baseline, until 5 PM this afternoon when patient complains of right rib pain which eventually resolved. She was able to have dinner at the dining [facility] and was laid back to her room using a walker. When the RN checked on her at around 7 PM, the patient was found to be lying in the recliner, lethargic, blood pressure was found to be systolic 81. Patient has been doing okay for the past 3 days, afebrile, no chills, cough, shortness of breath, abdominal pain, nausea vomiting. At the ER, patient was receiving blood pressure of 146/45, heart rate 73, respiratory 20, temperature 38.6, saturating 98% on room air. Creatinine was found to be elevated at 1.8 with potassium of 5.2. She was given IV normal saline. On exam, patient seen resting in bed, alert, pleasantly confused, not in distress Denies pain, shortness of breath, abdominal pain, nausea/vomiting. No other symptoms Admission Exam Per Admitting Provider General- oriented x 0, not in distress, speaks in sentences with no effort or accessory muscle use Head- atraumatic Eyes- PERRL, EOMI, anicteric ENT- dry oral mucosa Neck- supple, no JVD, no adenopathy, no thyromegaly; carotids +2/2, no bruits appreciated Lungs- clear to auscultation bilaterally, no rales/wheezes Heart- normal rate, regular rhythm; no murmur, no gallop, no rub appreciated Abdomen- normal bowel sounds, nondistended, soft, nontender, no masses or hepatosplenomegaly Extremities- no pretibial edema, no calf tenderness; peripheral pulses intact Neuro- alert, oriented x 0; CN 2-12 grossly intact; motor 5/5 bilaterally;sensation 100% on all extremities; no other gross focal neurologic deficits Skin- warm & dry Principal Diagnosis Acute kidney injury Atrial fibrillation with RVR Discharge Exam Constitutional no acute distress Alert and confused Eyes PERRL, conjunctivae normal, anicteric sclerae ENMT external ear and nose normal, oropharynx normal Respiratory normal respiratory effort, lungs clear to auscultation Cardiovascular Rate/Rhythm: regular rhythm and + bradycardic Extremities: no edema S1 S2 Gastrointestinal (Abdomen) normal bowel sounds, soft, nontender, no hepatosplenomegaly Musculoskeletal moves extremities Neurologic PERRL, EOMI, accommodation nl, no face palsy, no dysarthria Psychiatric Orientation: alert, oriented to person and cooperative; + not oriented to place and + not oriented to time Discharge Data Allergies Allergy/AdvReac Type Severity Reaction Status Date / Time alendronate sodium Allergy Intermediate HIVES Verified 02/22/20 13:48 naproxen Allergy Mild EDEMA Verified 02/21/20 21:01 simvastatin AdvReac Mild MUSCLE Verified 02/22/20 13:48 FATIGUE Consultations 02/21/20 21:36 ED Decision to Admit Stat 02/24/20 17:15 Consult Cardiology Routine Hospital Course (1) PAMELA (acute kidney injury): Acute renal failure on CKD stage III Was brought to the ER after found to be lethargic and hypotension with systolic BP in the 80's at [facility] Creatinine on admission 1.8, baseline creatinine 0.9 Possible related to hypovolemia/hypotension and dehydration Received IVF PAMELA currently resolved. Lethargy No focal neuro deficit Back to baseline mental status Discontinued vistaril due to profound somnolence after getting one dose in the hospital Atrial fibrillation with RVR Coumadin held due to elevated INR on admission Dr Penn was informed by cardiology that pt was going to transition to Eliquis due to her poor PO intake and labile INR reading Patient flipped into [facility] RVR on 02/24/20 and was managed with iv and po lopressor. Converted back to sinus rhythm same day Was started on metoprolol succinate 12.5mg. Even with this, patient was bradycardic to low 50s Discussed with Alberene Stone Setter today and discontinued this Currently in sinus rhythm Patient can continue to follow up with her Alberene Stone Setter INR on admission was 3. Was 7.9 on 02/15/20 No sign of bleeding Warfarin discontinued. Now on Eliquis Hypotension Possible secondary to hypovolemia and dehydration +/- medications Hypotension resolved BP currently controlled on lisinopril 5mg daily (Reduced from previous home dose of 40mg daily) Hydralazine discontinued Primary Doctor to continue to monitor BP and may start amlodipine for BP control if needed Avoid hypotension due to fall risk and anticoagulation Anxiety Continue venlafaxin Vistaril discontinued due to profound somnolence after taking it Continue buspirone and risperidone Dementia Resident at [facility] Stable Total Time Total Time Spent Total Time Spent (In Minutes): 35 Total Time Includes: Examination of the Patient, Discharge Planning and Medication Reconciliation Discharge Plan Discharge Items Patient Disposition: Trans Resident Long-Term Care Reason For Visit: ACUTE RENAL FAILURE, COVID + Discharge Diagnosis: Acute kidney injury Atrial fibrillation with rapid ventricular rate Supratherapeutic INR Activity: Resume your previous activity Non-emergency contact: Primary Care Provider and Alberene Stone Setter Call non-emergency contact if: you have any medication questions and your symptoms worsen Follow-up/Referrals: Joel Helm MD [Physician] - (Date & Time 03/01/2020 11:20 AM Provider Joel Helm MD Department General Internal Medicine [facility] ) [facility] [Primary Care Provider] - Diet: Regular Diet Texture: Easy to Chew Addtl Attending Provider Instructions: Ms Arias. You came to the hospital after being found lethargic with low blood pressure. Your blood pressure medications were suspended You were found to have acute kidney injury. While in the hospital, you had an episode of Atrial fibrillation with Rapid heart rate which was managed with medications. Certain adjustments were made to your medications. Your warfarin (coumadin) was stopped and changed to eliquis Your lisinopril was reduced from 40mg to 5mg daily. Your hydralazine was discontinued for now. Your vistaril was also discontinued to due excessive somnolence. Please take medications as prescribed and follow up with Primary Doctor and Alberene Stone Setter Pending Studies at Discharge: No Stand-Alone Forms: My [facility] Skilled Items Patient informed of condition?: Yes DNR: Yes Discharge Level of Care: Other Communicable Disease: No Discharge Prognosis: Stable Lines: None Urinary Catheter: No Medications and DC Order Prescriptions: New lisinopril [Zestril] 5 mg Tablet 5 mg PO QAM 30 Days Qty: 30 RF: 0 Eliquis 2.5 mg Tablet 2.5 mg PO BID 30 Days Qty: 60 RF: 0 Continued venlafaxine 75 mg capsule,extended release 24hr 75 mg PO DAILY RF: 0 aspirin 81 mg Tablet,Delayed Release (Dr/Ec) 81 mg PO DAILY RF: 0 cholecalciferol (vitamin D3) [Vitamin D3] 2,000 unit Capsule 2,000 units PO DAILY RF: 0 acetaminophen 325 mg Tablet 650 mg PO Q4H MDD 3 GMS APAP/24 HOURS PRN (Reason: Fever Or Pain) RF: 0 calcium carbonate 500 mg calcium (1,250 mg) Tablet 500 mg PO BID RF: 0 polyethylene glycol 3350 [ClearLax] 17 gram/dose Powder 17 g PO DAILY PRN (Reason: Constipation) RF: 0 risperidone 1 mg tablet 0.5 mg PO TID PRN (Reason: Anxiety) RF: 0 buspirone 10 mg tablet 10 mg PO BID RF: 0 vitamin E 400 unit Capsule 400 unit PO BID RF: 0 Discontinued hydroxyzine HCl 25 mg tablet 25 mg PO BID PRN (Reason: Itching or anxiety) RF: 0 lisinopril 40 mg tablet 40 mg PO DAILY RF: 0 warfarin 5 mg tablet 2.5 mg PO 2XWK RF: 0 warfarin 5 mg tablet 5 mg PO 5XWK RF: 0 hydralazine 50 mg tablet 50 mg PO TID RF: 0 Discharge Orders: Discharge Order (Routine); Ordered 02/26/20 Ordered By: Lizbeth Rainey Admission Data Admit Date/Time: 02/22/20 00:33 Attending Provider: Lizbeth Rainey I. Admit Provider: Sonny Horan Primary Care Provider: Deering LaconaChu Shu, Exploretrip Other Providers: Sonny Horan ; Ravinder Penn ; Pavan García ; Des Eastman Other Interventions: Discharge Summary Assessment (RN) Last Done: 02/26/20 10:38
== END 2020-02-26 12:50 | DRG 683 ==
LOC: ED 20:13 → SUATTDRO 22:08 → 2S 22:08 → SUATTDRO 02-22 00:33 → 2W 02-22 02:35 → 2S 02-24 18:40

== ENCOUNTER 2020-03-24 17:42 | Inpatient (IN) ==
[2020-03-24] MEDS ORDERED: dilTIAZem HCL 125 MG in DEXTROSE 5% 100 ML IV SCH (17:45)
[2020-03-24] MEDS ORDERED: dilTIAZem HCl 5 MG/ML 5 ML VIAL IV STA (17:45)
[2020-03-24] MEDS ORDERED: STAT IV Infusion **Titration per Protocol STA (17:45)
--- NOTE | 2020-03-24 17:56 | Emergency Department Note ---
History of Present Illness General Chief complaint: Cardiac Assessment Source: patient and EMS Mode of arrival: EMS Limitations: no limitations History of Present Illness Provider complaint: Tachycardia The patient presents to the ED with a chief complaint of rapid atrial fibrillation. The patient was having palpitations that started this evening. EMS was called. She was also breathing heavily and staff noticed this at the local nursing facility where she resides. EMS provided 15 mg of IV Cardizem. This did transiently slow the patient's heart rate down into the 80s or 90s. Her heart rate increased to about 170 upon her arrival here. Patient denies any recent illness. She is in the non-Covid unit at the [facility]. She has no additional complaints at this time. She does have a chronic history of paroxysmal atrial fibrillation with RVR and is chronically on Eliquis. Home Medications Medication Instructions Recorded Confirmed Type aspirin 81 mg PO DAILY 06/04/18 02/21/20 History cholecalciferol (vitamin D3) 2,000 units PO DAILY 06/04/18 02/21/20 History [Vitamin D3] venlafaxine 75 mg PO DAILY 06/04/18 02/21/20 History buspirone 10 mg PO BID 01/20/20 02/21/20 History vitamin E 400 unit PO BID 01/20/20 02/21/20 History acetaminophen 650 mg PO Q4H PRN MDD 3 GMS 02/11/20 02/21/20 History APAP/24 HOURS calcium carbonate 500 mg PO BID 02/11/20 02/21/20 History polyethylene glycol 3350 [ClearLax] 17 g PO DAILY PRN 02/11/20 02/21/20 History risperidone 0.5 mg PO TID PRN 02/21/20 02/21/20 History apixaban [Eliquis] 2.5 mg PO BID 30 Days #60 tab 02/26/20 Rx lisinopril [Zestril] 5 mg PO QAM 30 Days #30 tab 02/26/20 Rx Allergies Allergy/AdvReac Type Severity Reaction Status Date / Time alendronate sodium Allergy Intermediate HIVES Verified 02/22/20 13:48 naproxen Allergy Mild EDEMA Verified 02/21/20 21:01 simvastatin AdvReac Mild MUSCLE Verified 02/22/20 13:48 FATIGUE Past Med/Surg History Medical History (Updated 03/24/20 @ 21:00 by Aftab Palmer DO) Anemia Anxiety Atrial fibrillation Gout PEDRITO on CPAP Sepsis Surgical History H/O: hysterectomy History of cataract surgery History of cholecystectomy History of parathyroid surgery Family History Other No significant family history Social History Smoking Status: Never smoker Hx Alcohol Use: No Hx Substance Use: No Preferred Language: Kazakh Communication Ability: Effective Extractions Technologist Required: No Beliefs That Will Affect Care: None marital status: / Current Living Situation: Personal Care Facility Current Living Situation Comment: [facility] current occupational status: retired Feels Safe at Home: Yes Assistive Devices: Glasses and Walker Review of Systems A total of 10 systems reviewed and were otherwise negative Physical Exam Vital Signs Vital Signs - 24 hr 03/24/20 17:51 03/24/20 17:54 03/24/20 17:57 Temperature 37.1 C Temperature Source Oral Pulse Rate 152 H 151 H 150 H Pulse Rate from SpO2 Sensor 167 H 164 H Respiratory Rate 30 H 37 H 28 H Blood Pressure 139/120 H 130/92 Blood Pressure Mean 124 104 Blood Pressure Position Lying Pulse Oximetry 95 96 96 Oxygen Delivery Method Nasal Cannula Oxygen Flow Rate 2 Sepsis Recent Fever Within 48 Hours No Sepsis New/Unexplained Change in Mental Status N/A Sepsis Action Taken by Nursing No Action Required 03/24/20 18:00 03/24/20 18:10 03/24/20 18:17 Temperature Temperature Source Pulse Rate 152 H 160 H 151 H Pulse Rate from SpO2 Sensor 164 H 166 H 115 H Respiratory Rate 35 H 30 H 25 H Blood Pressure 142/98 H Blood Pressure Mean 115 Blood Pressure Position Pulse Oximetry 94 96 97 Oxygen Delivery Method Oxygen Flow Rate Sepsis Recent Fever Within 48 Hours Sepsis New/Unexplained Change in Mental Status Sepsis Action Taken by Nursing 03/24/20 18:18 03/24/20 18:20 03/24/20 18:30 Temperature Temperature Source Pulse Rate 134 H 110 H Pulse Rate from SpO2 Sensor 112 H 89 Respiratory Rate 34 H 28 H Blood Pressure Blood Pressure Mean Blood Pressure Position Pulse Oximetry 97 96 Oxygen Delivery Method Nasal Cannula Oxygen Flow Rate 2 Sepsis Recent Fever Within 48 Hours Sepsis New/Unexplained Change in Mental Status Sepsis Action Taken by Nursing 03/24/20 18:31 03/24/20 18:32 03/24/20 18:40 Temperature Temperature Source Pulse Rate 101 H 115 H 143 H Pulse Rate from SpO2 Sensor 80 92 H 94 H Respiratory Rate 28 H 29 H 30 H Blood Pressure Blood Pressure Mean 76 Blood Pressure Position Pulse Oximetry 97 98 97 Oxygen Delivery Method Oxygen Flow Rate Sepsis Recent Fever Within 48 Hours Sepsis New/Unexplained Change in Mental Status Sepsis Action Taken by Nursing 03/24/20 18:46 03/24/20 18:50 03/24/20 19:00 Temperature Temperature Source Pulse Rate 134 H 107 H 145 H Pulse Rate from SpO2 Sensor 105 H 116 H 91 H Respiratory Rate 30 H 27 H 32 H Blood Pressure 85/48 L Blood Pressure Mean 81 Blood Pressure Position Pulse Oximetry 97 97 93 Oxygen Delivery Method Oxygen Flow Rate Sepsis Recent Fever Within 48 Hours Sepsis New/Unexplained Change in Mental Status Sepsis Action Taken by Nursing 03/24/20 19:01 03/24/20 19:10 03/24/20 19:16 Temperature Temperature Source Pulse Rate 117 H 126 H 116 H Pulse Rate from SpO2 Sensor 121 H 96 H 127 H Respiratory Rate 30 H 29 H 27 H Blood Pressure 142/93 H 115/85 Blood Pressure Mean 108 109 Blood Pressure Position Pulse Oximetry 96 95 95 Oxygen Delivery Method Oxygen Flow Rate Sepsis Recent Fever Within 48 Hours Sepsis New/Unexplained Change in Mental Status Sepsis Action Taken by Nursing 03/24/20 19:20 03/24/20 19:30 03/24/20 19:40 Temperature Temperature Source Pulse Rate 130 H 141 H 128 H Pulse Rate from SpO2 Sensor 100 H 104 H 98 H Respiratory Rate 27 H 26 H 23 Blood Pressure Blood Pressure Mean Blood Pressure Position Pulse Oximetry 95 94 95 Oxygen Delivery Method Oxygen Flow Rate Sepsis Recent Fever Within 48 Hours Sepsis New/Unexplained Change in Mental Status Sepsis Action Taken by Nursing 03/24/20 19:46 03/24/20 20:00 03/24/20 20:15 Temperature Temperature Source Pulse Rate 108 H 117 H 109 H Pulse Rate from SpO2 Sensor 114 H 103 H 81 Respiratory Rate 27 H 27 H 25 H Blood Pressure 98/75 L 106/94 128/79 Blood Pressure Mean 89 98 100 Blood Pressure Position Pulse Oximetry 94 95 95 Oxygen Delivery Method Nasal Cannula Nasal Cannula Oxygen Flow Rate 2 2 Sepsis Recent Fever Within 48 Hours Sepsis New/Unexplained Change in Mental Status Sepsis Action Taken by Nursing 03/24/20 20:30 03/24/20 20:40 03/24/20 20:45 Temperature Temperature Source Pulse Rate 85 103 H 86 Pulse Rate from SpO2 Sensor 79 73 85 Respiratory Rate 27 H 23 25 H Blood Pressure 115/74 112/67 Blood Pressure Mean 98 87 Blood Pressure Position Pulse Oximetry 95 95 97 Oxygen Delivery Method Oxygen Flow Rate Sepsis Recent Fever Within 48 Hours Sepsis New/Unexplained Change in Mental Status Sepsis Action Taken by Nursing CONSTITUTIONAL/VITAL SIGNS: Reviewed / noted above. GENERAL: Non-toxic in appearance. INTEGUMENTARY: Warm, dry, and [place]. HEAD: Normocephalic. EYES: without scleral icterus or trauma. ENT/OROPHARYNX: clear and moist. LYMPHADENOPATHY/NECK: Is supple without lymphadenopathy or meningismus. RESPIRATORY: Lungs clear and equal. CARDIOVASCULAR: Rapid rate and irregular rhythm. GI/ABDOMEN: Soft and nontender. No organomegaly or pulsatile mass. No rebound or guarding. Normal bowel sounds. EXTREMITIES: Warm and well perfused. BACK: No CVA tenderness. NEUROLOGICAL: Intact without focal deficits. PSYCHIATRIC: normal affect. MUSCULOSKELETAL: Normally developed with good muscle tone. TRIAGE NURSING DOCUMENTATION REVIEWED. Course Administered Medications Diltiazem HCl 125 mg/ Dextrose 125 mls @ 5 mls/hr IV .Q24H ERASMO; Protocol Stop: 04/23/20 17:44 Last Titration: 03/24/20 19:20 Dose: 15 mg/hr, 15 mls/hr Documented by: [id number] Cosigned by: [id number] Titration: 03/24/20 19:05 Dose: 10 mg/hr, 10 mls/hr Documented by: [id number] Cosigned by: [id number] Admin: 03/24/20 18:10 Dose: 5 mg/hr, 5 mls/hr Documented by: [id number] Cosigned by: [id number] Discontinued Medications Diltiazem HCl (Diltiazem Hcl 5 Mg/Ml 5 Ml Vial) 15 mg IV NOW STA Stop: 03/24/20 17:46 Last Admin: 03/24/20 18:09 Dose: 15 mg Documented by: [id number] Cosigned by: [id number] Critical Care Time Critical Care Time: Yes Total Critical Care Time: 45 I have personally spent 45 minutes of critical care time in the direct management of this patient. This includes bedside care, interpretation of diagnostic studies, and testing, discussion with consultants, patient, and family members, and other required patient management activities. This 45 minutes is in excess of all separately billable procedures. Medical Decision Making Differential Diagnosis The differential that was considered includes acute myocardial infarction, acute coronary syndrome, myocarditis, pericarditis, pericardial effusions /tamponade, esophageal perforation, thoracic aortic dissection, pulmonary embolism, pneumonia, pneumothorax, pancreatitis, shingles, acute cholecystitis, perforated abdominal viscus. Medical Records Attestation: I reviewed the patient's medical records. Home Medications Current Medication List: was personally reviewed by nm Laboratory Data Attestation: I reviewed the patient's lab results. Result diagrams: 03/24/20 19:25 03/24/20 19:25 Lab Results 03/24/20 03/24/20 03/24/20 Range/Units 19:25 19:25 19:25 WBC 9.02 (4.8-10.8) K/uL RBC 4.24 (4.2-5.4) M/uL Hgb 12.9 (12.0-16.0) g/dL Hct 39.8 (37-47) % MCV 93.9 (80-100) fL MCH 30.4 (25-34) pg MCHC 32.4 (32-36) g/dL RDW Std Deviation 52.0 H (36.4-46.3) fL RDW Coeff of Sergio 15.1 H (11.5-14.5) % Plt Count 235 (130-400) K/uL MPV 11.6 H (7.4-10.4) fL Immature Gran % (Auto) 0.2 % Neut % (Auto) 76.7 % Lymph % (Auto) 11.2 % [place] % (Auto) 11.1 % Eos % (Auto) 0.6 % Baso % (Auto) 0.2 % Neut # (Auto) 6.92 H (1.4-6.5) K/uL Lymph # (Auto) 1.01 L (1.2-3.4) K/uL [place] # (Auto) 1.00 H (0.11-0.59) K/uL Eos # (Auto) 0.05 (0-0.5) K/uL Baso # (Auto) 0.02 (0-0.2) K/uL Immature Gran # (Auto) 0.02 (0.00-0.02) K/uL PT 17.2 H (9.0-12.0) Seconds INR 1.7 H (0.9-1.1) APTT 39.4 H (21.0-31.0) Seconds PTT Ratio 1.4 Sodium 144 (136-145) mmol/L Potassium 3.8 (3.5-5.1) mmol/L Chloride 111 H (98-107) mmol/L Carbon Dioxide 26 (21-32) mmol/L Anion Gap 8.0 (3-11) BUN 21 H (7-18) mg/dl Creatinine 0.87 (0.6-1.2) mg/dl Est Cr Clr Drug Dosing 34.0 ml/min Est GFR ( Amer) 70.4 Est GFR (Non-Af Amer) 60.7 BUN/Creatinine Ratio 23.8 H (10-20) Glucose 106 H (70-99) mg/dl Calcium 9.8 (8.5-10.1) mg/dl Total Bilirubin 0.6 (0.2-1) mg/dl AST 15 (15-37) U/L ALT 15 (12-78) U/L Alkaline Phosphatase 63 (45-117) U/L Troponin I 0.049 H* (0-0.045) ng/ml Total Protein 6.1 L (6.4-8.2) gm/dl Albumin 3.3 L (3.4-5.0) gm/dl Globulin 2.8 (2.5-4.0) gm/dl Albumin/Globulin Ratio 1.2 (0.9-2) Imaging Data Radiologist's Impression: SINGLE VIEW CHEST CLINICAL HISTORY: Atypical chest pain. Palpitations. FINDINGS: An AP, portable, upright chest radiograph is compared to study dated 02/11/2020. The heart is enlarged noting atherosclerotic calcification of the thoracic aorta. There is diffuse coarsening of interstitium. Scarring/atelectasis is seen at the lung bases. No large pleural effusion or pneumothorax is seen. The skeletal structures are osteopenic. The bony thorax is grossly intact. Arthritic change is seen in the left shoulder. IMPRESSION: Cardiomegaly with diffuse coarsening of the interstitium. This could represent a component of mild congestive failure or possibly an infectious/inflammatory pneumonitis. Clinical correlation will be required. ECG Data Attestation: I personally reviewed and interpreted this ECG as follows: Indication: + palpitations Rate (beats per minute): 170 Rhythm: + atrial fibrillation ECG ST segments: no ST elevation ECG Findings: no PVCs MDM Narrative Patient presents to the ED with rapid A. fib. Twelve-lead EKG shows A. fib with RVR at a rate of 170. The patient was given IV Cardizem 15 mg by EMS. This did slow the heart rate down but her heart rate increased by the time she got here. She was given IV Cardizem 15 mg and IV Cardizem drip. The patient's INR is 1.7. Troponin is slightly elevated 0.049. CBC was normal. Chest x-ray revealed some findings suggesting mild congestive changes. This is felt to be more likely than infectious process. The patient was treated with IV Cardizem bolus and IV Cardizem with some improvement of her heart rate. She remained clinically stable during her ED stay. She will be seen by the hospitalist for further evaluation and care. Impression & Plan Atrial fibrillation with RVR Discharge Plan Visit Data Chief Complaint: Cardiac Assessment ED Provider: Aftab Palmer Discharge Problem: Atrial fibrillation with RVR Patient Disposition: Being Evaluated by Hospitalist Forms Stand Alone Forms: My [facility] [employer] Prescriptions Prescriptions: No Action venlafaxine 75 mg capsule,extended release 24hr 75 mg PO DAILY RF: 0 aspirin 81 mg Tablet,Delayed Release (Dr/Ec) 81 mg PO DAILY RF: 0 cholecalciferol (vitamin D3) [Vitamin D3] 2,000 unit Capsule 2,000 units PO DAILY RF: 0 acetaminophen 325 mg Tablet 650 mg PO Q4H MDD 3 GMS APAP/24 HOURS PRN (Reason: Fever Or Pain) RF: 0 calcium carbonate 500 mg calcium (1,250 mg) Tablet 500 mg PO BID RF: 0 polyethylene glycol 3350 [ClearLax] 17 gram/dose Powder 17 g PO DAILY PRN (Reason: Constipation) RF: 0 risperidone 1 mg tablet 0.5 mg PO TID PRN (Reason: Anxiety) RF: 0 lisinopril [Zestril] 5 mg Tablet 5 mg PO QAM 30 Days Qty: 30 RF: 0 Eliquis 2.5 mg Tablet 2.5 mg PO BID 30 Days Qty: 60 RF: 0 buspirone 10 mg tablet 10 mg PO BID RF: 0 vitamin E 400 unit Capsule 400 unit PO BID RF: 0 [facility] -
[2020-03-24] MEDS ORDERED: ETOMIDATE 2 MG/ML 20 ML VIAL IV ONE (18:58)
--- NOTE | 2020-03-24 18:59 | XRay Report ---
SINGLE VIEW CHEST CLINICAL HISTORY: Atypical chest pain. Palpitations. FINDINGS: An AP, portable, upright chest radiograph is compared to study dated 02/11/2020. The heart is enlarged noting atherosclerotic calcification of the thoracic aorta. There is diffuse coarsening o f interstitium. Scarring/atelectasis is seen at the lung bases. No large pleural effusion or pneumoth orax is seen. The skeletal structures are osteopenic. The bony thorax is grossly intact. Arthritic ch elvis is seen in the left shoulder. IMPRESSION: Cardiomegaly with diffuse coarsening of the interstitium. This could represent a componen t of mild congestive failure or possibly an infectious/inflammatory pneumonitis. Clinical correlation will be required. ACT 112: Negative or not required by law. Electronically signed by: Popeye Chiang M.D. 03/24/2020 6:58 PM
[2020-03-24 19:45] LABS: Basophils # (auto) 0.02 K/uL (0-0.2); Basophils % (auto) 0.2 %; Eosinophils # (auto) 0.05 K/uL (0-0.5); Eosinophils % (auto) 0.6 %; Hematocrit (blood only) 39.8 % (37-47); Hemoglobin 12.9 g/dL (12.0-16.0); Immature Granulocytes # (auto) 0.02 K/uL (0.00-0.02); Immature Granulocytes % (auto) 0.2 %; Lymphocytes # (auto) 1.01 K/uL (1.2-3.4); Lymphocytes % (auto) 11.2 %; Mean Corpuscular Hemoglobin 30.4 pg (25-34); Mean Corpuscular Hgb Conc 32.4 g/dL (32-36); Mean Corpuscular Volume 93.9 fL (80-100); Mean Platelet Volume 11.6 fL (7.4-10.4); Monocytes % (auto) 11.1 %; Neutrophils # (auto) 6.92 K/uL (1.4-6.5); Neutrophils % (auto) 76.7 %; Platelet Count 235 K/uL (130-400); RDW Coefficient of Variation 15.1 % (11.5-14.5); Red Blood Count 4.24 M/uL (4.2-5.4); White Blood Count 9.02 K/uL (4.8-10.8)
[2020-03-24 19:55] LABS: INR 1.7 (0.9-1.1); Partial Thromboplastin Ratio 1.4; Partial Thromboplastin Time 39.4 Seconds (21.0-31.0); Prothrombin Time 17.2 Seconds (9.0-12.0)
[2020-03-24 20:04] LABS: Albumin Level 3.3 gm/dl (3.4-5.0); BUN Creatinine Ratio 23.8 (10-20); Calcium 9.8 mg/dl (8.5-10.1); Est GFR (African American) 70.4; Est GFR (Non-African American) 60.7; Potassium 3.8 mmol/L (3.5-5.1)
[2020-03-24 20:23] LABS: Albumin Globulin Ratio 1.2 (0.9-2); Bilirubin,Total 0.6 mg/dl (0.2-1); Globulin 2.8 gm/dl (2.5-4.0); Total Protein 6.1 gm/dl (6.4-8.2); Troponin I 0.049 ng/ml (0-0.045)
--- NOTE | 2020-03-24 23:58 | History and Physical Report ---
DATE OF ADMISSION: 03/24/2020 CHIEF COMPLAINT: Short of breath and tachycardia. HISTORY OF PRESENT ILLNESS: This is an 84-year-old female, [facility] resident. The patient has baseline dementia and confusion. Past medical history is significant for hyperlipidemia, chronic gout, sleep apnea, AFib, chronic kidney disease stage III, hypertension, tricuspid valve regurgitation, aortic valve sclerosis, GERD, generalized anxiety disorder, and the patient ambulates with the help of walker and on low salt diet. Was getting more confused than usual and was tachypneic, short of breath, and tachycardic. When the EMS came, she was in rapid AFib, they gave 15 mg of Cardizem, her heart rate seemed to improve, but at the time osmin came to the ER, it was again in 160s, so she was started on Cardizem drip. Currently, her heart rate is in the low 100s, alert and awake, oriented to name only. Denies any headache or any pain. No nausea. Most of the questions she answers she does not know. Could not get any history from the patient. As per the halfway, she was more confused than usual and tachycardic, tachypneic, and probably low-grade fever and short of breath and that is why she was brought in here. Lately, her balance has been off. She was diagnosed with COVID in December. Recently a few days ago, she was again tested as she went outside the facility and this came back negative. Currently afebrile and hemodynamically stable. ALLERGIES: ALENDRONATE, NAPROXEN, ZOCOR. PAST MEDICAL HISTORY: As mentioned above. PAST SURGICAL HISTORY: Cataract surgery, colonoscopy, EGD, parathyroidectomy, laparoscopic cholecystectomy, suture repair of entropion, total hysterectomy. MEDICATIONS: The patient is on Tylenol 650 mg p.o. q. 4 hours p.r.n., Eliquis 2.5 mg p.o. b.i.d., aspirin 81 mg p.o. daily, buspirone 10 mg p.o. b.i.d., calcium carbonate 500 mg p.o. b.i.d., vitamin D 2000 units p.o. daily, lisinopril 5 mg p.o. a.m., MiraLax 17 grams p.o. daily p.r.n., risperidone 0.5 mg p.o. t.i.d. p.r.n., venlafaxine 75 mg p.o. daily, vitamin E 400 Units p.o. b.i.d. FAMILY HISTORY: Significant for brother had colon cancer, diabetes; mother has glaucoma, heart disorder, hypertension, Alzheimer's disease; father had stroke. SOCIAL HISTORY: . No smoking, no alcohol, no drug use. REVIEW OF SYSTEMS: As per HPI. Rest of the review of systems negative. PHYSICAL EXAMINATION: GENERAL: The patient is old and frail, not in acute distress. VITAL SIGNS: Temperature 37.1, pulse 96, respiratory rate 24, blood pressure 125/81, oxygen 95% on 2 liters. HEENT: Pupils equal, round, and reactive to light. Oral mucosa, not able to open the mouth, but looks dry. NECK: Supple, no neck masses seen. CARDIOVASCULAR: S1, S2 heard. Regular rate and rhythm. No murmur, no gallop. RESPIRATORY SYSTEM: Normal AP diameter. No accessory muscle use. No wheezing, no crackles. ABDOMEN: Soft, bowel sounds present, nontender. No distention. CENTRAL NERVOUS SYSTEM: Alert and oriented to name only, not obeying any commands. No facial droop seen. Speech is clear. EXTREMITIES: No edema, no erythema. LABORATORY DATA: WBC 9, hemoglobin 12.9, hematocrit 39.8, platelets 235. PT 17.2, INR 1.7, APTT 39.4. Sodium 144, potassium 3.8, chloride 111, bicarbonate 26, BUN 21, creatinine 0.8, serum glucose 106, calcium 9.8, total bilirubin 0.6, AST 15, ALT 15, alkaline phosphatase 63, troponin 1 of 0.049. IMAGING DATA: Chest x-ray, cardiomegaly with diffuse coarsening of the interstitium. This could represent component of mild congestive failure, possibly infectious inflammatory pneumonitis. EKG: Atrial fibrillation at a rate of 165. ASSESSMENT AND PLAN: This is an 84-year-old female who presents with rapid atrial fibrillation. 1. Rapid atrial fibrillation: The patient is with history of atrial fibrillation, not on rate control medications. She is on Eliquis, she will continue. The patient was started on Cardizem drip, rate is under control currently. We will change it to p.o. Lopressor 25 b.i.d. and IV Lopressor p.r.n. Closely monitor in tele floor. We will consult cardiology in the a.m. 2. Mild elevation of troponin, most likely demand ischemia. We will follow the repeat EKGs and also check serial enzymes and echocardiogram. 3. History of depression: Continue venlafaxine. 4. History of dementia, on risperidone. We will monitor for delirium, on risperidone p.r.n. 5. Sleep apnea, on CPAP. 6. Hypertension, on lisinopril. Currently started on metoprolol. We will follow the blood pressure. 7. Possible pneumonia. Empirically started on Rocephin and doxycycline. 7. Deep venous thrombosis prophylaxis, on Eliquis. DISPOSITION: Admit to tele floor. Code status is DNR as per my discussion with [facility]. The patient has POLST form as per [facility]. PT/OT prior to discharge. Social service to help with discharge planning. SISI
[2020-03-25] MEDS ORDERED: SODIUM CHLORIDE 0.9% 1000ML 1,000 ML IV SCH (01:18)
[2020-03-25] MEDS ORDERED: METOPROLOL TARTRATE 1 MG/ML VIAL IV PRN (01:18)
[2020-03-25] MEDS ORDERED: POLYETHYLENE (MIRALAX) 17 GM PACK PO PRN ×2 (01:18)
[2020-03-25] MEDS ORDERED: ONDANSETRON INJ 2 MG/ML 2 ML VIAL IV PRN (01:18)
[2020-03-25] MEDS ORDERED: ACETAMINOPHEN 325 MG TAB PO PRN (01:18)
[2020-03-25] MEDS ORDERED: NITROGLYCERIN SL 0.4 MG/TAB TAB SL PRN (01:18)
[2020-03-25] MEDS ORDERED: STAT IV Infusion **Titration per Protocol STA (01:25)
[2020-03-25] MEDS ORDERED: dilTIAZem HCL 125 MG in DEXTROSE 5% 100 ML IV SCH (01:30)
[2020-03-25] MEDS: cefTRIAXone SODIUM 1,000 MG in DEXTROSE 5% 50 ML IV SCH (02:00)
[2020-03-25] MEDS: METOPROLOL TARTRATE 25 MG TAB PO SCH ×2 (02:08→07:37)
[2020-03-25] MEDS: DOXYCYCLINE HYCLATE 100 MG in DEXTROSE 5% 100 ML IV SCH ×2 (02:28→13:31)
[2020-03-25 06:16] LABS: Basophils # (auto) 0.02 K/uL (0-0.2); Basophils % (auto) 0.3 %; Eosinophils # (auto) 0.08 K/uL (0-0.5); Hematocrit (blood only) 39.6 % (37-47); Hemoglobin 12.8 g/dL (12.0-16.0); Immature Granulocytes # (auto) 0.02 K/uL (0.00-0.02); Immature Granulocytes % (auto) 0.3 %; Lymphocytes # (auto) 0.87 K/uL (1.2-3.4); Lymphocytes % (auto) 11.1 %; Mean Corpuscular Hemoglobin 30.5 pg (25-34); Mean Corpuscular Hgb Conc 32.3 g/dL (32-36); Mean Corpuscular Volume 94.5 fL (80-100); Mean Platelet Volume 11.7 fL (7.4-10.4); Monocytes # (auto) 0.89 K/uL (0.11-0.59); Monocytes % (auto) 11.4 %; Neutrophils # (auto) 5.94 K/uL (1.4-6.5); Neutrophils % (auto) 75.9 %; Platelet Count 243 K/uL (130-400); RDW Coefficient of Variation 15.3 % (11.5-14.5); RDW Standard Deviation 52.8 fL (36.4-46.3); Red Blood Count 4.19 M/uL (4.2-5.4); White Blood Count 7.82 K/uL (4.8-10.8)
[2020-03-25 06:34] LABS: BUN Creatinine Ratio 27.1 (10-20); Calcium 9.5 mg/dl (8.5-10.1); Creatinine Clr Calc Pharmacy 35.6 ml/min; Est GFR (African American) 74.5; Est GFR (Non-African American) 64.3; Magnesium 1.9 mg/dl (1.8-2.4); Potassium 3.8 mmol/L (3.5-5.1)
[2020-03-25 06:39] LABS: Troponin I 0.028 ng/ml (0-0.045)
[2020-03-25] MEDS: busPIRone 5 MG TAB PO SCH ×2 (07:37→20:27)
[2020-03-25] MEDS: APIXABAN 2.5 MG TAB PO SCH ×2 (07:37→20:27)
[2020-03-25] MEDS: ASPIRIN 81 MG ECTAB PO SCH (07:37)
[2020-03-25] MEDS: VENLAFAXINE HCL XR 75 MG CAPXR PO SCH (07:37)
[2020-03-25] MEDS: TOCOPHERYL, DL-ALPHA 400 UNITS CAP PO SCH ×2 (07:38→20:27)
[2020-03-25] MEDS: CALCIUM CARBONATE 1250MG TAB PO SCH ×2 (07:38→20:27)
[2020-03-25] MEDS: CHOLECALCIFEROL 1,000 UNITS 25 MCG TAB PO SCH (07:38)
--- NOTE | 2020-03-25 07:51 | Electrocardiogram Report ---
Test Reason : Blood Pressure : / mmHG Vent. Rate : 165 BPM Atrial Rate : 187 BPM P-R Int : 000 ms QRS Dur : 112 ms QT Int : 256 ms P-R-T Axes : 000 -19 137 degrees QTc Int : 424 ms Poor data quality, interpretation may be adversely affected Atrial fibrillation with rapid ventricular response Left bundle branch block Abnormal ECG When compared with ECG of 25-FEB-2020 09:22, Atrial fibrillation has replaced Sinus rhythm Vent. rate has increased BY 98 BPM Confirmed by Cyrus Farooq ([id number]) on 03/25/2020 7:50:31 AM Referred By: Iliana Lewis Perley Confirmed By:Cyrus Farooq
--- NOTE | 2020-03-25 08:02 | Electrocardiogram Report ---
Test Reason : Blood Pressure : / mmHG Vent. Rate : 070 BPM Atrial Rate : 113 BPM P-R Int : 000 ms QRS Dur : 122 ms QT Int : 380 ms P-R-T Axes : 000 -01 136 degrees QTc Int : 410 ms Atrial fibrillation Left bundle branch block Abnormal ECG When compared with ECG of 24-MAR-2020 17:54, Vent. rate has decreased BY 95 BPM Confirmed by Cyrus Farooq ([id number]) on 03/25/2020 8:02:30 AM Referred By: Iliana Lewis Stovall Confirmed By:Cyrus Farooq
[2020-03-25] MEDS ORDERED: lisinopril 5 MG TAB PO SCH (09:00)
--- NOTE | 2020-03-25 11:05 | Hospitalist Progress Note ---
Date of Service March 25, 2020 Assessment & Plan (1) Atrial fibrillation with RVR: Chronic anticoagulation (with Eliquis) -as per 03/24/2020 ER note: "The patient presents to the ED with a chief complaint of rapid atrial fibrillation. The patient was having palpitations that started this evening. EMS was called. She was also breathing heavily and staff noticed this at the local nursing facility where she resides. EMS provided 15 mg of IV Cardizem. This did transiently slow the patient's heart rate down into the 80s or 90s. Her heart rate increased to about 170 upon her arrival here. Patient denies any recent illness. She is in the non-Covid unit at the [facility]. She has no additional complaints at this time. She does have a chronic history of paroxysmal atrial fibrillation with RVR and is chronically on Eliquis." -mild elevated initial troponin of 0.049 on presentation which trended down, initial troponin appears to be related to initial rapid ventricular response from the atrial fibrillation -patient was transitioned from IV Cardiazem drip to metoprolol by admitting hospitalist -as of 03/25/2020: Patient converted from the admission atrial fibrillation with RVR to sinus bradycardia around 7 AM on 03/25/2020 .patient breathing on room air. no respiratory distress. patient does not appear to be in pain. patient is a poor historian on review of systems and health history. patient is very easily started by loud noises included loud speech. otherwise, patient cooperative on exam. as per nursing staff, she reports that she had communicated with patient's daughter that patient can get aggressive with behavior at [facility] but patient currently has been cooperative on exam. -check TSH -at this time, awaiting further formal cardiology recommendations given current sinus bradycardia Hypertension -on home dose lisinopril -adjustment of current beta blockers as per cardiology service Abnormal Chest X ray (Lung Infiltrates on Chest X ray) -admission CXR: Cardiomegaly with diffuse coarsening of the interstitium. This could represent a component of mild congestive failure or possibly an infectious/inflammatory pneumonitis. -admitting hospitalist Empirically started on Rocephin and doxycycline in case of any pneumonia -current hospitalist question whether there is even a pneumonia: can continue antibiotics for now, check procalcitonin levels, check BNP -of note that patient had positive COVID-19 test on 01/20/2020 -COVID 19 negative tests on 02/21/2020, and on 03/24/2020 History of dementia -reorient as needed -on risperidone prn History of depression -Continue venlafaxine. Sleep apnea -on CPAP. Deep venous thrombosis prophylaxis: on Eliquis. DISPOSITION: Code status is DNR as per admission hospitalist discussion with [facility]. The patient has POLST form as per [facility]. Admission and Anticipated Discharge Date Admission Date: March 24, 2020 Subjective Patient converted from the admission atrial fibrillation with RVR to sinus bradycardia around 7 AM on 03/25/2020 .patient breathing on room air. no respiratory distress. patient does not appear to be in pain. patient is a poor historian on review of systems and health history. patient is very easily started by loud noises included loud speech. otherwise, patient cooperative on exam. as per nursing staff, she reports that she had communicated with patient's daughter that patient can get aggressive with behavior at [facility] but patient currently has been cooperative on exam. Review of Systems Review of Systems: All systems reviewed & are unremarkable except as noted in Subjective Physical Exam Eyes: PERRL, conjunctivae normal, anicteric sclerae EOM intact bilaterally ENMT: external ear and nose normal, oropharynx normal Neck: normal visual inspection Respiratory: normal respiratory effort Cardiovascular: Rate/Rhythm: regular rhythm and + bradycardic Gastrointestinal (Abdomen): normal bowel sounds, soft, nontender, no hepatosplenomegaly Musculoskeletal: Head/Neck/Chest: normocephalic Neurologic: PERRL, EOMI, accommodation nl, no face palsy, no dysarthria Psychiatric: Orientation: alert (patient is very easily started by loud noises included loud speech) Results & Data Results & Data ([facility]) Vital Signs (Past 12 Hours) Vital Signs Temp Pulse Pulse Resp BP BP BP 03/25/20 08:00 62 03/25/20 07:51 37.1 C 117 H 20 118/75 03/25/20 02:24 36.6 C 80 18 147/74 H 03/25/20 01:00 36.9 C 100 H 20 130/81 03/25/20 00:30 76 21 120/64 03/25/20 00:15 78 21 106/77 03/25/20 00:00 77 23 113/84 11/27/20 23:45 73 22 113/78 11/27/20 23:31 82 22 126/87 03/24/20 23:15 82 19 123/73 Pulse Ox 03/25/20 08:00 03/25/20 07:51 93 03/25/20 02:24 95 03/25/20 01:00 92 03/25/20 00:30 96 03/25/20 00:15 97 03/25/20 00:00 96 03/24/20 23:45 95 03/24/20 23:31 96 03/24/20 23:15 96 Allergy Immunology Results CMP Results: Na 141 mmol/L (136-145) 03/25/20 K 3.8 mmol/L (3.5-5.1) 03/25/20 Cl 109 mmol/L (98-107) H 03/25/20 CO2 27 mmol/L (21-32) 03/25/20 Anion Gap 5.0 (3-11) 03/25/20 BUN 23 mg/dl (7-18) H 03/25/20 Creatinine 0.83 mg/dl (0.6-1.2) 03/25/20 Estimated GFR ( Amer) 74.5 03/25/20 Estimated GFR (Non-Af Amer) 64.3 03/25/20 BUN/Creatinine Ratio 27.1 (10-20) H 03/25/20 Glu 116 mg/dl (70-99) H 03/25/20 Ca 9.5 mg/dl (8.5-10.1) 03/25/20 Total Bilirubin 0.6 mg/dl (0.2-1) 03/24/20 Direct Bilirubin 0.1 mg/dl (0-0.2) 11/20/17 AST 15 U/L (15-37) 03/24/20 ALT 15 U/L (12-78) 03/24/20 Alkaline Phosphatase 63 U/L (45-117) 03/24/20 TP 6.1 gm/dl (6.4-8.2) L 03/24/20 Albumin 3.3 gm/dl (3.4-5.0) L 03/24/20 Globulin 2.8 gm/dl (2.5-4.0) 03/24/20 Albumin/Globulin Ratio 1.2 (0.9-2) 03/24/20 Allergy Immunology Results: Troponin I 0.028 ng/ml (0-0.045) 03/25/20
[2020-03-25] MEDS: risperiDONE 0.5 MG TABLET PO PRN (11:31)
--- NOTE | 2020-03-25 11:33 | Electrocardiogram Report ---
Test Reason : Blood Pressure : / mmHG Vent. Rate : 128 BPM Atrial Rate : 125 BPM P-R Int : 000 ms QRS Dur : 114 ms QT Int : 290 ms P-R-T Axes : 000 -35 134 degrees QTc Int : 423 ms Poor data quality, interpretation may be adversely affected Atrial fibrillation with rapid ventricular response Left bundle branch block Abnormal ECG When compared with ECG of 24-MAR-2020 22:37, Vent. rate has increased BY 58 BPM Confirmed by Cyrus Farooq ([id number]) on 03/25/2020 11:33:18 AM Referred By: Iliana Lewis Sweet Confirmed By:Cyrus Farooq
[2020-03-25 12:27] LABS: Thyroid Stimulating Hormone 2.09 uIu/ml (0.300-4.500)
--- NOTE | 2020-03-25 14:13 | Cardiology Consultation ---
Date of Consultation March 25, 2020 Assessment & Plan (1) Paroxysmal atrial fibrillation with rapid ventricular response: Patient is a an 84-year-old female with well-documented history of paroxysmal atrial fibrillation, underlying conduction system disease with left bundle branch block, sinus bradycardia poorly tolerant of AV minh blocking drugs past who presents now once again having lapsed into atrial fibrillation. Patient poorly tolerant of the rhythm when present by echocardiography proved on spontaneous conversion to sinus as patient has done multiple times in the past. Patient appropriately anticoagulated with Eliquis. Not a long-term candidate for antiarrhythmic therapy or pacemaker insertion in light of significantly progressive dementia Patient has received oral metoprolol today We will consider restarting metoprolol succinate 12.5 mg in a.m. holding further metoprolol today Would recommend continuing Eliquis, increasing lisinopril to 5 mg p.o. twice daily, add potassium supplement at 10 mEq p.o. daily chronically We will give single dose of IV furosemide today 10 mg with 20 equivalents potassium chest x-ray demonstrated mild congestive heart failure not unexpected given findings on echocardiogram during elevated heart rates Overall prognosis extremely limited (2) Left bundle branch block: History of Present Illness Reason for Consultation: Atrial fibrillation with rapid response Requesting Physician: Dr. Caban Attending Physician: Kirby Caban MD History of Present Illness Patient is an 84-year-old female whose underlying issues include 1. Paroxysmal atrial fibrillation with significant bradycardia when in sinus rhythm precluding use of antiarrhythmic therapy and AV node blocking drugs 2. Hypertension 3. Chronic left bundle branch block 4. Progressive dementia with agitation and confusion Patient is referred having once again lapsed into atrial fibrillation. Recent history is notable for worsening confusion and agitation prior to current event. Patient treated with transiently with IV diltiazem with spontaneous conversion to sinus rhythm earlier this morning during echocardiogram. Of note while in atrial fibrillation patient poorly tolerant by echocardiography with diffuse hypokinesis and severe mitral insufficiency all which have improved since return to sinus. Patient unable to offer any additional information No documented recent fevers chills or infections. No bleeding issues with patient chronically anticoagulated with apixaban. Blood pressure is elevated Allergies Allergy/AdvReac Type Severity Reaction Status Date / Time alendronate sodium Allergy Intermediate HIVES Verified 03/24/20 21:24 naproxen Allergy Mild EDEMA Verified 03/24/20 21:25 simvastatin AdvReac Mild MUSCLE Verified 03/24/20 21:25 FATIGUE Home Medications Medication Instructions Recorded Confirmed Type aspirin 81 mg PO DAILY 06/04/18 03/24/20 History cholecalciferol (vitamin D3) 2,000 units PO DAILY 06/04/18 03/24/20 History [Vitamin D3] venlafaxine 75 mg PO DAILY 06/04/18 03/24/20 History buspirone 10 mg PO BID 01/20/20 03/24/20 History vitamin E 400 unit PO BID 01/20/20 03/24/20 History acetaminophen 650 mg PO Q4H PRN MDD 3 GMS 02/11/20 03/24/20 History APAP/24 HOURS polyethylene glycol 3350 [ClearLax] 17 g PO DAILY PRN 02/11/20 03/24/20 History risperidone 0.5 mg PO TID PRN 02/21/20 03/24/20 History apixaban [Eliquis] 2.5 mg PO BID 30 Days #60 tab 02/26/20 03/24/20 Rx lisinopril [Zestril] 5 mg PO QAM 30 Days #30 tab 02/26/20 03/24/20 Rx calcium carbonate [Oysco-500] 500 mg PO BID 03/24/20 03/24/20 History Patient History Medical History Anemia Anxiety Atrial fibrillation Gout PEDRITO on CPAP Sepsis Surgical History H/O: hysterectomy History of cataract surgery History of cholecystectomy History of parathyroid surgery Family History Other No significant family history Social History Smoking Status: Never smoker Hx Alcohol Use: No Hx Substance Use: No Preferred Language: Cambodian Communication Ability: Impaired Rewrite Editor Required: No Beliefs That Will Affect Care: None marital status: / Current Living Situation: Personal Care Facility Current Living Situation Comment: [facility] current occupational status: retired Feels Safe at Home: Yes Assistive Devices: Walker Review of Systems Review of Systems: Unobtainable due to cognitive status Physical Exam Constitutional: + altered mental status and + frail appearing Eyes: PERRL, conjunctivae normal, anicteric sclerae ENMT: external ear and nose normal, oropharynx normal Neck: trachea midline, no thyromegaly Respiratory: normal respiratory effort, lungs clear to auscultation Cardiovascular: Rate/Rhythm: regular rate and regular rhythm Heart Sounds: + murmur (Grade 2/6 systolic) Vessels: no JVD Extremities: no edema Gastrointestinal (Abdomen): normal bowel sounds, soft, nontender, no hepatosplenomegaly Musculoskeletal: no cyanosis or clubbing, extremities motor strength 5/5 Results & Data ([facility]) Vital Signs (Past 12 Hours) Vital Signs Temp Pulse Pulse Resp BP BP Pulse Ox 03/25/20 11:09 36.7 C 76 20 158/100 H 91 03/25/20 08:00 62 03/25/20 07:51 37.1 C 117 H 20 118/75 93 03/25/20 02:24 36.6 C 80 18 147/74 H 95 Laboratory Results Laboratory Results - last 24 hr 03/24/20 03/24/20 03/24/20 19:25 19:25 19:25 WBC 9.02 RBC 4.24 Hgb 12.9 Hct 39.8 MCV 93.9 MCH 30.4 MCHC 32.4 RDW Std Deviation 52.0 H RDW Coeff of Sergio 15.1 H Plt Count 235 MPV 11.6 H Immature Gran % (Auto) 0.2 Neut % (Auto) 76.7 Lymph % (Auto) 11.2 [place] % (Auto) 11.1 Eos % (Auto) 0.6 Baso % (Auto) 0.2 Neut # (Auto) 6.92 H Lymph # (Auto) 1.01 L [place] # (Auto) 1.00 H Eos # (Auto) 0.05 Baso # (Auto) 0.02 Immature Gran # (Auto) 0.02 PT 17.2 H INR 1.7 H APTT 39.4 H PTT Ratio 1.4 Sodium 144 Potassium 3.8 Chloride 111 H Carbon Dioxide 26 Anion Gap 8.0 BUN 21 H Creatinine 0.87 Est Cr Clr Drug Dosing 34.0 Est GFR ( Amer) 70.4 Est GFR (Non-Af Amer) 60.7 BUN/Creatinine Ratio 23.8 H Glucose 106 H Calcium 9.8 Magnesium Total Bilirubin 0.6 AST 15 ALT 15 Alkaline Phosphatase 63 Troponin I 0.049 H* NT-Pro-B Natriuret Pep Total Protein 6.1 L Albumin 3.3 L Globulin 2.8 Albumin/Globulin Ratio 1.2 Procalcitonin TSH SARS-CoV-2 Ag (Rapid) 03/24/20 03/25/20 03/25/20 22:33 05:37 05:37 WBC 7.82 RBC 4.19 L Hgb 12.8 Hct 39.6 MCV 94.5 MCH 30.5 MCHC 32.3 RDW Std Deviation 52.8 H RDW Coeff of Sergio 15.3 H Plt Count 243 MPV 11.7 H Immature Gran % (Auto) 0.3 Neut % (Auto) 75.9 Lymph % (Auto) 11.1 [place] % (Auto) 11.4 Eos % (Auto) 1.0 Baso % (Auto) 0.3 Neut # (Auto) 5.94 Lymph # (Auto) 0.87 L [place] # (Auto) 0.89 H Eos # (Auto) 0.08 Baso # (Auto) 0.02 Immature Gran # (Auto) 0.02 PT INR APTT PTT Ratio Sodium 141 Potassium 3.8 Chloride 109 H Carbon Dioxide 27 Anion Gap 5.0 BUN 23 H Creatinine 0.83 Est Cr Clr Drug Dosing 35.6 Est GFR ( Amer) 74.5 Est GFR (Non-Af Amer) 64.3 BUN/Creatinine Ratio 27.1 H Glucose 116 H Calcium 9.5 Magnesium 1.9 Total Bilirubin AST ALT Alkaline Phosphatase Troponin I 0.028 NT-Pro-B Natriuret Pep Total Protein Albumin Globulin Albumin/Globulin Ratio Procalcitonin TSH SARS-CoV-2 Ag (Rapid) Negative 03/25/20 03/25/20 03/25/20 10:53 11:39 11:39 WBC RBC Hgb Hct MCV MCH MCHC RDW Std Deviation RDW Coeff of Sergio Plt Count MPV Immature Gran % (Auto) Neut % (Auto) Lymph % (Auto) [place] % (Auto) Eos % (Auto) Baso % (Auto) Neut # (Auto) Lymph # (Auto) [place] # (Auto) Eos # (Auto) Baso # (Auto) Immature Gran # (Auto) PT INR APTT PTT Ratio Sodium Potassium Chloride Carbon Dioxide Anion Gap BUN Creatinine Est Cr Clr Drug Dosing Est GFR ( Amer) Est GFR (Non-Af Amer) BUN/Creatinine Ratio Glucose Calcium Magnesium Total Bilirubin AST ALT Alkaline Phosphatase Troponin I 0.028 NT-Pro-B Natriuret Pep 5134 H Total Protein Albumin Globulin Albumin/Globulin Ratio Procalcitonin < 0.05 TSH 2.090 SARS-CoV-2 Ag (Rapid)
[2020-03-25] MEDS ORDERED: POTASSIUM CHLORIDE 20 MEQ/15 ML UDC PO STA (14:26)
[2020-03-25] MEDS ORDERED: FUROSEMIDE 10 MG in SYRINGE 0 ML IV ONE (15:00)
[2020-03-25] MEDS: lisinopril 5 MG TAB PO SCH (20:27)
[2020-03-26] MEDS: cefTRIAXone SODIUM 1,000 MG in DEXTROSE 5% 50 ML IV SCH (01:34)
[2020-03-26] MEDS: DOXYCYCLINE HYCLATE 100 MG in DEXTROSE 5% 100 ML IV SCH ×2 (02:10→15:06)
[2020-03-26 08:20] LABS: Basophils # (auto) 0.01 K/uL (0-0.2); Basophils % (auto) 0.1 %; Eosinophils # (auto) 0.13 K/uL (0-0.5); Eosinophils % (auto) 1.6 %; Hemoglobin 12.2 g/dL (12.0-16.0); Immature Granulocytes # (auto) 0.02 K/uL (0.00-0.02); Immature Granulocytes % (auto) 0.2 %; Lymphocytes # (auto) 1.09 K/uL (1.2-3.4); Mean Corpuscular Hemoglobin 30.3 pg (25-34); Mean Corpuscular Hgb Conc 32.1 g/dL (32-36); Mean Corpuscular Volume 94.3 fL (80-100); Mean Platelet Volume 11.7 fL (7.4-10.4); Monocytes # (auto) 1.01 K/uL (0.11-0.59); Monocytes % (auto) 12.1 %; Neutrophils # (auto) 6.11 K/uL (1.4-6.5); Platelet Count 210 K/uL (130-400); RDW Coefficient of Variation 15.1 % (11.5-14.5); RDW Standard Deviation 52.1 fL (36.4-46.3); Red Blood Count 4.03 M/uL (4.2-5.4); White Blood Count 8.37 K/uL (4.8-10.8)
[2020-03-26 08:40] LABS: Albumin Level 3.2 gm/dl (3.4-5.0); BUN Creatinine Ratio 33.9 (10-20); Calcium 9.8 mg/dl (8.5-10.1); Creatinine Clr Calc Pharmacy 31.8 ml/min; Magnesium 1.8 mg/dl (1.8-2.4)
[2020-03-26 08:43] LABS: Albumin Globulin Ratio 1.1 (0.9-2); Bilirubin,Total 0.6 mg/dl (0.2-1); Globulin 2.9 gm/dl (2.5-4.0); Total Protein 6.1 gm/dl (6.4-8.2)
--- NOTE | 2020-03-26 08:46 | Electrocardiogram Report ---
Test Reason : Blood Pressure : / mmHG Vent. Rate : 060 BPM Atrial Rate : 060 BPM P-R Int : 144 ms QRS Dur : 120 ms QT Int : 432 ms P-R-T Axes : 059 045 091 degrees QTc Int : 432 ms Normal sinus rhythm Left bundle branch block Abnormal ECG When compared with ECG of 25-MAR-2020 06:56, Sinus rhythm has replaced Atrial fibrillation Vent. rate has decreased BY 68 BPM Confirmed by Cyrus Farooq ([id number]) on 03/26/2020 8:45:36 AM Referred By: Iliana Lewis Sharon Confirmed By:Cyrus Farooq
[2020-03-26] MEDS: TOCOPHERYL, DL-ALPHA 400 UNITS CAP PO SCH ×2 (09:06→20:09)
[2020-03-26] MEDS: busPIRone 5 MG TAB PO SCH ×2 (09:06→20:09)
[2020-03-26] MEDS: APIXABAN 2.5 MG TAB PO SCH ×2 (09:06→20:09)
[2020-03-26] MEDS: VENLAFAXINE HCL XR 75 MG CAPXR PO SCH (09:06)
[2020-03-26] MEDS: lisinopril 5 MG TAB PO SCH ×2 (09:07→20:09)
[2020-03-26] MEDS: ASPIRIN 81 MG ECTAB PO SCH (09:07)
[2020-03-26] MEDS: CALCIUM CARBONATE 1250MG TAB PO SCH ×2 (09:16→20:09)
[2020-03-26] MEDS: CHOLECALCIFEROL 1,000 UNITS 25 MCG TAB PO SCH (09:16)
[2020-03-26] MEDS: POTASSIUM CHLORIDE 10 MEQ TABCR PO SCH (09:17)
[2020-03-26] MEDS: risperiDONE 0.5 MG TABLET PO PRN (09:32)
--- NOTE | 2020-03-26 09:52 | Hospitalist Progress Note ---
Date of Service March 26, 2020 Assessment & Plan (1) Atrial fibrillation with RVR: Paroxysmal atrial fibrillation with rapid ventricular response Chronic anticoagulation (with Eliquis) Chronic left bundle branch block -as per 03/24/2020 ER note: "The patient presents to the ED with a chief complaint of rapid atrial fibrillation. The patient was having palpitations that started this evening. EMS was called. She was also breathing heavily and staff noticed this at the local nursing facility where she resides. EMS provided 15 mg of IV Cardizem. This did transiently slow the patient's heart rate down into the 80s or 90s. Her heart rate increased to about 170 upon her arrival here. Patient denies any recent illness. She is in the non-Covid unit at the [facility]. She has no additional complaints at this time. She does have a chronic history of paroxysmal atrial fibrillation with RVR and is chronically on Eliquis." -mild elevated initial troponin of 0.049 on presentation which trended down, initial troponin appears to be related to initial rapid ventricular response from the atrial fibrillation -patient was transitioned from IV Cardiazem drip to metoprolol by admitting hospitalist -as of 03/25/2020: Patient converted from the admission atrial fibrillation with RVR to sinus bradycardia around 7 AM on 03/25/2020 .patient breathing on room air. no respiratory distress. patient does not appear to be in pain. patient is a poor historian on review of systems and health history. patient is very easily started by loud noises included loud speech. otherwise, patient cooperative on exam. as per nursing staff, she reports that she had communicated with patient's daughter that patient can get aggressive with behavior at [facility] but patient currently has been cooperative on exam. -as per 03/25/2020 cardiology notes " Patient is a an 84-year-old female with well-documented history of paroxysmal atrial fibrillation, underlying conduction system disease with left bundle branch block, sinus bradycardia poorly tolerant of AV minh blocking drugs past who presents now once again having lapsed into atrial fibrillation. Patient poorly tolerant of the rhythm when present by echocardiography proved on spontaneous conversion to sinus as patient has done multiple times in the past. Patient appropriately anticoagulated with Eliquis. Not a long-term candidate for antiarrhythmic therapy or pacemaker insertion in light of significantly progressive dementia Patient has received oral metoprolol today We will consider restarting metoprolol succinate 12.5 mg in a.m. holding further metoprolol today Would recommend continuing Eliquis, increasing lisinopril to 5 mg p.o. twice daily, add potassium supplement at 10 mEq p.o. daily chronically We will give single dose of IV furosemide today 10 mg with 20 equivalents potassium chest x-ray demonstrated mild congestive heart failure not unexpected given findings on echocardiogram during elevated heart rates" -hospitalist updates for 03/26/2020: (daughter Karlene [phone] has been updated on 03/25/2020 and 03/26/2020 and despite being updated of patient's hemodynamic stability, she is concerned of patient's progressive functional decline after history of COVID diagnosed 01/20/2020 with subsequent hospitalizations and she requests for palliative care consult to speak with her and her brother on future goals of care. At this time, she allows for full treatment of medical issues as per standards of care while affirmed code status to be DNI/DNR Patient seen and examined on 03/26/2020. Telemetry reported bradycardia overnight with low of 45 bpm and patient asymptomatic. In the AM her heart rates around 70 bpm. Patient is alert but same dementia behavior of not being oriented to her current stay in the hospital and appears anxious. But is is breathing com fortably and not in acute distress) -awaiting cardiology on any further cardiac medication adjustments Hypertension -on home dose lisinopril Abnormal Chest X ray (Lung Infiltrates on Chest X ray) -admission CXR: Cardiomegaly with diffuse coarsening of the interstitium. This could represent a component of mild congestive failure or possibly an infectious/inflammatory pneumonitis. -admitting hospitalist Empirically started on Rocephin and doxycycline in case of any pneumonia -current hospitalist question whether there is even a pneumonia: can continue antibiotics for now, check procalcitonin levels, check BNP -of note that patient had positive COVID-19 test on 01/20/2020 -COVID 19 negative tests on 02/21/2020, and on 03/24/2020 -repeat CXR on 03/26/2020 History of dementia -reorient as needed -on home dose venlafaxine 75 mg daily and buspar 10 mg bid -on risperidone prn -adding ativan low dose prn for agitation or anxiety History of depression -Continue venlafaxine. Sleep apnea -on CPAP. Deep venous thrombosis prophylaxis: on home dose Eliquis and home dose aspirin DISPOSITION: Code status is DNR as per admission hospitalist discussion with Joshua Walsh. The patient has POLST form as per Joshua Walsh. daughter Karlene [phone] has been updated on 03/25/2020 and 03/26/2020 and despite being updated of patient's hemodynamic stability, she is concerned of patient's progressive functional decline after history of COVID diagnosed 01/20/2020 with subsequent hospitalizations and she requests for palliative care consult to speak with her and her brother on future goals of care. At this time, she allows for full treatment of medical issues as per standards of care while affirmed code status to be DNI/DNR Admission and Anticipated Discharge Date Admission Date: March 24, 2020 Subjective daughter Karlene [phone] has been updated on 03/25/2020 and 03/26/2020 and despite being updated of patient's hemodynamic stability, she is concerned of patient's progressive functional decline after history of COVID diagnosed 01/20/2020 with subsequent hospitalizations and she requests for palliative care consult to speak with her and her brother on future goals of care. At this time, she allows for full treatment of medical issues as per standards of care while affirmed code status to be DNI/DNR Patient seen and examined on 03/26/2020. Telemetry reported bradycardia overnight with low of 45 bpm and patient asymptomatic. In the AM her heart rates around 70 bpm. Patient is alert but same dementia behavior of not being oriented to her current stay in the hospital and appears anxious. But is is breathing comfortably and not in acute distress. Review of Systems Review of Systems: All systems reviewed & are unremarkable except as noted in Subjective Physical Exam Eyes: PERRL, conjunctivae normal, anicteric sclerae EOM intact bilaterally ENMT: external ear and nose normal, oropharynx normal Neck: normal visual inspection Respiratory: normal respiratory effort Cardiovascular: Rate/Rhythm: regular rhythm Gastrointestinal (Abdomen): normal bowel sounds, soft, nontender, no hepatosplenomegaly Musculoskeletal: Head/Neck/Chest: normocephalic Neurologic: PERRL, EOMI, accommodation nl, no face palsy, no dysarthria Psychiatric: Orientation: alert (patient is very easily started by loud noises included loud speech) Affect: + anxious affect Results & Data Results & Data ([facility]) Vital Signs (Past 12 Hours) Vital Signs Temp Pulse Pulse Pulse Resp BP Pulse Ox 03/26/20 08:00 36.3 C L 60 18 141/83 H 95 03/26/20 07:33 57 L 03/26/20 04:19 36.8 C 61 14 139/87 95 03/25/20 23:35 37 C 63 16 142/88 H 93
[2020-03-26] MEDS ORDERED: LORazepam 0.25 MG/0.5 ML VIAL IV PRN (10:02)
--- NOTE | 2020-03-26 11:37 | XRay Report ---
SINGLE VIEW CHEST CLINICAL HISTORY: Dyspnea. FINDINGS: An AP, portable, upright chest radiograph is compared to study dated 03/24/2020. The examin ation is degraded by portable technique and patient rotation. The heart is enlarged noting atherosc lerotic calcification of the thoracic aorta. There is pulmonary vascular congestion as well as diffus e coarsening of interstitium. There are layering pleural effusions with bibasilar consolidation. No p neumothorax is seen. The skeletal structures are osteopenic. The bony thorax is grossly intact. Arthr itic change is seen in the left shoulder. IMPRESSION: 1. Cardiomegaly with evidence of congestive failure. 2. Coarsening of the interstitium likely represents pulmonary edema. Correlate clinically for evidenc e of a superimposed infectious/inflammatory pneumonitis. 3. Layering pleural effusions with bibasilar consolidation. These are new from 03/24/2020. ACT 112: Negative or not required by law. Electronically signed by: Popeye Chiang M.D. 03/26/2020 11:35 AM
--- NOTE | 2020-03-26 12:31 | Cardiology Progress Note ---
Date of Service March 26, 2020 Assessment & Plan (1) Paroxysmal atrial fibrillation with rapid ventricular response: Patient is a an 84-year-old female with well-documented history of paroxysmal atrial fibrillation, underlying conduction system disease with left bundle branch block, sinus bradycardia poorly tolerant of AV minh blocking drugs past who presents now once again having lapsed into atrial fibrillation. Patient poorly tolerant of the rhythm when present by echocardiography with marked decline in LV function with improvement on spontaneous conversion to sinus as patient has done multiple times in the past. Patient appropriately anticoagulated with Eliquis. Not a long-term candidate for antiarrhythmic therapy or pacemaker insertion in light of significantly progressive dementia Patient has received oral metoprolol today We will restart metoprolol succinate 12.5 mg daily Would recommend continuing Eliquis, increasing lisinopril to 5 mg p.o. twice daily, add potassium supplement at 10 mEq p.o. daily chronically Overall prognosis extremely limited with declining mental status and dementia, poor tolerance of atrial fibrillation when present (2) Left bundle branch block: Admission and Anticipated Discharge Date Admission Date: March 24, 2020 Subjective Patient seen and examined, chart, medications telemetry reviewed. Patient unable to offer any information due to underlying dementia. No acute complaints. No arrhythmias overnight Physical Exam Constitutional: + altered mental status and + frail appearing Eyes: PERRL, conjunctivae normal, anicteric sclerae ENMT: external ear and nose normal, oropharynx normal Neck: trachea midline, no thyromegaly Respiratory: normal respiratory effort, lungs clear to auscultation Cardiovascular: Rate/Rhythm: regular rate and regular rhythm Heart Sounds: + murmur (Grade 2/6 systolic) Vessels: no JVD Extremities: no edema Gastrointestinal (Abdomen): normal bowel sounds, soft, nontender, no hepatosplenomegaly Musculoskeletal: no cyanosis or clubbing, extremities motor strength 5/5 Results & Data ([facility]) Vital Signs (Past 12 Hours) Vital Signs Temp Pulse Pulse Pulse Resp BP Pulse Ox 03/26/20 11:12 36.5 C 63 18 108/66 94 03/26/20 08:00 36.3 C L 60 18 141/83 H 95 03/26/20 07:33 57 L 03/26/20 04:19 36.8 C 61 14 139/87 95 Laboratory Results Laboratory Results - last 24 hr 03/25/20 03/26/20 03/26/20 11:39 07:51 07:51 WBC 8.37 RBC 4.03 L Hgb 12.2 Hct 38.0 MCV 94.3 MCH 30.3 MCHC 32.1 RDW Std Deviation 52.1 H RDW Coeff of Sergio 15.1 H Plt Count 210 MPV 11.7 H Immature Gran % (Auto) 0.2 Neut % (Auto) 73.0 Lymph % (Auto) 13.0 Donley % (Auto) 12.1 Eos % (Auto) 1.6 Baso % (Auto) 0.1 Neut # (Auto) 6.11 Lymph # (Auto) 1.09 L Donley # (Auto) 1.01 H Eos # (Auto) 0.13 Baso # (Auto) 0.01 Immature Gran # (Auto) 0.02 Sodium 143 Potassium 4.0 Chloride 109 H Carbon Dioxide 27 Anion Gap 7.0 BUN 32 H Creatinine 0.93 Est Cr Clr Drug Dosing 31.8 Est GFR ( Amer) 65.0 Est GFR (Non-Af Amer) 56.0 BUN/Creatinine Ratio 33.9 H Glucose 107 H Calcium 9.8 Phosphorus 3.0 Magnesium 1.8 Total Bilirubin 0.6 AST 16 ALT 16 Alkaline Phosphatase 68 Total Protein 6.1 L Albumin 3.2 L Globulin 2.9 Albumin/Globulin Ratio 1.1 Procalcitonin < 0.05
[2020-03-26] MEDS: METOPROLOL SUCC 25MG EXT REL TAB PO SCH (13:35)
[2020-03-26] MEDS ORDERED: ACETAMINOPHEN 325 MG TAB PO PRN (17:02)
[2020-03-26] MEDS ORDERED: FUROSEMIDE 20 MG in SYRINGE 0 ML IV ONE (17:15)
[2020-03-26] MEDS: METOPROLOL TARTRATE 1 MG/ML VIAL IV PRN (20:08)
[2020-03-26] MEDS ORDERED: dilTIAZem HCl 5 MG/ML 5 ML VIAL IV STA (20:50)
[2020-03-26] MEDS ORDERED: STAT IV Infusion **Titration per Protocol STA (20:50)
[2020-03-26] MEDS ORDERED: METOPROLOL TARTRATE 25 MG TAB PO STA (20:55)
[2020-03-26] MEDS ORDERED: dilTIAZem HCL 125 MG in DEXTROSE 5% 100 ML IV SCH (21:00)
[2020-03-26] MEDS ORDERED: SODIUM CHLORIDE 0.9% 500 ML IV SCH (22:30)
[2020-03-27] MEDS: cefTRIAXone SODIUM 1,000 MG in DEXTROSE 5% 50 ML IV SCH (01:37)
[2020-03-27] MEDS: DOXYCYCLINE HYCLATE 100 MG in DEXTROSE 5% 100 ML IV SCH ×2 (02:12→14:26)
[2020-03-27 03:29] LABS: Basophils # (auto) 0.02 K/uL (0-0.2); Basophils % (auto) 0.3 %; Eosinophils # (auto) 0.29 K/uL (0-0.5); Eosinophils % (auto) 4.3 %; Hematocrit (blood only) 37.4 % (37-47); Hemoglobin 12.1 g/dL (12.0-16.0); Immature Granulocytes # (auto) 0.02 K/uL (0.00-0.02); Immature Granulocytes % (auto) 0.3 %; Lymphocytes # (auto) 1.15 K/uL (1.2-3.4); Lymphocytes % (auto) 17.1 %; Mean Corpuscular Hemoglobin 30.3 pg (25-34); Mean Corpuscular Hgb Conc 32.4 g/dL (32-36); Mean Corpuscular Volume 93.7 fL (80-100); Mean Platelet Volume 11.6 fL (7.4-10.4); Monocytes # (auto) 0.99 K/uL (0.11-0.59); Monocytes % (auto) 14.7 %; Neutrophils # (auto) 4.27 K/uL (1.4-6.5); Neutrophils % (auto) 63.3 %; Platelet Count 180 K/uL (130-400); RDW Coefficient of Variation 14.8 % (11.5-14.5); RDW Standard Deviation 50.9 fL (36.4-46.3); Red Blood Count 3.99 M/uL (4.2-5.4); White Blood Count 6.74 K/uL (4.8-10.8)
[2020-03-27 04:19] LABS: Albumin Level 2.8 gm/dl (3.4-5.0); Bilirubin,Total 0.4 mg/dl (0.2-1); Calcium 9.3 mg/dl (8.5-10.1); Creatinine Clr Calc Pharmacy 34.4 ml/min; Est GFR (African American) 71.4; Est GFR (Non-African American) 61.6; Globulin 2.8 gm/dl (2.5-4.0); Magnesium 1.7 mg/dl (1.8-2.4); Potassium 3.4 mmol/L (3.5-5.1); Total Protein 5.6 gm/dl (6.4-8.2)
[2020-03-27] MEDS: POTASSIUM CHLORIDE / WTR 10 MEQ/100 ML PLCT IV SCH ×2 (07:42→08:57)
[2020-03-27] MEDS: MAGNESIUM SULFATE / D5W 1 GM/100 ML BAG IV SCH ×2 (07:42→10:01)
[2020-03-27] MEDS: CHOLECALCIFEROL 1,000 UNITS 25 MCG TAB PO SCH (07:48)
[2020-03-27] MEDS: APIXABAN 2.5 MG TAB PO SCH ×2 (07:48→20:23)
[2020-03-27] MEDS: busPIRone 5 MG TAB PO SCH ×2 (07:48→20:23)
[2020-03-27] MEDS: lisinopril 5 MG TAB PO SCH ×2 (07:48→20:24)
[2020-03-27] MEDS: ASPIRIN 81 MG ECTAB PO SCH (07:49)
[2020-03-27] MEDS: METOPROLOL SUCC 25MG EXT REL TAB PO SCH (07:49)
[2020-03-27] MEDS: POTASSIUM CHLORIDE 10 MEQ TABCR PO SCH (07:49)
[2020-03-27] MEDS: VENLAFAXINE HCL XR 75 MG CAPXR PO SCH (07:49)
[2020-03-27] MEDS: TOCOPHERYL, DL-ALPHA 400 UNITS CAP PO SCH ×2 (08:57→20:22)
[2020-03-27] MEDS: CALCIUM CARBONATE 1250MG TAB PO SCH ×2 (08:57→20:22)
--- NOTE | 2020-03-27 09:28 | Palliative Care Consultation ---
Date of Consultation March 27, 2020 Assessment & Plan (1) Palliative care encounter: This individual is an 84 year old female, who is a permanent resident at [facility] who presented with altered mental status from baseline, tachycardia, and shortness of breath. She has recently been COVID-19 positive and per her family has declined since then. She has a significant PMH that includes: dementia, PEDRITO, Atrial fibrillation, CKDIII, HTN, tricuspid valve regurgitation, Aortic jena sclerosis, GERD, HLD, and LACY. On admission, she was found to be in rapid A-fib and was started on a Diltiazem drip. Cardiology was consulted and some medication changes were made; however, anticipated that overall prognosis is guarded given her overall worsening mental status. Her family has voiced concerns of her functional decline over the past few months and requested to speak with palliative care. She was a confirmed DNR/DNI. We were consulted per family request and discuss goals of care. I was able to meet with the patient in room 241-1. Pinky was awake, alert, and oriented to herself. She was not able to tell me where she was or why she was admitted. She could recall her daughter, Karlene's name and was able to follow simple commands including wiggling her toes, and squeezing her hands. I spoke extensively to her daughter, Karlene, regarding her overall witnessed decline over the past few months. She has been able to do some window visits with her at [facility], where she is a permanent resident, and commented on how she has seemed more unsteady and less engaged overall. We discussed palliative care vs hospice and how they both could be utilized in her mothers care. She has had a few telehealth appointments with [facility] (Palliative [facility]), but did not feel this was meeting her mothers goal needs. She mentioned that her mother lost her a year ago and really declined since then. We talked about the benefits of having hospice at [facility], continuing current medication regimen, embracing good days, and providing symptom management on bad days. She spoke with her brother and they both agree to pursue their mother returning to [facility] with [facility] (They used [facility] with their father). Family agreed that they would not want their mother to go back on the Diltiazem gtt for management of her A-fib. We did complete a POLST form over the phone reflecting their mothers wishes: DNR/DNI, comfort measures only, trial abx, and no artificial nutrition/hydration. I went back to talk with her nurse, Antonio, whom told me that the patients heart rate jumped to the 150's and she was saying 'Karlene is going to be mad at me". I met with the patient who appeared anxious, we did some deep breathing, which she was receptive to. She may benefit from a low dose anxiolytic moving forward. Family planning on her returning to [facility] with Hospice services tomorrow, March 28. (2) Weakness: (3) Paroxysmal atrial fibrillation with rapid ventricular response: (4) Altered mental status: History of Present Illness Reason for Consultation: Goals of Care Requesting Physician: Dr. Kirby Caban Attending Physician: Kirby Caban MD History of Present Illness This individual is an 84 year old female, who is a permanent resident at [facility] who presented with altered mental status from baseline, tachycardia, and shortness of breath. She has recently been COVID-19 positive and per her family has declined since then. She has a significant PMH that includes: dementia, PEDRITO, Atrial fibrillation, CKDIII, HTN, tricuspid valve regurgitation, Aortic jena sclerosis, GERD, HLD, and LACY. On admission, she was found to be in rapid A-fib and was started on a Diltiazem drip. Her family has voiced concerns of her functional decline over the past few months and requested to speak with palliative care. She was a confirmed DNR/DNI. We were consulted per family request and discuss goals of care. Please see A/P for further details. Thank you kindly for involving the palliative care consultation service with this individual. Allergies Allergy/AdvReac Type Severity Reaction Status Date / Time alendronate sodium Allergy Intermediate HIVES Verified 03/24/20 21:24 naproxen Allergy Mild EDEMA Verified 03/24/20 21:25 simvastatin AdvReac Mild MUSCLE Verified 03/24/20 21:25 FATIGUE Home Medications Medication Instructions Recorded Confirmed Type aspirin 81 mg PO DAILY 06/04/18 03/24/20 History cholecalciferol (vitamin D3) 2,000 units PO DAILY 06/04/18 03/24/20 History [Vitamin D3] venlafaxine 75 mg PO DAILY 06/04/18 03/24/20 History buspirone 10 mg PO BID 01/20/20 03/24/20 History vitamin E 400 unit PO BID 01/20/20 03/24/20 History acetaminophen 650 mg PO Q4H PRN MDD 3 GMS 02/11/20 03/24/20 History APAP/24 HOURS polyethylene glycol 3350 [ClearLax] 17 g PO DAILY PRN 02/11/20 03/24/20 History risperidone 0.5 mg PO TID PRN 02/21/20 03/24/20 History apixaban [Eliquis] 2.5 mg PO BID 30 Days #60 tab 02/26/20 03/24/20 Rx lisinopril [Zestril] 5 mg PO QAM 30 Days #30 tab 02/26/20 03/24/20 Rx calcium carbonate [Oysco-500] 500 mg PO BID 03/24/20 03/24/20 History Patient History Medical History (Updated 03/27/20 @ 09:28 by NOEMI Joiner) Anemia Anxiety Atrial fibrillation Gout PEDRITO on CPAP Palliative care encounter Sepsis Surgical History H/O: hysterectomy History of cataract surgery History of cholecystectomy History of parathyroid surgery Family History Other No significant family history Social History Smoking Status: Never smoker Hx Alcohol Use: No Hx Substance Use: No Preferred Language: Togolese Communication Ability: Unable Scrap Metal Burner Required: No Beliefs That Will Affect Care: None marital status: / Current Living Situation: Personal Care Facility Current Living Situation Comment: [facility] current occupational status: retired Feels Safe at Home: Yes Assistive Devices: Oxygen - Continuous Review of Systems Review of Systems: Parshall Symptom Assessment System Revised (ESAS-R) Pain AD: 0/3 Anxiety: 1/3 PPS: 30% Physical Exam Constitutional: + thin, + frail appearing and cooperative; not combative Respiratory: normal respiratory effort; no respiratory distress Auscultation: + diminished lung sounds Cardiovascular: Rate/Rhythm: regular rate and regular rhythm Heart Sounds: normal S1 and normal S2 Vessels: dorsalis pedis pulses present and radial pulses present Extremities: normal capillary refill Gastrointestinal (Abdomen): normal bowel sounds, soft, nontender, no hepatosplenomegaly Skin: + pallor Psychiatric: Orientation: alert, oriented to person and cooperative Insight: + impaired insight Judgement: + impaired judgement Results & Data ([facility]) Vital Signs (Past 12 Hours) Vital Signs Temp Pulse Pulse Pulse Resp BP Pulse Ox 03/27/20 07:44 36.6 C 79 18 146/79 H 95 03/27/20 07:34 100 H 03/27/20 03:53 103/65 03/27/20 03:44 36.3 C L 83 18 93 03/27/20 01:40 72 111/72 03/27/20 00:12 125 H 113/79 03/26/20 23:12 36.5 C 81 16 112/74 94 03/26/20 22:26 145 H 93/63 L PG Care Time/CCT Total # of Minutes Spent Total Time Spent with Patient: Total time spent is greater than 50% in coordination of care (as documented) at patient's floor/unit and/or counseling patient: 100 Coding Level of Care Code 48594 Inpt Consult Level 4 Diagnoses Palliative care encounter Z51.5 Weakness R53.1 Paroxysmal atrial fibrillation with rapid ventricular response I48.0 Altered mental status R41.82 Time Spent (min) 100 Time Spent Midlevel Total time spent 100 minutes with > 50% of that time spent assessing the patient, discussing goals of care with family and collaborating with IDT
--- NOTE | 2020-03-27 11:06 | Hospitalist Progress Note ---
Date of Service March 27, 2020 Assessment & Plan (1) Atrial fibrillation with RVR: Paroxysmal atrial fibrillation with rapid ventricular response Chronic anticoagulation (with Eliquis) Chronic left bundle branch block -as per 03/24/2020 ER note: "The patient presents to the ED with a chief complaint of rapid atrial fibrillation. The patient was having palpitations that started this evening. EMS was called. She was also breathing heavily and staff noticed this at the local nursing facility where she resides. EMS provided 15 mg of IV Cardizem. This did transiently slow the patient's heart rate down into the 80s or 90s. Her heart rate increased to about 170 upon her arrival here. Patient denies any recent illness. She is in the non-Covid unit at the [facility]. She has no additional complaints at this time. She does have a chronic history of paroxysmal atrial fibrillation with RVR and is chronically on Eliquis." -mild elevated initial troponin of 0.049 on presentation which trended down, initial troponin appears to be related to initial rapid ventricular response from the atrial fibrillation -patient was transitioned from IV Cardiazem drip to metoprolol by admitting hospitalist -as of 03/25/2020: Patient converted from the admission atrial fibrillation with RVR to sinus bradycardia around 7 AM on 03/25/2020 .patient breathing on room air. no respiratory distress. patient does not appear to be in pain. patient is a poor historian on review of systems and health history. patient is very easily started by loud noises included loud speech. otherwise, patient cooperative on exam. as per nursing staff, she reports that she had communicated with patient's daughter that patient can get aggressive with behavior at [facility] but patient currently has been cooperative on exam. -as per 03/25/2020 cardiology notes " Patient is a an 84-year-old female with well-documented history of paroxysmal atrial fibrillation, underlying conduction system disease with left bundle branch block, sinus bradycardia poorly tolerant of AV minh blocking drugs past who presents now once again having lapsed into atrial fibrillation. Patient poorly tolerant of the rhythm when present by echocardiography proved on spontaneous conversion to sinus as patient has done multiple times in the past. Patient appropriately anticoagulated with Eliquis. Not a long-term candidate for antiarrhythmic therapy or pacemaker insertion in light of significantly progressive dementia Patient has received oral metoprolol today We will consider restarting metoprolol succinate 12.5 mg in a.m. holding further metoprolol today Would recommend continuing Eliquis, increasing lisinopril to 5 mg p.o. twice daily, add potassium supplement at 10 mEq p.o. daily chronically We will give single dose of IV furosemide today 10 mg with 20 equivalents potassium chest x-ray demonstrated mild congestive heart failure not unexpected given findings on echocardiogram during elevated heart rates" -hospitalist updates for 03/26/2020: (daughter Karlene [phone] has been updated on 03/25/2020 and 03/26/2020 and despite being updated of patient's hemodynamic stability, she is concerned of patient's progressive functional decline after history of COVID diagnosed 01/20/2020 with subsequent hospitalizations and she requests for palliative care consult to speak with her and her brother on future goals of care. At this time, she allows for full treatment of medical issues as per standards of care while affirmed code status to be DNI/DNR -patient subsequently had adjustments with lisinopril, potassium, and Lasix 20 mg x 1 on 03/26/2020 and for beta noah - however she returned to atrial fibrillation with RVR and started again on Diltiazem drip by night time hospitalist. Discussed with cardiology Dr. Eastman and while we are continuing to adjust cardiac medications today and assist with repletion of electrolytes (she is given additional potassium and magnesium), her overall cardiac prognosis is poor as per Dr. Eastman and he agrees with palliative care involvement in patient's care. On exam in the AM of 03/27/2020, patient continues to be in atrial fibrillation with tachycardia but patient does not appear to feel chest pain or palpitations. She is on nasal cannula oxygen. She is verbal, but cannot answer questions on review of systems, she is oriented to herself consistent with her history of dementia Hypertension -lisinopril Abnormal Chest X ray (Lung Infiltrates on Chest X ray) -admission CXR: Cardiomegaly with diffuse coarsening of the interstitium. This could represent a component of mild congestive failure or possibly an infectious/inflammatory pneumonitis. -admitting hospitalist Empirically started on Rocephin and doxycycline in case of any pneumonia -current hospitalist question whether there is even a pneumonia: can continue antibiotics for now, check procalcitonin levels, check BNP -of note that patient had positive COVID-19 test on 01/20/2020 -COVID 19 negative tests on 02/21/2020, and on 03/24/2020 -repeat CXR on 03/26/2020 History of dementia -reorient as needed -on home dose venlafaxine 75 mg daily and buspar 10 mg bid -on risperidone prn -adding ativan low dose prn for agitation or anxiety History of depression -Continue venlafaxine. Sleep apnea -on CPAP. Deep venous thrombosis prophylaxis: on home dose Eliquis and home dose aspirin DISPOSITION: Code status is DNR as per admission hospitalist discussion with Joshua Walsh. The patient has POLST form as per Joshua Walsh. daughter Karlene [phone] has been updated on 03/25/2020 and 03/26/2020 and despite being updated of patient's hemodynamic stability, she is concerned of patient's progressive functional decline after history of COVID diagnosed 01/20/2020 with subsequent hospitalizations and she requests for palliative care consult to speak with her and her brother on future goals of care. At this time, she allows for full treatment of medical issues as per standards of care while affirmed code status to be DNI/DNR. Further palliative care discussions with the palliative care service and her family Admission and Anticipated Discharge Date Admission Date: March 24, 2020 Subjective -patient subsequently had adjustments with lisinopril, potassium, and Lasix 20 mg x 1 on 03/26/2020 and for beta noah - however she returned to atrial fibrillation with RVR and started again on Diltiazem drip by night time hospitalist. Discussed with cardiology Dr. Eastman and while we are continuing to adjust cardiac medications today and assist with repletion of electrolytes (she is given additional potassium and magnesium), her overall cardiac prognosis is poor as per Dr. Eastman and he agrees with palliative care involvement in patient's care. On exam in the AM of 03/27/2020, patient continues to be in atrial fibrillation with tachycardia but patient does not appear to feel chest pain or palpitations. She is on nasal cannula oxygen. She is verbal, but cannot answer questions on review of systems, she is oriented to herself consistent with her history of dementia Review of Systems Review of Systems: Unobtainable due to cognitive status Physical Exam Eyes: PERRL, conjunctivae normal, anicteric sclerae EOM intact bilaterally ENMT: external ear and nose normal, oropharynx normal Neck: normal visual inspection Respiratory: normal respiratory effort (on nasal cannula) Cardiovascular: Rate/Rhythm: + tachycardic and + irregularly irregular Gastrointestinal (Abdomen): normal bowel sounds, soft, nontender, no hepatosplenomegaly Musculoskeletal: Head/Neck/Chest: normocephalic Neurologic: PERRL, EOMI, accommodation nl, no face palsy, no dysarthria Psychiatric: Orientation: alert Results & Data Results & Data ([facility]) Vital Signs (Past 12 Hours) Vital Signs Temp Pulse Pulse Pulse Resp BP Pulse Ox 03/27/20 07:44 36.6 C 79 18 146/79 H 95 03/27/20 07:34 100 H 03/27/20 03:53 103/65 03/27/20 03:44 36.3 C L 83 18 93 03/27/20 01:40 72 111/72 03/27/20 00:12 125 H 113/79 03/26/20 23:12 36.5 C 81 16 112/74 94
[2020-03-27] MEDS: risperiDONE 0.5 MG TABLET PO PRN ×2 (11:20→20:30)
[2020-03-27] MEDS: METOPROLOL TARTRATE 1 MG/ML VIAL IV PRN (11:59)
--- NOTE | 2020-03-27 12:31 | Cardiology Progress Note ---
Date of Service March 27, 2020 Assessment & Plan (1) Paroxysmal atrial fibrillation with rapid ventricular response: Patient is a an 84-year-old female with well-documented history of paroxysmal atrial fibrillation, underlying conduction system disease with left bundle branch block, sinus bradycardia poorly tolerant of AV minh blocking drugs past who presents now once again having lapsed into atrial fibrillation. Patient poorly tolerant of the rhythm when present by echocardiography with marked decline in LV function with improvement on spontaneous conversion to sinus as patient has done multiple times in the past. Patient appropriately anticoagulated with Eliquis. Not a long-term candidate for antiarrhythmic therapy or pacemaker insertion in light of significantly progressive dementia Patient once again lapsed into atrial fibrillation last night now on IV diltiazem Will resume metoprolol tartrate 25 mg twice per day with plan on discontinuing IV diltiazem later today. Agree with potassium and magnesium supplement, avoid diuretics Overall prognosis extremely limited with declining mental status and dementia, poor tolerance of atrial fibrillation with elevated ventricular response rate (2) Left bundle branch block: Admission and Anticipated Discharge Date Admission Date: March 24, 2020 Subjective Patient seen and examined, chart, medications telemetry reviewed. Patient unable to offer any information due to underlying dementia. No acute complaints. Patient once again lapsed back into atrial fibrillation though rate better controlled on current therapies, rates at time still elevated Physical Exam Constitutional: + altered mental status and + frail appearing Eyes: PERRL, conjunctivae normal, anicteric sclerae ENMT: external ear and nose normal, oropharynx normal Neck: trachea midline, no thyromegaly Respiratory: normal respiratory effort, lungs clear to auscultation Cardiovascular: Rate/Rhythm: + irregularly irregular Heart Sounds: + murmur (Grade 2/6 systolic) Vessels: no JVD Extremities: no edema Gastrointestinal (Abdomen): normal bowel sounds, soft, nontender, no hepatosplenomegaly Musculoskeletal: no cyanosis or clubbing, extremities motor strength 5/5 Results & Data ([facility]) Vital Signs (Past 12 Hours) Vital Signs Temp Pulse Pulse Pulse Resp BP BP 03/27/20 11:59 157 H 140/90 03/27/20 11:39 36.9 C 127 H 18 140/98 03/27/20 07:44 36.6 C 79 18 146/79 H 03/27/20 07:34 100 H 03/27/20 03:53 103/65 03/27/20 03:44 36.3 C L 83 18 03/27/20 01:40 72 111/72 Pulse Ox 03/27/20 11:59 03/27/20 11:39 92 03/27/20 07:44 95 03/27/20 07:34 03/27/20 03:53 03/27/20 03:44 93 03/27/20 01:40
[2020-03-27] MEDS: METOPROLOL TARTRATE 25 MG TAB PO SCH ×2 (12:58→20:22)
[2020-03-27 14:08] LABS: Albumin Level 3.1 gm/dl (3.4-5.0); BUN Creatinine Ratio 27.1 (10-20); Bilirubin,Total 0.5 mg/dl (0.2-1); Calcium 9.5 mg/dl (8.5-10.1); Creatinine Clr Calc Pharmacy 32.8 ml/min; Est GFR (African American) 67.6; Est GFR (Non-African American) 58.3; Globulin 3.2 gm/dl (2.5-4.0); Magnesium 2.4 mg/dl (1.8-2.4); Potassium 3.8 mmol/L (3.5-5.1); Total Protein 6.3 gm/dl (6.4-8.2)
--- NOTE | 2020-03-27 15:19 | Communication Note ---
Date of Service: March 27, 2020 Hospitalist discuss with her daughter Karlene by telephone to affirm the goals of care as discussed by palliative care team. As this time, the goal is to t ransition to hospice at shelter facility (her discharge to that facility may not happen today, possible tomorrow on 03/28/2020) so patient will be transferred from telemetry swain to medical swain. Hospital team will not be aggressively trying to monitor or attempt to control the heart rates strictly at this time. her daughter Karlene still prefers other vital signs and medications to be given in the hospital (but no IV heart rate control medication such as diltiazem drip). Code Status affirmed to be DNR/DNI
[2020-03-27] MEDS: AMOXICILLIN/CLAVULANATE 875 MG TAB PO SCH (17:33)
[2020-03-27] MEDS: DOXYCYCLINE HYCLATE 100 MG CAP PO SCH (22:30)
[2020-03-28] MEDS: DOXYCYCLINE HYCLATE 100 MG CAP PO SCH (06:10)
[2020-03-28 08:07] VITALS: BP 117/68; TEMP 98.2; O2SAT 96
--- NOTE | 2020-03-28 08:49 | Hospitalist Progress Note ---
Date of Service March 28, 2020 Assessment & Plan (1) Atrial fibrillation with RVR: Paroxysmal atrial fibrillation with rapid ventricular response Chronic anticoagulation (with Eliquis) Chronic left bundle branch block -as per 03/24/2020 ER note: "The patient presents to the ED with a chief complaint of rapid atrial fibrillation. The patient was having palpitations that started this evening. EMS was called. She was also breathing heavily and staff noticed this at the local nursing facility where she resides. EMS provided 15 mg of IV Cardizem. This did transiently slow the patient's heart rate down into the 80s or 90s. Her heart rate increased to about 170 upon her arrival here. Patient denies any recent illness. She is in the non-Covid unit at the [facility]. She has no additional complaints at this time. She does have a chronic history of paroxysmal atrial fibrillation with RVR and is chronically on Eliquis." -mild elevated initial troponin of 0.049 on presentation which trended down, initial troponin appears to be related to initial rapid ventricular response from the atrial fibrillation -patient was transitioned from IV Cardiazem drip to metoprolol by admitting hospitalist -as of 03/25/2020: Patient converted from the admission atrial fibrillation with RVR to sinus bradycardia around 7 AM on 03/25/2020 .patient breathing on room air. no respiratory distress. patient does not appear to be in pain. patient is a poor historian on review of systems and health history. patient is very easily started by loud noises included loud speech. otherwise, patient cooperative on exam. as per nursing staff, she reports that she had communicated with patient's daughter that patient can get aggressive with behavior at [facility] but patient currently has been cooperative on exam. -as per 03/25/2020 cardiology notes " Patient is a an 84-year-old female with well-documented history of paroxysmal atrial fibrillation, underlying conduction system disease with left bundle branch block, sinus bradycardia poorly tolerant of AV minh blocking drugs past who presents now once again having lapsed into atrial fibrillation. Patient poorly tolerant of the rhythm when present by echocardiography proved on spontaneous conversion to sinus as patient has done multiple times in the past. Patient appropriately anticoagulated with Eliquis. Not a long-term candidate for antiarrhythmic therapy or pacemaker insertion in light of significantly progressive dementia Patient has received oral metoprolol today We will consider restarting metoprolol succinate 12.5 mg in a.m. holding further metoprolol today Would recommend continuing Eliquis, increasing lisinopril to 5 mg p.o. twice daily, add potassium supplement at 10 mEq p.o. daily chronically We will give single dose of IV furosemide today 10 mg with 20 equivalents p otassium chest x-ray demonstrated mild congestive heart failure not unexpected given findings on echocardiogram during elevated heart rates" -hospitalist updates for 03/26/2020: (daughter Karlene [phone] has been updated on 03/25/2020 and 03/26/2020 and despite being updated of patient's hemodynamic stability, she is concerned of patient's progressive functional decline after history of COVID diagnosed 01/20/2020 with subsequent hospitalizations and she requests for palliative care consult to speak with her and her brother on future goals of care. At this time, she allows for full treatment of medical issues as per standards of care while affirmed code status to be DNI/DNR -patient subsequently had adjustments with lisinopril, potassium, and Lasix 20 mg x 1 on 03/26/2020 and for beta noah - however she returned to atrial fibrillation with RVR and started again on Diltiazem drip by night time hospitalist. Discussed with cardiology Dr. Eastman and while we are continuing to adjust cardiac medications today and assist with repletion of electrolytes (she is given additional potassium and magnesium), her overall cardiac prognosis is poor as per Dr. Eastman and he agrees with palliative care involvement in patient's care. On exam in the AM of 03/27/2020, patient continues to be in atrial fibrillation with tachycardia but patient does not appear to feel chest pain or palpitations. She is on nasal cannula oxygen. She is verbal, but cannot answer questions on review of systems, she is oriented to herself consistent with her history of dementia -03/28/2020: While on medical swain, her heart rates in the AM was recorded to be in the 50s. It would appear that patient had at this time converted from atrial fibrillation to sinus bradycardia. Currently on metoprolol 25 mg BID. Thania tomas discussed with Karlene by phone whether change in the cardiac status affects the previous plans for discharge to [facility] to [facility]. Patient's daughter says she would still like patient to return to [facility] to hospice and continue the oral cardiac medications. Hypertension -lisinopril Abnormal Chest X ray (Lung Infiltrates on Chest X ray) -admission CXR: Cardiomegaly with diffuse coarsening of the interstitium. This could represent a component of mild congestive failure or possibly an infectious/inflammatory pneumonitis. -admitting hospitalist Empirically started on Rocephin and doxycycline in case of any pneumonia -current hospitalist question whether there is even a pneumonia: can continue antibiotics for now, check procalcitonin levels, check BNP -of note that patient had positive COVID-19 test on 01/20/2020 -COVID 19 negative tests on 02/21/2020, and on 03/24/2020 -repeat CXR on 03/26/2020: Cardiomegaly with evidence of congestive failure. Coarsening of the interstitium likely represents pulmonary edema. Correlate clinically for evidence of a superimposed infectious/inflammatory pneumonitis. Layering pleural effusions with bibasilar consolidation. These are new from 03/24/2020. History of dementia -reorient as needed -on home dose venlafaxine 75 mg daily and buspar 10 mg bid -on risperidone prn -added ativan low dose prn for agitation or anxiety on this admission History of depression -Continue venlafaxine. Sleep apnea -on CPAP. Deep venous thrombosis prophylaxis: on home dose Eliquis and home dose aspirin Code status is DNR as per admission hospitalist discussion with Joshua Walsh. The patient has POLST form as per Joshua Walsh. DNR/DNI affirmed by her daughter Karlene daughter Karlene [phone] has been updated on 03/25/2020 and 03/26/2020 and despite being updated of patient's hemodynamic stability, she is concerned of patient's progressive functional decline after history of COVID diagnosed 01/20/2020 with subsequent hospitalizations Admission and Anticipated Discharge Date Admission Date: March 24, 2020 Subjective -03/28/2020: While on medical swain, her heart rates in the AM was recorded to be in the 50s. It would appear that patient had at this time converted from atrial fibrillation to sinus bradycardia. Currently on metoprolol 25 mg BID. Hospitalist discussed with Karlene by phone whether change in the cardiac status affects the previous plans for discharge to [facility] to hospice. Patient's daughter says she would still like patient to return to [facility] to hospice and continue the oral cardiac medications. patient seen and examined in the morning. She is just waking up from sleep with what appears to sinus bradycardia on exam in the 50s. Patient not able to give review of systems as per her dementia. She is not in distress. She is breathing comfortably on room air. Review of Systems Review of Systems: Unobtainable due to cognitive status Physical Exam Eyes: PERRL, conjunctivae normal, anicteric sclerae EOM intact bilaterally ENMT: external ear and nose normal, oropharynx normal Neck: normal visual inspection Respiratory: normal respiratory effort Cardiovascular: Rate/Rhythm: + bradycardic Gastrointestinal (Abdomen): normal bowel sounds, soft, nontender, no hepatosplenomegaly Musculoskeletal: Head/Neck/Chest: normocephalic Neurologic: PERRL, EOMI, accommodation nl, no face palsy, no dysarthria Psychiatric: Orientation: cooperative Results & Data Results & Data ([facility]) Vital Signs (Past 12 Hours) Vital Signs Temp Pulse Pulse Resp BP Pulse Ox 03/28/20 08:06 36.8 C 50 L 20 117/68 96 03/27/20 23:23 36.2 C L 124 H 16 114/79 94
[2020-03-28] MEDS: ASPIRIN 81 MG ECTAB PO SCH (09:28)
[2020-03-28] MEDS: TOCOPHERYL, DL-ALPHA 400 UNITS CAP PO SCH (09:28)
[2020-03-28] MEDS: CHOLECALCIFEROL 1,000 UNITS 25 MCG TAB PO SCH (09:28)
[2020-03-28] MEDS: VENLAFAXINE HCL XR 75 MG CAPXR PO SCH (09:28)
[2020-03-28] MEDS: POTASSIUM CHLORIDE 10 MEQ TABCR PO SCH (09:28)
[2020-03-28] MEDS: AMOXICILLIN/CLAVULANATE 875 MG TAB PO SCH (09:28)
[2020-03-28] MEDS: CALCIUM CARBONATE 1250MG TAB PO SCH (09:29)
[2020-03-28] MEDS: APIXABAN 2.5 MG TAB PO SCH (09:29)
[2020-03-28] MEDS: busPIRone 5 MG TAB PO SCH (09:29)
[2020-03-28 09:33] VITALS: PULSE 60
[2020-03-28] MEDS: lisinopril 5 MG TAB PO SCH (09:33)
[2020-03-28] MEDS: METOPROLOL TARTRATE 25 MG TAB PO SCH (09:33)
--- NOTE | 2020-03-28 12:08 | Discharge Summary ---
Date of Service March 28, 2020 Admission HPI Per Admitting Provider DICTATED BY: Harsha Cuninngham MD DATE OF ADMISSION: 03/24/2020 CHIEF COMPLAINT: Short of breath and tachycardia. HISTORY OF PRESENT ILLNESS: This is an 84-year-old female, [facility] resident. The patient has baseline dementia and confusion. Past medical history is significant for hyperlipidemia, chronic gout, sleep apnea, AFib, chronic kidney disease stage III, hypertension, tricuspid valve regurgitation, aortic valve sclerosis, GERD, generalized anxiety disorder, and the patient ambulates with the help of walker and on low salt diet. Was getting more confused than usual and was tachypneic, short of breath, and tachycardic. When the EMS came, she was in rapid AFib, they gave 15 mg of Cardizem, her heart rate seemed to improve, but at the time osmin came to the ER, it was again in 160s, so she was started on Cardizem drip. Currently, her heart rate is in the low 100s, alert and awake, oriented to name only. Denies any headache or any pain. No nausea. Most of the questions she answers she does not know. Could not get any history from the patient. As per the longterm, she was more confused than usual and tachycardic, tachypneic, and probably low-grade fever and short of breath and that is why she was brought in here. Lately, her balance has been off. She was diagnosed with COVID in December. Recently a few days ago, she was again tested as she went outside the facility and this came back negative. Currently afebrile and hemodynamically stable. Principal Diagnosis Paroxysmal atrial fibrillation with rapid ventricular response Chronic anticoagulation (with Eliquis) Chronic left bundle branch block hypertension Abnormal Chest X ray (Lung Infiltrates on Chest X ray) History of dementia History of depression sleep apnea Discharge Exam Eyes PERRL, conjunctivae normal, anicteric sclerae EOM intact bilaterally ENMT external ear and nose normal, oropharynx normal Neck normal visual inspection Respiratory normal respiratory effort Cardiovascular Rate/Rhythm: + bradycardic Gastrointestinal (Abdomen) normal bowel sounds, soft, nontender, no hepatosplenomegaly Musculoskeletal Head/Neck/Chest: normocephalic Neurologic PERRL, EOMI, accommodation nl, no face palsy, no dysarthria Psychiatric Orientation: cooperative Affect: + anxious affect Discharge Data Allergies Allergy/AdvReac Type Severity Reaction Status Date / Time alendronate sodium Allergy Intermediate HIVES Verified 03/24/20 21:24 naproxen Allergy Mild EDEMA Verified 03/24/20 21:25 simvastatin AdvReac Mild MUSCLE Verified 03/24/20 21:25 FATIGUE Consultations 03/24/20 21:09 ED Decision to Admit Stat 03/25/20 01:18 Consult Case Management - Discharge Planning Routine 03/25/20 08:00 Consult Cardiology Routine 03/27/20 08:00 Consult Palliative Care Routine Hospital Course (1) Atrial fibrillation with RVR: Paroxysmal atrial fibrillation with rapid ventricular response Chronic anticoagulation (with Eliquis) Chronic left bundle branch block -as per 03/24/2020 ER note: "The patient presents to the ED with a chief complaint of rapid atrial fibrillation. The patient was having palpitations that started this evening. EMS was called. She was also breathing heavily and staff noticed this at the local nursing facility where she resides. EMS provided 15 mg of IV Cardizem. This did transiently slow the patient's heart rate down into the 80s or 90s. Her heart rate increased to about 170 upon her arrival here. Patient denies any recent illness. She is in the non-Covid unit at the [facility]. She has no additional complaints at this time. She does have a chronic history of paroxysmal atrial fibrillation with RVR and is chronically on Eliquis." -mild elevated initial troponin of 0.049 on presentation which trended down, initial troponin appears to be related to initial rapid ventricular response from the atrial fibrillation -patient was transitioned from IV Cardiazem drip to metoprolol by admitting hospitalist -as of 03/25/2020: Patient converted from the admission atrial fibrillation with RVR to sinus bradycardia around 7 AM on 03/25/2020 .patient breathing on room air. no respiratory distress. patient does not appear to be in pain. patient is a poor historian on review of systems and health history. patient is very easily started by loud noises included loud speech. otherwise, patient cooperative on exam. as per nursing staff, she reports that she had communicated with patient's daughter that patient can get aggressive with behavior at [facility] but patient currently has been cooperative on exam. -as per 03/25/2020 cardiology notes " Patient is a an 84-year-old female with well-documented history of paroxysmal atrial fibrillation, underlying conduction system disease with left bundle branch block, sinus bradycardia poorly tolerant of AV minh blocking drugs past who presents now once again having lapsed into atrial fibrillation. Patient poorly tolerant of the rhythm when present by echocardiography proved on spontaneous conversion to sinus as patient has done multiple times in the past. Patient appropriately anticoagulated with Eliquis. Not a long-term candidate for antiarrhythmic therapy or pacemaker insertion in light of significantly progressive dementia Patient has received oral metoprolol today We will consider restarting metoprolol succinate 12.5 mg in a.m. holding further metoprolol today Would recommend continuing Eliquis, increasing lisinopril to 5 mg p.o. twice daily, add potassium supplement at 10 mEq p.o. daily chronically We will give single dose of IV furosemide today 10 mg with 20 equivalents potassium chest x-ray demonstrated mild congestive heart failure not unexpected given findings on echocardiogram during elevated heart rates" -hospitalist updates for 03/26/2020: (daughter Karlene [phone] has been updated on 03/25/2020 and 03/26/2020 and despite being updated of patient's hemodynamic stability, she is concerned of patient's progressive functional decline after history of COVID diagnosed 01/20/2020 with subsequent hospitalizations and she requests for palliative care consult to speak with her and her brother on future goals of care. At this time, she allows for full treatment of medical issues as per standards of care while affirmed code status to be DNI/DNR -patient subsequently had adjustments with lisinopril, potassium, and Lasix 20 mg x 1 on 03/26/2020 and for beta noah - however she returned to atrial fibrillation with RVR and started again on Diltiazem drip by night time hospitalist. Discussed with cardiology Dr. Eastman and while we are continuing to adjust cardiac medications today and assist with repletion of electrolytes (she is given additional potassium and magnesium), her overall cardiac prognosis is poor as per Dr. Eastman and he agrees with palliative care involvement in patient's care. On exam in the AM of 03/27/2020, patient continues to be in atrial fibrillation with tachycardia but patient does not appear to feel chest pain or palpitations. She is on nasal cannula oxygen. She is verbal, but cannot answer questions on review of systems, she is oriented to herself consistent with her history of dementia -03/28/2020: While on medical swain, her heart rates in the AM was recorded to be in the 50s. It would appear that patient had at this time converted from atrial fibrillation to sinus bradycardia. Currently on metoprolol 25 mg BID. Hospitalist discussed with Karlene by phone whether change in the cardiac status affects the previous plans for discharge to [facility] to hospice. Patient's daughter says she would still like patient to return to [facility] to hospice and continue the oral cardiac medications. Hypertension -lisinopril Abnormal Chest X ray (Lung Infiltrates on Chest X ray) -admission CXR: Cardiomegaly with diffuse coarsening of the interstitium. This could represent a component of mild congestive failure or possibly an infectious/inflammatory pneumonitis. -admitting hospitalist Empirically started on Rocephin and doxycycline in case of any pneumonia -current hospitalist question whether there is even a pneumonia: can continue antibiotics for now, check procalcitonin levels, check BNP -of note that patient had positive COVID-19 test on 01/20/2020 -COVID 19 negative tests on 02/21/2020, and on 03/24/2020 -repeat CXR on 03/26/2020: Cardiomegaly with evidence of congestive failure. Coarsening of the interstitium likely represents pulmonary edema. Correlate clinically for evidence of a superimposed infectious/inflammatory pneumonitis. Layering pleural effusions with bibasilar consolidation. These are new from 03/24/2020. History of dementia -reorient as needed -on home dose venlafaxine 75 mg daily and buspar 10 mg bid -on risperidone prn -added ativan low dose prn for agitation or anxiety on this admission History of depression -Continue venlafaxine. Sleep apnea -on CPAP. Deep venous thrombosis prophylaxis: on home dose Eliquis and home dose aspirin Code status is DNR as per admission hospitalist discussion with Joshua Walsh. The patient has POLST form as per Joshua Walsh. DNR/DNI affirmed by her daughter Karlene daughter Karlene [phone] has been updated on 03/25/2020 and 03/26/2020 and de spite being updated of patient's hemodynamic stability, she is concerned of patient's progressive functional decline after history of COVID diagnosed 01/20/2020 with subsequent hospitalizations discharge to [facility] with hospice through [facility] services Discharge medication sent electronically to [facility] [address] [place] [phone] discharge medications of Augmentin BID and Doxycycline BID for 7 days Metoprolol 25 mg BID for 30 day supply Lisinopril 5 mg BID for 30 day supply Potassium 10 meq daily for 30 day supply Additional pain control and Additional anxiolytic medications (such as ativan) as per [facility] hospice services and their further assessments Total Time Total Time Spent Total Time Spent (In Minutes): 40 minutes Total Time Includes: Examination of the Patient, Discharge Planning, Medication Reconciliation and Communication With Other Providers Discharge Plan Discharge Items Patient Disposition: Hospice - Medical Facility Reason For Visit: RAPID AFIB Discharge Diagnosis: Paroxysmal atrial fibrillation with rapid ventricular response Chronic anticoagulation (with Eliquis) Chronic left bundle branch block hypertension Abnormal Chest X ray (Lung Infiltrates on Chest X ray) History of dementia History of depression sleep apnea Condition on Discharge: Fair Activity: Per Instructions section Non-emergency contact: Primary Care Provider Call non-emergency contact if: you have any medication questions Follow-up/Referrals: Joel Helm MD [Physician] - 04/04/20 11:00 am (Date & Time 04/04/2020 11:00 AM Provider Joel Helm MD Department [facility] [Primary Care [facility] - Diet: Heart Healthy Addtl Attending Provider Instructions: discharge to [facility] with hospice through [facility] services Discharge medication sent electronically to [facility] [address] [place] [phone] discharge medications of Augmentin BID and Doxycycline BID for 7 days Metoprolol 25 mg BID for 30 day supply Lisinopril 5 mg BID for 30 day supply Potassium 10 meq daily for 30 day supply Additional pain control and Additional anxiolytic medications (such as ativan) as per [facility] services and their further assessments Pending Studies at Discharge: No Stand-Alone Forms: My [facility] Skilled Items Patient informed of condition?: Yes DNR: Yes Discharge Level of Care: Other Communicable Disease: Yes Discharge Prognosis: Other Lines: None Urinary Catheter: No Medications and DC Order Prescriptions: New lisinopril [Zestril] 5 mg Tablet 5 mg PO BID 30 Days Qty: 60 RF: 0 amoxicillin-pot clavulanate [Augmentin] 875-125 mg Tablet 1 tab PO BIDM 7 Days Qty: 14 RF: 0 potassium chloride [Klor-Con M10] 10 mEq Tablet,Er Particles/Crystals 10 meq PO DAILY 30 Days Qty: 30 RF: 0 metoprolol tartrate 25 mg Tablet 25 mg PO BID 30 Days Qty: 60 RF: 0 doxycycline hyclate 100 mg Capsule 100 mg PO BID 7 Days Qty: 14 RF: 0 Continued venlafaxine 75 mg capsule,extended release 24hr 75 mg PO DAILY RF: 0 aspirin 81 mg Tablet,Delayed Release (Dr/Ec) 81 mg PO DAILY RF: 0 cholecalciferol (vitamin D3) [Vitamin D3] 2,000 unit Capsule 2,000 units PO DAILY RF: 0 acetaminophen 325 mg Tablet 650 mg PO Q4H MDD 3 GMS APAP/24 HOURS PRN (Reason: Fever Or Pain) RF: 0 polyethylene glycol 3350 [ClearLax] 17 gram/dose Powder 17 g PO DAILY PRN (Reason: Constipation) RF: 0 risperidone 1 mg tablet 0.5 mg PO TID PRN (Reason: Anxiety) RF: 0 Eliquis 2.5 mg Tablet 2.5 mg PO BID 30 Days Qty: 60 RF: 0 calcium carbonate 500 mg calcium (1,250 mg) Tablet 500 mg PO BID RF: 0 buspirone 10 mg tablet 10 mg PO BID RF: 0 vitamin E 400 unit Capsule 400 unit PO BID RF: 0 Discontinued lisinopril [Zestril] 5 mg Tablet 5 mg PO QAM 30 Days Qty: 30 RF: 0 Discharge Orders: Discharge Order (Routine); Ordered 03/28/20 Ordered By: Kirby Caban Admission Data Admit Date/Time: 03/24/20 22:05 Attending Provider: Kirby Caban Admit Provider: Harsha Cunningham [facility] Other Providers: Harsha Cunningham ; Luis A Truong ; Natan Mcnamara ; Des Eastman ; Kenny Dubois ; Shaan Park ; Wilfredo Hood ; Cassia Oneill ; Mara Wolf ; Kalia Moser ; Joanie Lee Other Interventions: Discharge Summary Assessment (RN) Last Done: 03/28/20 12:04
--- NOTE | 2020-04-11 07:14 | Coding Query ---
CONGESTIVE HEART FAILURE To Promote full compliance with coding requirements relating to patient care, physician participation is requested in all cases of plumbing warehouse helper uncertainty. Please assist us with the following questions. A diagnosis of Congestive Heart Failure is documented in the patient's medical record. To accurately code this diagnosis and to compare patient severity, we ask that you specify the type of heart failure by placing an X within the parenthesis (x). SYSTOLIC HEART FAILURE ( ) Acute ( ) Chronic ( ) Acute on Chronic ( ) Rheumatic ( ) Unknown DIASTOLIC HEART FAILURE ( ) Acute ( ) Chronic ( ) Acute on Chronic ( ) Rheumatic ( ) Unknown COMBINED SYSTOLIC AND DIASTOLIC HEART FAILURE ( ) Acute ( ) Chronic ( ) Acute on Chronic ( ) Rheumatic ( ) Unknown Was the CHF Present On Admission? Please check the appropriate box: ( ) Present on Admission ( ) Not Present On Admission ( ) Clinically undetermined Thank you for your time, NIYAH Mclaughlin, TEAM MEMBER please query the continuous dryout operator helper SISI
--- NOTE | 2020-04-11 07:18 | Coding Query ---
CODING QUERY To promote full compliance with coding requirements relating to patient care, provider participation is requested in all cases of steam clean machine operator uncertainty. Please assist us with the question(s) below: Coding Question(s): Dr. Caban, Please clarify if the following diagnoses were confirmed and treated or ruled out. Elevated troponin due to demand ischemia ( ) Present and treated ( ) Ruled out ( ) Other, please explain ( ) Unable to determine Pneumonia ( ) Present and treated ( ) Ruled out ( ) Other, please explain ( ) Unable to determine Physician's Response(s): none of the above requires a diagnosis as there was no pneumonia. an elevated troponin does not indicate a clinical diagnosis Thank you for your time, NIYAH Mclaughlin, [facility] Principal Diagnosis: "that condition established after study, to be chiefly responsible for occasioning the admission of the patient to the hospital for care." Co-Existing Principal Diagnosis: "when two or more diagnoses equally meet the criteria for principal diagnosis as determined by the circumstances of admission, diagnostic work up, and/or therapy provided, and the Alphabetic Index, Tabular List, or another coding guideline does not provide sequencing direction, any one of the diagnoses may be sequenced first." "When the physician has documented what appears to be a current diagnosis in the body of the record, but has not included the diagnosis in the final diagnostic statement, the physician should be asked whether the diagnosis should be added." (Source [facility]oding [facility] 2 QTR90. p3-4) SISI
--- NOTE | 2020-04-12 06:17 | Coding Query ---
CONGESTIVE HEART FAILURE To Promote full compliance with coding requirements relating to patient care, physician participation is requested in all cases of cardiovascular radiologic technologist uncertainty. Please assist us with the following questions. A diagnosis of Congestive Heart Failure is documented in the patient's medical record. To accurately code this diagnosis and to compare patient severity, we ask that you specify the type of heart failure by placing an X within the parenthesis (x). 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 Please check the appropriate box: ( x) Present on Admission ( ) Not Present On Admission ( ) Clinically undetermined Thank you for your time, NIYAH Mclaughlin, [facility]
== END 2020-03-28 16:20 | disposition hospice, inpatient (51) | DRG 291 ==
LOC: ED 17:42 → 2S 22:05 → 3W 03-27 15:14